=== PATIENT | female | born 1945 | race Caucasian/White ===

== ENCOUNTER 2016-04-08 06:07 | Inpatient (IN) | payer OTHER, MEDICARE ==
[~2016-04-08] VITALS: Ht 160 cm; Wt 87.5 kg
[~2016-04-08 06:07] MED LIST: ACTOS30 M1 PO; AMLODIPINE10 MG PO; ASPIRIN CHILDRE81 MG PO; ASPIRIN EC325 MG PO; ATENOLOL100 M1 PO; ATORVASTATIN CA10 M1 PO; Aspirin PO; CATAPRES0.1 M1 PO; COZAAR 100MG T100 MG PO; COZAAR 50MG TAB50 MG PO; CYCLOBENZAPRINE5 M2 PO; CYMBALTA 30 MG30 MG PO; FENOFIBRATE200 MG PO; HCTZ/LISINOPRIL1 TA1 PO; HYDRODIURIL 112.5 MG PO; IBUPROFEN400 M1 PO; KEFLEX250 M1 PO; LEVEMIR 10100 UNITS/ SC; LEVEMIR FL300 UNITS/ SC; LEVEMIR100 U/ML SC; LEVEMIR100 UNIT/1 SC; LISINOPRIL-HCT1 EACH PO; LISINOPRIL/HCTZ1 TAB PO; LOSARTAN POTAS100 M1 PO; LOSARTAN POTAS100 MG PO; MAG-OX 400400 MG PO; MAGNESIUM400 M1 PO; NOVOLOG 10300 UNITS/ SC; NOVOLOG100 U/ML SC; OXYCODONE5 MG PO; PEPCID 20MG TAB20 MG PO; PERCOCET 5-3251 EACH PO; PIOGLITAZONE15 MG PO; POTASSIUM CHLO20 ME2 PO; PRILOSEC 20MG C20 MG PO; PROAIR HFA8.5 GM INH; RANITIDINE150 MG PO; REGLAN10 MG PO; SENOKOT S 50 MG1 TAB PO; SUCRALFATE1 GM PO; SYNTHROID150 MCG PO; TRAMADOL HCL50 M1 PO; TRAMADOL50 MG PO; TYLENOL TAB 32325 MG PO; TYLENOL XSTR500 MG PO; ULTRACET 325 MG1 TAB PO; ULTRAM(MONOGRAP50 MG PO; VICODIN 5-3001 EACH PO; VICODIN 500 MG-1 TAB PO; XANAX2 MG PO; ZOFRAN 4 MG TABL4 MG PO; ZOFRAN 8MG8 MG PO; ZOFRAN ODT4 M1 PO; ZOFRAN ODT4 M1 SL; ZOFRAN ODT4 MG SL
--- NOTE | 2016-04-08 06:13 | NUR ---
TRIAGE: PATIENT CHATO FROM HOME REPORTING WAS TOLD BY VISITING NURSE (HAS VISITING NURSE D/T LOST BALANCE AND FELL 03/02/16 SINCE +BILAT KNEE PAIN) TO COME IN TO ER ON TUESDAY FOR GENERALIZED BODY ACHES. PATIENT REPORTS DID NOT WANT TO COME IN, WAITED IT OUT AND CAME IN THIS AM D/T "PAIN TOO MUCH." PER PT, "VISITING RN TOLD ME RETAINING FLUID, BUT DIDN'T TELL ME WHY." PER EMS, PATIENTS FAMILY REPORTED TO EMS ON SCENE, "SHE'S HAVING PAIN AGAIN, 4TH TIME THIS WEEK." PATIENT RELCTANT TO MOVE ON OWN, MOVES W/ MINIMAL DIFFICULTY BY SELF WITH ENCOURAGEMENT.
[2016-04-08] MEDS ORDERED: FUROSEMIDE20 M1 PO (06:15)
--- NOTE | 2016-04-08 06:19 | NUR ---
MD RUFFIN TO BEDSIDE FOR EVAL. PATIENT'S AT BEDSIDE W/ PATIENT PER PATIENT REQUEST.
--- NOTE | 2016-04-08 06:34 | ED GENERAL ADULT ---
History of Present Illness General Chief Complaint: General Adult Stated Complaint: CHATO GENEARLIZED BODY ACHES SINCE TUESDAY Source: patient, family, old records, EMS Exam Limitations: no limitations Vital Signs & Intake/Output Vital Signs & Intake/Output Vital Signs Date Time Temp Pulse Resp B/P Pulse O2 O2 Flow FiO2 Ox Delivery Rate 04/09 1151 Room Air 04/09 1138 Room Air 04/09 0924 150/74 04/09 0923 150/74 04/09 0830 92.4 80 100 Room Air 04/09 0654 92.5 50 20 150/74 97 Room Air 04/08 2245 97.9 60 20 170/76 99 Room Air 04/08 1740 97.7 68 20 150/72 99 Room Air 04/08 1531 76 18 185/76 98 Room Air ED Intake and Output 04/09 0000 04/08 1200 Intake Total 700 Output Total Balance 700 Intake, Oral 700 Patient 181 lb 181 lb Weight Allergies Coded Allergies: codeine (Severe, RASH, DIFFICULTY BREATHING 04/08/16) morphine (Severe, SHORTNESS OF BREATH 04/08/16) Triage Note: TRIAGE: PATIENT CHATO FROM HOME REPORTING WAS TOLD BY VISITING NURSE (HAS VISITING NURSE D/T LOST BALANCE AND FELL 03/02/16 SINCE +BILAT KNEE PAIN) TO COME IN TO ER ON TUESDAY FOR GENERALIZED BODY ACHES. PATIENT REPORTS DID NOT WANT TO COME IN, WAITED IT OUT AND CAME IN THIS AM D/T "PAIN TOO MUCH." PER PT, "VISITING RN TOLD ME RETAINING FLUID, BUT DIDN'T TELL ME WHY." PER EMS, PATIENTS FAMILY REPORTED TO EMS ON SCENE, "SHE'S HAVING PAIN AGAIN, 4TH TIME THIS WEEK." PATIENT RELCTANT TO MOVE ON OWN, MOVES W/ MINIMAL DIFFICULTY BY SELF WITH ENCOURAGEMENT. Triage Nurses Notes Reviewed? yes HPI: Patient brought in by ambulance for pain in both legs and her left hip. The pain is been there ever since she fell back in February. Patient states that shortly after falling she was prescribed Percocet which was helping the pain and then when the Percocet ran out she was prescribed tramadol which didn't help nearly as well and a chair at all ran out and since then she has not been taking anything. Patient has physical therapists in [facility] to go to her house. The visiting nurse told her yesterday that the pain was because she was swollen up with fluid everywhere. Her nurse called her primary care physician who told her to come to the office however the patient decided not to and then waited until this morning to call the ambulance to come in for evaluation. The pain is aching in nature and is constant. There is radiation to the rest of her body. There are no aggravating or mitigating factors. She rates the pain is 10 out of 10. There is no difficulty breathing or orthopnea. There is no chest pain or palpitations. There are no fevers or chills. (AUGUSTIN HERMAN,ADRIAN Johnson) Reconcile Medications Aspirin (Children's Aspirin) 81 MG TAB.CHEW 81 MG PO DAILY HEART TAKE 1 TAB PO DAILY Atenolol 100 MG TABLET 1 TAB PO 1300 HEART (Reported) Atorvastatin Calcium 10 MG TABLET 50 MG PO 1300 HEART HEALTH (Reported) Clonidine HCl (Catapres) 0.1 MG TABLET 1 TAB PO DAILY BP (Reported) FENOFIBRATE,MICRONIZED (Fenofibrate) 200 MG CAPSULE 1 CAP PO DAILY HLD ( Reported) Furosemide 20 MG TABLET 1 TAB PO DAILY edema (Reported) Insulin Detemir (Levemir) 100 UNIT/1 ML VIAL 40 UNITS SC BID DIABETES ( Reported) Levothyroxine Sodium (Synthroid) 150 MCG TABLET 1 TAB PO DAILY AC THYROID ( Reported) Lisinopril/Hydrochlorothiazide (Lisinopril-Hctz 20-12.5 MG Tab) 20 MG-12.5 MG TABLET 1 TAB PO DAILY HIGH BLOOD PRESSURE (Reported) Magnesium Oxide (Magnesium) 400 MG CAPSULE 20.5 MG PO DAILY VITAMIN SUPPORT ( Reported) Pioglitazone HCl (Actos) 30 MG TABLET 1 TAB PO DAILY DIABETES (Reported) (JOYCE HERMAN,DAVONTE Chand) Past History Travel History Traveled to [place] past 21 day No Medical History Any Pertinent Medical History? 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 No (AUGUSTIN HERMAN,ADRIAN Johnson) Review of Systems Review of Systems Constitutional: Reports: no symptoms. EENTM: Reports: no symptoms. Respiratory: Reports: no symptoms. Cardiovascular: Reports: no symptoms. GI: Reports: no symptoms. Genitourinary: Reports: no symptoms. Musculoskeletal: Reports: see HPI. Skin: Reports: no symptoms. Neurological/Psychological: Reports: no symptoms. Hematologic/Endocrine: Reports: no symptoms. Immunologic/Allergic: Reports: no symptoms. All Other Systems: Reviewed and Negative (AUGUSTIN HERMAN,ADRIAN Johnson) Physical Exam Physical Exam General Appearance: well developed/nourished, alert, awake, moderate distress Head: atraumatic, normal appearance Eyes: Bilateral: PERRL, EOMI. Ears, Nose, Throat: normal pharynx, normal ENT inspection, hearing grossly normal Neck: normal inspection, supple, full range of motion, no midline tenderness Respiratory: normal breath sounds, chest non-tender, no respiratory distress, lungs clear Cardiovascular: regular rate/rhythm, normal peripheral pulses Gastrointestinal: normal bowel sounds, soft, non-tender Back: normal inspection, normal range of motion Extremities: normal inspection, normal capillary refill, pedal edema (TRACE), PAIN TO ANY MOVEMENT Neurologic/Psych: no motor/sensory deficits, awake, alert, oriented x 3, normal mood/affect Skin: intact, normal color, warm/dry Comments: Patient has full range of motion and is able to ambulate at home however she says that it hurts immensely to any movement of her legs. Core Measures ACS in differential dx? No CVA/TIA Diagnosis: No Severe Sepsis Present: No Septic Shock Present: No (AUGUSTIN HERMAN,ADRIAN Johnson) Progress Differential Diagnoses I considered the following diagnoses in my evaluation of the patient: [Diastolic dysfunction, third spacing, muscle strain] Plan of Care: Orders Procedure Date/time Status Pain Treatment and Response 04/09 1015 Active THYROID STIMULATING HORMONE 04/09 0730 Complete TOTAL TRIODOTHYROXINE 04/09 0730 Complete THYROXINE 04/09 0730 Complete TOTAL IRON BINDING CAPACITY 04/09 0600 Complete PROTHROMBIN TIME 04/09 0600 Complete HEPATIC FUNCTION PANEL 04/09 0600 Complete FERRITIN 04/09 0600 Complete SERUM IRON 04/09 0600 Complete CBC WITHOUT DIFFERENTIAL 04/09 0600 Complete BASIC ELECTROLYTES PLUS BUN&CR 04/09 0600 Complete Therapeutic Activities 04/09 UNK Complete PT EVAL MOD COMPLEX 30 MIN 04/09 UNK Complete Neuromuscular Re-ed 04/09 UNK Complete Gait Training 04/09 UNK Complete Lab Add-on Test 04/09 UNK Active EKG 04/09 UNK Active ECHOCARDIOGRAM 04/09 UNK Active Consistent Carbohydrate 3 04/08 D Active Wound Care/Dressing 04/08 1958 Active Skin Integrity Protocol 04/08 1958 Active Skin/Pressure Ulcer Assess (Sk 04/08 1958 Active Code Status 04/08 1913 Active Vital Signs 04/08 1726 Active Teach/Educate 04/08 1726 Active Nutritional Intake, Monitor 04/08 1726 Active Isolation 04/08 1726 Active Intake & Output 04/08 1726 Active Patient Care Conference 04/08 1726 Active Activity/Ambulation 04/08 1726 Active Pathway - chart 04/08 1715 Active House Staff 04/08 1715 Active Misc Message 04/08 1529 Active ED Holding Orders 04/08 1529 Active Vital Signs 04/08 1529 Active Code Status 04/08 1529 Complete Patient Data 04/08 1458 Active Admit to inpatient 04/08 1455 Active VIT D 25 HYDROXY 04/08 0638 Complete VITAMIN B12 04/08 0638 Complete Intake & Output 04/08 0609 Active Lab Add-on Test 04/08 UNK Active Wound Care/Dressing 04/08 UNK Complete VTE Mechanical Prophylaxis 04/08 UNK Active FingerStick- Glucose 04/08 UNK Active PHYSICIAN CONSULT 04/08 UNK Active Current Medications Sig/Radha Start time Last Medication Dose Stop Time Status Admin Atorvastatin Calcium 50 MG 1300 04/09 1300 AC (Lipitor) Insulin Aspart 0 TIDAC 04/09 0800 AC (NovoLOG) Insulin Detemir 40 UNITS BID 04/08 2200 AC (Levemir) Senna/Docusate Sodium 2 TAB DAILY PRN 04/08 2100 CAN (Senokot S) Senna/Docusate Sodium 2 TAB DAILY PRN 04/08 1845 AC (Senokot S) Polyethylene Glycol 17 GM DAILY 04/08 1832 AC (Miralax) Oxycodone HCl 5 MG Q6P PRN 04/08 1715 AC (Roxicodone) Acetaminophen 650 MG Q6P PRN 04/08 1700 AC (Tylenol) Laboratory Tests 04/09/16 0730: Anion Gap 10, Estimated GFR 21 L, BUN/Creatinine Ratio 20.9, Iron 42, TIBC 193 L, Ferritin 266.0 H, Total Bilirubin 1.0, Direct Bilirubin 0.7 H, AST 76 H, ALT 54 H, Alkaline Phosphatase 148 H, Total Protein 5.8 L, Albumin 2.0 L, TSH 5.670 H, Thyroxine (T4) 9.1, Total T3 0.54 L, PT 14.6 H, INR 1.40 H, CBC w Diff NO MAN DIFF REQ, RBC 2.56 L, MCV 106.1 H, MCH 35.6 H, RDW 19.0 H, MPV 9.0, Gran % 79.0 H, Lymphocytes % 12.9 L, Monocytes % 6.4, Eosinophils % 1.2, Basophils % 0.5, Absolute Granulocytes 4.8, Absolute Lymphocytes 0.8 L, Absolute Monocytes 0.4, Absolute Eosinophils 0.1, Absolute Basophils 0, PUBS MCHC 33.5 Initial ED EKG: none Hand-Off Endorsed To: DAVONTE COOK MD Endorsed Time: 0700 Pending: labs (AUGUSTIN HERMAN,ADRIAN Johnson) Differential Diagnoses I considered the following diagnoses in my evaluation of the patient: Comments: 04/08/2016 10:08:00 AM patient signed out to me by Dr. Eubanks. I have updated the patient on her test results. She states that she is far too weak and having too much bilateral hip and leg pain for discharge. She states she cannot ambulate safely. (JOYCE HERMAN,DAVONTE Chand) Departure Departure Disposition: STILL A PATIENT Condition: Stable Clinical Impression Primary Impression: Leg pain, bilateral Referrals: ARLEEN HORN MD (PCP/Family) Departure Forms: Customer Survey General Discharge Information (AUGUSTIN HERMAN,ADRIAN Johnson) Admission Note Spoke With: ALIREZA MARK MD Documentation of Exam: Documentation of any treatments & extenuating circumstances including Concerns Regarding Discharge (functional status, medication knowledge or non-compliance, living conditions, etc.) that warrant an admission rather than observation: Patient is suffering from an inability to ambulate secondary to weakness and gait instability. In addition she is suffering and anemia and has chronic renal insufficiency. She can be safely discharged under the circumstances and would be at very high risk of falling with subsequent injury. I feel she is not a good candidate for outpatient management at this time. She should have physical therapy evaluation, monitoring of renal functions and hematocrit and hemoglobin levels. I feel she will require a multiple day hospitalization. (JOYCE HERMAN,DAVONTE Chand) Critical Care Note Critical Care Note Critical Care Time: non-applicable (AUGUSTIN HERMAN,ADRIAN Johnson)
[2016-04-08 06:46] LABS: ABSOLUTE BASOPHIL COUNT 0 /CUMM (0.0-0.2); ABSOLUTE EOSINOPHIL COUNT 0.1 /CUMM (0.0-0.7); ABSOLUTE GRANULOCYTE CT 3.9 /CUMM (1.4-6.5); ABSOLUTE LYMPH COUNT 0.8 /CUMM (1.2-3.4); ABSOLUTE MONOCYTE COUNT 0.4 /CUMM (0.10-0.60); BASOPHIL % 0.6 % (0.0-2.0); EOSINOPHIL % 1.8 % (0-5); GRANULOCYTE % 73.6 % (42.2-75.2); HEMATOCRIT 29.5 % (37-47); MEAN CORPUSCULAR HGB 34.7 PG (27.0-31.0); MEAN CORPUSCULAR VOLUME 105.2 FL (81.0-99.0); MEAN PLATELET VOLUME 8.2 FL (7.4-10.4); RBC DISTRIBUTION WIDTH 19.4 % (11.5-14.5); WHITE BLOOD CELL COUNT 5.3 /CUMM (4.8-10.8)
--- NOTE | 2016-04-08 06:53 | NUR ---
Pt medicated for pain with Percocet per eMAR.
[2016-04-08 07:11] LABS: PLATELET COUNT ND /CUMM (130-400)
--- NOTE | 2016-04-08 07:30 | NUR ---
ASSUMED CARE, PT AWAKE, C/O LEFT LOWER LEG PAIN, PERCOCET HELPFUL.
--- NOTE | 2016-04-08 08:07 | NUR ---
PT AWARE OF NEED FOR UA.
--- NOTE | 2016-04-08 08:52 | NUR ---
URINE SENT TO LAB BY THIS MST
--- NOTE | 2016-04-08 10:06 | NUR ---
DR. COOK IN TO RE-EVALUATE.
--- NOTE | 2016-04-08 10:23 | NUR ---
AWAITING CASE MANAGEMENT.
--- NOTE | 2016-04-08 10:37 | NUR ---
FOOD TRAY ORDERED.
--- NOTE | 2016-04-08 12:52 | NUR ---
PT TO COMMODE WITH ASSISTANCE. UNABLE TO AMBULATE ALONE, BUT CAN SIT TO EDGE OF BED
--- NOTE | 2016-04-08 14:46 | NUR ---
MEDICATED FOR PAIN.
--- NOTE | 2016-04-08 14:57 | NUR ---
ROXICODONE NOT GIVEN.
--- NOTE | 2016-04-08 15:20 | NUR ---
HOUSE STAFF HERE TO EVALUATE.
--- NOTE | 2016-04-08 15:46 | History & Physical ---
GIA HERMAN,[facility] 04/08/16 1545: General Information and HPI MD Statement: I have seen and personally examined MALIK LOVE and documented this H&P. The patient is a 70 year old F who presented with a patient stated chief complaint of bilateral lower ext pain and hip pain Source of Information: patient, old records Exam Limitations: no limitations History of Present Illness: This is a 70-year-old female with past medical history of hypothyroidism, hyperlipidemia, diabetes mellitus, hypertension for evaluation of pain in legs and her left hip. As per patient she has been having this pain in her hip area since last month, ever since she fell in shower last month, at that time she was seen in ER and was prescribed some pain meds and I was asked to follow-up with ortho as an outpatient, she did not. She was taking Percocet was helping her with pain, initially was controlling the pain but for the past couple of days the pain has progressively increased the point that the visiting nurse called her primary care physician and was asked to come to the clinic but instead secondary to the immense amount of pain to decide to come to the ER for further evaluation. She describes the pain as aching in nature in the left hip and both of her legs but more pronounced in the left side. She rates the pain 10 on 10 in intensity, aggravated with movement. Denies any nausea, vomiting, abdominal pain, any changes in the bowel movements, any urine symptoms, recent travels, dizziness, palpitation, chest pain, blackouts, syncope, headache. She had a colonoscopy done but is unsure what the results of the biopsy were, follows Dr. shaffer. Allergies/Medications Allergies: Coded Allergies: codeine (Severe, RASH, DIFFICULTY BREATHING 04/08/16) morphine (Severe, SHORTNESS OF BREATH 04/08/16) Home Med list Aspirin (Children's Aspirin) 81 MG TAB.CHEW 81 MG PO DAILY HEART TAKE 1 TAB PO DAILY Atenolol 100 MG TABLET 1 TAB PO 1300 HEART (Reported) Atorvastatin Calcium 10 MG TABLET 50 MG PO 1300 HEART HEALTH (Reported) Clonidine HCl (Catapres) 0.1 MG TABLET 1 TAB PO DAILY BP (Reported) FENOFIBRATE,MICRONIZED (Fenofibrate) 200 MG CAPSULE 1 CAP PO DAILY HLD ( Reported) Furosemide 20 MG TABLET 1 TAB PO DAILY edema (Reported) Insulin Detemir (Levemir) 100 UNIT/1 ML VIAL 40 UNITS SC BID DIABETES ( Reported) Levothyroxine Sodium (Synthroid) 150 MCG TABLET 1 TAB PO DAILY AC THYROID ( Reported) Lisinopril/Hydrochlorothiazide (Lisinopril-Hctz 20-12.5 MG Tab) 20 MG-12.5 MG TABLET 1 TAB PO DAILY HIGH BLOOD PRESSURE (Reported) Magnesium Oxide (Magnesium) 400 MG CAPSULE 20.5 MG PO DAILY VITAMIN SUPPORT ( Reported) Pioglitazone HCl (Actos) 30 MG TABLET 1 TAB PO DAILY DIABETES (Reported) Past History Travel History Traveled to [place] past 21 day No Medical History Neurological: NONE EENT: NONE Cardiovascular: hypertension, hyperlipidemia Respiratory: NONE Gastrointestinal: NONE Hepatic: NONE Renal: NONE Musculoskeletal: NONE Psychiatric: NONE Endocrine: diabetes, hypothyroidism Blood Disorders: NONE Cancer(s): NONE 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 Denies: chills, fever. Cardiovascular: Denies: chest pain, palpitations. Respiratory: Denies: cough, short of breath, sputum production. GI: Denies: abdominal pain, constipation, diarrhea, nausea, vomiting. Genitourinary: Denies: dysuria, frequency. Musculoskeletal: Reports: see HPI, joint pain. Exam & Diagnostic Data Last 24 Hrs of Vital Signs/I&O Vital Signs Date Time Temp Pulse Resp B/P Pulse O2 O2 Flow FiO2 Ox Delivery Rate 04/08 1740 97.7 68 20 150/72 99 Room Air 04/08 1531 76 18 185/76 98 Room Air 04/08 1238 97.8 61 18 162/94 97 04/08 1100 97.5 84 20 189/79 99 04/08 0754 98.1 60 20 156/70 100 Room Air 04/08 0616 Room Air 04/08 0616 98.4 88 19 179/77 94 Room Air Intake & Output 04/08 1600 04/08 0800 04/08 0000 Intake Total Output Total Balance Patient 82.1 kg Weight Physical Exam General Appearance Alert, Oriented X3, Cooperative Cardiovascular Regular Rate, Normal S1, Normal S2, No Murmurs Lungs Clear to Auscultation, Normal Air Movement Abdomen Normal Bowel Sounds, Soft, No Tenderness Extremities No Clubbing, No Cyanosis, No Edema Last 24 Hrs of Labs/Diego: Laboratory Tests 04/08/16 0849: Urinalysis LIGHT H, Urine Color [place], Urine Clarity HAZY H, Urine pH 6.0, Ur Specific [place] >= 1.030, Urine Protein >=300 H, Urine Ketones NEG, Urine Nitrite NEG, Urine Bilirubin NEG@ICTO, Urine Urobilinogen 1.0, Ur Leukocyte Esterase NEG, Ur Microscopic SEDIMENT EXAMINED, Urine RBC 3-5, Urine WBC 5-10 H , Ur Epithelial Cells MOD H, Hyaline Casts 5-10 H, Granular Casts 1-3 H, Urine Mucus RARE, Urine Hemoglobin SMALL H, Urine Glucose NEG 04/08/16 0638: Anion Gap 12, Estimated GFR 21 L, BUN/Creatinine Ratio 20.9, Glucose 107 H, Calcium 7.5 L, Total Bilirubin 1.0, AST 77 H, ALT 52, Alkaline Phosphatase 213 H, Wrs-P-Owteovsyzgz Pept 73981 H, Total Protein 6.3, Albumin 2.3 L, Globulin 4.0, Albumin/Globulin Ratio 0.6 L, 25-OH Vitamin D Total Pending, CBC w Diff NO MAN DIFF REQ, RBC 2.80 L, MCV 105.2 H, MCH 34.7 H, RDW 19.4 H, Plt Count ND, MPV 8.2, Gran % 73.6, Lymphocytes % 15.6 L, Monocytes % 8.4, Eosinophils % 1.8, Basophils % 0.6, Absolute Granulocytes 3.9, Absolute Lymphocytes 0.8 L, Absolute Monocytes 0.4, Absolute Eosinophils 0.1, Absolute Basophils 0, PUBS MCHC 33.0 Assessment/Plan Assessment: This is a 70-year-old female with past medical history of hypothyroidism, hyperlipidemia, diabetes mellitus, hypertension for evaluation of pain in legs and her left hip. Mildly displaced, comminuted fracture of the greater trochanter of the left femur seen Vitals upon presentation, temperature 98.4, pulse 88, respiratory rate 19, 179/ 77, satting in high 90s on room air. Labs, H&H 9.7 and 29.5, creatinine 2.3, BUN 48 We will admit the patient to general medicine floor and monitor for the following conditions; Left-sided hip pain/ status post fall/hip fracture: Pain control with Tylenol for mild, oxycodone for moderate and Percocet for severe pain. Consult on Ortho in morning Monitor labs, IV fluids. History of hypothyroidism: We'll continue home dose of Synthroid 0.15mg daily History of hyperlipidemia: We'll continue home dose of atorvastatin 50 mg daily History of diabetes mellitus: Fingerstick glucose sliding scale Diabetic diet History of hypertension: We'll continue home dose of lisinopril 20 mg daily DVT prophylaxis As Ranked By This Provider Problem List: 1. Fracture of greater trochanter of left femur 2. Leg pain, bilateral 3. Back pain Core Measures/Miscellaneous Acute Coronary Syndrome ACS Diagnosis: No Cerebrovascular Accident CVA/TIA Diagnosis: No Congestive Heart Failure CHF Diagnosis: No Venous Thromboembolism VTE Risk Factors: Acute medical illness, Age > 40 VTE Prophylaxis [facility]dered Inpt: [facility] d/t: No contraindications No VTE Pharm Prophylaxis d/t: No contraindications VTE Diagnosis: No VTE Type: NONE VTE Confirmed by (Test): NONE Severe Sepsis Severe Sepsis Present: No Septic Shock Septic Shock Present: No Miscellaneous Documentation Attending Case Discussed With: BOLA HERMAN,ROHINI Craft Primary Care Physician: ARLEEN HORN MD Patient sees these Specialists . Level of Patient Care: General Medicine JOSSELIN THACKER MD 04/08/161939: Resident Review Statement Resident Statement: examined this patient, discussed with process engineering intern, agreed with process engineering intern Other Findings: 70 year old female with PMH of DM type 2 now insulin dependant, HTN, HLD, CKD, Hypothyroidism, s/p Lt ankle reconstruction here for persistent and worsening pain in her hip and LE following a mechanical fall with trauma to her head on mar 02. She reports losing her balance and falling in the shower. She sustained an mild comminuted fracture of the left femur and was seen in the ER by the orthopedic surgeon who deemed she did not need intervention at the time and should follow as outpatient but she was unable to follow up with him. She denies any loss of consciousness, dizziness or diplopia, nausea, vomiting or injury to her head. She has fallen several times in the past month because of unsteady gait luis a on her left and uses a walker for ambulation. She also reports recent swelling of her bilateral lower limbs and more recently her Rt upper arm and a history of abdominal swelling for which she follows up with Dr. Aviles. Elevated Pro BNP, abnormal LFTs Assessment 1. Pain and difficulty ambulating 2/2 Mildly displaced, comminuted fracture of the greater trochanter of the left femur 2. Anasarca of unclear origin-r/o cardiac origin vs hepatic origin 3. Type 2 DM on insulin 4. Microcytic anemia Plan Admit to general med Pain management PT Chest x-ray-rule out pleural effusion, cardiomegaly Obtain an echocardiogram Ortho consult Check Vit D, B12 Repeat labs in a.m. including platelets, LFTs, INR Anemia workup Resume her home medications She will need placement in STR Subcutaneous heparin for DVT prophylaxis PLAZAKASSIE CAROCeleste 04/09/16 1650: Attending MD Review Statement Attending Statement Attending MD Statement: examined this patient, discuss w/resident/PA/RN FIELD CASE MANAGER, agreed w/resident/PA/RN FIELD CASE MANAGER, reviewed EMR data (avail), discussed with nursing, discussed with case mgmt Attending Assessment/Plan: Patient seen and examined in ER . Please see my separate attending note for more details
--- NOTE | 2016-04-08 16:05 | NUR ---
PT ADMITTED TO ROOM 229-1
--- NOTE | 2016-04-08 16:45 | NUR ---
REPORT TO FLOOR.
[2016-04-08] MEDS ORDERED: EPZICOM TABLET1 EACH PO (17:26)
[2016-04-08] MEDS ORDERED: LISINOPRIL-HCT1 EACH PO ×2 (17:26→17:27)
--- NOTE | 2016-04-08 17:27 | Admission Certification ---
Admission Certification Certification Statement - As attending physician, I certify that at the time of - admission, based on clinical presentation, severity of - symptoms, need for further diagnostic testing and - therapeutic interventions, and risk of adverse outcomes - without in-hospital treatment, in my clinical assessment, - this patient requires an acute hospital stay for a minimum - of two nights or longer. I have also considered psychsocial - factors such as support system, advanced age, financial - issues, cognitive issues, and failed out-patient treatments, - past re-admission history, safety of patient, and lack of - compliance as applicable. Specific rationale supporting this admission is: Fluid overload with ascites, will need workup. Trochanteric fracture, will need ortho eval.
--- NOTE | 2016-04-08 17:30 | PN- Att Addend ---
Attending Addendum Attending Brief Note 70-year-old female who was recently seen in the emergency room on March 02 with a fall and was found to have greater trochanteric fracture of the femur for which she was evaluated by orthopedics and was supposed to follow up with them as an outpatient. Patient was unable to follow-up with orthopedics as an outpatient and started having pitting edema of both lower extremity as well as right upper extremity which is new for her. Patient also has a history of ascites of unclear etiology. Fluid overload unclear etiology-would get the echocardiogram to find out her ejection fraction. Fluid overload could also be related to her liver disease. Greater trochanteric fracture. We will get orthopedics to reevaluate her given that she was unable to follow-up with them as an outpatient. Next Discussed with patient the care plan
[2016-04-08 17:40] VITALS: BP 150/72
--- NOTE | 2016-04-08 19:50 | NUR ---
PT ARRIVED TO FLOOR FROM ER A/ O X 3, ON RA VSS, STATING PAIN TO LEFT HIP AND BILATERAL LOWER EXT. NO IV PLACED. BLE DRESSINGS PT STATED THE [facility] DID THEM THE OTHER DAY, SMALL OPEN AREAS TO POSTERIOR LOWER EXTREMITIES. XEROFORM, TELFA AND KERLEX APPLIED. +2 PITTING EDEMA TO BLE. RAISED ON PILLOWS. REFUSING ALPS AT THIS TIME. ABD DISTENDED WHICH IS NEW PER PATIENT. +BS X 4, +FLATUS, LAST BM YESTERDAY PER PATIENT. ORIENTED TO ROOM AND USE OF CALL COOK. BED ALARM IN PLACE. PT STATES SHE FELL ABOUT A MONTH AGO "THEY TOLD ME MY HIP IS FRACTURED. NO OBVIOUS BRUISING TO HIP NOTED. HIP IS EXTERNALLY ROTATED.
[2016-04-08 22:45] VITALS: BP 170/76
--- NOTE | 2016-04-08 23:04 | RADIOLOGY REPORT ---
EXAMINATION: XR PORTABLE CHEST CLINICAL INFORMATION: Anasarca. COMPARISON: 10/12/2015 TECHNIQUE: Portable view of the chest was obtained. FINDINGS: Low lung volumes. Streaky retrocardiac opacity. No effusion or edema. No pneumothorax. The cardiomediastinal silhouette remains prominent, with a calcified aorta. IMPRESSION: Low lung volumes with streaky retrocardiac opacity which could represent atelectasis or pneumonia. Stable prominence of the cardiac silhouette.
[2016-04-09 06:54] VITALS: BP 150/74
[2016-04-09 08:37] LABS: ABSOLUTE BASOPHIL COUNT 0 /CUMM (0.0-0.2); ABSOLUTE EOSINOPHIL COUNT 0.1 /CUMM (0.0-0.7); ABSOLUTE MONOCYTE COUNT 0.4 /CUMM (0.10-0.60); HEMATOCRIT 27.1 % (37-47); RED BLOOD CELL CT 2.56 /CUMM (4.20-5.40)
[2016-04-09 08:46] LABS: ABSOLUTE GRANULOCYTE CT 4.8 /CUMM (1.4-6.5); ABSOLUTE LYMPH COUNT 0.8 /CUMM (1.2-3.4); BASOPHIL % 0.5 % (0.0-2.0); EOSINOPHIL % 1.2 % (0-5); MEAN CORPUSCULAR HGB 35.6 PG (27.0-31.0); MEAN CORPUSCULAR HGB CONC 33.5 G/DL (33.0-37.0); MEAN CORPUSCULAR VOLUME 106.1 FL (81.0-99.0); PT 14.6 SEC (9.4-12.5); WHITE BLOOD CELL COUNT 6.1 /CUMM (4.8-10.8)
--- NOTE | 2016-04-09 08:47 | PN- Housestaff ---
Subjective Follow-up For: Status post hip fracture Subjective: Patient seen and examined this morning. She was lying comfortably in bed in no acute distress, she was reported to be hypothermic overnight, other vitals within normal limits. Continues to have edema in her bilateral lower extremities. No other Review of Systems Constitutional: Denies: chills, fever. Cardiovascular: Denies: chest pain, palpitations. Respiratory: Denies: cough, short of breath. Gastrointestinal: Denies: abdominal pain, constipation, diarrhea, nausea, vomiting. Genitourinary: Denies: dysuria, frequency. Objective Last 24 Hrs of Vital Signs/I&O Vital Signs Date Time Temp Pulse Resp B/P Pulse O2 O2 Flow FiO2 Ox Delivery Rate 04/09 1444 97.5 53 20 132/80 97 Room Air 04/09 1151 Room Air 04/09 1138 Room Air 04/09 0924 150/74 04/09 0923 150/74 04/09 0830 92.4 80 100 Room Air 04/09 0654 92.5 50 20 150/74 97 Room Air 04/08 2245 97.9 60 20 170/76 99 Room Air 04/08 1740 97.7 68 20 150/72 99 Room Air Intake & Output 04/09 1600 04/09 0800 04/09 0000 Intake Total 480 50 700 Output Total 400 Balance 480 -350 700 Intake, IV 0 0 Intake, Oral 480 50 700 Number 0 Bowel Movements Output, Urine 400 Patient 81.647 kg 82.1 kg Weight Physical Exam General Appearance: Alert, Oriented X3, Cooperative, No Acute Distress Cardiovascular: Regular Rate, Normal S1, Normal S2, No Murmurs Lungs: Clear to Auscultation, Normal Air Movement Abdomen: Normal Bowel Sounds, Soft, No Tenderness Extremities: b/l lower ext edema pitting Current Medications: Current Medications Sig/Radha Start time Last Medication Dose Route Stop Time Status Admin Acetaminophen 650 MG Q6P PRN 04/08 1700 AC PO Aspirin 81 MG DAILY 04/09 1000 AC 04/09 PO 0923 Atenolol 100 MG DAILY 04/08 1720 AC 04/09 PO 0924 Atorvastatin Calcium 50 MG 1300 04/09 1300 AC 04/09 PO 1647 Clonidine 0.1 MG DAILY 04/08 1719 AC 04/09 PO 0923 Docusate Sodium 100 MG DAILY 04/08 2100 DC 04/08 PO 2110 Docusate Sodium 100 MG DAILY 04/08 1832 AC 04/08 PO 2104 Fenofibrate 145 MG DAILY 04/09 1000 AC 04/09 PO 0924 Furosemide 20 MG BID 04/08 2200 AC 04/09 PO 0923 Heparin Sodium 5,000 UNIT Q8 04/08 1702 AC 04/09 (Porcine) SC 1446 Hydrochlorothiazide 12.5 MG DAILY 04/08 1730 AC 04/09 PO 0925 Insulin Aspart 0 TIDAC 04/09 0800 AC SC Insulin Detemir 40 UNITS BID 04/08 2200 AC SC Insulin Detemir 8 UNITS ONCE ONE 04/08 211 DC 04/08 SC 04/08 Levothyroxine Sodium 0.175 MG DAILY AC 04/10 0700 AC PO Levothyroxine Sodium 0.15 MG DAILY AC 04/09 0700 DC 04/09 PO 0554 Lisinopril 20 MG DAILY 04/09 1000 AC 04/09 PO 0924 Oxycodone HCl 5 MG Q6P PRN 04/08 1715 AC PO Oxycodone/ 1 TAB Q6P PRN 04/08 1700 AC 04/09 Acetaminophen PO 1646 Patient Medication 1 ED .STK-MED ONE 04/09 1358 DC Teaching ED 04/09 1359 Polyethylene Glycol 17 GM DAILY 04/08 2100 DC PO Polyethylene Glycol 17 GM DAILY 04/08 1832 AC PO Senna/Docusate Sodium 2 TAB DAILY PRN 04/08 2100 CAN PO Senna/Docusate Sodium 2 TAB DAILY PRN 04/08 1845 AC PO Last 24 Hrs of Lab/Diego Results Last 24 Hrs of Labs/Mics: Laboratory Tests 04/09/16 0730: Anion Gap 10, Estimated GFR 21 L, BUN/Creatinine Ratio 20.9, Phosphorus Pending , Iron 42, TIBC 193 L, Ferritin 266.0 H, Total Bilirubin 1.0, Direct Bilirubin 0.7 H, AST 76 H, ALT 54 H, Alkaline Phosphatase 148 H, Total Protein 5.8 L, Albumin 2.0 L, TSH 5.670 H, Thyroxine (T4) 9.1, Total T3 0.54 L, PT 14.6 H, INR 1.40 H, CBC w Diff NO MAN DIFF REQ, RBC 2.56 L, MCV 106.1 H, MCH 35.6 H, RDW 19.0 H, MPV 9.0, Gran % 79.0 H, Lymphocytes % 12.9 L, Monocytes % 6.4, Eosinophils % 1.2, Basophils % 0.5, Absolute Granulocytes 4.8, Absolute Lymphocytes 0.8 L, Absolute Monocytes 0.4, Absolute Eosinophils 0.1, Absolute Basophils 0, PUBS MCHC 33.5 Assessment/Plan Assessment: This is a 70-year-old female with past medical history of hypothyroidism, hyperlipidemia, diabetes mellitus, hypertension for evaluation of pain in legs and her left hip. Mildly displaced, comminuted fracture of the greater trochanter of the left femur seen Vitals upon presentation, temperature 98.4, pulse 88, respiratory rate 19, 179/ 77, satting in high 90s on room air. Labs, H&H 9.7 and 29.5, creatinine 2.3, BUN 48 We will admit the patient to general medicine floor and monitor for the following conditions; Left-sided hip pain/ status post fall/hip fracture: Pain control with Tylenol for mild, oxycodone for moderate and Percocet for severe pain. Ortho consulted, please f/u recs Monitor labs, IV fluids. History of hypothyroidism: We'll will increase Synthroid 0.15mg daily>> 0.175mg daily as TSH 5.670 History of hyperlipidemia: We'll continue home dose of atorvastatin 50 mg daily History of diabetes mellitus: Fingerstick glucose sliding scale Diabetic diet History of hypertension: We'll continue home dose of lisinopril 20 mg daily DVT prophylaxis Problem List: 1. Fracture of greater trochanter of left femur 2. Chronic kidney disease 3. Leg pain, bilateral Pain Ratin Pain Location: b/l lower ext Pain Goal: Remain pain free Pain Plan: percocet roxicodone tylenol Tomorrow's Labs & Rationales: cbc for h&H monitoring
--- NOTE | 2016-04-09 09:27 | NUR ---
patient rectal temp 93.4, dr hernandez and team notified, patient placed back in bed and blankets applied, will recheck in approximately 30 minutes and report to md findings.
--- NOTE | 2016-04-09 10:58 | Cons- Cardiology ---
General Information and HPI Consulting Request Date of Consult: 04/09/16 Requested By: ROHINI PLAZA MD Reason for Consult: Fluid overload and generalized edema question cardiac etiology. Source of Information: patient, old records Exam Limitations: no limitations History of Present Illness: The patient is a 70-year-old female with multiple medical problems including CKD , known mild coronary artery disease, diabetes, hypertension. The patient presents with increasing edema and generalized body pain. On March 02 she fell in the shower and came to the emergency room where she was seen and documented to have a comminuted fracture of the left greater trochanter of the femur as well as ascites on x-ray. She was seen by orthopedics who recommended discharge and outpatient treatment, but apparently the patient never followed up. Since then she has been moderately disabled and has noted increasing swelling of her thighs and increasing abdominal size and peripheral edema. She does not have chest pain. She does have shortness of breath on exertion, which is chronic. She also has some known liver disease. In 2013 she had an abnormal stress test. At that time we sent her for cardiac cath which showed 20% proximal LAD and no stenoses in the other vessels and overall normal left ventricular function. She also had an echocardiogram at that time showing normal left ventricular systolic function. She had normal pulmonary artery pressure on the echocardiogram as well. Allergies/Medications Allergies: Coded Allergies: codeine (Severe, RASH, DIFFICULTY BREATHING 04/08/16) morphine (Severe, SHORTNESS OF BREATH 04/08/16) Home Med List: Aspirin (Children's Aspirin) 81 MG TAB.CHEW 81 MG PO DAILY HEART TAKE 1 TAB PO DAILY Atenolol 100 MG TABLET 1 TAB PO 1300 HEART (Reported) Atorvastatin Calcium 10 MG TABLET 50 MG PO 1300 HEART HEALTH (Reported) Clonidine HCl (Catapres) 0.1 MG TABLET 1 TAB PO DAILY BP (Reported) FENOFIBRATE,MICRONIZED (Fenofibrate) 200 MG CAPSULE 1 CAP PO DAILY HLD ( Reported) Furosemide 20 MG TABLET 1 TAB PO DAILY edema (Reported) Insulin Detemir (Levemir) 100 UNIT/1 ML VIAL 40 UNITS SC BID DIABETES ( Reported) Levothyroxine Sodium (Synthroid) 150 MCG TABLET 1 TAB PO DAILY AC THYROID ( Reported) Lisinopril/Hydrochlorothiazide (Lisinopril-Hctz 20-12.5 MG Tab) 20 MG-12.5 MG TABLET 1 TAB PO DAILY HIGH BLOOD PRESSURE (Reported) Magnesium Oxide (Magnesium) 400 MG CAPSULE 20.5 MG PO DAILY VITAMIN SUPPORT ( Reported) Pioglitazone HCl (Actos) 30 MG TABLET 1 TAB PO DAILY DIABETES (Reported) Current Medications: Current Medications Sig/Radha Start time Last Medication Dose Route Stop Time Status Admin Acetaminophen 650 MG Q6P PRN 04/08 1700 AC PO Aspirin 81 MG DAILY 04/09 1000 AC 04/09 PO 0923 Atenolol 100 MG DAILY 04/08 1720 AC 04/09 PO 0924 Atorvastatin Calcium 50 MG 1300 04/09 1300 AC PO Clonidine 0.1 MG DAILY 04/08 1719 AC 04/09 PO 0923 Docusate Sodium 100 MG DAILY 04/08 2100 DC 04/08 PO 2110 Docusate Sodium 100 MG DAILY 04/08 1832 AC 04/08 PO 2104 Fenofibrate 145 MG DAILY 04/09 1000 AC 04/09 PO 0924 Furosemide 20 MG BID 04/08 2200 AC 04/09 PO 0923 Heparin Sodium 5,000 UNIT Q8 04/08 1702 AC 04/09 (Porcine) SC 0554 Hydrochlorothiazide 12.5 MG DAILY 04/08 1730 AC 04/09 PO 0925 Insulin Aspart 0 TIDAC 04/09 0800 AC SC Insulin Detemir 40 UNITS BID 04/08 2200 AC SC Insulin Detemir 8 UNITS ONCE ONE 04/08 2115 DC 04/08 SC 04/08 211 2115 Levothyroxine Sodium 0.15 MG DAILY AC 04/09 0700 AC 04/09 PO 0554 Lisinopril 20 MG DAILY 04/09 1000 AC 04/09 PO 0924 Oxycodone HCl 5 MG Q6P PRN 04/08 1715 AC PO Oxycodone HCl 5 MG ONCE ONE 04/08 1330 DC 04/08 PO 04/08 1331 1445 Oxycodone/ 1 TAB Q6P PRN 04/08 1700 AC 04/09 Acetaminophen PO 0600 Oxycodone/ 1 TAB ONCE ONE 04/08 1500 DC 04/08 Acetaminophen PO 04/08 1501 1456 Oxycodone/ 0 .STK-MED ONE 04/08 1443 DC Acetaminophen PO Polyethylene Glycol 17 GM DAILY 04/08 2100 DC PO Polyethylene Glycol 17 GM DAILY 04/08 1832 AC PO Senna/Docusate Sodium 2 TAB DAILY PRN 04/08 2100 CAN PO Senna/Docusate Sodium 2 TAB DAILY PRN 04/08 1845 AC PO Review of Systems Review of Systems: She is complaining of generalized body pain. Past History Travel History Traveled to [place] past 21 day No Medical History Blood Transfusion Hx: No Neurological: NONE EENT: NONE Cardiovascular: hypertension, hyperlipidemia Respiratory: asthma Gastrointestinal: NONE Hepatic: NONE Renal: NONE Musculoskeletal: chronic back pain, falls, spinal stenosis Psychiatric: NONE Endocrine: diabetes, hypothyroidism Blood Disorders: NONE Cancer(s): NONE AN/SSN 2 4 OPERATOR/Reproductive: NONE Surgical History Surgical History: cholecystectomy, RIGHT SHOULDER ROTATOR LEFT ANKLE SURGERY C- SECTIONS Family History Relations & Conditions If Any: SISTER FH: Crohn's disease FH: diabetes mellitus BROTHER FH: Hodgkins disease FATHER FH: heart disease MOTHER FH: diabetes mellitus Relation not specified for: FH: lung cancer Psychosocial History Services at Home: None Smoking Status: Never Smoked ETOH Use: denies use Illicit Drug Use: denies illicit drug use Exam & Diagnostic Data Vital Signs and I&O Vital Signs Date Time Temp Pulse Resp B/P Pulse O2 O2 Flow FiO2 Ox Delivery Rate 04/09 0924 150/74 04/09 0923 150/74 04/09 0830 92.4 80 100 Room Air 04/09 0654 92.5 50 20 150/74 97 Room Air 04/08 2245 97.9 60 20 170/76 99 Room Air 04/08 1740 97.7 68 20 150/72 99 Room Air 04/08 1531 76 18 185/76 98 Room Air 04/08 1238 97.8 61 18 162/94 97 04/08 1100 97.5 84 20 189/79 99 Intake & Output 04/09 1600 04/09 0800 04/09 0000 04/08 1600 04/08 0800 04/08 0000 Intake Total 50 700 Output Total 400 Balance -350 700 Intake, IV 0 Intake, Oral 50 700 Number 0 Bowel Movements Output, Urine 400 Patient 181 lb 181 lb Weight Physical Exam: On exam she is an obese female in no acute distress. She is not on oxygen. She is not short of breath or complaining of chest pain. She is complaining of generalized weakness and lower extremity pain. HEENT exam is normal Chest is clear Heart reveals regular rhythm with no murmurs Extremities reveal 1-2+ edema of the lower extremities Labs/Diego Results: Laboratory Tests 04/09 04/08 0730 0849 Chemistry Sodium (137 - 145 mmol/L) 141 Potassium (3.5 - 5.1 mmol/L) 3.5 Chloride (98 - 107 mmol/L) 106 Carbon Dioxide (22 - 30 mmol/L) 25 Anion Gap (5 - 16) 10 BUN (7 - 17 mg/dL) 48 H Creatinine (0.5 - 1.0 mg/dL) 2.3 H Estimated GFR (>60 ml/min) 21 L BUN/Creatinine Ratio (7 - 25 %) 20.9 Iron (37 - 170 ug/dL) 42 TIBC (265 - 497 ug/dL) 193 L Ferritin (11.1 - 264 ng/mL) 266.0 H Total Bilirubin (0.2 - 1.3 mg/dL) 1.0 Direct Bilirubin (< 0.4 mg/dL) 0.7 H AST (14 - 36 U/L) 76 H ALT (9 - 52 U/L) 54 H Alkaline Phosphatase (<127 U/L) 148 H Total Protein (6.3 - 8.2 g/dL) 5.8 L Albumin (3.5 - 5.0 g/dL) 2.0 L TSH (0.270 - 4.200 uIU/mL) Pending Thyroxine (T4) (4.5 - 10.9 ug/dL) Pending Total T3 (0.97 - 1.69 ng/mL) Pending Coagulation PT (9.4 - 12.5 SEC) 14.6 H INR (0.90 - 1.19) 1.40 H Hematology CBC w Diff NO MAN DIFF REQ WBC (4.8 - 10.8 /CUMM) 6.1 RBC (4.20 - 5.40 /CUMM) 2.56 L Hgb (12.0 - 16.0 G/DL) 9.1 L Hct (37 - 47 %) 27.1 L MCV (81.0 - 99.0 FL) 106.1 H MCH (27.0 - 31.0 PG) 35.6 H RDW (11.5 - 14.5 %) 19.0 H Plt Count (/CUMM) MPV (7.4 - 10.4 FL) 9.0 Gran % (42.2 - 75.2 %) 79.0 H Lymphocytes % (20.5 - 51.1 %) 12.9 L Monocytes % (1.7 - 9.3 %) 6.4 Eosinophils % (0 - 5 %) 1.2 Basophils % (0.0 - 2.0 %) 0.5 Absolute Granulocytes (1.4 - 6.5 /CUMM) 4.8 Absolute Lymphocytes (1.2 - 3.4 /CUMM) 0.8 L Absolute Monocytes (0.10 - 0.60 /CUMM) 0.4 Absolute Eosinophils (0.0 - 0.7 /CUMM) 0.1 Absolute Basophils (0.0 - 0.2 /CUMM) 0 PUBS MCHC (33.0 - 37.0 G/DL) 33.5 Urines Urinalysis LIGHT H Urine Color (YEL,AMB,STR) [place] Urine Clarity (CLEAR) HAZY H Urine pH (5.0 - 8.0) 6.0 Ur Specific [place] (1.001 - 1.035) >= 1.030 Urine Protein (NEG,<30 MG/DL) >=300 H Urine Ketones (NEG) NEG Urine Nitrite (NEG) NEG Urine Bilirubin (NEG) NEG@ICTO Urine Urobilinogen (0.1 - 1.0 EU/dl) 1.0 Ur Leukocyte Esterase (NEG) NEG Ur Microscopic SEDIMENT EXAMINED Urine RBC (0 - 5 /HPF) 3-5 Urine WBC (0 - 2 /HPF) 5-10 H Ur Epithelial Cells (NONE,FEW) MOD H Hyaline Casts (0/LPF) 5-10 H Granular Casts (NONE /LPF) 1-3 H Urine Mucus (FEW,NONE) RARE Urine Hemoglobin (NEG) SMALL H Urine Glucose (N MG/DL) NEG 04/08 0638 Chemistry Sodium (137 - 145 mmol/L) 144 Potassium (3.5 - 5.1 mmol/L) 3.6 Chloride (98 - 107 mmol/L) 106 Carbon Dioxide (22 - 30 mmol/L) 25 Anion Gap (5 - 16) 12 BUN (7 - 17 mg/dL) 48 H Creatinine (0.5 - 1.0 mg/dL) 2.3 H Estimated GFR (>60 ml/min) 21 L BUN/Creatinine Ratio (7 - 25 %) 20.9 Glucose (65 - 99 mg/dL) 107 H Calcium (8.4 - 10.2 mg/dL) 7.5 L Total Bilirubin (0.2 - 1.3 mg/dL) 1.0 AST (14 - 36 U/L) 77 H ALT (9 - 52 U/L) 52 Alkaline Phosphatase (<127 U/L) 213 H Rdi-S-Sgponhrctyy Pept (<125 pg/mL) 20828 H Total Protein (6.3 - 8.2 g/dL) 6.3 Albumin (3.5 - 5.0 g/dL) 2.3 L Globulin (1.9 - 4.2 gm/dL) 4.0 Albumin/Globulin Ratio (1.1 - 2.2 %) 0.6 L Vitamin B12 (239 - 931 pg/mL) 925 25-OH Vitamin D Total (30 - 100 ng/ml) 8.4 L Hematology CBC w Diff NO MAN DIFF REQ WBC (4.8 - 10.8 /CUMM) 5.3 RBC (4.20 - 5.40 /CUMM) 2.80 L Hgb (12.0 - 16.0 G/DL) 9.7 L Hct (37 - 47 %) 29.5 L MCV (81.0 - 99.0 FL) 105.2 H MCH (27.0 - 31.0 PG) 34.7 H RDW (11.5 - 14.5 %) 19.4 H Plt Count (130 - 400 /CUMM) ND MPV (7.4 - 10.4 FL) 8.2 Gran % (42.2 - 75.2 %) 73.6 Lymphocytes % (20.5 - 51.1 %) 15.6 L Monocytes % (1.7 - 9.3 %) 8.4 Eosinophils % (0 - 5 %) 1.8 Basophils % (0.0 - 2.0 %) 0.6 Absolute Granulocytes (1.4 - 6.5 /CUMM) 3.9 Absolute Lymphocytes (1.2 - 3.4 /CUMM) 0.8 L Absolute Monocytes (0.10 - 0.60 /CUMM) 0.4 Absolute Eosinophils (0.0 - 0.7 /CUMM) 0.1 Absolute Basophils (0.0 - 0.2 /CUMM) 0 PUBS MCHC (33.0 - 37.0 G/DL) 33.0 Diagnostic Data EKG Results An EKG was not done on admission CXR Results PATIENT: MALIK LOVE PRESENT AGE: 70 PATIENT ACCOUNT NO: [id number] : 46 LOCATION: A ORDERING PHYSICIAN: JOSSELIN THACKER MD SERVICE DATE: 04/08/16 EXAM TYPE: RAD - XRY-PORTABLE CHEST XRAY EXAMINATION: XR PORTABLE CHEST CLINICAL INFORMATION: Anasarca. COMPARISON: 10/12/2015 TECHNIQUE: Portable view of the chest was obtained. FINDINGS: Low lung volumes. Streaky retrocardiac opacity. No effusion or edema. No pneumothorax. The cardiomediastinal silhouette remains prominent, with a calcified aorta. IMPRESSION: Low lung volumes with streaky retrocardiac opacity which could represent atelectasis or pneumonia. Stable prominence of the cardiac silhouette. DICTATED BY: SHERI LUNA MD DATE/TIME DICTATED:04/08/162299 MANAGER E LEARNING:LINDSEY DATE/TIME TRANSCRIBED:04/08/162299 CONFIDENTIAL, DO NOT COPY WITHOUT APPROPRIATE AUTHORIZATION. <Electronically signed in Other Vendor System> SIGNED BY: SHERI LUNA MD 04/08 Assessment/Plan Assessment/Plan This patient presents with generalized weakness and body pain. She has an untreated greater trochanter hip fracture which is causing some disability. She has generalized volume overload with probable ascites and peripheral edema. This may be on the basis of liver disease and kidney disease. I recommend continuing her on diuretics until her symptoms and her edema have improved. She may need some intravenous diuretics to accomplish this initially. I don't see any evidence for congestive heart failure at this time. She is pending an echocardiogram which I will review when it is done. I will also order an electrocardiogram which was not done on admission. Consult Acknowledgment - Thank you for your consult request.
--- NOTE | 2016-04-09 13:25 | NUR ---
WOUND CARE: REQUESTED BY NURSING TO EVALUATE PT FOR SKIN ALTERATIONS PRESENT ON ADMISSION TO [facility] - HX OBTAINED FROM PT - PT REPORTS HAVING HAD RECENT SWELLING TO BLE, AND ALSO REPORTS FALL AT HOME IN WHICH SHE SUSTAINED TRAUMATIC WOUNDS TO POSTERIOR ASPECT NEAR ACHILLIES - UPON ASSESSMENT, LEFT POSTERIOR LEG DISTAL NTOED WITH A PARTIAL THICKNESS WOUND 0.7 X 0.8 CM WITH DRY SCABBED SKIN TO PERIPHERY - CLEAN RED BASE WITHOUT EVIDENCE OF INFECTION - RIGHT POSTERIOR LEG (2) SUPERFICIAL OPEN AREAS 0.5 X 0.6 AND 1 X 0.8 CM CLEAN RED FILL WITHOUT EVIDENCE OF INFECTION- MINIMAL DRNG NOTED - NO EVIDENCE OF INFECTION - PT REPORTS SHE WEARS COMPRESSION STOCKINGS WHILE AT HOME - ANEDEMATOUS AT THIS TIME RECOMMENDATION: CLEANSE BLE WITH NS FB XEROFORM AND DPD DAILY - F/U AT [facility] PRN
[2016-04-09 14:44] VITALS: BP 132/80
--- NOTE | 2016-04-09 15:49 | NUR ---
PT RECTAL TEMP 97.5 AT 1130AM, WENT UP TO 97.5 AT 1530PM, AWARE
--- NOTE | 2016-04-09 17:03 | PN- Att Addend ---
Attending MD Review Statement Attending Statement Attending MD Statement: examined this patient, discuss w/resident/PA/COSMETICS SUPERVISOR, agreed w/resident/PA/COSMETICS SUPERVISOR, reviewed EMR data (avail), discussed w/nursing, discussed w/ case mgmt Attending Assessment/Plan: Patient seen and examined at bedside. Patient's TSH level was found to be low so we're increasing her levothyroxine to 175 mcg daily. Patient overnight started having hypothermia for which she was given warming blankets. We'll continue to monitor closely. Also her vitamin D level was low so she will be started on supplementation. Patient's also has hypocalcemia with calcium of 7.5 , we will check patient's phosphate level. Regarding her pitting edema in lower extremities as well as right upper extremity we're awaiting the echocardiogram results. Discussed with patient the care plan in detail.
--- NOTE | 2016-04-09 17:17 | Discharge Summary ---
Visit Information Visit Dates Admission Date: 04/08/16 Discharge Date: 04/17/16 Hospital Course Course Attending Physician: BOLA HERMAN,ROHINI Craft Primary Care Physician: ARLEEN HORN MD Consulting Request: 1 Consulting Specialty: Gastroenterology Consulting Physician: Dr POMPA Reason for Consult: ascites Consulting Request: 2 Consulting Specialty: Nephrology Consulting Physician: DR ROCHA Reason for Consult: elevated creatinine, leg swelling Hospital Course: 70 year old female with PMH of DM type 2 now insulin dependant, HTN, HLD, CKD, Hypothyroidism, s/p Lt ankle reconstruction came for persistent and worsening pain in her hip and LE following a mechanical fall with trauma to her head on mar 02. She reports losing her balance and falling in the shower. She sustained an mild comminuted fracture of the left femur and was seen in the ER by the orthopedic surgeon who deemed she did not need intervention at the time and should follow as outpatient but she was unable to follow up with him. She denies any loss of consciousness, dizziness or diplopia, nausea, vomiting or injury to her head. She has fallen several times in the past month because of unsteady gait luis a on her left and uses a walker for ambulation. She also reports recent swelling of her bilateral lower limbs and more recently her Rt upper arm and a history of abdominal swelling. Vitals upon presentation, temperature 98.4, pulse 88, respiratory rate 19, 179/ 77, satting in high 90s on room air. Labs, H&H 9.7 and 29.5, creatinine 2.3, BUN 48 She was admitted to general medicine floor and treated for these medical conditions: #Anasarca with ascites/underlying liver disease of unclear etiology (possibly BYERS)/pancreatic lesions we consulted GI and cardiology. Echocardiogram did not show any acute heart pathology. He put the patient on IV Lasix 40 mg twice a day and subsequently changed to by mouth medication, in addition to her Aldactone.She also has hypoalbuminemia-her albumin level is 2. MCV was 105. Likely secondary to liver disease. Patient claimed that she got pneumonia shot and flu shot last admission and she needs to have follow-up in an outpatient setting for hepatitis A and B vaccination. Patient also has history of pancreatic lesions which has been followed by GI. She is instructed to have abdominal ultrasound every 6 months for monitoring. IR was consulted for paracentesis. However patient's platelets were clumping insistently and laboratory was unable identified the amount of platelets for couple of days.HEM/ONC was consulted which recommended series of tests such as HIV,CMV,EBV,cassie,platelet aggregation function, complement, quantitative immunoglobulins,etc. patient should follow up in outpatient setting with hematology for further workup and doing these tests. #Chronic kidney disease/anasarca-She appears to have CKD since 2016 probabyly due to diabetic nephropathy but has never followed up with a tea plantation worker. PTH was high and vitamin D was low and she was put on high-dose vitamin D supplementation(weekly for 8 weeks). Nephrology was consulted and recommended getting a 24-hour urine urine protein and creatinine. Spot protein creatinine ratio was around 1.5 gr/day.for the leg swelling patient was initially put on IV Lasix and Aldactone and we switched her to oral Lasix in addition to Aldactone. Since there was problem about clumpin of platelets no abdominal paracentesis was done during the hospitalization. SPEP and UPEP are pending and should be followd up in outpatient setting. #Hypothermia-noted after admission. Labs showed a high TSH (likely due to poor control of her hypothyroidism) so her dose of levothyroixine was increased from 0.15 to 0.175 micrograms with resolution of the hypothermia. Please repeat thyroid function test in a few weeks after resolution of active illness and adjust dose as needed. #Splenic mass-CT chest showed a low-attenuation lesion on the superior aspect of the spleen measuring approximately 1.9 cm representing a new finding. Patient was refused MRI during the hospitalization. Patient needs an outpatient follow- up with her PCP and possibly heme/Onc as well. # Left-sided hip pain/ status post fall/hip fracture: Patient fell in the shower on 03/02/2016 and then to do emergency department at [facility]. There is Mildly displaced, comminuted fracture of the greater trochanter of the left femur.r. Last month she was seen by orthopedic surgery and discharged for further outpatient evaluation and management were recommended , but she never followed up in an outpatient setting. Patient was seen by orthopedic service in the hospital which recommended conservative management with pain control and physical therapy and outpatient follow-up. Patient will be discharged to a [facility] for further physical therapy. # diabetes mellitus: Since patient's sugars were relatively on the lower side, we discontinued Levemir and put the patient on low-dose sliding scale insulin. # Paresthesia in RLE We Started the patient on gabapentin 100mg BID, which was well tolerated by the patient. Complications: none Allergies: Coded Allergies: codeine (Severe, RASH, DIFFICULTY BREATHING 04/08/16) morphine (Severe, SHORTNESS OF BREATH 04/08/16) Significant Procedures: ECHO FINDINGS Exam Date: 04/11/2016 Left Ventricle Normal size left ventricle. No obvious regional wall motion abnormalities. Left ventricular wall thickness increased. Normal left ventricular ejection fraction estimated at 55-60%. Right Ventricle Right ventricle not well visualized, grossly normal. Right Atrium Normal right atrial size. Left Atrium Mild to moderate left atrial dilatation. Mitral Valve Mitral valve thickened. Moderate mitral annular calcification. Mild mitral regurgitation. Aortic Valve Trileaflet aortic valve. Diffuse thickening (sclerosis) of the aortic valve cusps without reduced excursion. No aortic stenosis. No aortic regurgitation. Tricuspid Valve Tricuspid valve not well visualized, grossly normal. Mild tricuspid regurgitation. Right ventricular systolic pressure estimated at 34 mmHg. Pulmonic Valve Structurally normal pulmonic valve. Trace to mild pulmonic regurgitation. Pericardium No pericardial effusion. Left pleural effusion. Great Vessels Proximal ascending aorta (tube) normal. CONCLUSIONS 1. This was a technically difficult examination. 2. Mild aortic sclerosis is present with no valvular stenosis or insufficiency. Minimal enlargement of the ascending aorta is present. 3. Mitral leaflet thickening is present with moderate anular calcification and mild mitral insufficiency with mild to moderate left atrial enlargement. 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 4. There is no significant pericardial fluid present. 5. A left pleural effusion is present. 6. An area of abnormal echodensity is noted posterior to the LV. If clinically indicated, a chest CT might be useful to rule out the possibility of a posterior mediastinal mass. 7. Mild tricuspid and pulmonic insufficiency are present with no evidence of pulmonary hypertension. 8. The left ventricular chamber size is normal with mild concentric hypertrophy and a normal ejection fraction with no resting wall motion abnormalities. Mild diastolic dysfunction is noted. Pertinent Lab Results: CT chest SERVICE DATE: 04/12/16- IMPRESSION: 1. No suspicious mass identified in the posterior mediastinum. 2. Nonspecific patchy groundglass attenuation right upper lobe may represent mild pneumonitis. 3. Nonspecific subpleural nodule right apex. 4. Left-sided effusion with adjacent bandlike atelectasis. 5. Moderate ascites. Anasarca. Nodular hepatic margin suspicious for underlying cirrhosis. Clinical and laboratory correlation recommended. 6. Low-attenuation lesion superior spleen measuring approximately 1.9 cm representing a new finding. Further assessment with contrast-enhanced CT or MRI recommended. 7. Nonobstructing calculi bilateral kidneys. Disposition Summary Disposition Principal Diagnosis: HIP pain and weakness Anasarca Additional Diagnosis: Diabetes History of cirrhosis History of CKD Discharge Disposition: SNF Discharge Instructions General Discharge Information Code Status: Do Not Resucitate/Intubat Patient's Diet: Diabetic Patient's Activity: As tolerated Follow-Up Instructions/Appts: Please follow up with your PCP within 1 week of discharge. Please discuss possible need for hepatitis A and B vaccinations. Please follow up with Dr. Cornelius for further management of your cirrhosis within 2 weeks. Please have an MRI (open) of your spleen to further characterize cyst and follow up with your PCP for results. Please follow up your credit risk manager within 2 weeks of discharge. Please follow up with Dr. Saucedo within 2 weeks of discharge for continued care. Please take all medications as directed. Please follow-up with Dr. AVINA in inventory analyst for further evaluation of your platelet functions. Medications at Discharge Discharge Medications: Stop taking the following medications: Levothyroxine Sodium (Synthroid) 150 MCG TABLET ORAL DAILY BEFORE BREAKFAST Pioglitazone HCl (Actos) 30 MG TABLET ORAL DAILY Insulin Detemir (Levemir) 100 UNIT/1 ML VIAL Inject into fatty tissue TWICE DAILY Furosemide (Furosemide) 20 MG TABLET ORAL DAILY Lisinopril/Hydrochlorothiazide (Lisinopril-Hctz 20-12.5 MG Tab) 20 MG-12.5 MG TABLET ORAL DAILY Continue taking these medications: Atenolol (Atenolol) 100 MG TABLET 1 Tablet ORAL 1300 Atorvastatin Calcium (Atorvastatin Calcium) 10 MG TABLET 50 Milligram ORAL 1300 Clonidine HCl (Catapres) 0.1 MG TABLET 1 Tablet ORAL DAILY FENOFIBRATE,MICRONIZED (Fenofibrate) 200 MG CAPSULE 1 Capsule ORAL DAILY Comments: Last Taken: 10/25/13 Time: 10 AM Aspirin (Children's Aspirin) 81 MG TAB.CHEW 81 Milligram ORAL DAILY Qty = 60 Instructions: TAKE 1 TAB PO DAILY Comments: Last Taken: 10/25/13 Time: 10 AM Magnesium Oxide (Magnesium) 400 MG CAPSULE 20.5 Milligram ORAL DAILY Start taking the following new medications: Lisinopril (Lisinopril) 20 MG TABLET 1 Tablet ORAL DAILY Qty = 30 No Refills Gabapentin (Gabapentin) 100 MG CAPSULE 1 Tablet ORAL TWICE DAILY Qty = 60 No Refills Levothyroxine Sodium (Synthroid) 175 MCG TABLET 1 Tablet ORAL DAILY BEFORE BREAKFAST Qty = 30 No Refills Ergocalciferol (Vitamin D2) (Vitamin D2) 50,000 UNIT CAPSULE 1 Capsule ORAL EVERY TUESDAY Qty = 30 No Refills Furosemide (Lasix) 80 MG TABLET 1 Tablet ORAL TWICE DAILY Qty = 60 No Refills Oxycodone HCl (Oxycodone HCl) 5 MG TABLET 1 Tablet ORAL EVERY SIX HOURS NEEDED as needed for PAIN SCALE 4-6 ( MODERATE) Qty = 10 No Refills Instructions: PLEASE HOLD FOR SEDATION/DROWSINESS OR DECREASED RESPIRATORY RATE. Spironolactone (Aldactone) 25 MG TABLET 50 Milligram ORAL DAILY Days = 28 No Refills Omeprazole (Omeprazole) 20 MG CAPSULE. 20 Milligram ORAL DAILY BEFORE BREAKFAST Days = 28 No Refills Copies To: JUSTINA HERMAN,ARLEEN; ALETHA HERMAN,RADHA Vargas; CHANELLE HERMAN,JAMAAL Carranza; PINKY HERMAN,Katherine HOLCOMB
[2016-04-09 23:05] VITALS: BP 124/50
[2016-04-10 06:48] VITALS: BP 120/60
[2016-04-10 08:18] LABS: ABSOLUTE BASOPHIL COUNT 0 /CUMM (0.0-0.2); ABSOLUTE EOSINOPHIL COUNT 0.1 /CUMM (0.0-0.7); ABSOLUTE GRANULOCYTE CT 5.3 /CUMM (1.4-6.5); ABSOLUTE MONOCYTE COUNT 0.4 /CUMM (0.10-0.60); BASOPHIL % 0.4 % (0.0-2.0); EOSINOPHIL % 1.3 % (0-5); GRANULOCYTE % 77.9 % (42.2-75.2); HEMATOCRIT 29.8 % (37-47); MEAN CORPUSCULAR HGB 35.6 PG (27.0-31.0); MEAN CORPUSCULAR HGB CONC 33.6 G/DL (33.0-37.0); MEAN PLATELET VOLUME 9.1 FL (7.4-10.4); RBC DISTRIBUTION WIDTH 19.5 % (11.5-14.5); RED BLOOD CELL CT 2.81 /CUMM (4.20-5.40)
--- NOTE | 2016-04-10 08:38 | PN- Housestaff ---
Subjective Follow-up For: Status post hip fracture Subjective: Patient seen and examined this morning. She was lying comfortably in bed in no acute distress. Patient feels that her swelling in the RUE and BLEs has gotten worse. She believes that this makes her pain worse. Patient requests that her I/ Os be measured strictly. No new complaints. Review of Systems Constitutional: Reports: see HPI, chills. Objective Last 24 Hrs of Vital Signs/I&O Vital Signs Date Time Temp Pulse Resp B/P Pulse O2 O2 Flow FiO2 Ox Delivery Rate 04/10 0648 98.1 59 19 120/60 97 Room Air 04/10 0000 97 Room Air 04/09 2305 97.8 62 20 124/50 97 Room Air 04/09 1444 97.5 53 20 132/80 97 Room Air 04/09 1151 Room Air 04/09 1138 Room Air 04/09 0924 150/74 04/09 0923 150/74 Intake & Output 04/10 1600 04/10 0800 04/10 0000 Intake Total 150 400 Output Total 350 Balance 150 50 Intake, Oral 150 400 Output, Urine 350 Physical Exam General Appearance: Alert, Oriented X3, Cooperative, No Acute Distress Other Physical Findings: Cardiovascular: Denies: chest pain, palpitations. Respiratory: Denies: cough, short of breath. Gastrointestinal: Denies: abdominal pain, constipation, diarrhea, nausea, vomiting. Genitourinary: Denies: dysuria, frequency. Current Medications: Current Medications Sig/Radha Start time Last Medication Dose Route Stop Time Status Admin Acetaminophen 650 MG Q6P PRN 04/08 1700 AC PO Aspirin 81 MG DAILY 04/09 1000 AC 04/09 PO 0923 Atenolol 100 MG DAILY 04/08 1720 AC 04/09 PO 0924 Atorvastatin Calcium 50 MG 1300 04/09 1300 AC 04/09 PO 1647 Cholecalciferol 400 IU DAILY 04/10 1000 AC PO Clonidine 0.1 MG DAILY 04/08 1719 AC 04/09 PO 0923 Docusate Sodium 100 MG DAILY 04/08 1832 AC 04/08 PO 2104 Fenofibrate 145 MG DAILY 04/09 1000 AC 04/09 PO 0924 Furosemide 20 MG BID 04/08 2200 AC 04/09 PO 2216 Heparin Sodium 5,000 UNIT Q8 04/08 1702 AC 04/10 (Porcine) SC 0610 Hydrochlorothiazide 12.5 MG DAILY 04/08 1730 AC 04/09 PO 0925 Insulin Aspart 0 TIDAC 04/09 0800 AC SC Insulin Detemir 40 UNITS BID 04/08 2200 AC SC Levothyroxine Sodium 0.175 MG DAILY AC 04/10 0700 AC 04/10 PO 0610 Levothyroxine Sodium 0.15 MG DAILY AC 04/09 0700 DC 04/09 PO 0554 Lisinopril 20 MG DAILY 04/09 1000 AC 04/09 PO 0924 Oxycodone HCl 5 MG Q6P PRN 04/08 1715 AC 04/10 PO 0004 Oxycodone/ 1 TAB Q6P PRN 04/08 1700 AC 04/09 Acetaminophen PO 2248 Patient Medication 1 ED .STK-MED ONE 04/09 1358 [place] Teaching ED 04/09 1359 Polyethylene Glycol 17 GM DAILY 04/08 1832 AC PO Senna/Docusate Sodium 2 TAB DAILY PRN 04/08 1845 AC PO Last 24 Hrs of Lab/Diego Results Last 24 Hrs of Labs/Mics: Laboratory Tests 04/10/16 0645: Anion Gap 13, Estimated GFR 21 L, BUN/Creatinine Ratio 22.6, CBC w Diff Pending , WBC Pending, RBC Pending, Hgb Pending, Hct Pending, MCV Pending, MCH Pending, RDW Pending, Plt Count Pending, MPV Pending, PUBS MCHC Pending Assessment/Plan Assessment: This is a 70-year-old female with past medical history of hypothyroidism, hyperlipidemia, diabetes mellitus, hypertension for evaluation of pain in legs and her left hip. Mildly displaced, comminuted fracture of the greater trochanter of the left femur seen Vitals upon presentation, temperature 98.4, pulse 88, respiratory rate 19, 179/ 77, satting in high 90s on room air. Labs, H&H 9.7 and 29.5, creatinine 2.3, BUN 48 # Left-sided hip pain/ status post fall/hip fracture: Pain control with Tylenol for mild, oxycodone for moderate and Percocet for severe pain. Ortho consulted, appreciate recs Monitor labs, IV fluids. # Anasarca * Change Lasix 20mg PO BID to 20mg IV BID * Start Aldactone 25mg BID starting tonight * Discontinue HCTZ * Follow echocardiogram History of hypothyroidism: Cont Synthroid 0.175mg daily History of hyperlipidemia: Cntinue home dose of atorvastatin 50 mg daily History of diabetes mellitus: Fingerstick glucose sliding scale Diabetic diet History of hypertension: Continue home dose of lisinopril 20 mg daily Follow above-mentioned plans for edema DVT prophylaxis Problem List: 1. Leg pain, bilateral 2. Fracture of greater trochanter of left femur Pain Ratin Pain Location: BLEs Pain Goal: Pain 4 or less Pain Plan: percocet roxicodone tylenol Tomorrow's Labs & Rationales: cbc for h&H monitoring
[2016-04-10 09:39] LABS: WHITE BLOOD CELL COUNT 6.8 /CUMM (4.8-10.8)
[2016-04-10 15:21] VITALS: BP 120/60
--- NOTE | 2016-04-10 15:37 | PN- Att Addend ---
Attending MD Review Statement Attending Statement Attending MD Statement: examined this patient, discuss w/resident/PA/ICE SCRAPER, agreed w/resident/PA/ICE SCRAPER, reviewed EMR data (avail), discussed w/nursing Attending Assessment/Plan: Patient seen and examined at bedside and agree with the resident's care plan. Discussed with patient the care plan. Anasarca with ascites. Patient has underlying liver disease and cirrhosis of unclear etiology which may be causing the anasarca. Switch her by mouth Lasix to IV Lasix 20 mg IV every 12 hours. Also added Aldactone 25 mg by mouth twice a day. We will increase the dose as tolerated. We will be cautious in increasing her dose as she has underlying CKD. Hypothermia has resolved. We'll continue to monitor her closely. Will also follow up on echocardiogram results. Unlikely that the anasarca is secondary to her heart failure.
[2016-04-10 22:32] VITALS: BP 120/60
[2016-04-11 00:53] VITALS: BP 128/50
--- NOTE | 2016-04-11 06:00 | PN- Housestaff ---
QUAN HERMAN,JEAAN 04/11/16 0600: Subjective Follow-up For: Status post hip fracture Subjective: Patient seen and examined this morning. Patient endorses pain with "pins and needle sensation" in the RLE overnight. It was persistent for a few hours, rated at 10 out of 10. This morning patient feels well with no other new complaints. She reports frequent urination in response to the increased diuretic regimen. She also had a BM yesterday. Review of Systems Constitutional: Reports: see HPI. Objective Last 24 Hrs of Vital Signs/I&O Vital Signs Date Time Temp Pulse Resp B/P Pulse O2 O2 Flow FiO2 Ox Delivery Rate 04/11 0641 97.8 62 20 136/52 97 Room Air 04/11 0053 128/50 04/10 2232 97.7 60 20 120/60 96 Room Air 04/10 1521 97.7 63 20 120/60 97 Intake & Output 04/11 1600 04/11 0800 04/11 0000 Intake Total 200 Output Total 300 Balance 200 -300 Intake, Oral 200 Number 2 Bowel Movements Output, Urine 300 Physical Exam General Appearance: Alert, Oriented X3, Cooperative, No Acute Distress Other Physical Findings: Cardiovascular: Denies: chest pain, palpitations. Respiratory: Denies: cough, short of breath. Gastrointestinal: Denies: abdominal pain, constipation, diarrhea, nausea, vomiting. Genitourinary: Denies: dysuria, frequency. Current Medications: Current Medications Sig/Radha Start time Last Medication Dose Route Stop Time Status Admin Acetaminophen 650 MG Q6P PRN 04/08 1700 AC PO Aspirin 81 MG DAILY 04/09 1000 AC 04/10 PO 0848 Atenolol 100 MG DAILY 04/08 1720 AC 04/10 PO 0849 Atorvastatin Calcium 50 MG 1700 04/10 1700 AC 04/10 PO 1558 Atorvastatin Calcium 50 MG 1300 04/09 1300 DC 04/09 PO 1647 Cholecalciferol 400 IU DAILY 04/10 1000 AC 04/10 PO 0848 Clonidine 0.1 MG DAILY 04/08 1719 AC 04/10 PO 0848 Docusate Sodium 100 MG DAILY 04/08 1832 AC 04/10 PO 0848 Fenofibrate 145 MG DAILY 04/09 1000 AC 04/10 PO 0849 Furosemide 20 MG 7:30 AM, & 4:30 PM 04/10 1630 AC 04/11 IV 0633 Furosemide 20 MG BID 04/08 2200 DC 04/10 PO 0849 Gabapentin 100 MG BID 04/11 1000 AC PO Heparin Sodium 5,000 UNIT Q8 04/08 1702 AC 04/11 (Porcine) SC 0633 Hydrochlorothiazide 12.5 MG DAILY 04/08 1730 DC 04/10 PO 0848 Insulin Aspart 0 TIDAC 04/09 0800 AC 04/10 SC 1800 Insulin Detemir 20 UNITS BID 04/10 2200 AC SC Insulin Detemir 40 UNITS BID 04/08 2200 DC SC Levothyroxine Sodium 0.175 MG DAILY AC 04/10 0700 AC 04/11 PO 0633 Lisinopril 20 MG DAILY 04/09 1000 AC 04/10 PO 0849 Nystatin 1 GWENDOLYN BID 04/10 1141 AC 04/10 TOP 2129 Oxycodone HCl 5 MG Q6P PRN 04/08 1715 AC 04/11 PO 0255 Oxycodone/ 1 TAB Q6P PRN 04/08 1700 AC 04/10 Acetaminophen PO 2135 Polyethylene Glycol 17 GM DAILY 04/08 1832 AC 04/10 PO 0848 Pregabalin 25 MG DAILY 04/11 1000 CAN PO Senna/Docusate Sodium 2 TAB DAILY PRN 04/08 1845 AC 04/10 PO 0848 Spironolactone 25 MG BID 04/10 1100 AC 04/10 PO 2127 Last 24 Hrs of Lab/Diego Results Last 24 Hrs of Labs/Mics: Laboratory Tests 04/11/16 0711: Anion Gap 14, Estimated GFR 21 L, BUN/Creatinine Ratio 23.9, CBC w Diff Pending , WBC Pending, RBC Pending, Hgb Pending, Hct Pending, MCV Pending, MCH Pending, RDW Pending, Plt Count Pending, MPV Pending, Gran % Pending, Lymphocytes % Pending, Monocytes % Pending, Eosinophils % Pending, Basophils % Pending, Absolute Granulocytes Pending, Absolute Lymphocytes Pending, Absolute Monocytes Pending, Absolute Eosinophils Pending, Absolute Basophils Pending, PUBS MCHC Pending Assessment/Plan Assessment: This is a 70-year-old female with past medical history of hypothyroidism, hyperlipidemia, diabetes mellitus, hypertension for evaluation of pain in legs and her left hip. Mildly displaced, comminuted fracture of the greater trochanter of the left femur seen Vitals upon presentation, temperature 98.4, pulse 88, respiratory rate 19, 179/ 77, satting in high 90s on room air. Labs, H&H 9.7 and 29.5, creatinine 2.3, BUN 48 # Left-sided hip pain/ status post fall/hip fracture: Pain control with Tylenol for mild, oxycodone for moderate and Percocet for severe pain. Ortho consulted, appreciate recs Monitor labs, IV fluids. # Anasarca * Cont Lasix 20mg IV BID * Cont Aldactone 25mg BID starting tonight (discontinued HCTZ on 04/10) * Follow echocardiogram #Uncontrolled diabetes mellitus: Patient's glucose has been as low as in 50s. Most likely due to excessive Levemir dose started on admission (patient was placed upon home dose of Levemir upon admission). * Discontinue Levemir for now - restart Levemir 10U BID if patient FSG > 200 * Cont Novolog SSI with accuchecks. * Diabetic diet # Paresthesia in RLE * Start gabapentin 100mg BID # History of hypothyroidism: Cont Synthroid 0.175mg daily # History of hyperlipidemia: Cntinue home dose of atorvastatin 50 mg daily # History of hypertension: Continue home dose of lisinopril 20 mg daily Follow above-mentioned plans for edema DVT prophylaxis Problem List: 1. Leg pain, bilateral 2. Fracture of greater trochanter of left femur 3. Back pain 4. Ascites 5. Chronic kidney disease 6. Pain management Pain Ratin Pain Location: BLEs Pain Goal: Remain pain free Pain Plan: Moderate pathway Tomorrow's Labs & Rationales: CBC to monitor for anemia and signs of infection BEP to monitor renal fx ROHINI PLAZA 04/16/16 1250: Attending MD Review Statement Attending Statement Attending MD Statement: examined this patient, discuss w/resident/PA/ELECTRICAL JOURNEYMAN, agreed w/resident/PA/ELECTRICAL JOURNEYMAN, reviewed EMR data (avail), discussed with nursing Attending Assessment/Plan: Anasarca with ascites. Patient has underlying liver disease of unclear etiology which may be causing the anasarca. Will get GI consult. We will DC her Lasix as per cardiology recommendation. Cont Aldactone 25 mg by mouth twice a day. Acute on chronic kidney injury-patient creatinine appears to be elevated from her baseline 2 years ago. Her creatinine in September 2015 was 2.3. Her BUN/ creatinine is elevated which likely is secondary to her diuretics. Hypoalbuminemia-her albumin level is 2. Likely secondary to liver disease. Will get GI consult for further recommendations. This may be contributing to her generalized anasarca. Hypothermia has resolved. We'll continue to monitor her closely. Will also follow up on echocardiogram results. Unlikely that the anasarca is secondary to her heart failure. Appreciated cardiology input. We'll follow up with the recommendations.
[2016-04-11 06:41] VITALS: BP 136/52
--- NOTE | 2016-04-11 07:02 | NUR ---
NURSING NOTE: PT NOTED BRIGHT RED BLOOD ON TOILET PAPER AFTER HAVING A BM. MD ALEJO KRUSE MADE AWARE. RN WILL MONITOR.
[2016-04-11 08:32] LABS: ABSOLUTE BASOPHIL COUNT 0 /CUMM (0.0-0.2); ABSOLUTE EOSINOPHIL COUNT 0.1 /CUMM (0.0-0.7); ABSOLUTE GRANULOCYTE CT 4.3 /CUMM (1.4-6.5); ABSOLUTE LYMPH COUNT 0.9 /CUMM (1.2-3.4); ABSOLUTE MONOCYTE COUNT 0.6 /CUMM (0.10-0.60); BASOPHIL % 0.6 % (0.0-2.0); GRANULOCYTE % 73.3 % (42.2-75.2); HEMATOCRIT 30.4 % (37-47); MEAN CORPUSCULAR HGB 35.5 PG (27.0-31.0); MEAN CORPUSCULAR HGB CONC 33.2 G/DL (33.0-37.0); MEAN CORPUSCULAR VOLUME 106.9 FL (81.0-99.0); RBC DISTRIBUTION WIDTH 19.5 % (11.5-14.5); RED BLOOD CELL CT 2.84 /CUMM (4.20-5.40)
[2016-04-11 10:07] LABS: WHITE BLOOD CELL COUNT 5.9 /CUMM (4.8-10.8)
--- NOTE | 2016-04-11 12:46 | PN- Cardiology ---
Subjective Subjective: Thinks her lower extremity edema has improved, but also thinks that her abdominal girth has increased. Denies any chest discomfort, palpitations, or changed her chronic dyspnea on exertion. Objective Vital Signs and I&Os Vital Signs Date Time Temp Pulse Resp B/P Pulse O2 O2 Flow FiO2 Ox Delivery Rate 04/11 1049 136/52 04/11 1049 136/52 04/11 0641 97.8 62 20 136/52 97 Room Air 04/11 0053 128/50 04/10 2232 97.7 60 20 120/60 96 Room Air 04/10 1521 97.7 63 20 120/60 97 Intake & Output 04/11 1600 04/11 0800 04/11 0000 04/10 1600 04/10 0800 04/10 0000 Intake Total 331 574 1756 150 400 Output Total 300 225 350 Balance 500 200 -300 855 150 50 Intake, IV 0 Intake, Oral 961 394 7078 150 400 Number 2 Bowel Movements Output, Urine 300 225 350 Physical Exam: Morbidly obese, elderly female in no acute distress. Vital signs: See above. Lungs: Decreased breath sounds bilaterally. Heart: S1, S2 (both distant). No murmur, gallop, or rub appreciated. Extremities: 1-2+ bilateral lower humphries edema. Assessment/Plan Assessment/Plan Mrs. Angulo is a 70-year-old female with a history of hypertension, diabetes mellitus, chronic kidney disease, and mild coronary artery disease who presented with increasing edema and generalized body pain. She fell in the shower on 03/02/2016 and came [facility] where a comminuted fracture of the left greater trochanter of the femur as well as ascites were documented. She was seen by orthopedic surgery and discharged for further outpatient evaluation and management were recommended, but she never followed up. She has been moderately disabled since that time with increasing swelling of her thighs and increasing abdominal girth. She has chronic dyspnea on exertion, but denies any chest discomfort. There is also a history of renal and hepatic disease. She underwent cardiac catheterization following an abnormal stress test in 2013 that revealed only some minor (20%) proximal LAD narrowing with no areas of stenosis in her other epicardial coronary arteries and normal left ventricular systolic function. Echocardiogram was also performed at that time she also showed preserved left ventricular function and no evidence of pulmonary hypertension. Generalized edema with echocardiogram pending, but with preserved left and right ventricular systolic function without evidence of pulmonary hypertension on her previous echocardiogram performed in 2013. A repeat echocardiogram needs to be performed. There is evidence of chronic kidney disease since October 2015 and proteinuria, as well as, abnormal liver function studies with documented low albumin and an inappropriate albumin/globulin ratio. Recommend holding off on further diuretic therapy, given her increasing BUN/ creatinine until there is input from nephrology did Also need GI input. Continue telemetry? Yes
--- NOTE | 2016-04-11 15:34 | RADIOLOGY REPORT ---
EXAMINATION: XR HIP, LEFT CLINICAL INFORMATION: Pain. COMPARISON: Pelvic radiography 03/02/2016. TECHNIQUE: Two views of the left hip. FINDINGS: There is an irregular mineralized fragment along the lateral aspect of the hip joint located approximately 2 cm lateral to the superior acetabulum. It is unclear whether this represents an avulsion fracture from the pelvis (i.e. AIIS or ASIS) or an avulsion fracture off of the greater trochanter. Alternatively, this could represent heterotopic ossification. The femoral head is well situated within the acetabula. Vascular calcification. Partially visualized abdominal sutures. IMPRESSION: Possible avulsion fracture, with irregular fracture fragment located lateral to the superior left hip joint. It is unclear whether this represents avulsion fracture from the greater trochanter or the pelvis; favor greater trochanter as there was trauma at this site on prior exam 03/02/2016. Alternatively, the mineralization may represent heterotopic ossification from prior left proximal femoral injury.
[2016-04-11 15:41] VITALS: BP 120/60
--- NOTE | 2016-04-11 17:03 | PN- Att Addend ---
Attending MD Review Statement Attending Statement Attending MD Statement: examined this patient, discuss w/resident/PA/POWER CLEANER OPERATOR, agreed w/resident/PA/POWER CLEANER OPERATOR, reviewed EMR data (avail), discussed w/nursing Attending Assessment/Plan: Patient seen and examined at bedside and agree with the resident's care plan. Discussed with patient the care plan. Anasarca with ascites. Patient has underlying liver disease of unclear etiology which may be causing the anasarca. Will get GI consult. We will DC her Lasix as per cardiology recommendation. Cont Aldactone 25 mg by mouth twice a day. Acute on chronic kidney injury-patient creatinine appears to be elevated from her baseline 2 years ago. Her creatinine in September 2015 was 2.3. Her BUN/ creatinine is elevated which likely is secondary to her diuretics. Hypoalbuminemia-her albumin level is 2. Likely secondary to liver disease. Will get GI consult for further recommendations. This may be contributing to her generalized anasarca. Hypothermia has resolved. We'll continue to monitor her closely. Will also follow up on echocardiogram results. Unlikely that the anasarca is secondary to her heart failure. Appreciated cardiology input. We'll follow up with the recommendations.
[2016-04-11 22:42] VITALS: BP 124/70
[2016-04-12 06:37] VITALS: BP 122/68
--- NOTE | 2016-04-12 07:38 | PN- Housestaff ---
Subjective Follow-up For: Status post hip fracture Subjective: Patient seen and examined this morning. Patient was lying in bed in acute distress, she still complains of pain in right ankle, otherwise vitals are stable no other complaints. She still has her generalized swelling in both open and O is reviewed with coming down. Review of Systems Constitutional: Denies: chills, fever. Cardiovascular: Denies: chest pain, palpitations. Respiratory: Denies: cough, sputum production. Gastrointestinal: Denies: abdominal pain, constipation, diarrhea, nausea, vomiting. Genitourinary: Denies: dysuria, frequency. Objective Last 24 Hrs of Vital Signs/I&O Vital Signs Date Time Temp Pulse Resp B/P Pulse O2 O2 Flow FiO2 Ox Delivery Rate 04/12 0637 97.8 56 20 122/68 97 Room Air 04/11 2242 98.1 64 20 124/70 96 Room Air 04/11 1541 98.1 61 20 120/60 98 04/11 1049 136/52 04/11 1049 136/52 Intake & Output 04/12 1600 04/12 0800 04/12 0000 Intake Total 100 100 Output Total 300 Balance 100 -200 Intake, Oral 100 100 Output, Urine 300 Physical Exam General Appearance: Alert, Oriented X3, Cooperative, No Acute Distress Cardiovascular: Regular Rate, Normal S1, Normal S2, No Murmurs Lungs: Clear to Auscultation, Normal Air Movement Extremities: edema in b/l LE 2+ Current Medications: Current Medications Sig/Radha Start time Last Medication Dose Route Stop Time Status Admin Acetaminophen 650 MG Q6P PRN 04/08 1700 AC PO Aspirin 81 MG DAILY 04/09 1000 AC 04/11 PO 1049 Atenolol 100 MG DAILY 04/08 1720 AC 04/11 PO 1049 Atorvastatin Calcium 50 MG 1700 04/10 1700 AC 04/11 PO 1623 Cholecalciferol 400 IU DAILY 04/10 1000 AC 04/11 PO 1049 Clonidine 0.1 MG DAILY 04/08 1719 AC 04/11 PO 1049 Docusate Sodium 100 MG DAILY 04/08 1832 AC 04/11 PO 1049 Fenofibrate 145 MG DAILY 04/09 1000 AC 04/11 PO 1049 Furosemide 20 MG 7:30 AM, & 4:30 PM 04/10 1630 DC 04/11 IV 0633 Gabapentin 100 MG BID 04/11 1000 AC 04/11 PO 2138 Heparin Sodium 5,000 UNIT Q8 04/08 1702 AC 04/12 (Porcine) SC 0645 Insulin Aspart 0 TIDAC 04/09 0800 AC 04/10 SC 1800 Insulin Detemir 10 UNITS BID 04/11 2200 AC 04/11 SC 2139 Insulin Detemir 20 UNITS BID 04/10 2200 DC SC Levothyroxine Sodium 0.175 MG DAILY AC 04/10 0700 AC 04/11 PO 0633 Lisinopril 20 MG DAILY 04/09 1000 AC 04/11 PO 1049 Nystatin 1 GWENDOLYN BID 04/10 1141 AC 04/11 TOP 2140 Oxycodone HCl 5 MG Q6P PRN 04/08 1715 AC 04/12 PO 0243 Oxycodone/ 1 TAB Q6P PRN 04/08 1700 AC 04/10 Acetaminophen PO 2135 Polyethylene Glycol 17 GM DAILY 04/08 1832 AC 04/11 PO 1049 Senna/Docusate Sodium 2 TAB DAILY PRN 04/08 1845 AC 04/11 PO 1048 Spironolactone 25 MG BID 04/10 1100 AC 04/11 PO 2138 Last 24 Hrs of Lab/Diego Results Last 24 Hrs of Labs/Mics: Laboratory Tests 04/12/16 0627: Anion Gap 7, Estimated GFR 22 L, BUN/Creatinine Ratio 26.4 H Assessment/Plan Assessment: This is a 70-year-old female with past medical history of hypothyroidism, hyperlipidemia, diabetes mellitus, hypertension for evaluation of pain in legs and her left hip. S/P Mildly displaced, comminuted fracture of the greater trochanter of the left femur. Vitals upon presentation, temperature 98.4, pulse 88, respiratory rate 19, 179/ 77, satting in high 90s on room air. Labs, H&H 9.7 and 29.5, creatinine 2.3, BUN 48 # Left-sided hip pain/ status post fall/hip fracture: Patient fell in the shower on 03/02/2016 and then to do emergency department at [facility]. There is post comminuted fracture of the left greater trochanter of the femur. Last month she was seen by orthopedic surgery and discharged for further outpatient evaluation and management were recommended, but she never followed up. She has been moderately disabled since that time with pain in her left hip,Ortho was reconsulted, have not heard back at. Currently managing pain with with Tylenol for mild, oxycodone for moderate and Percocet for severe pain. # Anasarca: Etiology unclear-Patient has been reporting of swelling of her thighs. She endorses chronic dyspnea on exertion she also has history of renal or hepatic disease. Over the past couple of days she developed generalized worsening edema , (echocardiogram showed ejection fraction of 55-60% no evidence of pulmonary hypertension), she was started initially on IV Lasix but due to her worsening kidney function it was discontinued on 04/10, and started on Aldactone 25mg BID, there is evidence of chronic kidney disease since October 2015 and proteinuria, abnormal liver function studies. Nephrology and gastroenterology has been consulted to find out the etiology of this generalized edema, will follow-up recommendations. #Uncontrolled diabetes mellitus: Patient's glucose has been as low as in 50s. Most likely due to excessive Levemir dose started on admission (patient was placed upon home dose of Levemir upon admission). * Discontinue Levemir for now - restart Levemir 10U BID if patient FSG > 200 * Cont Novolog SSI with accuchecks. * Diabetic diet # Paresthesia in RLE * Start gabapentin 100mg BID # History of hypothyroidism: Cont Synthroid 0.175mg daily # History of hyperlipidemia: Cntinue home dose of atorvastatin 50 mg daily # History of hypertension: Continue home dose of lisinopril 20 mg daily Follow above-mentioned plans for edema DVT prophylaxis Problem List: 1. Ascites 2. Fracture of greater trochanter of left femur Pain Ratin Pain Location: Right lower extremity/ankle Pain Goal: Remain pain free Pain Plan: Tylenol Percocet Oxycodone Neurontin Tomorrow's Labs & Rationales: BEP for lites monitoring
--- NOTE | 2016-04-12 11:33 | ECHOCARDIOGRAM REPORT ---
MALIK LOVE Age: 70 : 1945 Gender: F Exam Date: 04/11/2016 13:54 Exam Location: [address] [place] [address] A Ht (in): 63 Wt (lb): 181 BSA: 1.94 BP: 150 / 72 Ordering Physician: JOSSELIN THACKER MD Referring Physician: Kendall Galindo MD Chief, SoC Technologist: Kristy Evans [facility] Room Number: 229-01 Indications: HYPERTENSION Rhythm: Sinus Technical Quality: Fair, Technically difficult study FINDINGS Left Ventricle Normal size left ventricle. No obvious regional wall motion abnormalities. Left ventricular wall thickness increased. Normal left ventricular ejection fraction estimated at 55-60%. Right Ventricle Right ventricle not well visualized, grossly normal. Right Atrium Normal right atrial size. Left Atrium Mild to moderate left atrial dilatation. Mitral Valve Mitral valve thickened. Moderate mitral annular calcification. Mild mitral regurgitation. Aortic Valve Trileaflet aortic valve. Diffuse thickening (sclerosis) of the aortic valve cusps without reduced excursion. No aortic stenosis. No aortic regurgitation. Tricuspid Valve Tricuspid valve not well visualized, grossly normal. Mild tricuspid regurgitation. Right ventricular systolic pressure estimated at 34 mmHg. Pulmonic Valve Structurally normal pulmonic valve. Trace to mild pulmonic regurgitation. Pericardium No pericardial effusion. Left pleural effusion. Great Vessels Proximal ascending aorta (tube) normal. CONCLUSIONS 1. This was a technically difficult examination. 2. Mild aortic sclerosis is present with no valvular stenosis or insufficiency. Minimal enlargement of the ascending aorta is present. 3. Mitral leaflet thickening is present with moderate anular calcification and mild mitral insufficiency with mild to moderate left atrial enlargement. 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 4. There is no significant pericardial fluid present. 5. A left pleural effusion is present. 6. An area of abnormal echodensity is noted posterior to the LV. If clinically indicated, a chest CT might be useful to rule out the possibility of a posterior mediastinal mass. 7. Mild tricuspid and pulmonic insufficiency are present with no evidence of pulmonary hypertension. 8. The left ventricular chamber size is normal with mild concentric hypertrophy and a normal ejection fraction with no resting wall motion abnormalities. Mild diastolic dysfunction is noted. Brittney Hernandez M.D. (Electronically Signed) Final Date: 12 April 2016 11:32 MEASUREMENTS (Male / Female) Normal Values 2D ECHO LV Diastolic Diameter PLAX 3.1 cm 4.2 - 5.9 / 3.9 - 5.3 cm LV Systolic Diameter PLAX 2.0 cm 2.1 - 4.0 cm LV Fractional Shortening PLAX 35.5 % 25 - 46 % LV Ejection Fraction 2D Teich 66.4 % IVS Diastolic Thickness 1.2 cm LVPW Diastolic Thickness 1.2 cm LV Relative Wall Thickness 0.8 RV Internal Dim ED PLAX 2.5 cm 1.9 - 3.8 cm LVOT Diameter 2.1 cm Aortic Root Diameter 3.5 cm LA Systolic Diameter LX 4.1 cm 3.0 - 4.0 / 2.7 - 3.8 cm LA Volume 72.0 cm 18 - 58 / 22 - 52 cm Ascending Aorta Diameter 3.9 cm DOPPLER AV Peak Velocity 144.0 cm/s AV Peak Gradient 8.3 mmHg AV Mean Velocity 95.1 cm/s AV Mean Gradient 4.0 mmHg AV Velocity Time Integral 31.7 cm LVOT Peak Velocity 102.0 cm/s LVOT Peak Gradient 4.2 mmHg LVOT Mean Velocity 74.2 cm/s LVOT Mean Gradient 2.0 mmHg LVOT Velocity Time Integral 25.8 cm LVOT Stroke Volume 89.4 cm AV Area Cont Eq vti 2.8 cm AV Area Cont Eq pk 2.5 cm MV Peak Velocity 146.0 cm/s MV Peak Gradient 8.5 mmHg MV Mean Velocity 92.6 cm/s MV Mean Gradient 4.0 mmHg Mitral E Point Velocity 110.0 cm/s Mitral A Point Velocity 123.0 cm/s Mitral E to A Ratio 0.9 MV PHT Velocity 139.0 cm/s MV Deceleration [place] 375.0 cm/s MV Pressure Half Time 111.2 ms MV Area PHT 2.0 cm MV Deceleration Time 280.0 ms TR Peak Velocity 264.0 cm/s TR Peak Gradient 27.9 mmHg Right Atrial Pressure 5.0 mmHg Pulmonary Artery Systolic Pressu 32.9 mmHg Right Ventricular Systolic Press 32.9 mmHg PV Peak Velocity 121.0 cm/s PV Peak Gradient 5.9 mmHg PV Mean Velocity 73.6 cm/s PV Mean Gradient 2.0 mmHg PV Velocity Time Integral 25.6 cm LV E' Lateral Velocity 9.2 cm/s Mitral E to LV E' Lateral Ratio 12.0 LV E' Septal Velocity 4.2 cm/s Mitral E to LV E' Septal Ratio 26.2
--- NOTE | 2016-04-12 14:16 | Transfer of Care Summary ---
Hospital Course Course Hospital Course: This is a 70-year-old female with past medical history of hypothyroidism, hyperlipidemia, diabetes mellitus, hypertension for evaluation of pain in legs and her left hip. S/P Mildly displaced, comminuted fracture of the greater trochanter of the left femur. Vitals upon presentation, temperature 98.4, pulse 88, respiratory rate 19, 179/ 77, satting in high 90s on room air. Labs, H&H 9.7 and 29.5, creatinine 2.3, BUN 48 # Left-sided hip pain/ status post fall/hip fracture: Patient fell in the shower on 03/02/2016 and then to do emergency department at [facility]. There is post comminuted fracture of the left greater trochanter of the femur. Last month she was seen by orthopedic surgery and discharged for further outpatient evaluation and management were recommended, but she never followed up. She has been moderately disabled since that time with pain in her left hip,Ortho was reconsulted, have not heard back at. Currently managing pain with with Tylenol for mild, oxycodone for moderate and Percocet for severe pain. # Anasarca: Etiology unclear-Patient has been reporting of swelling of her thighs. She endorses chronic dyspnea on exertion she also has history of renal or hepatic disease. Over the past couple of days she developed generalized worsening edema , (echocardiogram showed ejection fraction of 55-60% no evidence of pulmonary hypertension), she was started initially on IV Lasix but due to her worsening kidney function it was discontinued on 04/10, and started on Aldactone 25mg BID, there is evidence of chronic kidney disease since October 2015 and proteinuria, abnormal liver function studies. Nephrology and gastroenterology has been consulted to find out the etiology of this generalized edema, will follow-up recommendations. #Uncontrolled diabetes mellitus: Patient's glucose has been as low as in 50s. Most likely due to excessive Levemir dose started on admission (patient was placed upon home dose of Levemir upon admission). * Discontinue Levemir for now - restart Levemir 10U BID if patient FSG > 200 * Cont Novolog SSI with accuchecks. * Diabetic diet # Paresthesia in RLE * Start gabapentin 100mg BID # History of hypothyroidism: Cont Synthroid 0.175mg daily # History of hyperlipidemia: Cntinue home dose of atorvastatin 50 mg daily # History of hypertension: Continue home dose of lisinopril 20 mg daily Follow above-mentioned plans for edema DVT prophylaxis Complications: none Assessment/Plan: Please follow-up nephrology and gastroenterology recommendations. Resume Levemir once fingerstick greater than 200
[2016-04-12 14:41] VITALS: BP 140/70
--- NOTE | 2016-04-12 15:04 | PN- Cardiology ---
Subjective Subjective: The patient reports that she is comfortable. No chest pain. Her lower extremity edema is improving. She notes occasional abdominal discomfort. No lightheadedness or dizziness. No diaphoresis. No palpitations. Objective Vital Signs and I&Os Vital Signs Date Time Temp Pulse Resp B/P Pulse O2 O2 Flow FiO2 Ox Delivery Rate 04/12 1441 98.2 80 20 140/70 98 04/12 0959 64 122/68 04/12 0957 64 122/68 04/12 0637 97.8 56 20 122/68 97 Room Air 04/11 2242 98.1 64 20 124/70 96 Room Air 04/11 1541 98.1 61 20 120/60 98 Intake & Output 04/12 1600 04/12 0800 04/12 0000 04/11 1600 04/11 0800 04/11 0000 Intake Total 604 297 2859 200 Output Total 601 300 300 300 Balance -601 100 -200 700 200 -300 Intake, Oral 083 916 4072 200 Number 2 Bowel Movements Output, Stool 1 Output, Urine 600 300 300 300 Physical Exam: Gen: NAD HEENT: normal Lungs: clear to auscultation, normal resp. effort Heart: RRR, S1, S2, no murmurs Abdomen: Soft, nontender, no masses Extremities: 1-2+ edema Neuro: Alert and oriented x 3, cranial nerves intact Current Medications: Current Medications Sig/Radha Start time Last Medication Dose Route Stop Time Status Admin Acetaminophen 650 MG Q6P PRN 04/08 1700 AC PO Aspirin 81 MG DAILY 04/09 1000 AC 04/12 PO 0959 Atenolol 100 MG DAILY 04/08 1720 AC 04/12 PO 0956 Atorvastatin Calcium 50 MG 1700 04/10 1700 AC 04/11 PO 1623 Cholecalciferol 400 IU DAILY 04/10 1000 AC 04/12 PO 0947 Clonidine 0.1 MG DAILY 04/08 1719 AC 04/12 PO 0959 Docusate Sodium 100 MG DAILY 04/08 1832 AC 04/12 PO 0959 Fenofibrate 145 MG DAILY 04/09 1000 AC 04/12 PO 0957 Gabapentin 100 MG BID 04/11 1000 AC 04/12 PO 0958 Heparin Sodium 5,000 UNIT Q8 04/08 1702 AC 04/12 (Porcine) SC 1443 Insulin Aspart 0 TIDAC 04/09 0800 AC 04/10 SC 1800 Insulin Detemir 10 UNITS BID 04/11 2200 04/11 SC 2139 Levothyroxine Sodium 0.175 MG DAILY AC 04/10 0700 AC 04/12 PO 0905 Lisinopril 20 MG DAILY 04/09 1000 AC 04/12 PO 0957 Nystatin 1 GWENDOLYN BID 04/10 1141 AC 04/12 TOP 1013 Oxycodone HCl 5 MG Q6P PRN 04/08 1715 AC 04/12 PO 1020 Oxycodone/ 1 TAB Q6P PRN 04/08 1700 AC 04/10 Acetaminophen PO 2135 Polyethylene Glycol 17 GM DAILY 04/08 1832 AC 04/12 PO 0959 Senna/Docusate Sodium 2 TAB DAILY PRN 04/08 1845 AC 04/12 PO 0958 Spironolactone 25 MG BID 04/10 1100 AC 04/12 PO 0959 Results Last 48 Hrs of Labs/Mics: Laboratory Tests 04/12/16 0627: Anion Gap 7, Estimated GFR 22 L, BUN/Creatinine Ratio 26.4 H, Total Bilirubin Pending, Direct Bilirubin Pending, AST Pending, ALT Pending, Alkaline Phosphatase Pending, Total Protein Pending, Albumin Pending 04/11/16 0711: Hemoglobin A1c Pending 04/11/16 0711: Anion Gap 14, Estimated GFR 21 L, BUN/Creatinine Ratio 23.9, CBC w Diff NO MAN DIFF REQ, RBC 2.84 L, MCV 106.9 H, MCH 35.5 H, RDW 19.5 H, MPV 9.0, Gran % 73.3, Lymphocytes % 14.6 L, Monocytes % 9.5 H, Eosinophils % 2.0, Basophils % 0.6, Absolute Granulocytes 4.3, Absolute Lymphocytes 0.9 L, Absolute Monocytes 0.6, Absolute Eosinophils 0.1, Absolute Basophils 0, PUBS MCHC 33.2 Recent Imaging Studies: Chest x-ray 04/08/16: Low lung volumes with streaky retrocardiac opacity which could represent atelectasis or pneumonia. Stable prominence of the cardiac silhouette. Echocardiogram 04/12/16: 1. This was a technically difficult examination. 2. Mild aortic sclerosis is present with no valvular stenosis or insufficiency. Minimal enlargement of the ascending aorta is present. 3. Mitral leaflet thickening is present with moderate anular calcification and mild mitral insufficiency with mild to moderate left atrial enlargement. 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 4. There is no significant pericardial fluid present. 5. A left pleural effusion is present. 6. An area of abnormal echodensity is noted posterior to the LV. If clinically indicated, a chest CT might be useful to rule out the possibility of a posterior mediastinal mass. 7. Mild tricuspid and pulmonic insufficiency are present with no evidence of pulmonary hypertension. 8. The left ventricular chamber size is normal with mild concentric hypertrophy and a normal ejection fraction with no resting wall motion abnormalities. Mild diastolic dysfunction is noted. Assessment/Plan Assessment/Plan Assessment: 1. Hypertension 2. Diabetes mellitus 3. Nonobstructive coronary artery disease 4. Generalized edema 5. Normal left ventricular systolic function with mild diastolic dysfunction 6. Possible posterior mediastinal mass seen on echocardiogram Plan: * Continue current cardiac medications * Recommend CT scan of the chest for evaluation of possible posterior mediastinal mass seen on echocardiogram Continue telemetry? No
--- NOTE | 2016-04-12 15:38 | PN- Att Addend ---
Attending MD Review Statement Attending Statement Attending MD Statement: examined this patient, discuss w/resident/PA/LAND APPRAISER, agreed w/resident/PA/LAND APPRAISER, reviewed EMR data (avail), discussed w/case mgmt Attending Assessment/Plan: Patient seen and examined at bedside and agree with the resident's care plan. Discussed with patient the care plan. Anasarca with ascites. Patient has underlying liver disease of unclear etiology which may be causing the anasarca. Will get GI consult. We will DC her Lasix as per cardiology recommendation. Cont Aldactone 25 mg by mouth twice a day. Acute on chronic kidney injury-patient creatinine appears to be elevated from her baseline 2 years ago. Her creatinine in September 2015 was 2.3. Her BUN/ creatinine is elevated which likely is secondary to her diuretics. Hypoalbuminemia-her albumin level is 2. Likely secondary to liver disease. Will get GI consult for further recommendations. This may be contributing to her generalized anasarca. Hypothermia has resolved. We'll continue to monitor her closely. Will also follow up on echocardiogram results. Unlikely that the anasarca is secondary to her heart failure. Appreciated cardiology input. Will get GI and Nephrology consult today to give input on liver disease and CKD. pt has not seen nephrology as an outpatient.
--- NOTE | 2016-04-12 15:43 | Cons- Nephrology ---
See Addendum General Information and HPI Consulting Request Date of Consult: 04/12/16 Requested By: BOLA HERMAN,ROHINI Craft Reason for Consult: proteinuric CKD Source of Information: patient, family, old records Exam Limitations: no limitations History of Present Illness: The patient is a 70-year-old woman with a past medical history most significant for proteinuric stage IV chronic kidney disease, insulin-dependent diabetes mellitus (~30 year history without known retinopathy - HgA1c in 12/2015 was 5.1% ?), HTN (~30 year history), hypothyroidism, CAD, HPL who initially presented for hip pain. The patient had a mechanical fall ~1 month ago for which she was evaluated in the ED. She was found to have a comminuted fracture of the L greater trochanter of the femur. She was supposed to follow-up as an outpatient , but did not. Since that time, she has been disabled. She reports to me that she has been becoming more swollen since that time - in her legs and stomach. She could not quantify exactly how much weight she has gained during this time. As a result of the swelling and pain, she presented again to [facility]. Since being admitted, she had been receiving 20mg PO lasix BID which was switched to 20mg IV lasix BID - she is now not receiving either. Echocardiogram with preserved ejection fraction and mild diastolic dysfunction but without significant valvular disease. It was thought that her low albumin and anasarca might be the result of liver disease. She had an abd U/S in 12/2015 which showed that the liver "demostrates a somewhat coarsened echotexture with a micronodular contour, suggesting underlying liver disease." Her INR is 1.40 and was 1.22 in Dec 2015. Her serum albumin has been low since 2013 (~2.7-3.4) but has been downtrending and is now 2.3 on presentation to this hospital. Regards to her kidney disease, she had a creatinine of 1.0 2013 without labs available to me until September 2015 when her creatinine was 2.3. She has been noted on urinalyses to have 3+ protein since 2013. She was on lisinopril at home. She has had a workup for her liver disease including an OSVALDO 1:40, Hep A/B/C NR. Her no other serologies available to me. Since that she had seen Rohit Saucedo MD in the past, however, I cannot find the notes. The patient currently appears comfortable laying flat. Allergies/Medications Allergies: Coded Allergies: codeine (Severe, RASH, DIFFICULTY BREATHING 04/08/16) morphine (Severe, SHORTNESS OF BREATH 04/08/16) Home Med List: Aspirin (Children's Aspirin) 81 MG TAB.CHEW 81 MG PO DAILY HEART TAKE 1 TAB PO DAILY Atenolol 100 MG TABLET 1 TAB PO 1300 HEART (Reported) Atorvastatin Calcium 10 MG TABLET 50 MG PO 1300 HEART HEALTH (Reported) Clonidine HCl (Catapres) 0.1 MG TABLET 1 TAB PO DAILY BP (Reported) FENOFIBRATE,MICRONIZED (Fenofibrate) 200 MG CAPSULE 1 CAP PO DAILY HLD ( Reported) Furosemide 20 MG TABLET 1 TAB PO DAILY edema (Reported) Insulin Detemir (Levemir) 100 UNIT/1 ML VIAL 40 UNITS SC BID DIABETES ( Reported) Levothyroxine Sodium (Synthroid) 150 MCG TABLET 1 TAB PO DAILY AC THYROID ( Reported) Lisinopril/Hydrochlorothiazide (Lisinopril-Hctz 20-12.5 MG Tab) 20 MG-12.5 MG TABLET 1 TAB PO DAILY HIGH BLOOD PRESSURE (Reported) Magnesium Oxide (Magnesium) 400 MG CAPSULE 20.5 MG PO DAILY VITAMIN SUPPORT ( Reported) Pioglitazone HCl (Actos) 30 MG TABLET 1 TAB PO DAILY DIABETES (Reported) Current Medications: Current Medications Sig/Radha Start time Last Medication Dose Route Stop Time Status Admin Acetaminophen 650 MG Q6P PRN 04/08 1700 AC PO Aspirin 81 MG DAILY 04/09 1000 AC 04/12 PO 0959 Atenolol 100 MG DAILY 04/08 1720 AC 04/12 PO 0956 Atorvastatin Calcium 50 MG 1700 04/10 1700 AC 04/11 PO 1623 Cholecalciferol 400 IU DAILY 04/10 1000 AC 04/12 PO 0947 Clonidine 0.1 MG DAILY 04/08 1719 AC 04/12 PO 0959 Docusate Sodium 100 MG DAILY 04/08 1832 AC 04/12 PO 0959 Fenofibrate 145 MG DAILY 04/09 1000 AC 04/12 PO 0957 Gabapentin 100 MG BID 04/11 1000 AC 04/12 PO 0958 Heparin Sodium 5,000 UNIT Q8 04/08 1702 AC 04/12 (Porcine) SC 1443 Insulin Aspart 0 TIDAC 04/09 0800 AC 04/10 SC 1800 Insulin Detemir 10 UNITS BID 04/11 2200 AC 04/11 SC 2139 Levothyroxine Sodium 0.175 MG DAILY AC 04/10 0700 AC 04/12 PO 0905 Lisinopril 20 MG DAILY 04/09 1000 AC 04/12 PO 0957 Nystatin 1 GWENDOLYN BID 04/10 1141 AC 04/12 TOP 1013 Oxycodone HCl 5 MG Q6P PRN 04/08 1715 AC 04/12 PO 1020 Oxycodone/ 1 TAB Q6P PRN 04/08 1700 AC 04/10 Acetaminophen PO 2135 Polyethylene Glycol 17 GM DAILY 04/08 1832 AC 04/12 PO 0959 Senna/Docusate Sodium 2 TAB DAILY PRN 04/08 1845 AC 04/12 PO 0958 Spironolactone 25 MG BID 04/10 1100 AC 04/12 PO 0959 Review of Systems Review of Systems: Complete 14 point ROS neg except as per HPI Past History Travel History Traveled to [place] past 21 day No Medical History Blood Transfusion Hx: No Neurological: NONE EENT: NONE Cardiovascular: hypertension, hyperlipidemia Respiratory: asthma Gastrointestinal: NONE Hepatic: NONE Renal: NONE Musculoskeletal: chronic back pain, falls, spinal stenosis Psychiatric: NONE Endocrine: diabetes, hypothyroidism Blood Disorders: NONE Cancer(s): NONE [employer] HAND/Reproductive: NONE Surgical History Surgical History: cholecystectomy, RIGHT SHOULDER ROTATOR LEFT ANKLE SURGERY C- SECTIONS Family History Relations & Conditions If Any: SISTER FH: Crohn's disease FH: diabetes mellitus BROTHER FH: Hodgkins disease FATHER FH: heart disease MOTHER FH: diabetes mellitus Relation not specified for: FH: lung cancer Psychosocial History Services at Home: None Smoking Status: Never Smoked ETOH Use: denies use Illicit Drug Use: denies illicit drug use Exam & Diagnostic Data Vital Signs and I&O Vital Signs Date Time Temp Pulse Resp B/P Pulse O2 O2 Flow FiO2 Ox Delivery Rate 04/12 1441 98.2 80 20 140/70 98 04/12 0959 64 122/68 04/12 0957 64 122/68 04/12 0637 97.8 56 20 122/68 97 Room Air 04/11 2242 98.1 64 20 124/70 96 Room Air 04/11 1541 98.1 61 20 120/60 98 Intake & Output 04/12 1600 04/12 0400 04/11 1600 04/11 0400 04/10 1600 04/10 0400 Intake Total 081 167 1099 1230 400 Output Total 601 300 300 300 225 350 Balance -501 -200 900 -300 1005 50 Intake, IV 0 Intake, Oral 927 325 9889 1230 400 Number 1 1 Bowel Movements Output, Stool 1 Output, Urine 600 300 300 300 225 350 Physical Exam: Gen - NAD, laying flat Head - NCAT Eyes - anicteric sclera Neck - supple CV - RRR Chest - clear Abd - +pitting edema Ext - 1-2+ edema Skin - no rash Neuro - AOX3 Results Pertinent Lab Results: Laboratory Tests 04/12 04/11 04/11 0627 0711 0711 Chemistry Sodium (137 - 145 mmol/L) 142 143 Potassium (3.5 - 5.1 mmol/L) 4.1 4.1 Chloride (98 - 107 mmol/L) 110 H 105 Carbon Dioxide (22 - 30 mmol/L) 25 24 Anion Gap (5 - 16) 7 14 BUN (7 - 17 mg/dL) 58 H 55 H Creatinine (0.5 - 1.0 mg/dL) 2.2 H 2.3 H Estimated GFR (>60 ml/min) 22 L 21 L BUN/Creatinine Ratio (7 - 25 %) 26.4 H 23.9 Hemoglobin A1c Pending Total Bilirubin (0.2 - 1.3 mg/dL) Pending Direct Bilirubin (< 0.4 mg/dL) Pending AST (14 - 36 U/L) Pending ALT (9 - 52 U/L) Pending Alkaline Phosphatase (<127 U/L) Pending Total Protein (6.3 - 8.2 g/dL) Pending Albumin (3.5 - 5.0 g/dL) Pending Hematology CBC w Diff NO MAN DIFF REQ WBC (4.8 - 10.8 /CUMM) 5.9 RBC (4.20 - 5.40 /CUMM) 2.84 L Hgb (12.0 - 16.0 G/DL) 10.1 L Hct (37 - 47 %) 30.4 L MCV (81.0 - 99.0 FL) 106.9 H MCH (27.0 - 31.0 PG) 35.5 H RDW (11.5 - 14.5 %) 19.5 H Plt Count (/CUMM) MPV (7.4 - 10.4 FL) 9.0 Gran % (42.2 - 75.2 %) 73.3 Lymphocytes % (20.5 - 51.1 %) 14.6 L Monocytes % (1.7 - 9.3 %) 9.5 H Eosinophils % (0 - 5 %) 2.0 Basophils % (0.0 - 2.0 %) 0.6 Absolute Granulocytes (1.4 - 6.5 /CUMM) 4.3 Absolute Lymphocytes (1.2 - 3.4 /CUMM) 0.9 L Absolute Monocytes (0.10 - 0.60 /CUMM) 0.6 Absolute Eosinophils (0.0 - 0.7 /CUMM) 0.1 Absolute Basophils (0.0 - 0.2 /CUMM) 0 PUBS MCHC (33.0 - 37.0 G/DL) 33.2 04/10 0645 Chemistry Sodium (137 - 145 mmol/L) 142 Potassium (3.5 - 5.1 mmol/L) 4.1 Chloride (98 - 107 mmol/L) 107 Carbon Dioxide (22 - 30 mmol/L) 22 Anion Gap (5 - 16) 13 BUN (7 - 17 mg/dL) 52 H Creatinine (0.5 - 1.0 mg/dL) 2.3 H Estimated GFR (>60 ml/min) 21 L BUN/Creatinine Ratio (7 - 25 %) 22.6 Hematology CBC w Diff NO MAN DIFF REQ WBC (4.8 - 10.8 /CUMM) 6.8 RBC (4.20 - 5.40 /CUMM) 2.81 L Hgb (12.0 - 16.0 G/DL) 10.0 L Hct (37 - 47 %) 29.8 L MCV (81.0 - 99.0 FL) 106.0 H MCH (27.0 - 31.0 PG) 35.6 H RDW (11.5 - 14.5 %) 19.5 H Plt Count (/CUMM) MPV (7.4 - 10.4 FL) 9.1 Gran % (42.2 - 75.2 %) 77.9 H Lymphocytes % (20.5 - 51.1 %) 14.5 L Monocytes % (1.7 - 9.3 %) 5.9 Eosinophils % (0 - 5 %) 1.3 Basophils % (0.0 - 2.0 %) 0.4 Absolute Granulocytes (1.4 - 6.5 /CUMM) 5.3 Absolute Lymphocytes (1.2 - 3.4 /CUMM) 1.0 L Absolute Monocytes (0.10 - 0.60 /CUMM) 0.4 Absolute Eosinophils (0.0 - 0.7 /CUMM) 0.1 Absolute Basophils (0.0 - 0.2 /CUMM) 0 PUBS MCHC (33.0 - 37.0 G/DL) 33.6 Imaging/Other Studies: TTE CONCLUSIONS 1. This was a technically difficult examination. 2. Mild aortic sclerosis is present with no valvular stenosis or insufficiency. Minimal enlargement of the ascending aorta is present. 3. Mitral leaflet thickening is present with moderate anular calcification and mild mitral insufficiency with mild to moderate left atrial enlargement. 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 4. There is no significant pericardial fluid present. 5. A left pleural effusion is present. 6. An area of abnormal echodensity is noted posterior to the LV. If clinically indicated, a chest CT might be useful to rule out the possibility of a posterior mediastinal mass. 7. Mild tricuspid and pulmonic insufficiency are present with no evidence of pulmonary hypertension. 8. The left ventricular chamber size is normal with mild concentric hypertrophy and a normal ejection fraction with no resting wall motion abnormalities. Mild diastolic dysfunction is noted. EXAM TYPE: US - US-COMPLETE ABDOMEN EXAMINATION: US ABDOMEN COMPLETE CLINICAL INFORMATION: Elevated LFTs and bloating. COMPARISON: X-ray of the abdomen dated 11/13/2015. CT of the abdomen and pelvis dated 10/12/2015. Ultrasound of the kidneys and bladder dated 10/06/2013. Ultrasound of the abdomen limited dated 09/15/2013. TECHNIQUE: Real-time imaging of the abdominal viscera. Examination limited secondary to overlying bowel gas. FINDINGS: PANCREAS: Visualized portions of the pancreas are normal in appearance. ABDOMINAL AORTA: Poorly visualized secondary to overlying bowel gas. INFERIOR VENA CAVA: Poorly visualized secondary to overlying bowel gas. LIVER: The liver demonstrates a somewhat coarsened echotexture with a micronodular contour. No focal hepatic lesions visualized. No intrahepatic biliary ductal dilatation. GALLBLADDER: Surgically absent. COMMON BILE DUCT: 1.5 cm in diameter. RIGHT KIDNEY: No hydronephrosis or focal parenchymal lesions. The kidney measures 12.8 cm in maximum dimension. 1.7 cm cyst in addition to an 8 mm nonobstructing calculus. No hydronephrosis. LEFT KIDNEY: No hydronephrosis or focal parenchymal lesions. The kidney measures 12.1 cm in maximum dimension. 7 mm nonobstructing calculus without hydronephrosis. SPLEEN: The spleen measures 13.0 cm in maximum dimension. Within the spleen is a 2.5 cm fairly ill-defined hypoechoic lesion, nonspecific. FREE FLUID: Mild to moderate ascites appreciated within all 4 abdominal quadrants. IMPRESSION: 1. Mild to moderate ascites. 2. The liver demonstrates a somewhat coarsened echotexture with a micronodular contour, suggesting underlying liver disease. Clinical correlation recommended. 3. Dilated common bile duct. This may be within normal limits for a patient of this age who is status post cholecystectomy. If clinically indicated, further evaluation with MRCP may be obtained. 4. Nonspecific 2.5 cm fairly ill-defined hypoechoic splenic lesion. As discussed previously, this can be further evaluated with abdominal MRI without and with IV contrast. 5. Bilateral nonobstructing renal calculi. No hydronephrosis. Assessment/Plan Assessment/Recommendations Assessment: CKD -the patient has proteinuric stage IV chronic kidney disease which is most likely secondary to long-standing diabetes (although last HgA1c was 5.1%). Her kidney function is stable since September. Proteinuria -patient has had 3+ protein on her urinalyses for at least the last few years. This should be quantified. Although her clinical presentation may be consistent with cirrhosis, it could also be consistent with nephrosis. Given her long-standing diabetes, only a limited workup would be recommended (SPEP, KLFLC). She is on RAAS inhibition (lisinopril + spironolactone) at home which is the mainstay of treatment. Anasarca -the patient reports putting on a significant amount of fluid over the last month. Especially given that her kidney function is stable, I do think that it's worth trying to diuresis her. If this is not possible with Lasix alone, the addition of albumin to mobilize her peripheral fluid may be needed. Vit D deficiency Recommendations: -Would restart IV lasix - can give 40mg IV BID (may need to give with 25% albumin if ineffective) -Would check spot urine protein, microalbumin, creatinine -Daily weight, accurate I's/O's -Would check SPEP and [place] Lambda Free Light Chains -Agree with GI Consult -Cont lisinopril at 20mg but nursing home goal will be to increase to 40mg -OK to cont spironolactone at current dose -If BP <120/80, would hold clonidine while attempting to diurese
--- NOTE | 2016-04-12 21:34 | CT SCAN REPORT ---
EXAMINATION: CT CHEST WITHOUT CONTRAST CLINICAL INFORMATION: Evaluation of the posterior mediastinal mass COMPARISON: CT chest dated 08/20/2013 TECHNIQUE: Multidetector volumetric CT imaging of the chest was done. Axial MIP volume rendering provided. Sagittal and coronal reformatted images were obtained. DLP: 561.01 mGy-cm. 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 LUNGS: Pleural thickening and subpleural linear density right apical region. This may represent a subpleural nodule measuring 0.5 cm (sagittal image 86). Patchy groundglass attenuation noted in the right upper lobe. Bandlike atelectatic changes noted in the lingula and right lower lobe. Thickening of the left major fissure. MEDIASTINUM: Atherosclerotic disease with intimal calcification of aorta and aortic branches. Mild aneurysmal dilatation of the ascending aorta noted again. No evidence of mediastinal lymphadenopathy. No suspicious mass noted in the posterior mediastinum . PLEURA: Small to moderate left-sided pleural effusion extending into the left interlobar fissure. AXILLA: Anasarca type changes noted in the chest wall, left greater than right. Absence of left breast.. UPPER ABDOMEN: Moderate ascites. Nodular hepatic margin suspicious for underlying cirrhosis. Subtle low-attenuation superior spleen measuring approximately 1.9 cm demonstrates Hounsfield units higher than seen with cyst. This represents a new finding (series 2 image 37). Surgical clips noted in the subhepatic region. Atherosclerotic disease of the aorta and aortic branches. Nonobstructing calculus mid left kidney incompletely included in the examination measuring approximately 5 mm. Punctate nonobstructing calculi upper pole right kidney. OSSEOUS STRUCTURES: Mild scoliosis and degenerative changes of the spine. IMPRESSION: 1. No suspicious mass identified in the posterior mediastinum. 2. Nonspecific patchy groundglass attenuation right upper lobe may represent mild pneumonitis. 3. Nonspecific subpleural nodule right apex. 4. Left-sided effusion with adjacent bandlike atelectasis. 5. Moderate ascites. Anasarca. Nodular hepatic margin suspicious for underlying cirrhosis. Clinical and laboratory correlation recommended. 6. Low-attenuation lesion superior spleen measuring approximately 1.9 cm representing a new finding. Further assessment with contrast-enhanced CT or MRI recommended. 7. Nonobstructing calculi bilateral kidneys.
[2016-04-12 22:30] VITALS: BP 158/64
--- NOTE | 2016-04-13 07:04 | PN- Housestaff ---
TIARA HINSON MD 04/13/16 0704: Subjective Follow-up For: Left hip pain s/p hip fracture on 03/02/16 Anasarca/generalized edema of unknown etiology Uncontrolled DM RLE paresthesias Splenic lesion Cirrhosis? Subjective: Patient seen and examined at bedside this AM. She was resting comfortably in bed without complaints. She denies fever, chills, chest pain shortness of breath but continues to endorse swelling of her abdomen with associated firmness. Review of Systems Constitutional: Denies: chills, diaphoresis, fever, malaise. EENTM: Denies: blurred vision. Cardiovascular: Reports: peripheral edema. Denies: chest pain, palpitations. Respiratory: Denies: cough, short of breath. Gastrointestinal: Reports: distention. Denies: abdominal pain, nausea, changes in stool, vomiting. Genitourinary: Denies: dysuria. Musculoskeletal: Denies: back pain. Skin: Denies: change in skin color, change in hair/nails, rash. Neurological/Psychological: Reports: numbness, paresthesia. Denies: confusion. Hematologic/Endocrine: Denies: bruising, bleeding. Immunologic/Allergic: Denies: splenectomy. Objective Last 24 Hrs of Vital Signs/I&O Vital Signs Date Time Temp Pulse Resp B/P Pulse O2 O2 Flow FiO2 Ox Delivery Rate 04/13 1438 98.0 61 20 140/72 99 04/13 1336 Room Air 04/13 0920 64 166/70 04/13 0920 166/70 04/13 0711 97.4 74 18 138/72 98 Room Air 04/12 2230 98.1 62 20 158/64 96 Room Air Intake & Output 04/13 1600 04/13 0800 04/13 0000 Intake Total 720 100 380 Output Total 300 250 Balance 420 -150 380 Intake, IV 20 Intake, Oral 720 100 360 Output, Urine 300 250 Patient 197 lb Weight Physical Exam General Appearance: Alert, Oriented X3, Cooperative, No Acute Distress Skin: No Significant Lesion HEENT: Atraumatic, Mucous Membr. moist/pink Neck: Supple Lymphatic: Cervical nl Cardiovascular: Normal S1, Normal S2 Lungs: Normal Air Movement Abdomen: Normal Bowel Sounds, Distended without tenderness to palpation. Neurological: Normal Speech, Normal Tone Extremities: Edema of bilateral lower extremities noted Vascular: Pulses Symmetrical Current Medications: Current Medications Sig/Radha Start time Last Medication Dose Route Stop Time Status Admin Acetaminophen 650 MG Q6P PRN 04/08 1700 AC PO Aspirin 81 MG DAILY 04/09 1000 AC 04/13 PO 0920 Atenolol 100 MG DAILY 04/08 1720 AC 04/13 PO 0919 Atorvastatin Calcium 50 MG 1700 04/10 1700 AC 04/13 PO 1805 Clonidine 0.1 MG DAILY 04/08 1719 AC 04/13 PO 0920 Docusate Sodium 100 MG DAILY 04/08 1832 AC 04/12 PO 0959 Ergocalciferol 50,000 IU QTUES 04/13 0700 AC 04/13 PO 0637 Fenofibrate 145 MG DAILY 04/09 1000 AC 04/13 PO 0919 Furosemide 40 MG BID 04/12 2200 AC 04/13 IV 0919 Gabapentin 100 MG BID 04/11 1000 AC 04/13 PO 0920 Heparin Sodium 5,000 UNIT Q8 04/08 1702 AC 04/13 (Porcine) SC 1425 Insulin Aspart 0 TIDAC 04/09 0800 AC 04/13 SC 1806 Insulin Detemir 10 UNITS BID 04/11 2200 AC 04/11 SC 2139 Levothyroxine Sodium 0.175 MG DAILY AC 04/10 0700 AC 04/13 PO 0636 Lisinopril 20 MG DAILY 04/09 1000 AC 04/13 PO 0920 Nystatin 1 GWENDOLYN BID 04/10 1141 AC 04/13 TOP 0920 Oxycodone HCl 5 MG Q6P PRN 04/08 1715 AC 04/13 PO 1426 Oxycodone/ 1 TAB Q6P PRN 04/08 1700 AC 04/10 Acetaminophen PO 2135 Polyethylene Glycol 17 GM DAILY 04/08 1832 AC 04/13 PO 0920 Senna/Docusate Sodium 2 TAB DAILY PRN 04/08 1845 AC 04/12 PO 0958 Spironolactone 25 MG BID 04/10 1100 AC 04/13 PO 0920 Last 24 Hrs of Lab/Diego Results Last 24 Hrs of Labs/Mics: Laboratory Tests 04/13/16 1150: Ur Random Creatinine 51.9, Ur Random Microalbumin 61.0 H, U Cystine/Creat Ratio 1175.33 04/13/16 1150: Ref Lab Test Result Pending, Ur Random Creatinine 52.3, Ur Random Sodium 100 H, Ur Random Potassium 19.6, Fraction Sodium Excret 04/13/16 0715: PT 13.5 H, INR 1.29 H Orders ECHO Findings: CONCLUSIONS 1. This was a technically difficult examination. 2. Mild aortic sclerosis is present with no valvular stenosis or insufficiency. Minimal enlargement of the ascending aorta is present. 3. Mitral leaflet thickening is present with moderate anular calcification and mild mitral insufficiency with mild to moderate left atrial enlargement. 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 4. There is no significant pericardial fluid present. 5. A left pleural effusion is present. 6. An area of abnormal echodensity is noted posterior to the LV. If clinically indicated, a chest CT might be useful to rule out the possibility of a posterior mediastinal mass. 7. Mild tricuspid and pulmonic insufficiency are present with no evidence of pulmonary hypertension. 8. The left ventricular chamber size is normal with mild concentric hypertrophy and a normal ejection fraction with no resting wall motion abnormalities. Mild diastolic dysfunction is noted. Radiology Findings: CXR: IMPRESSION: Low lung volumes with streaky retrocardiac opacity which could represent atelectasis or pneumonia. Stable prominence of the cardiac silhouette Miscellaneous Findings: Chest CT: IMPRESSION: 1. No suspicious mass identified in the posterior mediastinum. 2. Nonspecific patchy groundglass attenuation right upper lobe may represent mild pneumonitis. 3. Nonspecific subpleural nodule right apex. 4. Left-sided effusion with adjacent bandlike atelectasis. 5. Moderate ascites. Anasarca. Nodular hepatic margin suspicious for underlying cirrhosis. Clinical and laboratory correlation recommended. 6. Low-attenuation lesion superior spleen measuring approximately 1.9 cm representing a new finding. Further assessment with contrast-enhanced CT or MRI recommended. 7. Nonobstructing calculi bilateral kidneys. Hip XRay: IMPRESSION: Possible avulsion fracture, with irregular fracture fragment located lateral to the superior left hip joint. It is unclear whether this represents avulsion fracture from the greater trochanter or the pelvis; favor greater trochanter as there was trauma at this site on prior exam 03/02/2016. Alternatively, the mineralization may represent heterotopic ossification from prior left proximal femoral injury. Assessment/Plan Assessment: Ms. Angulo is a 70-year-old female with past medical history of hypothyroidism , hyperlipidemia, diabetes mellitus, hypertension and prior left hip fracture who presented for evaluation of pain in legs and her left hip. Patient is s/p mildly displaced, comminuted fracture of the greater trochanter of the left femur. In the ED: Vitals signs showed temperature 98.4, pulse 88, respiratory rate 19, 179/77, O2 saturation in the high 90s on room air. Labs showed H&H 9.7/29.5, creatinine 2.3, BUN 48. Patient was admitted to the general medicine floor and the following is the management: # Left-sided hip pain/ status post fall/hip fracture: * Patient fell in the shower on 03/02/2016 which resulted in a post comminuted fracture of the left greater trochanter of the femur. * Last month she was seen by orthopedic surgery and discharged for further outpatient evaluation and management were recommended, but she never followed up. * She has been moderately disabled since that time with pain in her left hip. * Ortho was reconsulted, have not heard back at present. * Currently managing pain with with tylenol for mild, oxycodone for moderate and Percocet for severe pain. # Anasarca: * Etiology remains unclear at present, likely secondary to nephropathy * GI, nephrology and cardiology have all been consulted, appreciate input, will continue to follow recs * Echocardiogram showed ejection fraction of 55-60% (no evidence of pulmonary hypertension) * She was started initially on IV Lasix but due to her worsening kidney function it was discontinued on 04/10. She was also started on Aldactone 25mg BID. * Lasix has since been restarted and we will continue patient on 40 mg IV lasix BID. Strict Is/Os and daily BMPs (monitor K). * Urine SPEP, kappa lambda free light chains ordered, f/u results * Spot urine protein to creatinine ratio ordered, f/u results * 2 g Na diet ordered * If renal function remains stable will discuss with nephrology discharge recommendations in terms of diuresis * Continue senna, miralax, colace #Splenic lesion * Prior CT showed 1.9 cm splenic lesion * Will obtain MRI abdomen tomorrow to better characterize lesion #Pancreatic lesion * Patient reports prior pancreatic lesion followed by Dr. Cornelius * Consult placed, follow up recs #Uncontrolled diabetes mellitus: * Patient's glucose has been as low as in the 50s. Most likely due to excessive Levemir dose started on admission (patient was placed upon home dose of Levemir upon admission). * Levemir 10U BID has been restarted * Cont Novolog SSI with accuchecks. * Diabetic diet # Paresthesia in RLE * Continue gabapentin 100mg BID # History of hypothyroidism: * Cont Synthroid 0.175mg daily # History of hyperlipidemia: * Continue home dose of atorvastatin 50 mg daily * Fenofibrate 145 mg PO daily # History of hypertension, normal LF systolic function with mild diastolic dysfunction: * Continue home dose of lisinopril 20 mg daily * Continue clonidine 0.1 mg PO daily * Atenolol 100 mg PO daily * ASA 81 mg PO daily DNR/DNI DVTP: Heparin SC Heart Healthy diet Mild-mod pain pathways Problem List: 1. Splenic lesion 2. Cirrhosis 3. Hypoalbuminemia 4. Anasarca 5. Fracture of greater trochanter of left femur 6. Chronic kidney disease Pain Ratin Pain Location: Left hip Pain Goal: Pain 4 or less Pain Plan: Mild-severe pain pathway Tomorrow's Labs & Rationales: BEP to monitor renal function and K SONIA HERMAN,[facility] 04/13/16 1626: Attending MD Review Statement Attending Statement Attending MD Statement: examined this patient, discuss w/resident/PA/AEROSOL LINE OPERATOR, agreed w/resident/PA/AEROSOL LINE OPERATOR, reviewed EMR data (avail), discussed with nursing, discussed with case mgmt, amended to note Attending Assessment/Plan: Patient seen and examined. Resting comfortably not in any acute distress. Denies nausea vomiting. Denies abdominal pain. She is afebrile and hemodynamically stable. 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 Nephrology follow- up appreciated. We'll continue diuresis. She is scheduled to undergo an MRI of the abdomen tomorrow for further evaluation of her splenic lesion. Patient reports history of a pancreatic lesion that is being followed by her sow farm manager Rigo Aviles MD. Official consult has been placed. If her renal function remained stable will follow-up with the nephrology service for discharge diuretic recommendations and further workup as recommended by the gastroenterology service.
[2016-04-13 07:11] VITALS: BP 138/72
[2016-04-13 08:16] LABS: PT 13.5 SEC (9.4-12.5)
--- NOTE | 2016-04-13 11:33 | PN- Nephrology ---
Assessment/Plan Assessment: 1. Intractable edema. It is suspected that with her long-standing diabetes, as well as her family history and abnormal renal function going back to 2010, that this is diabetic nephropathy contributing if not causing her volume overload. 2. Concerns for cirrhosis. Suspect BYERS. 3. Diabetes mellitus 4. Obesity-if diabetes was not the cause of her renal disease, then certainly focal and segmental glomerulosclerosis could be considered. 5. Hypertension 6. Hyperlipidemia Suggestion: 1. There has been difficulty in obtaining the 24-hour urine. For the time being, obtaining a spot urine protein to creatinine ratio and please note not microalbumin an estimate of her 24-hour urine could be obtained while attempts are made to collect a 24-hour urine. I do not favor placing a Escobedo catheter to do so. 2. Strict intakes and outputs 3. Her diet needs to be a 2 g sodium diet. 4. Please keep a close eye on a potassium given the fact that she has renal impairment and is on Spionolactone. Subjective Subjective: Patient is currently getting some ulcers on her lower extremities wrapped. She has a long history of diabetes. She had seen Rohit Saucedo MD in 2010. His concern was that with greater than 20 years of diabetes, she had diabetic nephropathy. I do not see that her urine was ever quantified either as an outpatient or an inpatient for total proteinuria. Objective Vital Signs and I&Os Vital Signs Date Time Temp Pulse Resp B/P Pulse O2 O2 Flow FiO2 Ox Delivery Rate 04/13 0920 64 166/70 04/13 0920 166/70 04/13 0711 97.4 74 18 138/72 98 Room Air 04/12 2230 98.1 62 20 158/64 96 Room Air 04/12 1441 98.2 80 20 140/70 98 Intake & Output 04/13 1600 04/13 0400 04/12 1600 04/12 0400 04/11 1600 04/11 0400 Intake Total 100 380 229 843 8463 Output Total 250 601 300 300 300 Balance -150 380 199 -200 900 -300 Intake, IV 20 Intake, Oral 100 360 324 [id number] [id number] Number 1 1 Bowel Movements Output, Stool 1 Output, Urine 250 600 300 300 300 Physical Exam General Appearance: well developed/nourished, no apparent distress, alert, awake , comfortable Ears, Nose, Throat: normal ENT inspection, hearing grossly normal Neck: normal inspection, supple, no JVD Respiratory: normal breath sounds, chest non-tender Cardiovascular: regular rate/rhythm, edema Abdomen: normal bowel sounds, soft, non-tender, no abdominal bruits Extremities: swelling, swelling on the torso and the sacrum Neurologic/Psychiatric: no motor/sensory deficits, awake, alert, oriented x 3, no gross neurologic deficits Skin: normal color Current Medications: Current Medications Sig/Radha Start time Last Medication Dose Route Stop Time Status Admin Acetaminophen 650 MG Q6P PRN 04/08 1700 AC PO Aspirin 81 MG DAILY 04/09 1000 AC 04/13 PO 0920 Atenolol 100 MG DAILY 04/08 1720 AC 04/13 PO 0919 Atorvastatin Calcium 50 MG 1700 04/10 1700 AC 04/12 PO 1908 Cholecalciferol 400 IU DAILY 04/10 1000 DC 04/12 PO 0947 Clonidine 0.1 MG DAILY 04/08 1719 AC 04/13 PO 0920 Docusate Sodium 100 MG DAILY 04/08 1832 AC 04/12 PO 0959 Ergocalciferol 50,000 IU QTUES 04/13 0700 AC 04/13 PO 0637 Fenofibrate 145 MG DAILY 04/09 1000 AC 04/13 PO 0919 Furosemide 40 MG BID 04/12 2200 AC 04/13 IV 0919 Gabapentin 100 MG BID 04/11 1000 AC 04/13 PO 0920 Heparin Sodium 5,000 UNIT Q8 04/08 1702 AC 04/13 (Porcine) SC 0559 Insulin Aspart 0 TIDAC 04/09 0800 AC 04/10 SC 1800 Insulin Detemir 10 UNITS BID 04/11 2200 AC 04/11 SC 2139 Levothyroxine Sodium 0.175 MG DAILY AC 04/10 0700 AC 04/13 PO 0636 Lisinopril 20 MG DAILY 04/09 1000 AC 04/13 PO 0920 Nystatin 1 GWENDOLYN BID 04/10 1141 AC 04/13 TOP 0920 Oxycodone HCl 5 MG Q6P PRN 04/08 1715 AC 04/13 PO 0341 Oxycodone/ 1 TAB Q6P PRN 04/08 1700 AC 04/10 Acetaminophen PO 2135 Polyethylene Glycol 17 GM DAILY 04/08 1832 AC 04/13 PO 0920 Senna/Docusate Sodium 2 TAB DAILY PRN 04/08 1845 AC 04/12 PO 0958 Spironolactone 25 MG BID 04/10 1100 AC 04/13 PO 0920 Results Pertinent Lab Results: Laboratory Tests 04/13 04/12 04/12 04/12 04/11 0715 1822 0627 0600 0711 Chemistry Sodium (137 - 145 mmol/L) 142 Potassium (3.5 - 5.1 mmol/L) 4.1 Chloride (98 - 107 mmol/L) 110 H Carbon Dioxide (22 - 30 mmol/L) 25 Anion Gap (5 - 16) 7 BUN (7 - 17 mg/dL) 58 H Creatinine (0.5 - 1.0 mg/dL) 2.2 H Estimated GFR (>60 ml/min) 22 L BUN/Creatinine Ratio (7 - 25 %) 26.4 H Hemoglobin A1c (<5.7) 4.6 Total Bilirubin (0.2 - 1.3 mg/dL) 0.6 Direct Bilirubin (< 0.4 mg/dL) 0.6 H AST (14 - 36 U/L) 88 H ALT (9 - 52 U/L) 54 H Alkaline Phosphatase (<127 U/L) 143 H Prot Electrophoresis Pending Total Protein (6.3 - 8.2 g/dL) 5.6 L Total Protein (PEP) Pending Albumin (3.5 - 5.0 g/dL) 1.9 L Albumin % (PEP) Pending [id number] Pending Bugqt-7-Vktfrsfue Pending Hmzh-6-Ckkosnqj Pending Dbct-9-Ioogialo Pending Gamma Globulins Pending Abnorm Protein Band 1 Pending Abnorm Protein Band 2 Pending Abnorm Protein Band 3 Pending Coagulation PT (9.4 - 12.5 SEC) 13.5 H INR (0.90 - 1.19) 1.29 H Miscellaneous Ref Lab Test Result Pending Urines Ur Random Creatinine Cancelled Ur Random Microalbumin Cancelled U Random Total Protein Cancelled U Cystine/Creat Ratio Cancelled 04/11 0711 Chemistry Sodium (137 - 145 mmol/L) 143 Potassium (3.5 - 5.1 mmol/L) 4.1 Chloride (98 - 107 mmol/L) 105 Carbon Dioxide (22 - 30 mmol/L) 24 Anion Gap (5 - 16) 14 BUN (7 - 17 mg/dL) 55 H Creatinine (0.5 - 1.0 mg/dL) 2.3 H Estimated GFR (>60 ml/min) 21 L BUN/Creatinine Ratio (7 - 25 %) 23.9 Hematology CBC w Diff NO MAN DIFF REQ WBC (4.8 - 10.8 /CUMM) 5.9 RBC (4.20 - 5.40 /CUMM) 2.84 L Hgb (12.0 - 16.0 G/DL) 10.1 L Hct (37 - 47 %) 30.4 L MCV (81.0 - 99.0 FL) 106.9 H MCH (27.0 - 31.0 PG) 35.5 H RDW (11.5 - 14.5 %) 19.5 H Plt Count (/CUMM) MPV (7.4 - 10.4 FL) 9.0 Gran % (42.2 - 75.2 %) 73.3 Lymphocytes % (20.5 - 51.1 %) 14.6 L Monocytes % (1.7 - 9.3 %) 9.5 H Eosinophils % (0 - 5 %) 2.0 Basophils % (0.0 - 2.0 %) 0.6 Absolute Granulocytes (1.4 - 6.5 /CUMM) 4.3 Absolute Lymphocytes (1.2 - 3.4 /CUMM) 0.9 L Absolute Monocytes (0.10 - 0.60 /CUMM) 0.6 Absolute Eosinophils (0.0 - 0.7 /CUMM) 0.1 Absolute Basophils (0.0 - 0.2 /CUMM) 0 PUBS MCHC (33.0 - 37.0 G/DL) 33.2
--- NOTE | 2016-04-13 14:17 | PN- Cardiology ---
Subjective Subjective: Feeling somewhat better. Shortness of breath is improving. Still with lower extremity edema. No chest pain. No lightheadedness or dizziness. No palpitations. Objective Vital Signs and I&Os Vital Signs Date Time Temp Pulse Resp B/P Pulse O2 O2 Flow FiO2 Ox Delivery Rate 04/13 1336 Room Air 04/13 0920 64 166/70 04/13 0920 166/70 04/13 0711 97.4 74 18 138/72 98 Room Air 04/12 2230 98.1 62 20 158/64 96 Room Air 04/12 1441 98.2 80 20 140/70 98 Intake & Output 04/13 1600 04/13 0800 04/13 0000 04/12 1600 04/12 0800 04/12 0000 Intake Total 100 380 700 100 100 Output Total 300 250 601 300 Balance -300 -150 380 99 100 -200 Intake, IV 20 Intake, Oral 100 360 700 100 100 Output, Stool 1 Output, Urine 300 250 600 300 Patient 197 lb Weight Physical Exam: Gen: NAD HEENT: normal Lungs: clear to auscultation, normal resp. effort Heart: RRR, S1, S2, no murmurs Abdomen: Soft, nontender, no masses Extremities: 1-2+ edema Neuro: Alert and oriented x 3, cranial nerves intact Current Medications: Current Medications Sig/Radha Start time Last Medication Dose Route Stop Time Status Admin Acetaminophen 650 MG Q6P PRN 04/08 1700 AC PO Aspirin 81 MG DAILY 04/09 1000 AC 04/13 PO 0920 Atenolol 100 MG DAILY 04/08 1720 AC 04/13 PO 0919 Atorvastatin Calcium 50 MG 1700 04/10 1700 AC 04/12 PO 1908 Cholecalciferol 400 IU DAILY 04/10 1000 DC 04/12 PO 0947 Clonidine 0.1 MG DAILY 04/08 1719 AC 04/13 PO 0920 Docusate Sodium 100 MG DAILY 04/08 1832 AC 04/12 PO 0959 Ergocalciferol 50,000 IU QTUES 04/13 0700 AC 04/13 PO 0637 Fenofibrate 145 MG DAILY 04/09 1000 AC 04/13 PO 0919 Furosemide 40 MG BID 04/12 2200 AC 04/13 IV 0919 Gabapentin 100 MG BID 04/11 1000 AC 04/13 PO 0920 Heparin Sodium 5,000 UNIT Q8 04/08 1702 AC 04/13 (Porcine) SC 0559 Insulin Aspart 0 TIDAC 04/09 0800 AC 04/10 SC 1800 Insulin Detemir 10 UNITS BID 04/11 2200 AC 04/11 SC 2139 Levothyroxine Sodium 0.175 MG DAILY AC 04/10 0700 AC 04/13 PO 0636 Lisinopril 20 MG DAILY 04/09 1000 AC 04/13 PO 0920 Nystatin 1 GWENDOLYN BID 04/10 1141 AC 04/13 TOP 0920 Oxycodone HCl 5 MG Q6P PRN 04/08 1715 AC 04/13 PO 0341 Oxycodone/ 1 TAB Q6P PRN 04/08 1700 AC 04/10 Acetaminophen PO 2135 Polyethylene Glycol 17 GM DAILY 04/08 1832 AC 04/13 PO 0920 Senna/Docusate Sodium 2 TAB DAILY PRN 04/08 1845 AC 04/12 PO 0958 Spironolactone 25 MG BID 04/10 1100 AC 04/13 PO 0920 Results Last 48 Hrs of Labs/Mics: Laboratory Tests 04/13/16 1150: Ref Lab Test Result Pending, Ur Random Creatinine 51.9, Ur Random Microalbumin Pending, U Cystine/Creat Ratio Pending 04/13/16 0715: PT 13.5 H, INR 1.29 H 04/12/16 1822: Ur Random Creatinine Cancelled, Ur Random Microalbumin Cancelled, U Random Total Protein Cancelled, U Cystine/Creat Ratio Cancelled 04/12/16 0627: Anion Gap 7, Estimated GFR 22 L, BUN/Creatinine Ratio 26.4 H, Total Bilirubin 0.6, Direct Bilirubin 0.6 H, AST 88 H, ALT 54 H, Alkaline Phosphatase 143 H, Total Protein 5.6 L, Albumin 1.9 L 04/12/16 0600: Prot Electrophoresis Pending, Total Protein (PEP) Pending, Albumin % (PEP) Pending, Huvte-1-Rjubnqbey Pending, Vidib-2-Itqrqiekt Pending, Jgcv-2-Kiojxwya Pending, Fmlw-0-Dhnpnyoq Pending, Gamma Globulins Pending, Abnorm Protein Band 1 Pending, Abnorm Protein Band 2 Pending, Abnorm Protein Band 3 Pending, Ref Lab Test Result Pending Recent Imaging Studies: CT chest: 1. No suspicious mass identified in the posterior mediastinum. 2. Nonspecific patchy groundglass attenuation right upper lobe may represent mild pneumonitis. 3. Nonspecific subpleural nodule right apex. 4. Left-sided effusion with adjacent bandlike atelectasis. 5. Moderate ascites. Anasarca. Nodular hepatic margin suspicious for underlying cirrhosis. Clinical and laboratory correlation recommended. 6. Low-attenuation lesion superior spleen measuring approximately 1.9 cm representing a new finding. Further assessment with contrast-enhanced CT or MRI recommended. 7. Nonobstructing calculi bilateral kidneys. Assessment/Plan Assessment/Plan Assessment: 1. Hypertension 2. Diabetes mellitus 3. Nonobstructive coronary artery disease 4. Generalized edema 5. Normal left ventricular systolic function with mild diastolic dysfunction 6. Possible posterior mediastinal mass seen on echocardiogram, not seen on CT scan, however 1.9 cm spleen lesion is seen on CT scan. Plan: * Continue Lasix 40 mg IV twice a day * Follow input and output. * Basic metabolic profile daily. * Continue other cardiac medications. * Workup for possible spleen mass as per medical team. Continue telemetry? Not applicable
[2016-04-13 14:38] VITALS: BP 140/72
[2016-04-13 21:57] VITALS: BP 124/74
[2016-04-14 06:30] VITALS: BP 138/80
--- NOTE | 2016-04-14 06:50 | PN- Housestaff ---
TIARA HINSON MD 04/14/16 0650: Subjective Follow-up For: Weakness S/P Hip Fracture Cirrhosis, Ascites Generalized edema 2/2 nephropathy Subjective: Patient seen and examined at bedside this AM. She reports she slept well throughout the night and offers no complaints. Patient is NOT amenable to having a splenic MRI due to the fact that she is claustrophobic. Review of Systems Constitutional: Denies: chills, fever. EENTM: Denies: blurred vision, nasal congestion. Cardiovascular: Reports: edema, peripheral edema. Denies: chest pain, palpitations. Respiratory: Denies: cough, short of breath. Gastrointestinal: Reports: distention. Denies: abdominal pain, vomiting. Genitourinary: Reports: frequency (From [employer]). Denies: dysuria. Musculoskeletal: Denies: back pain. Skin: Denies: change in skin color, change in hair/nails. Neurological/Psychological: Denies: confusion. Hematologic/Endocrine: Denies: bruising, bleeding. Objective Last 24 Hrs of Vital Signs/I&O Vital Signs Date Time Temp Pulse Resp B/P Pulse O2 O2 Flow FiO2 Ox Delivery Rate 04/14 1427 98.0 65 20 148/80 97 Room Air 04/14 1335 Room Air 04/14 1020 69 162/74 04/14 1019 69 162/74 04/14 0630 98.4 65 20 138/80 98 Room Air 04/13 2157 98.1 62 20 124/74 93 Room Air Intake & Output 04/14 1600 04/14 0800 04/14 0000 Intake Total 800 480 100 Output Total 400 850 650 Balance 400 -370 -550 Intake, Oral 800 480 100 Number 0 Bowel Movements Output, Urine 400 850 650 Patient 197 lb Weight Physical Exam General Appearance: Alert, Oriented X3, Cooperative, No Acute Distress Skin: No Significant Lesion HEENT: Atraumatic, Mucous Membr. moist/pink Neck: Supple, No thryomegaly Lymphatic: Cervical nl Cardiovascular: Regular Rate, Normal S1, Normal S2 Lungs: Normal Air Movement Abdomen: Firm to palpation, non-tender and no rebound or guarding. Neurological: Normal Speech, Normal Tone Extremities: Edema present to level of umbilicus from feet. Current Medications: Current Medications Sig/Radha Start time Last Medication Dose Route Stop Time Status Admin Acetaminophen 650 MG Q6P PRN 04/08 1700 AC PO Aspirin 81 MG DAILY 04/09 1000 AC 04/14 PO 1020 Atenolol 100 MG DAILY 04/08 1720 AC 04/14 PO 1019 Atorvastatin Calcium 50 MG 1700 04/10 1700 AC 04/14 PO 1613 Clonidine 0.1 MG DAILY 04/08 1719 AC 04/14 PO 1020 Docusate Sodium 100 MG DAILY 04/08 1832 AC 04/14 PO 1019 Ergocalciferol 50,000 IU QTUES 04/13 0700 AC 04/13 PO 0637 Fenofibrate 145 MG DAILY 04/09 1000 AC 04/14 PO 1019 Furosemide 40 MG BID 04/12 2200 AC 04/14 IV 1020 Gabapentin 100 MG BID 04/11 1000 AC 04/14 PO 1019 Heparin Sodium 5,000 UNIT Q8 04/08 1702 DC 04/14 (Porcine) SC 0600 Insulin Aspart 0 TIDAC 04/09 0800 AC 04/14 SC 1714 Insulin Detemir 10 UNITS BID 04/11 2200 AC 04/11 SC 2139 Levothyroxine Sodium 0.175 MG DAILY AC 04/10 0700 AC 04/14 PO 0559 Lisinopril 20 MG DAILY 04/09 1000 AC 04/14 PO 1019 Nystatin 1 GWENDOLYN BID 04/10 1141 DC 04/14 TOP 1020 Omeprazole 20 MG DAILY AC 04/14 0913 DC PO Oxycodone HCl 5 MG Q6P PRN 04/08 1715 AC 04/14 PO 1613 Oxycodone/ 1 TAB Q6P PRN 04/08 1700 DC 04/10 Acetaminophen PO 2135 Patient Medication 1 ED .STK-MED ONE 04/14 1416 NM Teaching ED 04/14 1417 Polyethylene Glycol 17 GM DAILY 04/08 1832 AC 04/14 PO 1020 Senna/Docusate Sodium 2 TAB DAILY PRN 04/08 1845 AC 04/12 PO 0958 Spironolactone 25 MG BID 04/10 1100 AC 04/14 PO 1020 Last 24 Hrs of Lab/Diego Results Last 24 Hrs of Labs/Mics: Laboratory Tests 04/14/16 1130: PT Cancelled, INR Cancelled, CBC w Diff NO MAN DIFF REQ, RBC 2.63 L, MCV 105.7 H, MCH 35.6 H, RDW 19.4 H, MPV 9.1, Gran % 80.8 H, Lymphocytes % 11.8 L, Monocytes % 6.0, Eosinophils % 0.8, Basophils % 0.6, Absolute Granulocytes 4.7, Absolute Lymphocytes 0.7 L, Absolute Monocytes 0.4, Absolute Eosinophils 0, Absolute Basophils 0, PUBS MCHC 33.7 04/14/16 1036: PTH Intact 144.8 H 04/14/16 0700: Anion Gap 7, Estimated GFR 25 L, BUN/Creatinine Ratio 30.5 H Assessment/Plan Assessment: Ms. Angulo is a 70-year-old female with past medical history of hypothyroidism , hyperlipidemia, diabetes mellitus, hypertension and prior left hip fracture who presented for evaluation of pain in legs and her left hip. Patient is s/p mildly displaced, comminuted fracture of the greater trochanter of the left femur. In the ED: Vitals signs showed temperature 98.4, pulse 88, respiratory rate 19, 179/77, O2 saturation in the high 90s on room air. Labs showed H&H 9.7/29.5, creatinine 2.3, BUN 48. Patient was admitted to the general medicine floor and the following is the management: # Left-sided hip pain/ status post fall/hip fracture: * Patient fell in the shower on 03/02/2016 which resulted in a post comminuted fracture of the left greater trochanter of the femur. * Last month she was seen by orthopedic surgery and discharged for further outpatient evaluation and management were recommended, but she never followed up. * She has been moderately disabled since that time with pain in her left hip. * Ortho was reconsulted, Dr. Anders will evaluate patient today, will f/u recommendations. * Currently managing pain with with tylenol for mild, roxicodone for severe pain. # Anasarca: * Etiology likely secondary to nephropathy * GI, nephrology and cardiology have all been consulted, appreciate input, will continue to follow recs * Echocardiogram showed ejection fraction of 55-60% (no evidence of pulmonary hypertension) * She was started initially on IV Lasix but due to her worsening kidney function it was discontinued on 04/10. She was also started on Aldactone 25mg BID. * Lasix has since been restarted and we will continue patient on 40 mg IV lasix BID. Strict Is/Os and daily BMPs (monitor K). 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 Cornelius for this issue * Will have patient follow up with Dr. Cornelius upon discharge #Splenic lesion * Prior CT showed 1.9 cm splenic lesion * Patient refuses MRI inpatient as she is claustrophobic, will referr her to an open MRI outpatient #Pancreatic lesion * Patient reports prior pancreatic lesion followed by Dr. Cornelius * Consult placed, follow up recs #Uncontrolled diabetes mellitus: * Patient's glucose has been as low as in the 50s. Most likely due to excessive Levemir dose started on admission (patient was placed upon home dose of Levemir upon admission). * Levemir 10U BID has been restarted * Cont Novolog SSI with accuchecks. * Diabetic diet # Paresthesia in RLE * Continue gabapentin 100mg BID # History of hypothyroidism: * Cont Synthroid 0.175mg daily # History of hyperlipidemia: * Continue home dose of atorvastatin 50 mg daily * Fenofibrate 145 mg PO daily # History of hypertension, normal LF systolic function with mild diastolic dysfunction: * Continue home dose of lisinopril 20 mg daily * Continue clonidine 0.1 mg PO daily * Atenolol 100 mg PO daily * ASA 81 mg PO daily DNR/DNI DVTP: Heparin SC Heart Healthy diet Mild-mod pain pathways Problem List: 1. Splenic lesion 2. Cirrhosis 3. Hypoalbuminemia 4. Anasarca 5. Fracture of greater trochanter of left femur 6. Ascites 7. Elevated liver function tests Pain Ratin Pain Location: n/a Pain Goal: Remain pain free Pain Plan: Roxicodone. Tomorrow's Labs & Rationales: CBC to monitor anemia/obtain platelet prior to paracentesis, BEP to monitor K and renal function. SONIA HERMAN,GUME 04/14/16 1246: Attending MD Review Statement Attending Statement Attending MD Statement: examined this patient, discuss w/resident/PA/FORM BLOCK MAKER, agreed w/resident/PA/FORM BLOCK MAKER, reviewed EMR data (avail), discussed with nursing, discussed with case mgmt, amended to note Attending Assessment/Plan: Patient seen and examined. Resting comfortably and not in acute distress. No issues overnight. She remains afebrile at hemodynamically stable. She denies nausea vomiting. She does complain of mild abdominal discomfort and increased tenseness of her abdomen. Denies diarrhea or constipation. On examination she has no jugular venous distention. Lungs are clear bilaterally. Abdomen is markedly distended touch, nontender with normal bowel sounds. She continues to have 1-2+ lateral pedal edema. Problems: 1. Left hip fracture. 2. Cirrhosis. 3. Chronic kidney disease stage IV 4. Anasarca and ascites secondary to cirrhosis and CKD. 5. Splenic lesion. Plan: -Please recall the orthopedic service to evaluate patient regarding long-term management of her hip fracture. Continue current pain management regimen with Roxicodone. Discontinue Percocet. -Patient has a long-standing history of cirrhosis. She follows up with Rigo Aviles MD. She has been worked up extensively in the past with negative viral hepatitis panel. She has no significant history of alcohol use. She is not on hepatotoxic medications. 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 She'll be following up with him for a liver biopsy as an outpatient. -Patient is refusing to do an MRI in the closed unit due to claustrophobia. She declines to do the test even after premedication. Case was discussed with Rigo Aviles MD. He is recommending outpatient endoscopic ultrasound for better evaluation. This was discussed with the patient. -Please follow-up with the lab regarding obtaining patient's urine random total protein level. -We'll perform therapeutic paracentesis today. Follow-up with the nephrology service outpatient diuretic dosing upon discharge. -The above diagnosis as well as intended treatment plans were discussed with the patient today. She did verbalize understanding. She would like to discuss further with her fine dining server Rigo Aviles MD regarding etiology of her cirrhosis.
--- NOTE | 2016-04-14 08:29 | Cons- Gastroenterology ---
General Information and HPI Consulting Request Date of Consult: 04/14/16 Requested By: GUME MCLEOD M.D Reason for Consult: Notified today to assess ascites & anasarca in a patient with probable progression of BYERS to cirrhosis & possible concomittant nephrotic syndrome ( please see extensive outpatient notes in [place]), HD #7. Source of Information: patient, old records Exam Limitations: fair historian History of Present Illness: Ms. Zuleika Angulo last presented to the office 12/26/2015, previously seen as an inpatient at [facility] in 09/2013, over 2 years ago. She is a fair historian. She has not been compliant with medical followup in [place], as she is in [place] for 10 months out of the year. She is followed by Dr. Anaya for primary care, Dr. Freddie Galindo for cardiology, and recently saw Dr. Saucedo for renal. *She was admitted to [facility] 04/08/2016, approximately 5 weeks after falling on her left hip, and was found to have a left hip fracture, awaiting orthopedics input. She was taking outpatient Percocet without relief, and found it difficult to ambulate. Additionally, she has progressive ascites and anasarca, and is being worked up for possible nephrotic syndrome. 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 The patient was remotely seen by myself in [facility] for nausea and vomiting 10/23. An inpatient GI consult was done by myself 09/16/2013, and the patient was then seen by Dr. Buck 10/22/2013 in coverage. The patient previously had positive troponin which normalized. 09/14/2013: CT scan of the abdomen and pelvis without contrast and 09/15/2013: RUQ sono as inpatient- without acute pathology. 09/16/2013: Echocardiogram- mild concentric LVH, normal LVEF > 65%, stage 1 diastolic dysfunction, mildly dilated left atrium, mild MR. 09/17/2013: Hep A Ab, Hep Bs Ag, Hep B core Ab, & Hep C Ab- all negative. 09/18/2013: Persantine thallium- reversible inferolateral wall hypoperfusion, consistent with ischemia, with LVEF 69%. 09/19/2013: Cardiac catheterization- mild medical disease, without stent or angioplasty. 10/23/2013: EGD by myself- gastroparesis with retained food cleared from the fundus and posterior wall of the stomach, patent pylorus without mechanical gastric outlet obstruction. A metal suture with a blue guidewire was seen loosely embedded in the wall of the lower gastric body. Scant hiatal hernia. Z-line at 38 cm. J-shaped stomach. Erosive esophagitis on biopsies. Mild gastritis, H. pylori negative. Random biopsies second and third portion of duodenum- normal villi. The patient previously tolerated a short course of Reglan, without any extrapyramidal side effects. She had not been on Reglan from [id number], but then tolerated Metozolv without any EPS side effects or Parkinson type symptoms. The patient states a baseline and only colonoscopy done in [place] in 2014 was "normal," but she is not sure who performed this, or exactly where it was performed. She is to see Dr. Freddie Galindo for cardiology followup 01/16/2016, having not seen him for a couple of years. She apparently only sees an fisher periodically in [place]. The patient was seen in the office 12/26/2015 for gastroparesis, early satiety, ascites, nausea, probable cirrhosis, macrocytic anemia, bloating, and an incidental tiny splenic lesion, *which cannot be adequate imaged because of the patient's renal failure, prohibiting contrast. She has had numerous trips to the [facility] for the above. She is on diuretic therapy with HCTZ, per PMD. 10/11: Chest x-ray per [facility]- minimal bibasilar atelectasis, otherwise negative. 10/12/2015: CT scan of the abdomen and pelvis without IV contrast per [facility]- mild bibasilar atelectasis, 1.7 cm hypodense splenic lesion, anasarca, small amount of ascites, small bilateral pleural effusions, consistent with probable fluid overload, normal adnexa. The liver did not necessarily look cirrhotic. There were no focal hepatic lesions within the limits of a non-IV contrast study. CCKY without dilated ducts. Diverticulosis coli. Appendectomy. Nonobstructing bilateral 3 mm renal stones. ASHD including coronary arteries. DJD. 11/13/2015: KUB per PMD- negative except postop change RUQ. 11/13/2015: PMD- WBC 5.8, H/H 9.1/27.7, elevated MCV 101.5, PLT 124K, sodium 144, potassium 3.9, chloride 111, HCO3 22, Ag 11, glucose 115, BUN/Cr 37/2.4, GFR 20, normal amylase/lipase, calcium 8.2, albumin 2.6, globulin 3.0, TBil 0.7, alk phos 87, AST 46, ALT 28. *The patient has not seen a customs officer in years. She has noted bloating and fleeting right epigastric pain, which is not necessarily related to eating. There was mild increased abdominal girth, along with early satiety ( gastroparesis). She is on baby aspirin once a day without any NSAIDs. She denies any hematemesis. There is mild nausea, without vomiting. She denies any reflux, odynophagia, dysphagia, melena, fevers, chills, night sweats, jaundice, confusion, pruritus, dark urine, or light stool. She claimed to have unintentionally lost 25 ponds over the past 4 months, prior to 12/26/2015, but is still obese- uncertain how much of this was related to diuretics. Her appetite is fairly good. Her bowel movements are normal, without any diarrhea, constipation, obstipation, tenesmus, or rectal bleeding. She was put on Zofran ODT by her PMD, which helped the nausea. *Family history is significant for 1 sister having had cholecystectomy, another sister with Crohn's disease. Otherwise, there is no family history of GI malignancy, additional GI disease, inherited liver disease, or inherited pancreatitis. Obviously there was concern that the patient has cirrhosis, manifested by thrombocytopenia and reversal of albumin:globulin ratio. There is no history of EtOH. If indeed, the patient does have cirrhosis, which would possibly account for the mild ascites and anasarca, certainly the patient has numerous risk factors for BYERS, namely obesity, hyperlipidemia, hypertension, diabetes, etc., that could have gone on to cirrhosis. *A repeat echocardiogram would be helpful to see if there is a cardiac component to this, & this was just done as an inpatient 04/11/2016, showing normal LVEF 60%, with echodensity posterior to the LV (*r/o posterior mediastinal mass). Her renal insufficiency is noted, and she will be seeing Dr. Saucedo for this. I doubt that the patient is nephrotic, but this should be excluded. The patient has known gastroparesis, verified by her last 10/23/2013: EGD findings, at which point, the stomach was partially filled with food, which was cleared. This was despite having a patent pylorus and the patient being NPO prior to the procedure. The early satiety and nausea most likely are from this. Previous gastric biopsies were H. pylori negative and small bowel biopsies were unremarkable. She did have erosive esophagitis at that time. There was a metal suture with a blue guidewire, loosely embedded in the wall of the lower gastric body, probably related to her remote pancreatic surgery at [facility], done for unknown reasons, possibly for resection of a pancreatic cyst, but this may be an incidental finding. The splenic lesion is noted, but unfortunately, her low GFR prohibits contrast studies. *The weight loss is of some concern. The patient tells me a recent abdominal ultrasound in [place], [place] ordered by her PMD at the end of 10/2015 did not show any tappable fluid. Clinically, I felt there was no need to obtain a gastric emptying study, as the patient has gastroparesis, verified by previous EGD. 01/02/2016: *Normal AFP 1.8, PT 12.7, INR 1.22, WBC 4.9, H/H9.2/27.9, MCV 100, PLT 155, glucose 127, BUN/Cr 30/2.3, GFR 21, Na 141, K 3.9, bicarbonate 21, AG 8 , albumin 2.3, globulin 3.2, TBil 0.6, alk phos 99, AST 43, ALT 34, normal lipase 121, normal Hgb A1c 5.1, normal TFTs with normal TSH 0.941, TChol 86, TG 215, HDL 17, LDL 26; Hep A Ab, Hep Bs Ag, Hep B core Ab, Hep Bs Ab, Hep C Ab- negative; Fe 51, TIBC 310, Fe sat 16.5%, ferritin 171, B12 415, folate 3.8, SPEP c/w acute phase rx/nl IPEP, AMA < 20, anti-LKM < 20, anti-smooth muscle Ab < 20, nl A1AT 182, IgA 472, *borderline DGP Ab IgA 21/IgG- neg, tTG Ab (both IgA/ IgG)- negative. 01/04/2016: *Stool antigen for H. pylori-negative. 01/07/2016: *Complete abd sono- mild to mod ascites. *Cirrhotic appearing liver, without focal hepatic lesion. Post CCKY. CBD 1.5 cm (postop), nl IHD. Spleen 13 cm with 2.5 cm nonspecific hypoechoic lesion. B/L nonobst renal stones without hydronephrosis. 01/07/2016: *Liver-Spleen scan- + colloid shift, c/w cirrhosis. *Pt has renal insuff, prohibiting IV contrast. 01/26/2016: *900 cc ascites removed via sono tap by IR- 97 RBC, 223 WBC (17 PMN- absolute #PMN 37.9), BF prot < 2.0, BF alb < 1.0, serum alb 2.3, elevated SAAG > 1.3- *No SBP. *high SAAG, low protein c/w portal HTN from liver etiology (? if progression of fatty liver to cirrhosis). *Ascitic fluid- Gram stain, C&S- negative. Ascitic cytology- atypical cells, favor reactive mesothelial cells. Background abundant mixed inflammation. No gross malignancy seen. 02/09/2016: EGD to D3 with bxs- 1. Random small bowel biopsy 4 of normal-appearing second and third portions of the duodenum, obtained in view of 01/02/2016: minimally elevated DGP IgA Ab- 21 (Specimen A- rule out malabsorption and/or celiac sprue). Ampulla not seen with direct-viewing scope. 2. Minimal antral erythema, biopsied: (Specimen B). 3. Mild portal gastropathy lesser curvature aspect of fundus, biopsied: ( Specimen C). 4. Slight thickened folds proximal gastric fundus, without definite gastric varices. 5. Scant hiatal hernia with Z line at 36 cm. No esophageal varices. 6. Random biopsies of distal esophagus: (Specimen D- 36 cm, Specimen E- 33 cm). 7. Tertiary contractions distal esophagus. 8. Metal suture loosely embedded in posterior aspect of lower body, without change from 10/23/2013 EGD (probably from remote resection of pancreatic cyst), although no blue guidewire seen at this point. 9. History of gastroparesis, without bezoar. Patent pylorus without GOO. ADDENDUM: 02/12/2016- A. 2ND AND 3RD PORTION OF DUODENUM, MULTIPLE RANDOM BXS (+/- DGP IgA- 21): DUODENAL MUCOSA WITHOUT SIGNIFICANT HISTOPATHOLOGIC CHANGES. B. MILD ANTRAL ERYTHEMA, BIOPSY: MILD CHRONIC ANTRAL GASTRITIS. NEGATIVE FOR ACUTE ACTIVITY AND INTESTINAL METAPLASIA. GIEMSA STAIN IS NEGATIVE FOR HELICOBACTER ORGANISMS. C. FUNDUS, ? PORTAL GASTROPATHY, BIOPSY: MILD CHRONIC FUNDIC GASTRITIS. NEGATIVE FOR ACUTE ACTIVITY AND INTESTINAL METAPLASIA. GIEMSA STAIN IS NEGATIVE FOR HELICOBACTER ORGANISMS. D. ESOPHAGUS AT 36 CM, RANDOM BIOPSY: BENIGN ESOPHAGEAL MUCOSA. NEGATIVE FOR SIGNIFICANT INCREASED NUMBER OF EOSINOPHILS. E. ESOPHAGUS AT 33 CM, RANDOM BIOPSY: BENIGN ESOPHAGEAL MUCOSA. NEGATIVE FOR SIGNIFICANT INCREASED NUMBER OF EOSINOPHILS. Dictated by: KIMBERLEE ROSALES MD Random bxs D2/D3- neg. Gastric bxs- mild CAG/CFG, hP-neg. Random esophageal bxs- neg. *I called the pt the p.m. of 02/12/2016 at [phone], and left her a message regarding the unremarkable bxs. *OTC Prilosec 20 mg each AM 1/2 hour before breakfast was rxd. Renal insufficiency prohibits MR with gadolinium. Baseline & only [place] colonoscopy in 2014 was reportedly normal (*patient is to send me a copy from her [place] fisher). *No need to switch Atenolol to a non-selective beta gadiel, as no varices seen on EGD. *Observe off Metozolv 5 mg TID (stopped due to headache, not due to EPS issues). *Await DIRECTOR OF STRATEGIC SOURCING, cardiology, and renal input & see urology regarding nonobstructed renal stones, as advised. *Follow-up noncontrast CT of spleen in 09/2016. *Follow-up GI visit within 2 months was advised, to reassess and set up immunizations, in view of cirrhosis. * Consideration for liver biopsy then. *Consideration for EUS regarding metal suture at posterior wall of gastric body & ? splenic lesion. 04/08/2016: XRY-PORTABLE CHEST XRAY- Low lung volumes with streaky retrocardiac opacity which could represent atelectasis or pneumonia. Stable prominence of the cardiac silhouette. 04/09/2016: EKG- SB @ 59, normal axis, PRWP, NSST diffusely. 04/11/2016: XRY-HIP 2-3 VIEWS, LEFT- Possible avulsion fracture, with irregular fracture fragment located lateral to the superior left hip joint. It is unclear whether this represents avulsion fracture from the greater trochanter or the pelvis; favor greater trochanter as there was trauma at this site on prior exam 03/02/2016. Alternatively, the mineralization may represent heterotopic ossification from prior left proximal femoral injury. 04/12/2016: CT CHEST WO IV CONTRAST- 1. No suspicious mass identified in the posterior mediastinum. 2. Nonspecific patchy groundglass attenuation right upper lobe may represent mild pneumonitis. 3. Nonspecific subpleural nodule right apex. 4. Left-sided effusion with adjacent bandlike atelectasis. 5. Moderate ascites. Anasarca. Nodular hepatic margin suspicious for underlying cirrhosis. Clinical and laboratory correlation recommended. 6. Low-attenuation lesion superior spleen measuring approximately 1.9 cm representing a new finding. Further assessment with contrast-enhanced CT or MRI recommended. 7. Nonobstructing calculi bilateral kidneys. Allergies/Medications Allergies: Coded Allergies: codeine (Severe, RASH, DIFFICULTY BREATHING 04/08/16) morphine (Severe, SHORTNESS OF BREATH 04/08/16) Home Med List: Aspirin (Children's Aspirin) 81 MG TAB.CHEW 81 MG PO DAILY HEART TAKE 1 TAB PO DAILY Atenolol 100 MG TABLET 1 TAB PO 1300 HEART (Reported) Atorvastatin Calcium 10 MG TABLET 50 MG PO 1300 HEART HEALTH (Reported) Clonidine HCl (Catapres) 0.1 MG TABLET 1 TAB PO DAILY BP (Reported) FENOFIBRATE,MICRONIZED (Fenofibrate) 200 MG CAPSULE 1 CAP PO DAILY HLD ( Reported) Furosemide 20 MG TABLET 1 TAB PO DAILY edema (Reported) Insulin Detemir (Levemir) 100 UNIT/1 ML VIAL 40 UNITS SC BID DIABETES ( Reported) Levothyroxine Sodium (Synthroid) 150 MCG TABLET 1 TAB PO DAILY AC THYROID ( Reported) Lisinopril/Hydrochlorothiazide (Lisinopril-Hctz 20-12.5 MG Tab) 20 MG-12.5 MG TABLET 1 TAB PO DAILY HIGH BLOOD PRESSURE (Reported) Magnesium Oxide (Magnesium) 400 MG CAPSULE 20.5 MG PO DAILY VITAMIN SUPPORT ( Reported) Pioglitazone HCl (Actos) 30 MG TABLET 1 TAB PO DAILY DIABETES (Reported) Current Medications: Current Medications Sig/Radha Start time Last Medication Dose Route Stop Time Status Admin Acetaminophen 650 MG Q6P PRN 04/08 1700 AC PO Aspirin 81 MG DAILY 04/09 1000 AC 04/14 PO 1020 Atenolol 100 MG DAILY 04/08 1720 AC 04/14 PO 1019 Atorvastatin Calcium 50 MG 1700 04/10 1700 AC 04/14 PO 1613 Clonidine 0.1 MG DAILY 04/08 1719 AC 04/14 PO 1020 Docusate Sodium 100 MG DAILY 04/08 1832 AC 04/14 PO 1019 Ergocalciferol 50,000 IU QTUES 04/13 0700 AC 04/13 PO 0637 Fenofibrate 145 MG DAILY 04/09 1000 AC 04/14 PO 1019 Furosemide 40 MG BID 04/12 2200 AC 04/14 IV 1020 Gabapentin 100 MG BID 04/11 1000 AC 04/14 PO 1019 Heparin Sodium 5,000 UNIT Q8 04/08 1702 DC 04/14 (Porcine) SC 0600 Insulin Aspart 0 TIDAC 04/09 0800 AC 04/14 SC 1714 Insulin Detemir 10 UNITS BID 04/11 2200 AC 04/11 SC 2139 Levothyroxine Sodium 0.175 MG DAILY AC 04/10 0700 AC 04/14 PO 0559 Lisinopril 20 MG DAILY 04/09 1000 AC 04/14 PO 1019 Nystatin 1 GWENDOLYN BID 04/10 1141 DC 04/14 TOP 1020 Omeprazole 20 MG DAILY AC 04/14 0913 DC PO Oxycodone HCl 5 MG Q6P PRN 04/08 1715 AC 04/14 PO 1613 Oxycodone/ 1 TAB Q6P PRN 04/08 1700 DC 04/10 Acetaminophen PO 2135 Patient Medication 1 ED .STK-MED ONE 04/14 1416 DC Teaching ED 04/14 1417 Polyethylene Glycol 17 GM DAILY 04/08 1832 AC 04/14 PO 1020 Senna/Docusate Sodium 2 TAB DAILY PRN 04/08 1845 AC 04/12 PO 0958 Spironolactone 25 MG BID 04/10 1100 AC 04/14 PO 1020 Past History Travel History Traveled to [place] past 21 day No Medical History Blood Transfusion Hx: No Neurological: 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), peripheral neuropathy EENT: NONE Cardiovascular: diastolic CHF, hypertension, hyperlipidemia, hx SVT Respiratory: asthma Gastrointestinal: hiatal hernia (mild) Hepatic: cirrhosis Renal: chronic kidney disease (r/o nephrotic) Musculoskeletal: chronic back pain, falls, fracture (L hip post fall), spinal stenosis Psychiatric: depression Endocrine: diabetes, hypothyroidism, obesity, vitamin D deficiency Blood Disorders: anemia (macrocytic w/o transfx), thrombocytopenia Cancer(s): NONE DIRECTOR OF STRATEGIC SOURCING/Reproductive: NONE Surgical History Surgical History: appendectomy, cholecystectomy (open 1978), (x 2), RIGHT SHOULDER ROTATOR LEFT ANKLE SURGERY C-SECTIONS, resection of pancreatic cyst at [facility] Family History Relations & Conditions If Any: SISTER FH: Crohn's disease FH: diabetes mellitus BROTHER FH: Hodgkins disease FATHER FH: heart disease MOTHER FH: diabetes mellitus Relation not specified for: FH: lung cancer Psychosocial History Where Do You Live? Home Who Do You Live With? spouse Services at Home: None Primary Language: Ghanaian Smoking Status: Never Smoked ETOH Use: denies use Illicit Drug Use: denies illicit drug use Living Will? no Power of Cloth Bleaching Range Back Tender/HCP? no Other Social History: . Lives with . No cigarettes, EtOH or drugs. 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 Lives in [place] for 10 months out of the year. Difficult to ambulate since falling on her left hip 03/02/2016, sclerae found to have fracture. 1 son & 1 dtr- [employer] (dtr with DM) Functional Ability ADLs Independent: dressing, eating. Needs Assist: toileting, bathing (post L hip fx) . Ambulation: non-ambulatory (post L hip fx) IADLs Independent: finances, food prep, telephone, medication admin. Needs Assist: shopping (post L hip fx), housework, transportation. Employment History Employment: Retired Profession/Employer: [employer] ECHO Results (as available) Date of last Echo 04/11/16 EF% 60 Review of Systems Review of Systems: Full 14 point review of systems otherwise noncontributory, and as above. Review of Systems Constitutional: Reports: weakness. Denies: chills, diaphoresis, fever, malaise, unexplained weight loss. EENTM: Denies: blurred vision, double vision, visual changes, eye pain, eye drainage, eye tearing, icterus, ear discharge, ear pain, ear redness, hearing changes, nasal congestion, epistaxis, nasal pain, throat pain, throat swelling, mouth pain, tooth pain. Cardiovascular: Reports: edema, peripheral edema. Denies: chest pain, orthopena, palpitations, syncope. Respiratory: Reports: short of breath (PITTS). Denies: cough, hemoptysis, orthopnea, sputum production, stridor, wheezing. GI: Reports: bloating, distention. Denies: no symptoms (early satiety/gastroparesis ), abdominal pain, constipation, diarrhea, bowel incontinence, melena, nausea, bloody stool, changes in stool, vomiting, steatorrhea. Genitourinary: Denies: discharge, dysuria, frequency, hematuria, hesitation, nocturia, pain, urgency. Musculoskeletal: Reports: back pain (spinal stenosis), joint pain (DJD). Denies: gout, joint swelling, muscle pain, muscle stiffness, neck pain. Skin: Denies: cysts, change in skin color, change in hair/nails, dryness, erythema, jaundice, lesions, lymphangitis, lumps, moles, rash. Neurological/Psychological: Reports: depressed, emotional problems, paresthesia (? neuropathy), weakness. Denies: anxiety, ataxia, cognitive dysfunction, confusion, dementia, headache, numbness, pre-existing deficit, petit mal seizures, tingling, tremors, tonic- clonic seizures, unable to move lower ext, unable to move upper ext. Hematologic/Endocrine: Denies: bruising, bleeding, polyuria, polydipsia. Immunologic/Allergic: Denies: splenectomy, HIV/AIDS, lymphadenopathy. All Other Systems: Reviewed and Negative Exam & Diagnostic Data Vital Signs and I&O Vital Signs Date Time Temp Pulse Resp B/P Pulse O2 O2 Flow FiO2 Ox Delivery Rate 04/14 1427 98.0 65 20 148/80 97 Room Air 04/14 1335 Room Air 04/14 1020 69 162/74 04/14 1019 69 162/74 04/14 0630 98.4 65 20 138/80 98 Room Air 04/13 2157 98.1 62 20 124/74 93 Room Air Intake & Output 04/14 1600 04/14 0400 04/13 1600 04/13 0400 04/12 1600 04/12 0400 Intake Total 1280 100 820 380 800 100 Output Total 1250 450 750 601 300 Balance 30 -350 70 380 199 -200 Intake, IV 20 Intake, Oral 1280 100 820 360 800 100 Number 0 Bowel Movements Output, Stool 1 Output, Urine 1250 450 750 600 300 Patient 197 lb 197 lb Weight Physical Exam: Morbidly obese female, in no apparent distress. Sclera anicteric. Conjunctiva pink. Oropharynx clear. No oral thrush. No aphthous ulcers. There is no adenopathy, thyromegaly, or JVD. Questionable mild HJR. No peripheral stigmata of inflammatory bowel disease or chronic liver disease on exam. No spiders on the anterior chest wall. Breast & pelvic exams: API. No CVA tenderness. Lungs : clear to A&P, slight decreased breath sounds at the bases B/L. No wheezing, rales, or rhonchi. Heart exam: regular rate rhythm, S1 and S2, with scant murmur. Abdominal exam: normal bowel sounds, soft doughy abdominal wall with anasarca/pannus, nontender without guarding or rebound. No definite mass or organomegaly, within the limits of the body habitus. No definite palpable spleen tip. Positive fluid shift. No pulsatile mass. Digital rectal exam: deferred at present, API (O.B-negative in ER in 10/2015). Extremities: without cyanosis or clubbing. Mild peripheral edema LE B/L. No palpable cords. No palmar erythema. No Dupuytren's contractures. Deformed left ankle post fracture, uncertain if Charcot's joint. Distal pulses 1+ bilaterally. DTRs 1+ bilaterally. Alert and oriented x 3. No tremor. No asterixis. No cogwheeling or extrapyramidal signs (off Reglan). A detailed exam for peripheral neuropathy was deferred. Motor 5/5 except 4/5 LLE. Decrease range of motion LLE, but I defer to their exam of the left hip to orthopedics. Results Pertinent Lab Results: Laboratory Tests 04/14 04/14 04/14 1130 1036 0700 Chemistry Sodium (137 - 145 mmol/L) 142 Potassium (3.5 - 5.1 mmol/L) 4.5 Chloride (98 - 107 mmol/L) 108 H Carbon Dioxide (22 - 30 mmol/L) 27 Anion Gap (5 - 16) 7 BUN (7 - 17 mg/dL) 61 H Creatinine (0.5 - 1.0 mg/dL) 2.0 H Estimated GFR (>60 ml/min) 25 L BUN/Creatinine Ratio (7 - 25 %) 30.5 H PTH Intact (13.8 - 85 pg/ml) 144.8 H Coagulation PT Cancelled INR Cancelled Hematology CBC w Diff NO MAN DIFF REQ WBC (4.8 - 10.8 /CUMM) 5.8 RBC (4.20 - 5.40 /CUMM) 2.63 L Hgb (12.0 - 16.0 G/DL) 9.4 L Hct (37 - 47 %) 27.8 L MCV (81.0 - 99.0 FL) 105.7 H MCH (27.0 - 31.0 PG) 35.6 H RDW (11.5 - 14.5 %) 19.4 H Plt Count (130 - 400 /CUMM) MPV (7.4 - 10.4 FL) 9.1 Gran % (42.2 - 75.2 %) 80.8 H Lymphocytes % (20.5 - 51.1 %) 11.8 L Monocytes % (1.7 - 9.3 %) 6.0 Eosinophils % (0 - 5 %) 0.8 Basophils % (0.0 - 2.0 %) 0.6 Absolute Granulocytes (1.4 - 6.5 /CUMM) 4.7 Absolute Lymphocytes (1.2 - 3.4 /CUMM) 0.7 L Absolute Monocytes (0.10 - 0.60 /CUMM) 0.4 Absolute Eosinophils (0.0 - 0.7 /CUMM) 0 Absolute Basophils (0.0 - 0.2 /CUMM) 0 PUBS MCHC (33.0 - 37.0 G/DL) 33.7 04/13 04/13 04/13 04/12 04/12 1150 1150 0715 1822 0691 Chemistry Sodium (137 - 145 mmol/L) 142 Potassium (3.5 - 5.1 mmol/L) 4.1 Chloride (98 - 107 mmol/L) 110 H Carbon Dioxide (22 - 30 mmol/L) 25 Anion Gap (5 - 16) 7 BUN (7 - 17 mg/dL) 58 H Creatinine (0.5 - 1.0 mg/dL) 2.2 H Estimated GFR (>60 ml/min) 22 L BUN/Creatinine Ratio (7 - 25 %) 26.4 H Total Bilirubin (0.2 - 1.3 mg/dL) 0.6 Direct Bilirubin (< 0.4 mg/dL) 0.6 H AST (14 - 36 U/L) 88 H ALT (9 - 52 U/L) 54 H Alkaline Phosphatase (<127 U/L) 143 H Total Protein (6.3 - 8.2 g/dL) 5.6 L Albumin (3.5 - 5.0 g/dL) 1.9 L Coagulation PT (9.4 - 12.5 SEC) 13.5 H INR (0.90 - 1.19) 1.29 H Miscellaneous Ref Lab Test Result (()) REPORT Urines Ur Random Creatinine (mg/dL) 51.9 52.3 Cancelled Ur Random Microalbumin (<1.7 mg/dl) 61.0 H Cancelled U Random Total Protein Cancelled Ur Random Sodium (30 - 90 mmol/L) 100 H Ur Random Potassium (mmol/L) 19.6 Fraction Sodium Excret (<1% %) U Cystine/Creat Ratio (mcg/mg) 1175.33 Cancelled 04/12 0600 Chemistry Prot Electrophoresis Pending Total Protein (PEP) Pending Albumin % (PEP) Pending Lwopy-6-Kpshqmyhl Pending Lvcku-0-Gaxxmdirh Pending Onhu-5-Hadawguy Pending Zgvq-7-Emarbmmt Pending Gamma Globulins Pending Abnorm Protein Band 1 Pending Abnorm Protein Band 2 Pending Abnorm Protein Band 3 Pending Miscellaneous Ref Lab Test Result Pending Imaging/Other Studies: 04/08/2016: XRY-PORTABLE CHEST XRAY- Low lung volumes with streaky retrocardiac opacity which could represent atelectasis or pneumonia. Stable prominence of the cardiac silhouette. 04/09/2016: EKG- SB @ 59, normal axis, PRWP, NSST diffusely. 04/11/2016: XRY-HIP 2-3 VIEWS, LEFT- Possible avulsion fracture, with irregular fracture fragment located lateral to the superior left hip joint. It is unclear whether this represents avulsion fracture from the greater trochanter or the pelvis; favor greater trochanter as there was trauma at this site on prior exam 03/02/2016. Alternatively, the mineralization may represent heterotopic ossification from prior left proximal femoral injury. 04/12/2016: CT CHEST WO IV CONTRAST- 1. No suspicious mass identified in the posterior mediastinum. 2. Nonspecific patchy groundglass attenuation right upper lobe may represent mild pneumonitis. 3. Nonspecific subpleural nodule right apex. 4. Left-sided effusion with adjacent bandlike atelectasis. 5. Moderate ascites. Anasarca. Nodular hepatic margin suspicious for underlying cirrhosis. Clinical and laboratory correlation recommended. 6. Low-attenuation lesion superior spleen measuring approximately 1.9 cm representing a new finding. Further assessment with contrast-enhanced CT or MRI recommended. 7. Nonobstructing calculi bilateral kidneys. Assessment/Plan Assessment/Recommendations: Ms. Zuleika Angulo last presented to the office 12/26/2015, previously seen as an inpatient at [facility] in 09/2013, over 2 years ago. She is a fair historian. She has not been compliant with medical followup in [place], as she is in [place] for 10 months out of the year. She is followed by Dr. Anaya for primary care, Dr. Freddie Galindo for cardiology, and recently saw Dr. Saucedo for renal. *She was admitted to [facility] 04/08/2016, approximately 5 weeks after falling on her left hip, and was found to have a left hip fracture, awaiting orthopedics input. She was taking outpatient Percocet without relief, and found it difficult to ambulate. Additionally, she has progressive ascites and anasarca, and is being worked up for possible nephrotic syndrome. 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 The patient was remotely seen by myself in [facility] for nausea and vomiting 10/23. An inpatient GI consult was done by myself 09/16/2013, and the patient was then seen [place]. [place]2013 [place] [facility] [place] patient previously had positive troponin which normalized. 09/14/2013: CT scan of the abdomen and pelvis without contrast and 09/15/2013: RUQ sono as inpatient- without acute pathology. 09/16/2013: Echocardiogram- mild concentric LVH, normal LVEF > 65%, stage 1 diastolic dysfunction, mildly dilated left atrium, mild MR. 09/17/2013: Hep A Ab, Hep Bs Ag, Hep B core Ab, & Hep C Ab- all negative. 09/18/2013: Persantine thallium- reversible inferolateral wall hypoperfusion, consistent with ischemia, with LVEF 69%. 09/19/2013: Cardiac catheterization- mild medical disease, without stent or angioplasty. 10/23/2013: EGD by myself- gastroparesis with retained food cleared from the fundus and posterior wall of the stomach, patent pylorus without mechanical gastric outlet obstruction. A metal suture with a blue guidewire was seen loosely embedded in the wall of the lower gastric body. Scant hiatal hernia. Z-line at 38 cm. J-shaped stomach. Erosive esophagitis on biopsies. Mild gastritis, H. pylori negative. Random biopsies second and third portion of duodenum- normal villi. The patient previously tolerated a short course of Reglan, without any extrapyramidal side effects. She had not been on Reglan from [id number], but then tolerated Metozolv without any EPS side effects or Parkinson type symptoms. The patient states a baseline and only colonoscopy done in [place] in 2014 was "normal," but she is not sure who performed this, or exactly where it was performed. She is to see Dr. Freddie Galindo for cardiology followup 01/16/2016, having not seen him for a couple of years. She apparently only sees an fisher periodically in [place]. The patient was seen in the office 12/26/2015 for gastroparesis, early satiety, ascites, nausea, probable cirrhosis, macrocytic anemia, bloating, and an incidental tiny splenic lesion, *which cannot be adequate imaged because of the patient's renal failure, prohibiting contrast. She has had numerous trips to the [facility] for the above. She is on diuretic therapy with HCTZ, per PMD. 10/11: Chest x-ray per [facility]- minimal bibasilar atelectasis, otherwise negative. 10/12/2015: CT scan of the abdomen and pelvis without IV contrast per [facility]- mild bibasilar atelectasis, 1.7 cm hypodense splenic lesion, anasarca, small amount of ascites, small bilateral pleural effusions, consistent with probable fluid overload, normal adnexa. The liver did not necessarily look cirrhotic. There were no focal hepatic lesions within the limits of a non-IV contrast study. CCKY without dilated ducts. Diverticulosis coli. Appendectomy. Nonobstructing bilateral 3 mm renal stones. ASHD including coronary arteries. DJD. 11/13/2015: KUB per PMD- negative except postop change RUQ. 11/13/2015: PMD- WBC 5.8, H/H 9.1/27.7, elevated MCV 101.5, PLT 124K, sodium 144, potassium 3.9, chloride 111, HCO3 22, Ag 11, glucose 115, BUN/Cr 37/2.4, GFR 20, normal amylase/lipase, calcium 8.2, albumin 2.6, globulin 3.0, TBil 0.7, alk phos 87, AST 46, ALT 28. *The patient has not seen a customs officer in years. She has noted bloating and fleeting right epigastric pain, which is not necessarily related to eating. There was mild increased abdominal girth, along with early satiety ( gastroparesis). She is on baby aspirin once a day without any NSAIDs. She denies any hematemesis. There is mild nausea, without vomiting. She denies any reflux, odynophagia, dysphagia, melena, fevers, chills, night sweats, jaundice, confusion, pruritus, dark urine, or light stool. She claimed to have unintentionally lost 25 ponds over the past 4 months, prior to 12/26/2015, but is still obese- uncertain how much of this was related to diuretics. Her appetite is fairly good. Her bowel movements are normal, without any diarrhea, constipation, obstipation, tenesmus, or rectal bleeding. She was put on Zofran ODT by her PMD, which helped the nausea. *Family history is significant for 1 sister having had cholecystectomy, another sister with Crohn's disease. Otherwise, there is no family history of GI malignancy, additional GI disease, inherited liver disease, or inherited pancreatitis. Obviously there was concern that the patient has cirrhosis, manifested by thrombocytopenia and reversal of albumin:globulin ratio. There is no history of EtOH. If indeed, the patient does have cirrhosis, which would possibly account for the mild ascites and anasarca, certainly the patient has numerous risk factors for BYERS, namely obesity, hyperlipidemia, hypertension, diabetes, etc., that could have gone on to cirrhosis. *A repeat echocardiogram would be helpful to see if there is a cardiac component to this, & this was just done as an inpatient 04/11/2016, showing normal LVEF 60%, with echodensity posterior to the LV (*r/o posterior mediastinal mass). Her renal insufficiency is noted, and she will be seeing Dr. Saucedo for this. I doubt that the patient is nephrotic, but this should be excluded. The patient has known gastroparesis, verified by her last 10/23/2013: EGD findings, at which point, the stomach was partially filled with food, which was cleared. This was despite having a patent pylorus and the patient being NPO prior to the procedure. The early satiety and nausea most likely are from this. Previous gastric biopsies were H. pylori negative and small bowel biopsies were unremarkable. She did have erosive esophagitis at that time. There was a metal suture with a blue guidewire, loosely embedded in the wall of the lower gastric body, probably related to her remote pancreatic surgery at [facility], done for unknown reasons, possibly for resection of a pancreatic cyst, but this may be an incidental finding. The splenic lesion is noted, but unfortunately, her low GFR prohibits contrast studies. *The weight loss is of some concern. The patient tells me a recent abdominal ultrasound in [place], [place] ordered by her PMD at the end of 10/2015 did not show any tappable fluid. Clinically, I felt there was no need to obtain a gastric emptying study, as the patient has gastroparesis, verified by previous EGD. 01/02/2016: *Normal AFP 1.8, PT 12.7, INR 1.22, WBC 4.9, H/H9.2/27.9, MCV 100, PLT 155, glucose 127, BUN/Cr 30/2.3, GFR 21, Na 141, K 3.9, bicarbonate 21, AG 8 , albumin 2.3, globulin 3.2, TBil 0.6, alk phos 99, AST 43, ALT 34, normal lipase 121, normal Hgb A1c 5.1, normal TFTs with normal TSH 0.941, TChol 86, TG 215, HDL 17, LDL 26; Hep A Ab, Hep Bs Ag, Hep B core Ab, Hep Bs Ab, Hep C Ab- negative; Fe 51, TIBC 310, Fe sat 16.5%, ferritin 171, B12 415, folate 3.8, SPEP c/w acute phase rx/nl IPEP, AMA < 20, anti-LKM < 20, anti-smooth muscle Ab < 20, nl A1AT 182, IgA 472, *borderline DGP Ab IgA 21/IgG- neg, tTG Ab (both IgA/ IgG)- negative. 01/04/2016: *Stool antigen for H. pylori-negative. 01/07/2016: *Complete abd sono- mild to mod ascites. *Cirrhotic appearing liver, without focal hepatic lesion. Post CCKY. CBD 1.5 cm (postop), nl IHD. Spleen 13 cm with 2.5 cm nonspecific hypoechoic lesion. B/L nonobst renal stones without hydronephrosis. 01/07/2016: *Liver-Spleen scan- + colloid shift, c/w cirrhosis. *Pt has renal insuff, prohibiting IV contrast. 01/26/2016: *900 cc ascites removed via sono tap by IR- 97 RBC, 223 WBC (17 PMN- absolute #PMN 37.9), BF prot < 2.0, BF alb < 1.0, serum alb 2.3, elevated SAAG > 1.3- *No SBP. *high SAAG, low protein c/w portal HTN from liver etiology (? if progression of fatty liver to cirrhosis). *Ascitic fluid- Gram stain, C&S- negative. Ascitic cytology- atypical cells, favor reactive mesothelial cells. Background abundant mixed inflammation. No gross malignancy seen. 02/09/2016: EGD to D3 with bxs- 1. Random small bowel biopsy 4 of normal-appearing second and third portions of the duodenum, obtained in view of 01/02/2016: minimally elevated DGP IgA Ab- 21 (Specimen A- rule out malabsorption and/or celiac sprue). Ampulla not seen with direct-viewing scope. 2. Minimal antral erythema, biopsied: (Specimen B). 3. Mild portal gastropathy lesser curvature aspect of fundus, biopsied: ( Specimen C). 4. Slight thickened folds proximal gastric fundus, without definite gastric varices. 5. Scant hiatal hernia with Z line at 36 cm. No esophageal varices. 6. Random biopsies of distal esophagus: (Specimen D- 36 cm, Specimen E- 33 cm). 7. Tertiary contractions distal esophagus. 8. Metal suture loosely embedded in posterior aspect of lower body, without change from 10/23/2013 EGD (probably from remote resection of pancreatic cyst), although no blue guidewire seen at this point. 9. History of gastroparesis, without bezoar. Patent pylorus without GOO. ADDENDUM: 02/12/2016- A. 2ND AND 3RD PORTION OF DUODENUM, MULTIPLE RANDOM BXS (+/- DGP IgA- 21): DUODENAL MUCOSA WITHOUT SIGNIFICANT HISTOPATHOLOGIC CHANGES. B. MILD ANTRAL ERYTHEMA, BIOPSY: MILD CHRONIC ANTRAL GASTRITIS. NEGATIVE FOR ACUTE ACTIVITY AND INTESTINAL METAPLASIA. GIEMSA STAIN IS NEGATIVE FOR HELICOBACTER ORGANISMS. C. FUNDUS, ? PORTAL GASTROPATHY, BIOPSY: MILD CHRONIC FUNDIC GASTRITIS. NEGATIVE FOR ACUTE ACTIVITY AND INTESTINAL METAPLASIA. GIEMSA STAIN IS NEGATIVE FOR HELICOBACTER ORGANISMS. D. ESOPHAGUS AT 36 CM, RANDOM BIOPSY: BENIGN ESOPHAGEAL MUCOSA. NEGATIVE FOR SIGNIFICANT INCREASED NUMBER OF EOSINOPHILS. E. ESOPHAGUS AT 33 CM, RANDOM BIOPSY: BENIGN ESOPHAGEAL MUCOSA. NEGATIVE FOR SIGNIFICANT INCREASED NUMBER OF EOSINOPHILS. Dictated by: KIMBERLEE ROSALES MD Random bxs D2/D3- neg. Gastric bxs- mild CAG/CFG, hP-neg. Random esophageal bxs- neg. *I called the pt the p.m. of 02/12/2016 at [phone], and left her a message regarding the unremarkable bxs. *OTC Prilosec 20 mg each AM 1/2 hour before breakfast was rxd. Renal insufficiency prohibits MR with gadolinium. Baseline & only [place] colonoscopy in 2014 was reportedly normal (*patient is to send me a copy from her [place] fisher). *No need to switch Atenolol to a non-selective beta gadiel, as no varices seen on EGD. *Observe off Metozolv 5 mg TID (stopped due to headache, not due to EPS issues). *Await DIRECTOR OF STRATEGIC SOURCING, cardiology, and renal input & see urology regarding nonobstructed renal stones, as advised. *Follow-up noncontrast CT of spleen in 09/2016. *Follow-up GI visit within 2 months was advised, to reassess and set up immunizations, in view of cirrhosis. * Consideration for liver biopsy then. *Consideration for EUS regarding metal suture at posterior wall of gastric body & ? splenic lesion. 04/08/2016: XRY-PORTABLE CHEST XRAY- Low lung volumes with streaky retrocardiac opacity which could represent atelectasis or pneumonia. Stable prominence of the cardiac silhouette. 04/09/2016: EKG- SB @ 59, normal axis, PRWP, NSST diffusely. 04/11/2016: XRY-HIP 2-3 VIEWS, LEFT- Possible avulsion fracture, with irregular fracture fragment located lateral to the superior left hip joint. It is unclear whether this represents avulsion fracture from the greater trochanter or the pelvis; favor greater trochanter as there was trauma at this site on prior exam 03/02/2016. Alternatively, the mineralization may represent heterotopic ossification from prior left proximal femoral injury. 04/12/2016: CT CHEST WO IV CONTRAST- 1. No suspicious mass identified in the posterior mediastinum. 2. Nonspecific patchy groundglass attenuation right upper lobe may represent mild pneumonitis. 3. Nonspecific subpleural nodule right apex. 4. Left-sided effusion with adjacent bandlike atelectasis. 5. Moderate ascites. Anasarca. Nodular hepatic margin suspicious for underlying cirrhosis. Clinical and laboratory correlation recommended. 6. Low-attenuation lesion superior spleen measuring approximately 1.9 cm representing a new finding. Further assessment with contrast-enhanced CT or MRI recommended. 7. Nonobstructing calculi bilateral kidneys. The patient is cirrhotic, manifested by ascites, reversal of albumin:globulin ratio, thrombocytopenia, and high SAAG, low protein ascites on previous abdominal taps, at which point, cell count was negative for SBP and ascitic cytology negative. Most likely, this is from progression of fatty liver to BYERS to cirrhosis, as the patient has numerous risk factors for this, including morbid obesity, diabetes, HTN, HLD, etc. There may be another component to her anasarca, as the patient may be nephrotic, spilling large amounts of protein in her urine (awaiting 24-hour urine collection). Most recent calculated MELD score 04/12/2016: [place] 15/[facility] 17. Extensive serologies have been negative. The patient has never had a liver biopsy. 02/09/2016: EGD- without varices, possible mild proximal portal gastropathy (no need for prophylactic non- selective beta blockers). The nonspecific splenic lesion is noted, however cannot do MRI with gadolinium or CT with IV contrast, based on low GFR. CT of chest did not show any posterior mediastinal mass. Regarding ascites, recent : echocardiogram showed normal LVEF. The patient's high urinary sodium goes against HRS. SUGGEST: Continue Lasix 40 mg BID as per renal & Aldactone (can switch Aldactone dosing from 25 mg BID to 50 mg daily, as it has a long half life). 2 g Na+ diabetic heart healthy diet. *Advise periodic large volume abdominal taps for symptomatic relief, to be given with SPA (advise 25g SPA/3L removed)- can recheck cell count with abdominal tap, but no need for additional studies, based on previous workup. Await 24-hour urine protein collection as per renal. need copy of 2014 colonoscopy, per patient. If needed for gastroparesis, consider resuming Metozolv 5 mg TID 1/2 hour a.c., as the patient had no extrapyramidal side effects, although she may have had a headache from this. Empiric PPI. * Consider outpatient liver biopsy, although I am not certain if this will change management analyst. Will defer to renal regarding possible kidney biopsy, if the patient is nephrotic. *Consider outpatient EUS to better assess splenic lesion- the alternative would be serial noncontrast CT scans. Advise DIRECTOR OF STRATEGIC SOURCING exam, but doubt ascites is due to this, based on previous laboratory analysis. Nonspecific CBD dilatation is post-CCKY in nature- " consider open MRCP, but probably low yield (the patient is claustrophobic). Advise semielective vaccination against both Hepatitis A and B, annual flu shot, and Pneumovax if applicable. Advise checking AFP & RUQ sono Q6 months for hepatoma surveillance. Avoid hepatotoxins. Avoid NSAIDs. Keep Tylenol use to< 2g daily. Await orthopedics input regarding left hip fracture. If surgery is contemplated, advise giving colloid in the intraoperative period to help minimize fluid shifts and watch for sepsis and coagulation issues. The case was previously discussed with Dr. Mcleod earlier on 04/14/2016. Further inpatient GI follow-up as needed. Please call. Problem List: 1. Cirrhosis 2. Anasarca 3. Ascites 4. Gastroparesis 5. Splenic lesion 6. CRI (chronic renal insufficiency) 7. Hip fracture, left Copies To: GUME MCLEOD M.D; BOLA HERMAN,ROHINI Craft; JUSTINA HERMAN,ARLEEN; JOSEFINA HERMAN,JAHAIRA Mehta ; CHANELLE HERMAN,JAMAAL BKoko; PINKY HERMAN,Katherine HOLCOMB; SOTERO HERMAN,RENETTA Fisher. Consult Acknowledgment - Thank you for your consult request.
--- NOTE | 2016-04-14 11:13 | PN- Nephrology ---
Assessment/Plan Assessment: 1. Intractable edema. It is suspected that with her long-standing diabetes, as well as her family history and abnormal renal function going back to 2010, that this is diabetic nephropathy contributing if not causing her volume overload. Unfortunately the proper urine random study was not sent. It would be helpful to obtain a random protein to creatinine ratio not a microalbumin 2. Concerns for cirrhosis. Suspect BYERS. 3. Diabetes mellitus 4. Obesity-if diabetes was not the cause of her renal disease, then certainly focal and segmental glomerulosclerosis could be considered. 5. Hypertension 6. Hyperlipidemia Suggestion: 1. Await proper urine studies. 24-hour urine is some progress. 2. Strict intakes and outputs 3. Her diet needs to be a 2 g sodium diet. 4. Please keep a close eye on a potassium given the fact that she has renal impairment and is on Spionolactone. 5. Suspect that she'll need 40-80 mg of furosemide twice a day. Subjective Subjective: Patient feels fairly well today. Objective Vital Signs and I&Os Vital Signs Date Time Temp Pulse Resp B/P Pulse O2 O2 Flow FiO2 Ox Delivery Rate 04/14 1020 69 162/74 04/14 1019 69 162/74 04/14 0630 98.4 65 20 138/80 98 Room Air 04/13 2157 98.1 62 20 124/74 93 Room Air 04/13 1438 98.0 61 20 140/72 99 04/13 1336 Room Air Intake & Output 04/14 1600 04/14 0400 04/13 1600 04/13 0400 04/12 1600 04/12 0400 Intake Total 480 100 820 380 800 100 Output Total 850 450 750 601 300 Balance -370 -350 70 380 199 -200 Intake, IV 20 Intake, Oral 480 100 820 360 800 100 Number 0 Bowel Movements Output, Stool 1 Output, Urine 850 450 750 600 300 Patient 197 lb 197 lb Weight Physical Exam: General Appearance: well developed/nourished, no apparent distress, alert, awake , comfortable Ears, Nose, Throat: normal ENT inspection, hearing grossly normal Neck: normal inspection, supple, no JVD Respiratory: normal breath sounds, chest non-tender Cardiovascular: regular rate/rhythm, edema Abdomen: normal bowel sounds, soft, non-tender, no abdominal bruits Extremities: swelling, swelling on the torso and the sacrum Neurologic/Psychiatric: no motor/sensory deficits, awake, alert, oriented x 3, no gross neurologic deficits Skin: normal color Current Medications: Current Medications Sig/Ardha Start time Last Medication Dose Route Stop Time Status Admin Acetaminophen 650 MG Q6P PRN 04/08 1700 AC PO Aspirin 81 MG DAILY 04/09 1000 AC 04/14 PO 1020 Atenolol 100 MG DAILY 04/08 1720 AC 04/14 PO 1019 Atorvastatin Calcium 50 MG 1700 04/10 1700 AC 04/13 PO 1805 Clonidine 0.1 MG DAILY 04/08 1719 AC 04/14 PO 1020 Docusate Sodium 100 MG DAILY 04/08 1832 AC 04/14 PO 1019 Ergocalciferol 50,000 IU QTUES 04/13 0700 AC 04/13 PO 0637 Fenofibrate 145 MG DAILY 04/09 1000 AC 04/14 PO 1019 Furosemide 40 MG BID 04/12 2200 AC 04/14 IV 1020 Gabapentin 100 MG BID 04/11 1000 AC 04/14 PO 1019 Heparin Sodium 5,000 UNIT Q8 04/08 1702 AC 04/14 (Porcine) SC 0600 Insulin Aspart 0 TIDAC 04/09 0800 AC 04/13 SC 1806 Insulin Detemir 10 UNITS BID 04/11 2200 AC 04/11 SC 2139 Levothyroxine Sodium 0.175 MG DAILY AC 04/10 0700 AC 04/14 PO 0559 Lisinopril 20 MG DAILY 04/09 1000 AC 04/14 PO 1019 Nystatin 1 GWENDOLYN BID 04/10 1141 AC 04/14 TOP 1020 Omeprazole 20 MG DAILY AC 04/14 0913 DC PO Oxycodone HCl 5 MG Q6P PRN 04/08 1715 AC 04/14 PO 0423 Oxycodone/ 1 TAB Q6P PRN 04/08 1700 AC 04/10 Acetaminophen PO 2135 Polyethylene Glycol 17 GM DAILY 04/08 1832 AC 04/14 PO 1020 Senna/Docusate Sodium 2 TAB DAILY PRN 04/08 1845 AC 04/12 PO 0958 Spironolactone 25 MG BID 04/10 1100 AC 04/14 PO 1020 Results Pertinent Lab Results: Laboratory Tests 04/14 04/14 04/13 04/13 04/13 1130 0700 1150 1150 0715 Chemistry Sodium (137 - 145 mmol/L) 142 Potassium (3.5 - 5.1 mmol/L) 4.5 Chloride (98 - 107 mmol/L) 108 H Carbon Dioxide (22 - 30 mmol/L) 27 Anion Gap (5 - 16) 7 BUN (7 - 17 mg/dL) 61 H Creatinine (0.5 - 1.0 mg/dL) 2.0 H Estimated GFR (>60 ml/min) 25 L BUN/Creatinine Ratio (7 - 25 %) 30.5 H Coagulation PT (9.4 - 12.5 SEC) Cancelled 13.5 H INR (0.90 - 1.19) Cancelled 1.29 H Hematology CBC w Diff Pending WBC Pending RBC Pending Hgb Pending Hct Pending MCV Pending MCH Pending RDW Pending Plt Count Pending MPV Pending PUBS MCHC Pending Miscellaneous Ref Lab Test Result (()) REPORT Urines Ur Random Creatinine (mg/dL) 51.9 52.3 Ur Random Microalbumin (<1.7 mg/dl) 61.0 H Ur Random Sodium (30 - 90 mmol/L) 100 H Ur Random Potassium (mmol/L) 19.6 Fraction Sodium Excret (<1% %) U Cystine/Creat Ratio (mcg/mg) 1175.33 04/12 04/12 04/12 1822 0627 0600 Chemistry Sodium (137 - 145 mmol/L) 142 Potassium (3.5 - 5.1 mmol/L) 4.1 Chloride (98 - 107 mmol/L) 110 H Carbon Dioxide (22 - 30 mmol/L) 25 Anion Gap (5 - 16) 7 BUN (7 - 17 mg/dL) 58 H Creatinine (0.5 - 1.0 mg/dL) 2.2 H Estimated GFR (>60 ml/min) 22 L BUN/Creatinine Ratio (7 - 25 %) 26.4 H Total Bilirubin (0.2 - 1.3 mg/dL) 0.6 Direct Bilirubin (< 0.4 mg/dL) 0.6 H AST (14 - 36 U/L) 88 H ALT (9 - 52 U/L) 54 H Alkaline Phosphatase (<127 U/L) 143 H Prot Electrophoresis Pending Total Protein (6.3 - 8.2 g/dL) 5.6 L Total Protein (PEP) Pending Albumin (3.5 - 5.0 g/dL) 1.9 L Albumin % (PEP) Pending [id number] Pending [id number] Pending [id number] Pending [id number] Pending Gamma Globulins Pending Abnorm Protein Band 1 Pending Abnorm Protein Band 2 Pending Abnorm Protein Band 3 Pending Miscellaneous Ref Lab Test Result Pending Urines Ur Random Creatinine Cancelled Ur Random Microalbumin Cancelled U Random Total Protein Cancelled U Cystine/Creat Ratio Cancelled
[2016-04-14 12:11] LABS: ABSOLUTE BASOPHIL COUNT 0 /CUMM (0.0-0.2); ABSOLUTE EOSINOPHIL COUNT 0 /CUMM (0.0-0.7); ABSOLUTE GRANULOCYTE CT 4.7 /CUMM (1.4-6.5); ABSOLUTE LYMPH COUNT 0.7 /CUMM (1.2-3.4); ABSOLUTE MONOCYTE COUNT 0.4 /CUMM (0.10-0.60); BASOPHIL % 0.6 % (0.0-2.0); EOSINOPHIL % 0.8 % (0-5); GRANULOCYTE % 80.8 % (42.2-75.2); HEMATOCRIT 27.8 % (37-47); MEAN CORPUSCULAR HGB 35.6 PG (27.0-31.0); MEAN CORPUSCULAR HGB CONC 33.7 G/DL (33.0-37.0); MEAN CORPUSCULAR VOLUME 105.7 FL (81.0-99.0); MEAN PLATELET VOLUME 9.1 FL (7.4-10.4); RBC DISTRIBUTION WIDTH 19.4 % (11.5-14.5); RED BLOOD CELL CT 2.63 /CUMM (4.20-5.40); WHITE BLOOD CELL COUNT 5.8 /CUMM (4.8-10.8)
--- NOTE | 2016-04-14 14:05 | PN- Cardiology ---
Subjective Subjective: Seems to be doing about the same. No obvious new CV issues. I/O not significantly negative. Objective Vital Signs and I&Os Vital Signs Date Time Temp Pulse Resp B/P Pulse O2 O2 Flow FiO2 Ox Delivery Rate 04/14 1335 Room Air 04/14 1020 69 162/74 04/14 1019 69 162/74 04/14 0630 98.4 65 20 138/80 98 Room Air 04/13 2157 98.1 62 20 124/74 93 Room Air 04/13 1438 98.0 61 20 140/72 99 Intake & Output 04/14 1600 04/14 0800 04/14 0000 04/13 1600 04/13 0800 04/13 0000 Intake Total 480 100 720 100 380 Output Total 850 450 500 250 Balance -370 -350 220 -150 380 Intake, IV 20 Intake, Oral 480 100 720 100 360 Number 0 Bowel Movements Output, Urine 850 450 500 250 Patient 197 lb 197 lb Weight Physical Exam: General Appearance: Alert, Oriented X3, Cooperative, No Acute Distress Skin: Normal HEENT: Atraumatic, Mucous Membr. moist/pink Neck: Supple, No thryomegaly, JVP normal, carotid normal bilaterally Lymphatic: Cervical nl Cardiovascular: Regular Rate, Normal S1, Normal S2, no murmur Lungs: Normal Air Movement Abdomen: Firm to palpation, non-tender and no rebound or guarding. Neurological: Normal Extremities: 1-2+ edema Current Medications: Current Medications Sig/Radha Start time Last Medication Dose Route Stop Time Status Admin Acetaminophen 650 MG Q6P PRN 04/08 1700 AC PO Aspirin 81 MG DAILY 04/09 1000 AC 04/14 PO 1020 Atenolol 100 MG DAILY 04/08 1720 AC 04/14 PO 1019 Atorvastatin Calcium 50 MG 1700 04/10 1700 AC 04/13 PO 1805 Clonidine 0.1 MG DAILY 04/08 1719 AC 04/14 PO 1020 Docusate Sodium 100 MG DAILY 04/08 1832 AC 04/14 PO 1019 Ergocalciferol 50,000 IU QTUES 04/13 0700 AC 04/13 PO 0637 Fenofibrate 145 MG DAILY 04/09 1000 AC 04/14 PO 1019 Furosemide 40 MG BID 04/12 2200 AC 04/14 IV 1020 Gabapentin 100 MG BID 04/11 1000 AC 04/14 PO 1019 Heparin Sodium 5,000 UNIT Q8 04/08 1702 DC 04/14 (Porcine) SC 0600 Insulin Aspart 0 TIDAC 04/09 0800 AC 04/13 SC 1806 Insulin Detemir 10 UNITS BID 04/11 2200 AC 04/11 SC 2139 Levothyroxine Sodium 0.175 MG DAILY AC 04/10 0700 AC 04/14 PO 0559 Lisinopril 20 MG DAILY 04/09 1000 AC 04/14 PO 1019 Nystatin 1 GWENDOLYN BID 04/10 1141 DC 04/14 TOP 1020 Omeprazole 20 MG DAILY AC 04/14 0913 DC PO Oxycodone HCl 5 MG Q6P PRN 04/08 1715 AC 04/14 PO 0423 Oxycodone/ 1 TAB Q6P PRN 04/08 1700 AC 04/10 Acetaminophen PO 2135 Polyethylene Glycol 17 GM DAILY 04/08 1832 AC 04/14 PO 1020 Senna/Docusate Sodium 2 TAB DAILY PRN 04/08 1845 AC 04/12 PO 0958 Spironolactone 25 MG BID 04/10 1100 AC 04/14 PO 1020 Results Last 48 Hrs of Labs/Mics: Laboratory Tests 04/14/16 1130: PT Cancelled, INR Cancelled, CBC w Diff NO MAN DIFF REQ, RBC 2.63 L, MCV 105.7 H, MCH 35.6 H, RDW 19.4 H, MPV 9.1, Gran % 80.8 H, Lymphocytes % 11.8 L, Monocytes % 6.0, Eosinophils % 0.8, Basophils % 0.6, Absolute Granulocytes 4.7, Absolute Lymphocytes 0.7 L, Absolute Monocytes 0.4, Absolute Eosinophils 0, Absolute Basophils 0, PUBS MCHC 33.7 04/14/16 1036: PTH Intact Pending 04/14/16 0700: Anion Gap 7, Estimated GFR 25 L, BUN/Creatinine Ratio 30.5 H 04/13/16 1150: Ur Random Creatinine 51.9, Ur Random Microalbumin 61.0 H, U Cystine/Creat Ratio 1175.33 04/13/16 1150: Ref Lab Test Result REPORT, Ur Random Creatinine 52.3, Ur Random Sodium 100 H, Ur Random Potassium 19.6, Fraction Sodium Excret 04/13/16 0715: PT 13.5 H, INR 1.29 H 04/12/16 1822: Ur Random Creatinine Cancelled, Ur Random Microalbumin Cancelled, U Random Total Protein Cancelled, U Cystine/Creat Ratio Cancelled Assessment/Plan Assessment/Plan Assessment: 1. Hypertension 2. Diabetes mellitus 3. Nonobstructive coronary artery disease 4. Generalized edema 5. Normal left ventricular systolic function with mild diastolic dysfunction 6. Possible posterior mediastinal mass seen on echocardiogram, not seen on CT scan 7. Splenic lesion noted on CT Recommendations: - COntinue current regimen - COntinue diuresis - COntinue to monitor daily I/Os and weight. - FOllowup labs in am - The patient has apparently declined further evaluation of splenic lesion with MRI. - Consider increasing lasix to 60 BID if no significant diuresis or weight loss over the next 24 hours Continue telemetry? Yes
[2016-04-14 14:27] VITALS: BP 148/80
--- NOTE | 2016-04-14 17:36 | Patient Discharge Instructions ---
See Addendum Discharge Instructions General Discharge Information You were seen/treated for: Hip pain Generalized edema Special Instructions: Please follow up with your PCP within 1 week of discharge. Please follow up with Dr. Cornelius for further management of your cirrhosis within 2 weeks. 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 Please follow up with Dr. Saucedo within 2 weeks of discharge for continued care. Please take all medications as directed. Diet Recommended Diet: Diabetic Activity Activity Self Limited: Yes Acute Coronary Syndrome Inclusion Criteria At DC or during hospital stay patient has or had the following: ACS DIAGNOSIS No Discharge Core Measures Meds if any: Prescribed or Continued at Discharge Meds if any: NOT Prescribed or Continued at Discharge Congestive Heart Failure Inclusion Criteria At DC or during hospital stay patient has or had the following: CHF DIAGNOSIS No Discharge Core Measures Meds if any: Prescribed or Continued at Discharge Meds if any: NOT Prescribed or Continued at Discharge Cerebrovascular accident Inclusion Criteria At DC or during hospital stay patient has or had the following: CVA/TIA Diagnosis No Discharge Core Measures Meds if any: Prescribed or Continued at Discharge Meds if any: NOT Prescribed or Continued at Discharge Venous thromboembolism Inclusion Criteria VTE Diagnosis No VTE Type NONE VTE Confirmed by (Test) NONE Discharge Core Measures - Per Current guidelines, there needs to be overlap - treatment for the first 5 days of Warfarin therapy. - If discharged on Warfarin prior to 5 days of - overlap therapy, the patient will need to be - assessed for post discharge needs including - *Post discharge parental anticoagulation - *Warfarin and/or parental anticoagulation education - *Follow up date to check INR post discharge At least 5 days overlap therapy as Inpatient No Meds if any: Prescribed or Continued at Discharge Note: Overlap Therapy is Warfarin and Anticoagulant Meds if any: NOT Prescribed or Continued at Discharge
[2016-04-14 22:26] VITALS: BP 140/60
[2016-04-15 06:41] VITALS: BP 160/66
--- NOTE | 2016-04-15 06:42 | PN- Housestaff ---
TIARA HINSON MD 04/15/16 0641: Subjective Follow-up For: Weakness S/P Hip Fracture Cirrhosis, Ascites Generalized edema 2/2 nephropathy Subjective: Patient seen and examined at bedside this AM. She reports she feels well though her abdomen does not feel less firm and is still retaining fluid. She denies fever, chills, chest pain. Review of Systems Constitutional: Denies: chills, diaphoresis, fever, malaise. EENTM: Denies: blurred vision, hearing changes, nasal congestion. Cardiovascular: Reports: edema, peripheral edema. Denies: chest pain. Respiratory: Denies: cough, hemoptysis. Gastrointestinal: Reports: bloating, distention. Denies: nausea, vomiting. Genitourinary: Denies: dysuria. Skin: Denies: change in skin color, change in hair/nails. Neurological/Psychological: Denies: confusion, headache, numbness. Hematologic/Endocrine: Denies: bruising, bleeding. Immunologic/Allergic: Denies: splenectomy. Objective Last 24 Hrs of Vital Signs/I&O Vital Signs Date Time Temp Pulse Resp B/P Pulse O2 O2 Flow FiO2 Ox Delivery Rate 04/15 1423 97.5 68 20 100/70 96 Room Air 04/15 1108 160/66 04/15 0641 98.0 60 20 160/66 95 Room Air 04/14 2226 98.2 60 20 140/60 98 Room Air Intake & Output 04/15 1600 04/15 0800 04/15 0000 Intake Total 200 600 Output Total 200 300 Balance 200 -200 300 Intake, Oral 200 600 Number 1 Bowel Movements Output, Urine 200 300 Patient 178 lb Weight Physical Exam General Appearance: Alert, Oriented X3, Cooperative, No Acute Distress Skin: No Significant Lesion HEENT: Atraumatic, Mucous Membr. moist/pink Neck: Supple, No JVD Lymphatic: Cervical nl Cardiovascular: Normal S1, Normal S2 Lungs: Normal Air Movement Abdomen: Mildly distended and firm to palpation. No pain x 4 quadrants, no rebound or guarding. Neurological: Normal Speech, Normal Tone Extremities: Pitting edema remains present on examination up to thighs. Vascular: Pulses Symmetrical Current Medications: Current Medications Sig/Radha Start time Last Medication Dose Route Stop Time Status Admin Acetaminophen 650 MG Q6P PRN 04/08 1700 DC PO Aspirin 81 MG DAILY 04/09 1000 AC 04/15 PO 1109 Atenolol 100 MG DAILY 04/08 1720 AC 04/15 PO 1108 Atorvastatin Calcium 50 MG 1700 04/10 1700 AC 04/14 PO 1613 Cholecalciferol 2,000 IU DAILY 04/15 1345 CAN PO Clonidine 0.1 MG DAILY 04/08 1719 AC 04/15 PO 1108 Docusate Sodium 100 MG DAILY 04/08 1832 AC 04/15 PO 1108 Ergocalciferol 50,000 IU QTUES 04/13 0700 AC 04/13 PO 0637 Fenofibrate 145 MG DAILY 04/09 1000 AC 04/15 PO 1108 Furosemide 80 MG BID 04/15 1015 AC 04/15 PO 1118 Furosemide 40 MG BID 04/12 2200 DC 04/14 IV 2154 Gabapentin 100 MG BID 04/11 1000 AC 04/15 PO 1110 Insulin Aspart 0 TIDAC 04/15 1200 CAN SC Insulin Aspart 0 TIDAC 04/15 1200 AC SC Insulin Aspart 0 TIDAC 04/09 0800 DC 04/14 SC 1714 Insulin Detemir 10 UNITS BID 04/11 2200 DC 04/11 SC 2139 Insulin Human Regular 0 Q6 04/15 0045 DC SC Levothyroxine Sodium 0.175 MG DAILY AC 04/10 0700 AC 04/15 PO 0622 Lisinopril 20 MG DAILY 04/09 1000 AC 04/15 PO 1108 Metolazone 2.5 MG DAILY 04/15 1625 AC PO Omeprazole 20 MG DAILY AC 04/15 0700 AC 04/15 PO 0622 Oxycodone HCl 5 MG Q6P PRN 04/08 1715 AC 04/15 PO 1109 Patient Medication 1 ED .STK-MED ONE 04/15 1358 DC Teaching ED 04/15 1359 Polyethylene Glycol 17 GM DAILY 04/08 1832 AC 04/15 PO 1108 Senna/Docusate Sodium 2 TAB DAILY PRN 04/08 1845 AC 04/12 PO 0958 Spironolactone 50 MG DAILY 04/15 1000 AC 04/15 PO 1109 Spironolactone 25 MG BID 04/10 1100 DC 04/14 PO 04/14 2200 2154 Last 24 Hrs of Lab/Diego Results Last 24 Hrs of Labs/Mics: Laboratory Tests 04/15/16 0710: Anion Gap 7, Estimated GFR 25 L, BUN/Creatinine Ratio 30.0 H, Lactate Dehydrogenase 949 H, CBC w Diff NO MAN DIFF REQ, RBC 2.55 L, MCV 106.6 H, MCH 35.6 H, RDW 19.3 H, MPV 9.5, Gran % 69.6, Lymphocytes % 19.0 L, Monocytes % 9.0, Eosinophils % 1.6, Basophils % 0.8, Absolute Granulocytes 3.2, Absolute Lymphocytes 0.9 L, Absolute Monocytes 0.4, Absolute Eosinophils 0.1, Absolute Basophils 0, PUBS MCHC 33.4, Retic Count 1.56 Orders Radiology Findings: EXAMINATION: CT CHEST WITHOUT CONTRAST CLINICAL INFORMATION: Evaluation of the posterior mediastinal mass COMPARISON: CT chest dated 08/20/2013 TECHNIQUE: Multidetector volumetric CT imaging of the chest was done. Axial MIP volume rendering provided. Sagittal and coronal reformatted images were obtained. DLP: 561.01 mGy-cm. FINDINGS: VERIFICATION ENGINEER: Low lung volumes with elevation of the right hemidiaphragm. LUNGS: Pleural thickening and subpleural linear density right apical region. This may represent a subpleural nodule measuring 0.5 cm (sagittal image 86). Patchy groundglass attenuation noted in the right upper lobe. Bandlike atelectatic changes noted in the lingula and right lower lobe. Thickening of the left major fissure. MEDIASTINUM: Atherosclerotic disease with intimal calcification of aorta and aortic branches. Mild aneurysmal dilatation of the ascending aorta noted again. No evidence of mediastinal lymphadenopathy. No suspicious mass noted in the posterior mediastinum . PLEURA: Small to moderate left-sided pleural effusion extending into the left interlobar fissure. AXILLA: Anasarca type changes noted in the chest wall, left greater than right. Absence of left breast.. UPPER ABDOMEN: Moderate ascites. Nodular hepatic margin suspicious for underlying cirrhosis. Subtle low-attenuation superior spleen measuring approximately 1.9 cm demonstrates Hounsfield units higher than seen with cyst. This represents a new finding (series 2 image 37). Surgical clips noted in the subhepatic region. Atherosclerotic disease of the aorta and aortic branches. Nonobstructing calculus mid left kidney incompletely included in the examination measuring approximately 5 mm. Punctate nonobstructing calculi upper pole right kidney. OSSEOUS STRUCTURES: Mild scoliosis and degenerative changes of the spine. IMPRESSION: 1. No suspicious mass identified in the posterior mediastinum. 2. Nonspecific patchy groundglass attenuation right upper lobe may represent mild pneumonitis. 3. Nonspecific subpleural nodule right apex. 4. Left-sided effusion with adjacent bandlike atelectasis. 5. Moderate ascites. Anasarca. Nodular hepatic margin suspicious for underlying cirrhosis. Clinical and laboratory correlation recommended. 6. Low-attenuation lesion superior spleen measuring approximately 1.9 cm representing a new finding. Further assessment with contrast-enhanced CT or MRI recommended. 7. Nonobstructing calculi bilateral kidneys. Assessment/Plan Assessment: Ms. Angulo is a 70-year-old female with past medical history of hypothyroidism , hyperlipidemia, diabetes mellitus, hypertension and prior left hip fracture who presented for evaluation of pain in legs and her left hip. Patient is s/p mildly displaced, comminuted fracture of the greater trochanter of the left femur. In the ED: Vitals signs showed temperature 98.4, pulse 88, respiratory rate 19, 179/77, O2 saturation in the high 90s on room air. Labs showed H&H 9.7/29.5, creatinine 2.3, BUN 48. Patient was admitted to the general medicine floor and the following is the management: # Left-sided hip pain/ status post fall/hip fracture: * Patient fell in the shower on 03/02/2016 which resulted in a post comminuted fracture of the left greater trochanter of the femur. * Last month she was seen by orthopedic surgery and discharged for further outpatient evaluation and management were recommended, but she never followed up. * She has been moderately disabled since that time with pain in her left hip. * Ortho was reconsulted, Dr. Anders will evaluate patient today, will f/u recommendations. * Currently managing pain with with tylenol for mild, roxicodone for severe pain. # Anasarca: * Etiology likely secondary to nephropathy * GI, nephrology and cardiology have all been consulted, appreciate input, will continue to follow recs * Echocardiogram showed ejection fraction of 55-60% (no evidence of pulmonary hypertension) * She was started initially on IV Lasix but due to her worsening kidney function it was discontinued on 04/10. * Continue aldactone 50 mg daily * Lasix switched to 80 mg PO BID. Strict Is/Os and daily BMPs (monitor K). * Urine SPEP, kappa lambda free light chains ordered, f/u results * Random urine protein HIGH to 109, protein/cre ration HIGH to 1580 * 2 g Na diet ordered * Continue senna, miralax, colace * Will consult IR after appropriately gathering platelet count; plt have been clumping, attempting to gather clump-free plt with green top or heparinized tubes #Cirrhosis * Likely secondary to BYERS * Patient had prior workup with Dr. Cornelius for this issue * Will have patient follow up with Dr. Cornelius upon discharge * Patient denies Hep A or B vaccinations, will have patient follow up with PCP in regards to this (patient has had pneumovax and flu vaccination this past fall as per her) #Splenic lesion * Prior CT showed 1.9 cm splenic lesion * Patient refuses MRI inpatient as she is claustrophobic, will referr her to an open MRI outpatient #Pancreatic lesion * Patient reports prior pancreatic lesion followed by Dr. Cornelius * Consult placed, follow up recs #Uncontrolled diabetes mellitus: * Patient's glucose has been as low as in the 50s. Most likely due to excessive Levemir dose started on admission. * Cont Novolog SSI with accuchecks. * Novolog continued but levemirhas been discontinued as patient has had controlled FSG readings consistently * Diabetic diet # Paresthesia in RLE * Continue gabapentin 100mg BID # History of hypothyroidism: * Cont Synthroid 0.175mg daily # History of hyperlipidemia: * Continue home dose of atorvastatin 50 mg daily * Fenofibrate 145 mg PO daily # History of hypertension, normal LF systolic function with mild diastolic dysfunction: * Continue home dose of lisinopril 20 mg daily * Continue clonidine 0.1 mg PO daily * Atenolol 100 mg PO daily * ASA 81 mg PO daily DNR/DNI DVTP: Heparin SC Heart Healthy diet Mild-mod pain pathways Problem List: 1. Anasarca 2. Hypoalbuminemia 3. Cirrhosis 4. Splenic lesion 5. Gastroparesis 6. Hip fracture, left Pain Ratin Pain Location: Hip at site of fracture. Pain Goal: Pain 4 or less Pain Plan: Roxicodone for moderate pain, oxycodone for severe pain. Tomorrow's Labs & Rationales: CBC (thrombocytopenia), BEP (monitor electrolytes in setting of agressive diuresis). SONIA HERMAN,GUME 04/15/16 1449: Attending MD Review Statement Attending Statement Attending MD Statement: examined this patient, discuss w/resident/PA/MANUFACTURING PLANT CONTROLLER, agreed w/resident/PA/MANUFACTURING PLANT CONTROLLER, reviewed EMR data (avail), discussed with nursing, discussed with case mgmt, amended to note Attending Assessment/Plan: Patient seen and examined. Resting comfortably and not in acute distress. Denies shortness of breath. Denies chest pain. Still complains of abdominal discomfort. On examination abdomen is nontender. Bowel sounds are normal. She continues to have bowel movements The accuracy of her urine output is currently not certain. Also her weight has been fluctuating remarkably per nursing documentation. Patient was scheduled to undergo therapeutic paracenteses however IR is recommending that platelet counts should be Greater than 50,000. Platelet transfusion was ordered however the laboratory department is concern about her excessive platelet clumping. Problems: 1. Left hip fracture 2. Cirrhosis 3. Chronic kidney disease stage IV 4. Anasarca with ascites secondary to cirrhosis and 60 daily. 5. Splenic lesion 6. Thrombocytopenia with platelet clumping Plan: -Awaiting follow-up from the orthopedic service regarding her hip fracture. Patient reports that pain is controlled on her current regimen and she is able to ambulate. -Gastroenterology follow-up appreciated. She will require periodic paracenteses. Due to abdominal discomfort we are attempting to obtain parasymphysis prior to discharge. -She has been transitioned today to oral Lasix at a dose of 80 mg twice daily. We also continuing Aldactone therapy. The nephrology service is currently contemplating addition of metolazone to her regimen. Will follow-up. -Patient will follow-up with the GI service as an outpatient for endoscopic ultrasound for further evaluation of the splenic lesion. -Hematology consultation has been placed for further evaluation of her platelet clumping and to determine if it is safe to give the patient platelet transfusion in order to allow for her procedure. -If patient is able to maintain a negative fluid balance on oral diuretics therapy and therapeutic paracentesis can be done, will begin discharge planning.
[2016-04-15 08:59] LABS: ABSOLUTE BASOPHIL COUNT 0 /CUMM (0.0-0.2); ABSOLUTE EOSINOPHIL COUNT 0.1 /CUMM (0.0-0.7); ABSOLUTE GRANULOCYTE CT 3.2 /CUMM (1.4-6.5); ABSOLUTE LYMPH COUNT 0.9 /CUMM (1.2-3.4); ABSOLUTE MONOCYTE COUNT 0.4 /CUMM (0.10-0.60); BASOPHIL % 0.8 % (0.0-2.0); EOSINOPHIL % 1.6 % (0-5); GRANULOCYTE % 69.6 % (42.2-75.2); HEMATOCRIT 27.2 % (37-47); MEAN CORPUSCULAR HGB 35.6 PG (27.0-31.0); MEAN CORPUSCULAR HGB CONC 33.4 G/DL (33.0-37.0); MEAN CORPUSCULAR VOLUME 106.6 FL (81.0-99.0); MEAN PLATELET VOLUME 9.5 FL (7.4-10.4); RBC DISTRIBUTION WIDTH 19.3 % (11.5-14.5); RED BLOOD CELL CT 2.55 /CUMM (4.20-5.40); WHITE BLOOD CELL COUNT 4.7 /CUMM (4.8-10.8)
--- NOTE | 2016-04-15 11:52 | PN- Cardiology ---
Subjective Subjective: Chest pain. No palpitations. No diaphoresis. No lightheadedness or dizziness. No syncope. Her Lasix dose was increased to 80 mg oral twice a day because of insufficient diuresis. Objective Vital Signs and I&Os Vital Signs Date Time Temp Pulse Resp B/P Pulse O2 O2 Flow FiO2 Ox Delivery Rate 04/15 1108 160/66 04/15 0641 98.0 60 20 160/66 95 Room Air 04/14 2226 98.2 60 20 140/60 98 Room Air 04/14 1427 98.0 65 20 148/80 97 Room Air 04/14 1335 Room Air Intake & Output 04/15 1600 04/15 0800 04/15 0000 04/14 1600 04/14 0800 04/14 0000 Intake Total 600 800 480 100 Output Total 200 300 400 850 650 Balance -200 300 400 -370 -550 Intake, Oral 600 800 480 100 Number 1 0 Bowel Movements Output, Urine 200 300 400 850 650 Patient 178 lb 197 lb Weight Physical Exam: Gen: NAD HEENT: normal Lungs: clear to auscultation, normal resp. effort Heart: RRR, S1, S2, no murmurs Abdomen: Soft, nontender, no masses Extremities: 1-2+ edema Neuro: Alert and oriented x 3, cranial nerves intact Current Medications: Current Medications Sig/Radha Start time Last Medication Dose Route Stop Time Status Admin Acetaminophen 650 MG Q6P PRN 04/08 1700 DC PO Aspirin 81 MG DAILY 04/09 1000 AC 04/15 PO 1109 Atenolol 100 MG DAILY 04/08 1720 AC 04/15 PO 1108 Atorvastatin Calcium 50 MG 1700 04/10 1700 AC 04/14 PO 1613 Clonidine 0.1 MG DAILY 04/08 1719 AC 04/15 PO 1108 Docusate Sodium 100 MG DAILY 04/08 1832 AC 04/15 PO 1108 Ergocalciferol 50,000 IU QTUES 04/13 0700 AC 04/13 PO 0637 Fenofibrate 145 MG DAILY 04/09 1000 AC 04/15 PO 1108 Furosemide 80 MG BID 04/15 1015 AC 04/15 PO 1118 Furosemide 40 MG BID 04/12 2200 DC 04/14 IV 2154 Gabapentin 100 MG BID 04/11 1000 AC 04/15 PO 1110 Heparin Sodium 5,000 UNIT Q8 04/08 1702 DC 04/14 (Porcine) SC 0600 Insulin Aspart 0 TIDAC 04/15 1200 CAN SC Insulin Aspart 0 TIDAC 04/15 1200 AC SC Insulin Aspart 0 TIDAC 04/09 0800 DC 04/14 SC 1714 Insulin Detemir 10 UNITS BID 04/11 2200 DC 04/11 SC 2139 Insulin Human Regular 0 Q6 04/15 0045 DC SC Levothyroxine Sodium 0.175 MG DAILY AC 04/10 0700 AC 04/15 PO 0622 Lisinopril 20 MG DAILY 04/09 1000 AC 04/15 PO 1108 Omeprazole 20 MG DAILY AC 04/15 0700 AC 04/15 PO 0622 Oxycodone HCl 5 MG Q6P PRN 04/08 1715 AC 04/15 PO 1109 Oxycodone/ 1 TAB Q6P PRN 04/08 1700 DC 04/10 Acetaminophen PO 2135 Patient Medication 1 ED .STK-MED ONE 04/14 1416 ME Teaching ED 04/14 1417 Polyethylene Glycol 17 GM DAILY 04/08 1832 04/15 PO 1108 Senna/Docusate Sodium 2 TAB DAILY PRN 04/08 1845 AC 04/12 PO 0958 Spironolactone 50 MG DAILY 04/15 1000 AC 04/15 PO 1109 Spironolactone 25 MG BID 04/10 1100 DC 04/14 PO 04/14 2200 2154 Results Last 48 Hrs of Labs/Mics: Laboratory Tests 04/15/16 0710: Anion Gap 7, Estimated GFR 25 L, BUN/Creatinine Ratio 30.0 H, CBC w Diff NO MAN DIFF REQ, RBC 2.55 L, MCV 106.6 H, MCH 35.6 H, RDW 19.3 H, MPV 9.5, Gran % 69.6, Lymphocytes % 19.0 L, Monocytes % 9.0, Eosinophils % 1.6, Basophils % 0.8, Absolute Granulocytes 3.2, Absolute Lymphocytes 0.9 L, Absolute Monocytes 0.4, Absolute Eosinophils 0.1, Absolute Basophils 0, PUBS MCHC 33.4 04/14/16 1130: PT Cancelled, INR Cancelled, CBC w Diff NO MAN DIFF REQ, RBC 2.63 L, MCV 105.7 H, MCH 35.6 H, RDW 19.4 H, MPV 9.1, Gran % 80.8 H, Lymphocytes % 11.8 L, Monocytes % 6.0, Eosinophils % 0.8, Basophils % 0.6, Absolute Granulocytes 4.7, Absolute Lymphocytes 0.7 L, Absolute Monocytes 0.4, Absolute Eosinophils 0, Absolute Basophils 0, PUBS MCHC 33.7 04/14/16 1036: PTH Intact 144.8 H 04/14/16 0700: Anion Gap 7, Estimated GFR 25 L, BUN/Creatinine Ratio 30.5 H 04/13/16 1150: Ur Random Creatinine 51.9, Ur Random Microalbumin 61.0 H, U Cystine/Creat Ratio 1175.33 04/13/16 1150: Ref Lab Test Result REPORT, Ur Random Creatinine 52.3, Ur Random Sodium 100 H, Ur Random Potassium 19.6, Fraction Sodium Excret Recent Imaging Studies: 1 Assessment/Plan Assessment/Plan Assessment: 1. Hypertension 2. Diabetes mellitus 3. Nonobstructive coronary artery disease 4. Generalized edema 5. Normal left ventricular systolic function with mild diastolic dysfunction 6. 1.9 cm spleen lesion, for which the patient has deferred MRI for now Plan: * Continue Lasix 80 mg PO daily * Follow input and output. * Basic metabolic profile daily. * Continue other cardiac medications. Continue telemetry? Not applicable
--- NOTE | 2016-04-15 12:15 | PN- Nephrology ---
Assessment/Plan Assessment: 1. Intractable edema. Currently she has been transitioned to twice a day by mouth furosemide. It may be that metolazone may need be added at a dose of 2.5 mg before the first twice a day dose of furosemide. 2. Concerns for cirrhosis. Suspect BYERS. Had been addressed earlier with regards to use of gadolinium in this patient. Generally, gadolinium would be contraindicated for anyone with EGFR less than 20. The concern here is for the development of nephrogenic systemic fibrosis. People with liver disease as well as those who are on dialysis are at increased risk for developing this with gadolinium exposure. Keep in mind, the initial descriptions of this entity involved people using twice the recommended dose for a magnetic resonance imaging angiogram. Recent estimates were that it affects roughly 4% of the population. In this patient's case it becomes quite problematic. By the EGFR she is a late stage IV chronic kidney disease person. Her body habitus and perhaps her age may make the MDRD equation of EGFR not applicable. Given that I 'm not certain that an MRI with gadolinium would be advisable in this case. If the EGFR is to be believed, she is at the borderline with regards to risk. The other caveat with regards to renal function is the fact that the creatinine may underestimate the true renal function in a person with liver disease. 3. Diabetes mellitus 4. Obesity-if diabetes was not the cause of her renal disease, then certainly focal and segmental glomerulosclerosis could be considered. 5. Hypertension 6. Hyperlipidemia Suggestion: 1. Await urine studies. 24-hour urine is in progress. 2. Strict intakes and outputs 3. Her diet needs to be a 2 g sodium diet. 4. Please keep a close eye on a potassium given the fact that she has renal impairment and is on Spionolactone. 5. Suspect that she may also benefit from metolazone 2.5 mg daily at least for three days. Subjective Subjective: Patient seems to be in good spirits. Still feels bloated. Her weights do not seem to reflect anything that one would expect in reality. Objective Vital Signs and I&Os Vital Signs Date Time Temp Pulse Resp B/P Pulse O2 O2 Flow FiO2 Ox Delivery Rate 04/15 1108 160/66 04/15 0641 98.0 60 20 160/66 95 Room Air 04/14 2226 98.2 60 20 140/60 98 Room Air 01/18 1427 98.0 65 20 148/80 97 Room Air 04/14 1335 Room Air Intake & Output 04/15 1600 04/15 0400 04/14 1600 04/14 0400 04/13 1600 04/13 0400 Intake Total 600 1280 100 820 380 Output Total 776 261 8605 450 750 Balance -200 300 30 -350 70 380 Intake, IV 20 Intake, Oral 600 1280 100 820 360 Number 1 0 Bowel Movements Output, Urine 727 387 4220 450 750 Patient 178 lb 197 lb 197 lb Weight Physical Exam: General Appearance: well developed/nourished, no apparent distress, alert, awake , comfortable Ears, Nose, Throat: normal ENT inspection, hearing grossly normal Neck: normal inspection, supple, no JVD Respiratory: normal breath sounds, chest non-tender Cardiovascular: regular rate/rhythm, edema Abdomen: normal bowel sounds, soft, non-tender, no abdominal bruits Extremities: swelling, swelling on the torso and the sacrum Neurologic/Psychiatric: no motor/sensory deficits, awake, alert, oriented x 3, no gross neurologic deficits Skin: normal color Current Medications: Current Medications Sig/Radha Start time Last Medication Dose Route Stop Time Status Admin Acetaminophen 650 MG Q6P PRN 04/08 1700 DC PO Aspirin 81 MG DAILY 04/09 1000 AC 04/15 PO 1109 Atenolol 100 MG DAILY 04/08 1720 AC 04/15 PO 1108 Atorvastatin Calcium 50 MG 1700 04/10 1700 AC 04/14 PO 1613 Clonidine 0.1 MG DAILY 04/08 1719 AC 04/15 PO 1108 Docusate Sodium 100 MG DAILY 04/08 1832 AC 04/15 PO 1108 Ergocalciferol 50,000 IU QTUES 04/13 0700 AC 04/13 PO 0637 Fenofibrate 145 MG DAILY 04/09 1000 AC 04/15 PO 1108 Furosemide 80 MG BID 04/15 1015 AC 04/15 PO 1118 Furosemide 40 MG BID 04/12 2200 DC 04/14 IV 2154 Gabapentin 100 MG BID 04/11 1000 AC 04/15 PO 1110 Heparin Sodium 5,000 UNIT Q8 04/08 1702 DC 04/14 (Porcine) SC 0600 Insulin Aspart 0 TIDAC 04/15 1200 CAN SC Insulin Aspart 0 TIDAC 04/15 1200 AC SC Insulin Aspart 0 TIDAC 04/09 0800 DC 04/14 SC 1714 Insulin Detemir 10 UNITS BID 04/11 2200 DC 04/11 SC 2139 Insulin Human Regular 0 Q6 04/15 0045 DC WI Levothyroxine Sodium 0.175 MG DAILY AC 04/10 0700 AC 04/15 PO 0622 Lisinopril 20 MG DAILY 04/09 1000 AC 04/15 PO 1108 Omeprazole 20 MG DAILY AC 04/15 0700 AC 04/15 PO 0622 Oxycodone HCl 5 MG Q6P PRN 04/08 1715 AC 04/15 PO 1109 Oxycodone/ 1 TAB Q6P PRN 04/08 1700 DC 04/10 Acetaminophen PO 2135 Patient Medication 1 ED .STK-MED ONE 04/14 1416 ID Teaching ED 04/14 1417 Polyethylene Glycol 17 GM DAILY 04/08 1832 04/15 PO 1108 Senna/Docusate Sodium 2 TAB DAILY PRN 04/08 1845 AC 04/12 PO 0958 Spironolactone 50 MG DAILY 04/15 1000 AC 04/15 PO 1109 Spironolactone 25 MG BID 04/10 1100 DC 04/14 PO 04/14 2200 2154 Results Pertinent Lab Results: Laboratory Tests 04/15 04/14 0710 1130 Chemistry Sodium (137 - 145 mmol/L) 142 Potassium (3.5 - 5.1 mmol/L) 4.4 Chloride (98 - 107 mmol/L) 108 H Carbon Dioxide (22 - 30 mmol/L) 27 Anion Gap (5 - 16) 7 BUN (7 - 17 mg/dL) 60 H Creatinine (0.5 - 1.0 mg/dL) 2.0 H Estimated GFR (>60 ml/min) 25 L BUN/Creatinine Ratio (7 - 25 %) 30.0 H Coagulation PT Cancelled INR Cancelled Hematology CBC w Diff NO MAN DIFF REQ NO MAN DIFF REQ WBC (4.8 - 10.8 /CUMM) 4.7 L 5.8 RBC (4.20 - 5.40 /CUMM) 2.55 L 2.63 L Hgb (12.0 - 16.0 G/DL) 9.1 L 9.4 L Hct (37 - 47 %) 27.2 L 27.8 L MCV (81.0 - 99.0 FL) 106.6 H 105.7 H MCH (27.0 - 31.0 PG) 35.6 H 35.6 H RDW (11.5 - 14.5 %) 19.3 H 19.4 H Plt Count (/CUMM) MPV (7.4 - 10.4 FL) 9.5 9.1 Gran % (42.2 - 75.2 %) 69.6 80.8 H Lymphocytes % (20.5 - 51.1 %) 19.0 L 11.8 L Monocytes % (1.7 - 9.3 %) 9.0 6.0 Eosinophils % (0 - 5 %) 1.6 0.8 Basophils % (0.0 - 2.0 %) 0.8 0.6 Absolute Granulocytes (1.4 - 6.5 /CUMM) 3.2 4.7 Absolute Lymphocytes (1.2 - 3.4 /CUMM) 0.9 L 0.7 L Absolute Monocytes (0.10 - 0.60 /CUMM) 0.4 0.4 Absolute Eosinophils (0.0 - 0.7 /CUMM) 0.1 0 Absolute Basophils (0.0 - 0.2 /CUMM) 0 0 PUBS MCHC (33.0 - 37.0 G/DL) 33.4 33.7 04/14 04/14 04/13 04/13 04/13 1036 0700 1150 1150 0715 Chemistry Sodium (137 - 145 mmol/L) 142 Potassium (3.5 - 5.1 mmol/L) 4.5 Chloride (98 - 107 mmol/L) 108 H Carbon Dioxide (22 - 30 mmol/L) 27 Anion Gap (5 - 16) 7 BUN (7 - 17 mg/dL) 61 H Creatinine (0.5 - 1.0 mg/dL) 2.0 H Estimated GFR (>60 ml/min) 25 L BUN/Creatinine Ratio (7 - 25 %) 30.5 H PTH Intact (13.8 - 85 pg/ml) 144.8 H Coagulation PT (9.4 - 12.5 SEC) 13.5 H INR (0.90 - 1.19) 1.29 H Miscellaneous Ref Lab Test Result (()) REPORT Urines Ur Random Creatinine (mg/dL) 51.9 52.3 Ur Random Microalbumin (<1.7 mg/dl) 61.0 H Ur Random Sodium (30 - 90 mmol/L) 100 H Ur Random Potassium (mmol/L) 19.6 Fraction Sodium Excret (<1% %) U Cystine/Creat Ratio (mcg/mg) 1175.33 04/12 1822 Urines Ur Random Creatinine Cancelled Ur Random Microalbumin Cancelled U Random Total Protein Cancelled U Cystine/Creat Ratio Cancelled
[2016-04-15] MEDS ORDERED: ALDACTONE25 MG PO (13:40)
[2016-04-15] MEDS ORDERED: OMEPRAZOLE20 M2 PO (13:40)
[2016-04-15 14:23] VITALS: BP 100/70
[2016-04-15] MEDS ORDERED: LASIX80 M1 PO (16:46)
--- NOTE | 2016-04-15 17:09 | PN- Orthopedic ---
Surgical Brief Attending Note Brief Attending Note: HISTORY: The patient is a 70-year-old female who sustained a trip and fall on ultimately found to have sustained a mildly displaced avulsion fracture of the greater trochanter of the left hip. This was found on CAT scan of the hip at that time as x-rays of the hip and pelvis did not show an obvious fracture about the left hip. I myself personally saw the patient in the emergency room on 03/02/2016 for evaluation of this fracture. Pain at that time was mild to moderate at most. Clinical examination of her left hip at that time was relatively benign. Recommendations were made for conservative nonoperative management with analgesic medication and early mobilization out of bed using a walker for assistance with ambulation. Recommendations at that time were also made for the patient to increase weightbearing as tolerated on the left lower extremity. The patient was advised to be seen for orthopedic follow-up on an outpatient basis for ongoing monitoring of her left hip greater trochanteric avulsion fracture. The patient did not come back to the office for follow-up and upon questioning the patient today indicates that the hip was gradually improving and her hip pain was minimal so she did not really feel that she needed to be seen for orthopedic follow-up. The patient was subsequently admitted to the hospital for a variety of reasons. Some of her symptoms did include some lingering left hip girdle pain. X-rays of the hip now did show the avulsion fracture of the greater trochanter much more clearly. This appeared to be age indeterminate. Orthopedic reconsultation was called. The patient indicates to me today that her left hip girdle symptoms are quite minimal. She has at most only mild pain in the left hip if she "moves wrong" and occasionally with walking. She has been ambulating over the past roughly 6 weeks variably with use of a cane versus a walker versus no support other than furniture. She has not required pain medication and anti- inflammatory medication for her lingering left hip symptoms. Her hip symptoms are localized to the superolateral aspect of the hip without pain radiation. No complaints of numbness or tingling in the extremity. The patient does believe her symptoms in the left hip girdle to be gradually improving over time. EXAMINATION: The patient is a pleasant, cooperative, well-nourished and well-developed, significantly overweight but certainly overall reasonably healthy-appearing white female looking roughly her reported age in no apparent distress. She is awake, alert, and oriented x 3. Speech is normal. Affect is appropriate. The patient is not mobilized out of the bed today for examination. Gait is therefore not tested. Visual inspection of the left lower extremity shows 2+ pitting edema (noted bilaterally in fact). No residual ecchymosis. No erythema. No muscle atrophy. No deformity. The skin is grossly intact and in good condition. Minimal if any tenderness to palpation over the lateral hip near the greater trochanteric avulsion fracture site. Left hip motion is quite good. No pain felt with passive log rolling of the hip in extension. No real pain felt with passive hip abduction and adduction and extension. The patient can actively fully flex the hip without pain as well. No crepitus felt with hip motion. Motor and sensory function to the left lower extremity grossly intact. DP and PT pulses 1+. Capillary refill is brisk. IMAGING: Review of the patient's most recent left hip x-rays once again shows an avulsion fracture of the greater trochanter. The fracture is more prominent now than it had been previously as it is seen on plain x-rays as opposed to only on CAT scan. There does appear to be some proximal displacement that has increased since her initial CAT scan of the hip. About the fracture fragment is some callus formation noted about the avulsion fracture fragment suggestive for an attempt at healing. The hip joint itself does show mild degenerative changes. No other gross bone destructive or bone productive processes identified. The bone quality is somewhat osteopenic. The soft tissues are grossly unremarkable. IMPRESSION: Clinically improving overall stable left hip greater trochanter fracture now roughly 6 weeks status post injury. Mild pain only minimally interfering with the patient's ability to ambulate. PLAN: Once again I do recommend conservative nonoperative management. The patient may be mobilized out of bed from an orthopedic point of view as tolerated. Once on her feet she can weight-bear as tolerated on the left lower extremity. I would suggest that physical therapy work with the patient on use of a walker for gait training. The patient should need only light oral analgesic pain medication with respect to her left hip symptoms. The patient can certainly follow-up on an outpatient basis with my office though I did indicate to the patient that if her symptoms do continue to improve gradually over time and are not particularly bothering her very much that she really does not need to follow up at all. She should certainly contact the office for any concerns or questions.
[2016-04-15 22:14] VITALS: BP 140/70
[2016-04-16 06:30] VITALS: BP 134/70
--- NOTE | 2016-04-16 06:57 | PN- Housestaff ---
See Addendum Subjective Follow-up For: Weakness S/P Hip Fracture Cirrhosis, Ascites Generalized edema 2/2 nephropathy Subjective: Patient seen and examined at bedside this AM. She reports her MICAH stockings are loose and is amenable to trying thigh high stockings. She admits to continued swelling though her abdomen, particularly on the right, is a little less tense. Review of Systems Constitutional: Denies: chills, fever. EENTM: Denies: blurred vision, hearing changes, nasal congestion. Cardiovascular: Reports: edema, peripheral edema. Denies: chest pain, palpitations. Respiratory: Denies: cough, short of breath. Gastrointestinal: Reports: bloating, distention, nausea. Denies: vomiting. Genitourinary: Denies: dysuria. Musculoskeletal: Reports: joint pain. Skin: Denies: change in skin color, change in hair/nails. Neurological/Psychological: Denies: confusion. Hematologic/Endocrine: Denies: polyuria, polydipsia. Immunologic/Allergic: Denies: splenectomy. Objective Last 24 Hrs of Vital Signs/I&O Vital Signs Date Time Temp Pulse Resp B/P Pulse O2 O2 Flow FiO2 Ox Delivery Rate 04/16 1340 97.4 65 20 130/60 99 Room Air 04/16 1001 136/76 04/16 1001 136/76 04/16 0630 98.4 69 20 134/70 94 Room Air 04/15 2214 97.8 65 20 140/70 95 Room Air Intake & Output 04/16 1600 04/16 0800 04/16 0000 Intake Total 100 100 Output Total 200 650 Balance -200 -550 100 Intake, Oral 100 100 Number 1 0 Bowel Movements Output, Urine 200 650 Patient 196 lb 194 lb Weight Physical Exam General Appearance: Alert, Oriented X3, Cooperative, No Acute Distress Skin: No Significant Lesion HEENT: Atraumatic, Mucous Membr. moist/pink Neck: Supple Lymphatic: Cervical nl Cardiovascular: Normal S1, Normal S2 Lungs: Normal Air Movement Abdomen: Normal Bowel Sounds, Abdomen mildly tense to palpation, non tender, thickened abdominal skin. Neurological: Normal Speech Extremities: No Clubbing, No Cyanosis, Continued pitting edema up to abdomen, though mild improvement noted. Current Medications: Current Medications Sig/Radha Start time Last Medication Dose Route Stop Time Status Admin Aspirin 81 MG DAILY 04/09 1000 AC 04/16 PO 1001 Atenolol 100 MG DAILY 04/08 1720 AC 04/16 PO 0959 Atorvastatin Calcium 50 MG 1700 04/10 1700 AC 04/15 PO 1742 Clonidine 0.1 MG DAILY 04/08 1719 AC 04/16 PO 1001 Docusate Sodium 100 MG DAILY 04/08 1832 AC 04/16 PO 1001 Ergocalciferol 50,000 IU QTUES 04/13 0700 AC 04/13 PO 0637 Fenofibrate 145 MG DAILY 04/09 1000 AC 04/16 PO 0959 Furosemide 80 MG BID 04/15 1015 AC 04/16 PO 1000 Gabapentin 100 MG BID 04/11 1000 AC 04/16 PO 0959 Insulin Aspart 0 TIDAC 04/15 1200 AC 04/16 SC 1219 Levothyroxine Sodium 0.175 MG DAILY AC 04/10 0700 AC 04/16 PO 0652 Lisinopril 20 MG DAILY 04/09 1000 AC 04/16 PO 1001 Metolazone 2.5 MG DAILY 04/15 1625 AC 04/16 PO 1001 Omeprazole 20 MG DAILY AC 04/15 0700 AC 04/16 PO 0653 Ondansetron HCl 4 MG ONCE ONE 04/16 1245 DC 04/16 IV 04/16 1246 1247 Oxycodone HCl 5 MG Q6P PRN 04/08 1715 AC 04/16 PO 1219 Patient Medication 1 ED .STK-MED ONE 04/16 1305 DC Teaching ED 04/16 1306 Polyethylene Glycol 17 GM DAILY 04/08 1832 AC 04/16 PO 0958 Senna/Docusate Sodium 2 TAB DAILY PRN 04/08 1845 AC 04/12 PO 0958 Spironolactone 50 MG DAILY 04/15 1000 AC 04/16 PO 1001 Last 24 Hrs of Lab/Diego Results Last 24 Hrs of Labs/Mics: Laboratory Tests 04/16/16 1055: Anion Gap 8, Estimated GFR 23 L, BUN/Creatinine Ratio 28.1 H, Magnesium 1.1 L , Total Bilirubin 1.0, Direct Bilirubin 0.7 H, AST 99 H, ALT 67 H, Alkaline Phosphatase 152 H, Total Protein 6.7, Albumin 2.5 L, Folate Pending, CBC w Diff NO MAN DIFF REQ, RBC 2.79 L, MCV 106.0 H, MCH 35.5 H, RDW 18.9 H, MPV 8.8, Gran % 78.4 H, Lymphocytes % 13.4 L, Monocytes % 6.0, Eosinophils % 1.7, Basophils % 0.5, Absolute Granulocytes 3.1, Absolute Lymphocytes 0.5 L, Absolute Monocytes 0.2, Absolute Eosinophils 0.1, Absolute Basophils 0, PUBS MCHC 33.5, IgA Pending, IgM Pending, IgE Pending, Serum IgG Pending, HIV 1&2 Ab Western Blot NONREACTIVE Orders ECHO Findings: CONCLUSIONS 1. This was a technically difficult examination. 2. Mild aortic sclerosis is present with no valvular stenosis or insufficiency. Minimal enlargement of the ascending aorta is present. 3. Mitral leaflet thickening is present with moderate anular calcification and mild mitral insufficiency with mild to moderate left atrial enlargement. 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 4. There is no significant pericardial fluid present. 5. A left pleural effusion is present. 6. An area of abnormal echodensity is noted posterior to the LV. If clinically indicated, a chest CT might be useful to rule out the possibility of a posterior mediastinal mass. 7. Mild tricuspid and pulmonic insufficiency are present with no evidence of pulmonary hypertension. 8. The left ventricular chamber size is normal with mild concentric hypertrophy and a normal ejection fraction with no resting wall motion abnormalities. Mild diastolic dysfunction is noted. Radiology Findings: IMPRESSION: 1. No suspicious mass identified in the posterior mediastinum. 2. Nonspecific patchy groundglass attenuation right upper lobe may represent mild pneumonitis. 3. Nonspecific subpleural nodule right apex. 4. Left-sided effusion with adjacent bandlike atelectasis. 5. Moderate ascites. Anasarca. Nodular hepatic margin suspicious for underlying cirrhosis. Clinical and laboratory correlation recommended. 6. Low-attenuation lesion superior spleen measuring approximately 1.9 cm representing a new finding. Further assessment with contrast-enhanced CT or MRI recommended. 7. Nonobstructing calculi bilateral kidneys. Hip Xray: IMPRESSION: Possible avulsion fracture, with irregular fracture fragment located lateral to the superior left hip joint. It is unclear whether this represents avulsion fracture from the greater trochanter or the pelvis; favor greater trochanter as there was trauma at this site on prior exam 03/02/2016. Alternatively, the mineralization may represent heterotopic ossification from prior left proximal femoral injury. Assessment/Plan Assessment: Ms. Angulo is a 70-year-old female with past medical history of hypothyroidism , hyperlipidemia, diabetes mellitus, hypertension and prior left hip fracture who presented for evaluation of pain in legs and her left hip. Patient is s/p mildly displaced, comminuted fracture of the greater trochanter of the left femur. In the ED: Vitals signs showed temperature 98.4, pulse 88, respiratory rate 19, 179/77, O2 saturation in the high 90s on room air. Labs showed H&H 9.7/29.5, creatinine 2.3, BUN 48. Patient was admitted to the general medicine floor and the following is the management: 1. Left-sided hip pain/ status post fall/hip fracture: * Patient fell in the shower on 03/02/2016 which resulted in a post comminuted fracture of the left greater trochanter of the femur. * Last month she was seen by orthopedic surgery and discharged for further outpatient evaluation and management were recommended, but she never followed up. * She has been moderately disabled since that time with pain in her left hip. * Ortho was reconsulted, Dr. Anders suggested weight bearing as tolerated, close physical therapy management with walker for gait field sales trainer and follow up with him as needed on an outpatient basis * Currently managing pain with roxicodone for moderate pain. 2. Anasarca: * Etiology likely secondary to nephropathy; GI, nephrology and cardiology have all been consulted, appreciate input, will continue to follow recs * Echo showed ejection fraction of 55-60% (no evidence of pulm hypertension) * Continue aldactone 50 mg daily. Lasix to continue at 80 mg PO BID and this will be her discharge dose. Strict Is/Os and daily BMPs (monitor K). * Urine SPEP, kappa lambda free light chains ordered, f/u results * Random urine protein HIGH to 109, protein/cre ration HIGH to 1580 * 2 g Na diet to continue * Continue senna, miralax, colace * Due to inability to obtain platelet count, will have to defer paracentesis to a later date until underlying disorder found 3. Cirrhosis * Likely 2/2 to BYERS, patient had prior workup with Dr. Cornelius for this issue * Patient will follow up with Dr. Cornelius upon discharge * Patient denies having recent Hep A or B vaccinations, will have patient follow up with PCP in regards to this (patient has had pneumovax and flu vaccination this past fall as per her) 4. Splenic/Pancreatic lesions * Prior CT showed 1.9 cm splenic lesion * Patient refuses MRI inpatient as she is claustrophobic, will referr her to an open MRI outpatient * Patient reports prior pancreatic lesion followed by Dr. Cornelius, she will continue to follow with him outpatient 5. Diabetes mellitus: * We have discontinued anti-diabetic regimen as FSGs have been adequate and well controlled. * Diabetic diet 6. Paresthesia in RLE * Continue gabapentin 100mg BID 7. History of hypothyroidism: * Continue Synthroid 0.175mg daily 8. History of hyperlipidemia: * Continue home dose of atorvastatin 50 mg daily * Fenofibrate 145 mg PO daily 9. History of hypertension, normal LF systolic function with mild diastolic dysfunction: * Continue home dose of lisinopril 20 mg daily * Continue clonidine 0.1 mg PO daily * Atenolol 100 mg PO daily * ASA 81 mg PO daily 10. Platelet clumping * Hematology consult placed and appreciated, will follow recommendations * Likely secondary to nephropathy, however further workup is being pursued * SPEP and immunoglobulin levels pending, will discuss with business english instructor if further tests can be done outpatient as workup is extensive DNR/DNI DVTP: Heparin SC Heart Healthy diet Mild-mod pain pathways Problem List: 1. Cirrhosis 2. Splenic lesion 3. Anasarca 4. Gastroparesis 5. Platelet disorder 6. Hip fracture, left 7. Hypoalbuminemia 8. Fracture of greater trochanter of left femur 9. Chronic kidney disease 10. Ascites Pain Ratin Pain Location: Hip s/p fracture Pain Goal: Pain 4 or less Pain Plan: Roxicodone for moderate pain Tomorrow's Labs & Rationales: CBC (attempt to obtain platelet count), BEP (monitor renal function in setting of aggressive diuresis) Consulting Request: Consulting Specialty: Nephrology Consulting Physician: DR ROCHA Reason for Consult: elevated creatinine, leg swelling
[2016-04-16 11:14] LABS: ABSOLUTE BASOPHIL COUNT 0 /CUMM (0.0-0.2); ABSOLUTE EOSINOPHIL COUNT 0.1 /CUMM (0.0-0.7); ABSOLUTE GRANULOCYTE CT 3.1 /CUMM (1.4-6.5); ABSOLUTE LYMPH COUNT 0.5 /CUMM (1.2-3.4); ABSOLUTE MONOCYTE COUNT 0.2 /CUMM (0.10-0.60); BASOPHIL % 0.5 % (0.0-2.0); EOSINOPHIL % 1.7 % (0-5); GRANULOCYTE % 78.4 % (42.2-75.2); HEMATOCRIT 29.5 % (37-47); MEAN CORPUSCULAR HGB 35.5 PG (27.0-31.0); MEAN CORPUSCULAR HGB CONC 33.5 G/DL (33.0-37.0); MEAN PLATELET VOLUME 8.8 FL (7.4-10.4); RBC DISTRIBUTION WIDTH 18.9 % (11.5-14.5); RED BLOOD CELL CT 2.79 /CUMM (4.20-5.40)
--- NOTE | 2016-04-16 11:38 | Cons- Hematology ---
General Information and HPI Consulting Request Date of Consult: 04/16/16 Requested By: GUME SCOTT M.D Reason for Consult: Platelet clumping Source of Information: patient, old records Exam Limitations: no limitations History of Present Illness: Ms. Angulo is a 70-year-old female with history of CKD, DM, CAD, HTN, hypothyroidism, and BYERS who presents to the hospital with increasing edema. She felt 1 month ago and had a fracture of the left greater trochanter of the femur. No surgical intervention was done at that time. She was to follow up as an outpatient. She was not able to ambulate much at him and swelling has worsened and is now up to her abdomen. She presented to the hospital because of this edema. Since admission, she has been receiving furosemide. Echocardiogram demonstrated normal EF with mild diastolic dysfunction. Her creatinine has been stable around 2.0. Blood work have demonstrated stable macrocytic anemia. Platelet count was not able to be done because of clumping. She has been having a hard time having blood drawn. She has a decrease in her WBC also. She still has a lot of edema. Allergies/Medications Allergies: Coded Allergies: codeine (Severe, RASH, DIFFICULTY BREATHING 04/08/16) morphine (Severe, SHORTNESS OF BREATH 04/08/16) Home Med List: Aspirin (Children's Aspirin) 81 MG TAB.CHEW 81 MG PO DAILY HEART TAKE 1 TAB PO DAILY Atenolol 100 MG TABLET 1 TAB PO 1300 HEART (Reported) Atorvastatin Calcium 10 MG TABLET 50 MG PO 1300 HEART HEALTH (Reported) Clonidine HCl (Catapres) 0.1 MG TABLET 1 TAB PO DAILY BP (Reported) FENOFIBRATE,MICRONIZED (Fenofibrate) 200 MG CAPSULE 1 CAP PO DAILY HLD ( Reported) Furosemide 20 MG TABLET 1 TAB PO DAILY edema (Reported) Insulin Detemir (Levemir) 100 UNIT/1 ML VIAL 40 UNITS SC BID DIABETES ( Reported) Levothyroxine Sodium (Synthroid) 150 MCG TABLET 1 TAB PO DAILY AC THYROID ( Reported) Lisinopril/Hydrochlorothiazide (Lisinopril-Hctz 20-12.5 MG Tab) 20 MG-12.5 MG TABLET 1 TAB PO DAILY HIGH BLOOD PRESSURE (Reported) Magnesium Oxide (Magnesium) 400 MG CAPSULE 20.5 MG PO DAILY VITAMIN SUPPORT ( Reported) Omeprazole 20 MG CAPSULE.DR 20 MG PO DAILY AC stomach Pioglitazone HCl (Actos) 30 MG TABLET 1 TAB PO DAILY DIABETES (Reported) Spironolactone (Aldactone) 25 MG TABLET 50 MG PO DAILY water pill Current Medications: Current Medications Sig/Radha Start time Last Medication Dose Route Stop Time Status Admin Aspirin 81 MG DAILY 04/09 1000 AC 04/16 PO 1001 Atenolol 100 MG DAILY 04/08 1720 AC 04/16 PO 0959 Atorvastatin Calcium 50 MG 1700 04/10 1700 AC 04/15 PO 1742 Cholecalciferol 2,000 IU DAILY 04/15 1345 CAN PO Clonidine 0.1 MG DAILY 04/08 1719 AC 04/16 PO 1001 Docusate Sodium 100 MG DAILY 04/08 1832 AC 04/16 PO 1001 Ergocalciferol 50,000 IU QTUES 04/13 0700 AC 04/13 PO 0637 Fenofibrate 145 MG DAILY 04/09 1000 AC 04/16 PO 0959 Furosemide 80 MG BID 04/15 1015 AC 04/16 PO 1000 Gabapentin 100 MG BID 04/11 1000 AC 04/16 PO 0959 Insulin Aspart 0 TIDAC 04/15 1200 AC 04/16 SC 0816 Levothyroxine Sodium 0.175 MG DAILY AC 04/10 0700 AC 04/16 PO 0652 Lisinopril 20 MG DAILY 04/09 1000 AC 04/16 PO 1001 Metolazone 2.5 MG DAILY 04/15 1625 AC 04/16 PO 1001 Omeprazole 20 MG DAILY AC 04/15 0700 AC 04/16 PO 0653 Oxycodone HCl 5 MG Q6P PRN 04/08 1715 AC 04/16 PO 0250 Patient Medication 1 ED .STK-MED ONE 04/15 1358 PR Teaching ED 04/15 1359 Polyethylene Glycol 17 GM DAILY 04/08 1832 AC 04/16 PO 0958 Senna/Docusate Sodium 2 TAB DAILY PRN 04/08 1845 AC 04/12 PO 0958 Spironolactone 50 MG DAILY 04/15 1000 AC 04/16 PO 1001 Review of Systems Review of Systems Constitutional: Denies: chills, fever. Cardiovascular: Denies: chest pain. Genitourinary: Denies: dysuria. Musculoskeletal: Reports: see HPI. Skin: Reports: see HPI (thickening of the skin). Neurological/Psychological: Denies: confusion. Immunologic/Allergic: Denies: lymphadenopathy. 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), peripheral neuropathy EENT: NONE Cardiovascular: diastolic CHF, hypertension, hyperlipidemia, hx SVT Respiratory: asthma Gastrointestinal: hiatal hernia (mild) Hepatic: cirrhosis Renal: chronic kidney disease (r/o nephrotic) Musculoskeletal: chronic back pain, falls, fracture (L hip post fall), spinal stenosis Psychiatric: depression Endocrine: diabetes, hypothyroidism, obesity, vitamin D deficiency Blood Disorders: anemia (macrocytic w/o transfx), thrombocytopenia Cancer(s): NONE 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 Home Who Do You Live With? spouse Services at Home: None Primary Language: Qatari Smoking Status: Never Smoked ETOH Use: denies use Illicit Drug Use: denies illicit drug use Living Will? no Power of Auto Inspector/HCP? no Other Social History: . Lives with . No cigarettes, EtOH or drugs. 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 Lives in [place] for 10 months out of the year. Difficult to ambulate since falling on her left hip 03/02/2016, sclerae found to have fracture. 1 son & 1 dtr- [facility] (dtr with DM) Functional Ability ADLs Independent: dressing, eating. Needs Assist: toileting, bathing (post L hip fx) . Ambulation: non-ambulatory (post L hip fx) IADLs Independent: finances, food prep, telephone, medication admin. Needs Assist: shopping (post L hip fx), housework, transportation. Employment History Employment: Retired Profession/Employer: [employer] ECHO Results (as available) Date of last Echo 04/11/16 EF% 60 Exam & Diagnostic Data Vital Signs and I&O Vital Signs Date Time Temp Pulse Resp B/P Pulse O2 O2 Flow FiO2 Ox Delivery Rate 04/16 1001 136/76 04/16 1001 136/76 04/16 0630 98.4 69 20 134/70 94 Room Air 04/15 2214 97.8 65 20 140/70 95 Room Air 04/15 1423 97.5 68 20 100/70 96 Room Air Intake & Output 04/16 1600 04/16 0800 04/16 0000 Intake Total 100 100 Output Total 650 Balance -550 100 Intake, Oral 100 100 Number 0 Bowel Movements Output, Urine 650 Patient 88.904 kg 88.139 kg Weight Physical Exam General Appearance: alert, awake, comfortable Head: atraumatic Ears, Nose, Throat: normal pharynx Neck: normal inspection, supple Respiratory: normal breath sounds, chest non-tender, no respiratory distress Cardiovascular: regular rate/rhythm Gastrointestinal: normal bowel sounds, thicken abdominal skin (peau d'orange appear) Extremities: bilateral 3+ pitting edema Neurologic/Psych: awake, alert, oriented x 3 Lymphatic: no anterior cervical shira Last 48 Hours of Lab Results: Laboratory Tests 04/16 04/15 1055 0710 Chemistry Sodium (137 - 145 mmol/L) 142 142 Potassium (3.5 - 5.1 mmol/L) 4.3 4.4 Chloride (98 - 107 mmol/L) 106 108 H Carbon Dioxide (22 - 30 mmol/L) 28 27 Anion Gap (5 - 16) 8 7 BUN (7 - 17 mg/dL) 59 H 60 H Creatinine (0.5 - 1.0 mg/dL) 2.1 H 2.0 H Estimated GFR (>60 ml/min) 23 L 25 L BUN/Creatinine Ratio (7 - 25 %) 28.1 H 30.0 H Magnesium (1.6 - 2.3 mg/dL) 1.1 L Total Bilirubin (0.2 - 1.3 mg/dL) 1.0 Direct Bilirubin (< 0.4 mg/dL) 0.7 H AST (14 - 36 U/L) 99 H ALT (9 - 52 U/L) 67 H Alkaline Phosphatase (<127 U/L) 152 H Lactate Dehydrogenase (313 - 618 U/L) 949 H Total Protein (6.3 - 8.2 g/dL) 6.7 Albumin (3.5 - 5.0 g/dL) 2.5 L Hematology CBC w Diff NO MAN DIFF REQ NO MAN DIFF REQ WBC (4.8 - 10.8 /CUMM) 4.0 L 4.7 L RBC (4.20 - 5.40 /CUMM) 2.79 L 2.55 L Hgb (12.0 - 16.0 G/DL) 9.9 L 9.1 L Hct (37 - 47 %) 29.5 L 27.2 L MCV (81.0 - 99.0 FL) 106.0 H 106.6 H MCH (27.0 - 31.0 PG) 35.5 H 35.6 H RDW (11.5 - 14.5 %) 18.9 H 19.3 H Plt Count (/CUMM) MPV (7.4 - 10.4 FL) 8.8 9.5 Gran % (42.2 - 75.2 %) 78.4 H 69.6 Lymphocytes % (20.5 - 51.1 %) 13.4 L 19.0 L Monocytes % (1.7 - 9.3 %) 6.0 9.0 Eosinophils % (0 - 5 %) 1.7 1.6 Basophils % (0.0 - 2.0 %) 0.5 0.8 Absolute Granulocytes (1.4 - 6.5 /CUMM) 3.1 3.2 Absolute Lymphocytes (1.2 - 3.4 /CUMM) 0.5 L 0.9 L Absolute Monocytes (0.10 - 0.60 /CUMM) 0.2 0.4 Absolute Eosinophils (0.0 - 0.7 /CUMM) 0.1 0.1 Absolute Basophils (0.0 - 0.2 /CUMM) 0 0 PUBS MCHC (33.0 - 37.0 G/DL) 33.5 33.4 Retic Count (0.5 - 2.0 %) 1.56 Immunology IgA Pending IgM Pending IgE Pending Other Body Source Serum IgG Pending Serology HIV 1&2 Ab Western Blot (NONREACTIVE) Pending Imaging/Other Studies: CT Chest 04/12/2016: 1. No suspicious mass identified in the posterior mediastinum. 2. Nonspecific patchy groundglass attenuation right upper lobe may represent mild pneumonitis. 3. Nonspecific subpleural nodule right apex. 4. Left-sided effusion with adjacent bandlike atelectasis. 5. Moderate ascites. Anasarca. Nodular hepatic margin suspicious for underlying cirrhosis. Clinical and laboratory correlation recommended. 6. Low-attenuation lesion superior spleen measuring approximately 1.9 cm representing a new finding. Further assessment with contrast-enhanced CT or MRI recommended. 7. Nonobstructing calculi bilateral kidneys. Echocardiogram 04/11/2016: 1. This was a technically difficult examination. 2. Mild aortic sclerosis is present with no valvular stenosis or insufficiency. Minimal enlargement of the ascending aorta is present. 3. Mitral leaflet thickening is present with moderate anular calcification and mild mitral insufficiency with mild to moderate left atrial enlargement. 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 4. There is no significant pericardial fluid present. 5. A left pleural effusion is present. 6. An area of abnormal echodensity is noted posterior to the LV. If clinically indicated, a chest CT might be useful to rule out the possibility of a posterior mediastinal mass. 7. Mild tricuspid and pulmonic insufficiency are present with no evidence of pulmonary hypertension. 8. The left ventricular chamber size is normal with mild concentric hypertrophy and a normal ejection fraction with no resting wall motion abnormalities. Mild diastolic dysfunction is noted. Assessment/Plan Assessment: Ms. 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 Her blood work has been noted to have platelet clumping. This has been repeated with EDTA and citrate tubes without difference. Her WBC has decreased. Hemoglobin is stable. Smear was reviewed and noted significant platelet clumping. There are no platelet satellites. Platelet counts seem higher than 50,000 with the clumping. No obvious evidence of MDS. WBC morphology is normal appearing. Some common etiologies for clumping include auto-antibodies, autoimmune, viral infection ( HIV, Hepatitis, Weakley, CMV), cold agglutin, traumatic blood draw, vW disease, or nephrotic disease. Option would be to check for underlying paraprotein disease including SPEP and immunoglobulin. Platelet aggregation studies can also be done. Viral infection should be evaluated, HIV and IM. Moriah can be checked. Complement level can also be checked. Blood can be drawn in citrate tube and vortex briefly. Her higher MCV may be related to large platelet clumps causing false reading. She does have some elevated MCV previously. B12 was normal. Folate was previously normal but should be rechecked. Recommendations: 1. Check SPEP 2. Check Immunoglobulin levels: IgA, IgM, IgG 3. Check Moriah 4. Check platelet aggregation studies 5. Check complement level 6. Ensure no trauma blood draw if possible 7. Check HIV, EBV, CMV 8. Draw blood in citrate tube and consider vortexing it prior to evaluating it 9. Check folate level Problem List: 1. Anasarca 2. Cirrhosis 3. Leg pain, bilateral 4. Chronic kidney disease 5. Platelet disorder Other Findings/Comments: Please call [phone] with any questions or concerns. Consult Acknowledgment - Thank you for your consult request.
[2016-04-16 13:40] VITALS: BP 130/60
--- NOTE | 2016-04-16 14:25 | PN- Nephrology ---
Assessment/Plan Assessment: 1. Intractable edema. Still awaiting the urine studies to see what contribution her renal disease may have to her intractable edema. 2. Concerns for cirrhosis. Suspect BYERS. 3. Diabetes mellitus 4. Obesity-if diabetes was not the cause of her renal disease, then certainly focal and segmental glomerulosclerosis could be considered. 5. Hypertension 6. Hyperlipidemia 7. Chronic kidney disease. Suspect diabetic nephropathy. Her renal function remains stable Suggestion: 1. Await urine studies. 24-hour urine is in progress. 2. Strict intakes and outputs 3. Her diet needs to be a 2 g sodium diet. 4. Please keep a close eye on a potassium given the fact that she has renal impairment and is on Spionolactone. Subjective Subjective: Patient looks well. She says she feels tired. Otherwise no shortness of breath or other complaints. Objective Vital Signs and I&Os Vital Signs Date Time Temp Pulse Resp B/P Pulse O2 O2 Flow FiO2 Ox Delivery Rate 04/16 1340 97.4 65 20 130/60 99 Room Air 04/16 1001 136/76 04/16 1001 136/76 04/16 0630 98.4 69 20 134/70 94 Room Air 04/15 2214 97.8 65 20 140/70 95 Room Air Intake & Output 04/16 1600 04/16 0400 04/15 1600 04/15 0400 04/14 1600 04/14 0400 Intake Total 100 100 462 071 4694 100 Output Total 850 555 385 9512 650 Balance -750 100 0 300 30 -550 Intake, Oral 100 100 634 674 1824 100 Number 1 1 0 Bowel Movements Output, Urine 850 051 331 3069 650 Patient 196 lb 178 lb 197 lb Weight Physical Exam: General Appearance: well developed/nourished, no apparent distress, alert, awake , comfortable Ears, Nose, Throat: normal ENT inspection, hearing grossly normal Neck: normal inspection, supple, no JVD Respiratory: normal breath sounds, chest non-tender Cardiovascular: regular rate/rhythm, edema Abdomen: normal bowel sounds, soft, non-tender, no abdominal bruits Extremities: swelling, swelling on the torso and the sacrum Neurologic/Psychiatric: no motor/sensory deficits, awake, alert, oriented x 3, no gross neurologic deficits Skin: normal color Current Medications: Current Medications Sig/Radha Start time Last Medication Dose Route Stop Time Status Admin Aspirin 81 MG DAILY 04/09 1000 AC 04/16 PO 1001 Atenolol 100 MG DAILY 04/08 1720 AC 04/16 PO 0959 Atorvastatin Calcium 50 MG 1700 04/10 1700 AC 04/15 PO 1742 Clonidine 0.1 MG DAILY 04/08 1719 AC 04/16 PO 1001 Docusate Sodium 100 MG DAILY 04/08 1832 AC 04/16 PO 1001 Ergocalciferol 50,000 IU QTUES 04/13 0700 AC 04/13 PO 0637 Fenofibrate 145 MG DAILY 04/09 1000 AC 04/16 PO 0959 Furosemide 80 MG BID 04/15 1015 AC 04/16 PO 1000 Gabapentin 100 MG BID 04/11 1000 AC 04/16 PO 0959 Insulin Aspart 0 TIDAC 04/15 1200 AC 04/16 SC 1219 Levothyroxine Sodium 0.175 MG DAILY AC 04/10 0700 AC 04/16 PO 0652 Lisinopril 20 MG DAILY 04/09 1000 AC 04/16 PO 1001 Metolazone 2.5 MG DAILY 04/15 1625 AC 04/16 PO 1001 Omeprazole 20 MG DAILY AC 04/15 0700 AC 04/16 PO 0653 Ondansetron HCl 4 MG ONCE ONE 04/16 1245 DC 04/16 IV 04/16 1246 1247 Oxycodone HCl 5 MG Q6P PRN 04/08 1715 AC 04/16 PO 1219 Patient Medication 1 ED .STK-MED ONE 04/16 1305 DC Teaching ED 04/16 1306 Polyethylene Glycol 17 GM DAILY 04/08 1832 AC 04/16 PO 0958 Senna/Docusate Sodium 2 TAB DAILY PRN 04/08 1845 AC 04/12 PO 0958 Spironolactone 50 MG DAILY 04/15 1000 AC 04/16 PO 1001 Results Pertinent Lab Results: Laboratory Tests 04/16 04/15 1055 0710 Chemistry Sodium (137 - 145 mmol/L) 142 142 Potassium (3.5 - 5.1 mmol/L) 4.3 4.4 Chloride (98 - 107 mmol/L) 106 108 H Carbon Dioxide (22 - 30 mmol/L) 28 27 Anion Gap (5 - 16) 8 7 BUN (7 - 17 mg/dL) 59 H 60 H Creatinine (0.5 - 1.0 mg/dL) 2.1 H 2.0 H Estimated GFR (>60 ml/min) 23 L 25 L BUN/Creatinine Ratio (7 - 25 %) 28.1 H 30.0 H Magnesium (1.6 - 2.3 mg/dL) 1.1 L Total Bilirubin (0.2 - 1.3 mg/dL) 1.0 Direct Bilirubin (< 0.4 mg/dL) 0.7 H AST (14 - 36 U/L) 99 H ALT (9 - 52 U/L) 67 H Alkaline Phosphatase (<127 U/L) 152 H Lactate Dehydrogenase (313 - 618 U/L) 949 H Total Protein (6.3 - 8.2 g/dL) 6.7 Albumin (3.5 - 5.0 g/dL) 2.5 L Hematology CBC w Diff NO MAN DIFF REQ NO MAN DIFF REQ WBC (4.8 - 10.8 /CUMM) 4.0 L 4.7 L RBC (4.20 - 5.40 /CUMM) 2.79 L 2.55 L Hgb (12.0 - 16.0 G/DL) 9.9 L 9.1 L Hct (37 - 47 %) 29.5 L 27.2 L MCV (81.0 - 99.0 FL) 106.0 H 106.6 H MCH (27.0 - 31.0 PG) 35.5 H 35.6 H RDW (11.5 - 14.5 %) 18.9 H 19.3 H Plt Count (/CUMM) MPV (7.4 - 10.4 FL) 8.8 9.5 Gran % (42.2 - 75.2 %) 78.4 H 69.6 Lymphocytes % (20.5 - 51.1 %) 13.4 L 19.0 L Monocytes % (1.7 - 9.3 %) 6.0 9.0 Eosinophils % (0 - 5 %) 1.7 1.6 Basophils % (0.0 - 2.0 %) 0.5 0.8 Absolute Granulocytes (1.4 - 6.5 /CUMM) 3.1 3.2 Absolute Lymphocytes (1.2 - 3.4 /CUMM) 0.5 L 0.9 L Absolute Monocytes (0.10 - 0.60 /CUMM) 0.2 0.4 Absolute Eosinophils (0.0 - 0.7 /CUMM) 0.1 0.1 Absolute Basophils (0.0 - 0.2 /CUMM) 0 0 PUBS MCHC (33.0 - 37.0 G/DL) 33.5 33.4 Retic Count (0.5 - 2.0 %) 1.56 Immunology IgA Pending IgM Pending IgE Pending Other Body Source Serum IgG Pending Serology HIV 1&2 Ab Western Blot (NONREACTIVE) NONREACTIVE 04/14 04/14 04/14 1130 1036 0700 Chemistry Sodium (137 - 145 mmol/L) 142 Potassium (3.5 - 5.1 mmol/L) 4.5 Chloride (98 - 107 mmol/L) 108 H Carbon Dioxide (22 - 30 mmol/L) 27 Anion Gap (5 - 16) 7 BUN (7 - 17 mg/dL) 61 H Creatinine (0.5 - 1.0 mg/dL) 2.0 H Estimated GFR (>60 ml/min) 25 L BUN/Creatinine Ratio (7 - 25 %) 30.5 H PTH Intact (13.8 - 85 pg/ml) 144.8 H Coagulation PT Cancelled INR Cancelled Hematology CBC w Diff NO MAN DIFF REQ WBC (4.8 - 10.8 /CUMM) 5.8 RBC (4.20 - 5.40 /CUMM) 2.63 L Hgb (12.0 - 16.0 G/DL) 9.4 L Hct (37 - 47 %) 27.8 L MCV (81.0 - 99.0 FL) 105.7 H MCH (27.0 - 31.0 PG) 35.6 H RDW (11.5 - 14.5 %) 19.4 H Plt Count (130 - 400 /CUMM) MPV (7.4 - 10.4 FL) 9.1 Gran % (42.2 - 75.2 %) 80.8 H Lymphocytes % (20.5 - 51.1 %) 11.8 L Monocytes % (1.7 - 9.3 %) 6.0 Eosinophils % (0 - 5 %) 0.8 Basophils % (0.0 - 2.0 %) 0.6 Absolute Granulocytes (1.4 - 6.5 /CUMM) 4.7 Absolute Lymphocytes (1.2 - 3.4 /CUMM) 0.7 L Absolute Monocytes (0.10 - 0.60 /CUMM) 0.4 Absolute Eosinophils (0.0 - 0.7 /CUMM) 0 Absolute Basophils (0.0 - 0.2 /CUMM) 0 PUBS MCHC (33.0 - 37.0 G/DL) 33.7
[2016-04-16 22:19] VITALS: BP 150/62
[2016-04-17 06:55] VITALS: BP 157/70
--- NOTE | 2016-04-17 07:58 | PN- Housestaff ---
See Addendum Subjective Follow-up For: Weakness S/P Hip Fracture Cirrhosis, Ascites Generalized edema 2/2 nephropathy Subjective: Patient seen and examined at bedside this AM. She reports hesitancy about discharge because she is worried her pain won't be as well controlled there. Otherwise she feels well and is accepting of being discharged to [facility] today. Review of Systems Constitutional: Denies: chills, fever, malaise. EENTM: Denies: blurred vision, visual changes, hearing changes. Cardiovascular: Reports: edema, peripheral edema. Denies: chest pain. Respiratory: Denies: cough, short of breath. Gastrointestinal: Reports: bloating, distention. Denies: constipation, diarrhea. Genitourinary: Denies: dysuria. Musculoskeletal: Reports: joint pain (Hip pain). Denies: back pain. Skin: Denies: change in skin color, change in hair/nails. Neurological/Psychological: Denies: confusion, headache, numbness. Hematologic/Endocrine: Denies: bruising, bleeding. Immunologic/Allergic: Denies: splenectomy. Objective Last 24 Hrs of Vital Signs/I&O Vital Signs Date Time Temp Pulse Resp B/P Pulse O2 O2 Flow FiO2 Ox Delivery Rate 04/17 0655 98.0 68 20 157/70 98 Room Air 04/16 2219 97.9 67 20 150/62 98 Room Air 04/16 1340 97.4 65 20 130/60 99 Room Air 04/16 1001 136/76 04/16 1001 136/76 Intake & Output 04/17 1600 04/17 0800 04/17 0000 Intake Total 100 9610 Output Total 700 470 Balance -600 9140 Intake, IV 0 10 Intake, Oral 100 9600 Number 1 1 Bowel Movements Output, Urine 700 470 Patient 193 lb Weight Physical Exam General Appearance: Oriented X3, Cooperative, No Acute Distress Skin: No Rashes, No Significant Lesion HEENT: Atraumatic, Mucous Membr. moist/pink Neck: Supple Lymphatic: Cervical nl Cardiovascular: Normal S1, Normal S2 Lungs: Clear to Auscultation, Normal Air Movement Abdomen: Thickening abdominal skin (peau d'orange), normal bowel sounds Neurological: Normal Speech, Normal Tone Extremities: 2+ pitting edema, no interval change from yesterday. Vascular: Pulses Symmetrical Current Medications: Current Medications Sig/Radha Start time Last Medication Dose Route Stop Time Status Admin Aspirin 81 MG DAILY 04/09 1000 AC 04/16 PO 1001 Atenolol 100 MG DAILY 04/08 1720 AC 04/16 PO 0959 Atorvastatin Calcium 50 MG 1700 04/10 1700 AC 04/16 PO 1741 Clonidine 0.1 MG DAILY 04/08 1719 AC 04/16 PO 1001 Docusate Sodium 100 MG DAILY 04/08 1832 AC 04/16 PO 1001 Ergocalciferol 50,000 IU QTUES 04/13 0700 AC 04/13 PO 0637 Fenofibrate 145 MG DAILY 04/09 1000 AC 04/16 PO 0959 Furosemide 80 MG Q12H 04/17 0600 AC 04/17 PO 0645 Furosemide 80 MG BID 04/15 1015 DC 04/16 PO 2053 Gabapentin 100 MG BID 04/11 1000 AC 04/16 PO 2053 Insulin Aspart 0 TIDAC 04/15 1200 AC 04/16 SC 1740 Levothyroxine Sodium 0.175 MG DAILY AC 04/10 0700 AC 04/17 PO 0646 Lisinopril 20 MG DAILY 04/09 1000 AC 04/16 PO 1001 Metolazone 2.5 MG DAILY 04/15 1625 AC 04/16 PO 1001 Omeprazole 20 MG DAILY AC 04/15 0700 AC 04/17 PO 0646 Ondansetron HCl 4 MG ONCE ONE 04/16 1245 DC 04/16 IV 04/16 1246 1247 Oxycodone HCl 5 MG Q6P PRN 04/08 1715 AC 04/17 PO 0300 Patient Medication 1 ED .STK-MED ONE 04/16 1305 DC Teaching ED 04/16 1306 Polyethylene Glycol 17 GM DAILY 04/08 1832 AC 04/16 PO 0958 Senna/Docusate Sodium 2 TAB DAILY PRN 04/08 1845 AC 04/12 PO 0958 Spironolactone 50 MG DAILY 04/15 1000 AC 04/16 PO 1001 Last 24 Hrs of Lab/Diego Results Last 24 Hrs of Labs/Mics: Laboratory Tests 04/17/16 0638: Anion Gap 7, Estimated GFR 22 L, BUN/Creatinine Ratio 28.2 H, CBC w Diff Pending, WBC Pending, RBC Pending, Hgb Pending, Hct Pending, MCV Pending, MCH Pending, RDW Pending, Plt Count Pending, MPV Pending, PUBS MCHC Pending 04/16/16 1055: Anion Gap 8, Estimated GFR 23 L, BUN/Creatinine Ratio 28.1 H, Magnesium 1.1 L , Total Bilirubin 1.0, Direct Bilirubin 0.7 H, AST 99 H, ALT 67 H, Alkaline Phosphatase 152 H, Total Protein 6.7, Albumin 2.5 L, Folate 4.9, CBC w Diff NO MAN DIFF REQ, RBC 2.79 L, MCV 106.0 H, MCH 35.5 H, RDW 18.9 H, MPV 8.8, Gran % 78.4 H, Lymphocytes % 13.4 L, Monocytes % 6.0, Eosinophils % 1.7, Basophils % 0.5, Absolute Granulocytes 3.1, Absolute Lymphocytes 0.5 L, Absolute Monocytes 0.2, Absolute Eosinophils 0.1, Absolute Basophils 0, PUBS MCHC 33.5, IgA Pending, IgM Pending, IgE Pending, Serum IgG Pending, HIV 1&2 Ab Western Blot NONREACTIVE Orders Radiology Findings: EXAMINATION: CT CHEST WITHOUT CONTRAST CLINICAL INFORMATION: Evaluation of the posterior mediastinal mass COMPARISON: CT chest dated 08/20/2013 TECHNIQUE: Multidetector volumetric CT imaging of the chest was done. Axial MIP volume rendering provided. Sagittal and coronal reformatted images were obtained. DLP: 561.01 mGy-cm. FINDINGS: MANAGER INVESTIGATIONS: Low lung volumes with elevation of the right hemidiaphragm. LUNGS: Pleural thickening and subpleural linear density right apical region. This may represent a subpleural nodule measuring 0.5 cm (sagittal image 86). Patchy groundglass attenuation noted in the right upper lobe. Bandlike atelectatic changes noted in the lingula and right lower lobe. Thickening of the left major fissure. MEDIASTINUM: Atherosclerotic disease with intimal calcification of aorta and aortic branches. Mild aneurysmal dilatation of the ascending aorta noted again. No evidence of mediastinal lymphadenopathy. No suspicious mass noted in the posterior mediastinum . PLEURA: Small to moderate left-sided pleural effusion extending into the left interlobar fissure. AXILLA: Anasarca type changes noted in the chest wall, left greater than right. Absence of left breast.. UPPER ABDOMEN: Moderate ascites. Nodular hepatic margin suspicious for underlying cirrhosis. Subtle low-attenuation superior spleen measuring approximately 1.9 cm demonstrates Hounsfield units higher than seen with cyst. This represents a new finding (series 2 image 37). Surgical clips noted in the subhepatic region. Atherosclerotic disease of the aorta and aortic branches. Nonobstructing calculus mid left kidney incompletely included in the examination measuring approximately 5 mm. Punctate nonobstructing calculi upper pole right kidney. OSSEOUS STRUCTURES: Mild scoliosis and degenerative changes of the spine. IMPRESSION: 1. No suspicious mass identified in the posterior mediastinum. 2. Nonspecific patchy groundglass attenuation right upper lobe may represent mild pneumonitis. 3. Nonspecific subpleural nodule right apex. 4. Left-sided effusion with adjacent bandlike atelectasis. 5. Moderate ascites. Anasarca. Nodular hepatic margin suspicious for underlying cirrhosis. Clinical and laboratory correlation recommended. 6. Low-attenuation lesion superior spleen measuring approximately 1.9 cm representing a new finding. Further assessment with contrast-enhanced CT or MRI recommended. 7. Nonobstructing calculi bilateral kidneys. Assessment/Plan Assessment: Ms. Angulo is a 70-year-old female with past medical history of hypothyroidism , hyperlipidemia, diabetes mellitus, hypertension and prior left hip fracture who presented for evaluation of pain in legs and her left hip. Patient is s/p mildly displaced, comminuted fracture of the greater trochanter of the left femur. In the ED: Vitals signs showed temperature 98.4, pulse 88, respiratory rate 19, 179/77, O2 saturation in the high 90s on room air. Labs showed H&H 9.7/29.5, creatinine 2.3, BUN 48. Patient was admitted to the general medicine floor and the following is the management: 1. Left-sided hip pain/ status post fall/hip fracture: * Patient fell in the shower on 03/02/2016 which resulted in a post comminuted fracture of the left greater trochanter of the femur. * Last month she was seen by orthopedic surgery and discharged for further outpatient evaluation and management were recommended, but she never followed up. * She has been moderately disabled since that time with pain in her left hip. * Ortho was reconsulted, Dr. 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 2. Anasarca: * Etiology likely secondary to nephropathy; GI, nephrology and cardiology have all been consulted, appreciate input, will continue to follow recs * Echo showed ejection fraction of 55-60% (no evidence of pulm hypertension) * Continue aldactone 50 mg daily. Lasix to continue at 80 mg PO BID and this will be her discharge dose. Strict Is/Os and daily BMPs (monitor K). * Urine SPEP, kappa lambda free light chains ordered, f/u results * Random urine protein HIGH to 109, protein/cre ration HIGH to 1580 * 2 g Na diet to continue * Continue senna, miralax, colace * Due to inability to obtain platelet count, will have to defer paracentesis to a later date until underlying disorder found 3. Cirrhosis * Likely 2/2 to BYERS, patient had prior workup with Dr. Cornelius for this issue * Patient will follow up with Dr. Cornelius upon discharge * Patient denies having recent Hep A or B vaccinations, will have patient follow up with PCP in regards to this (patient has had pneumovax and flu vaccination this past fall as per her) 4. Splenic/Pancreatic lesions * Prior CT showed 1.9 cm splenic lesion * Patient refuses MRI inpatient as she is claustrophobic, will referr her to an open MRI outpatient * Patient reports prior pancreatic lesion followed by Dr. Cornelius, she will continue to follow with him outpatient 5. Diabetes mellitus: * We have discontinued anti-diabetic regimen as FSGs have been adequate and well controlled. * Diabetic diet 6. Paresthesia in RLE * Continue gabapentin 100mg BID 7. History of hypothyroidism: * Continue Synthroid 0.175mg daily 8. History of hyperlipidemia: * Continue home dose of atorvastatin 50 mg daily * Fenofibrate 145 mg PO daily 9. History of hypertension, normal LF systolic function with mild diastolic dysfunction: * Continue home dose of lisinopril 20 mg daily * Continue clonidine 0.1 mg PO daily * Atenolol 100 mg PO daily * ASA 81 mg PO daily 10. Platelet clumping * Hematology consult placed and appreciated, will follow recommendations * Likely secondary to nephropathy, however further workup is being pursued * SPEP and immunoglobulin levels pending * Patient will require follow up with Dr. Driscoll for further management and workup of thrombocytopenia and platelet clumping, including ebv, cmv, cassie, platelet aggregation studies, complement level etc. She has been provided with a referral for this issue. DNR/DNI DVTP: Heparin SC Heart Healthy diet Mild-mod pain pathways Problem List: 1. Anasarca 2. Gastroparesis 3. Platelet disorder 4. Hip fracture, left 5. Cirrhosis 6. Hypoalbuminemia Pain Ratin Pain Location: Hip Pain Goal: Pain 4 or less Pain Plan: Roxicodone for moderate pain. Tomorrow's Labs & Rationales: Likely discharge today. If patient remains in house, will order CBC in attempt to obtain plt count and BEP to monitor renal function. Consulting Request: Consulting Specialty: Nephrology Consulting Physician: DR ROCHA Reason for Consult: elevated creatinine, leg swelling
[2016-04-17 08:29] LABS: ABSOLUTE BASOPHIL COUNT 0.1 /CUMM (0.0-0.2); ABSOLUTE EOSINOPHIL COUNT 0.1 /CUMM (0.0-0.7); ABSOLUTE GRANULOCYTE CT 6.3 /CUMM (1.4-6.5); ABSOLUTE LYMPH COUNT 1.7 /CUMM (1.2-3.4); ABSOLUTE MONOCYTE COUNT 0.5 /CUMM (0.10-0.60); BASOPHIL % 0.7 % (0.0-2.0); EOSINOPHIL % 1.6 % (0-5); GRANULOCYTE % 72.1 % (42.2-75.2); HEMATOCRIT 27.8 % (37-47); MEAN CORPUSCULAR HGB 35.4 PG (27.0-31.0); MEAN CORPUSCULAR HGB CONC 32.9 G/DL (33.0-37.0); MEAN CORPUSCULAR VOLUME 107.7 FL (81.0-99.0); MEAN PLATELET VOLUME 9.2 FL (7.4-10.4); RBC DISTRIBUTION WIDTH 19.3 % (11.5-14.5); RED BLOOD CELL CT 2.58 /CUMM (4.20-5.40)
[2016-04-17 11:10] LABS: WHITE BLOOD CELL COUNT 8.7 /CUMM (4.8-10.8)
[2016-04-17] MEDS ORDERED: OXYCODONE HCL5 M1 PO (11:16)
[2016-04-17 11:36] VITALS: BP 134/70
[2016-04-17] MEDS ORDERED: VITAMIN D250000 UNIT PO (12:38)
[2016-04-17] MEDS ORDERED: GABAPENTIN100 M2 PO (12:39)
[2016-04-17] MEDS ORDERED: SYNTHROID175 MCG PO (12:39)
[2016-04-17] MEDS ORDERED: LISINOPRIL20 M1 PO (12:39)
--- NOTE | 2016-04-17 12:58 | NUR ---
PT STATES SHE HAS "LUMP" ON RIGHT FOREARM AND ITS TENDER TO THE TOUCH. SOME ECCHYMOTIC AREAS NOTED. PT STATES SHE HAD BLOOD DRAWN NEAR THAT SITE. ASS[employer] IN NURSING TIARA HINSON AT BEDSIDE TO ASSESS. NO FURTHER INTEVENTION AT THIS TIME. WILL MONITOR.
== END 2016-04-17 14:14 | DRG 641 ==
LOC: ENRESERVTM → ENRESERVDT → ERH 06:07 → 2NA 14:55 → ERHI 14:55 → ENPENDDIS 14:55 → 2NA 16:59
PROVIDERS: Emergency Medicine; Student in an Organized Health Care Education/Training Program; ADMIT Internal Medicine
DX: E87.70 Fluid overload, unspecified (principal); R18.8 Other ascites; N18.4 Chronic kidney disease, stage 4 (severe); E11.21 Type 2 diabetes mellitus with diabetic nephropathy; I13.10 Hypertensive heart and chronic kidney disease without heart failure, with stage 1 through stage 4 chronic kidney disease, or unspecified chronic kidney disease; E66.01 Morbid (severe) obesity due to excess calories; S72.115D Nondisplaced fracture of greater trochanter of left femur, subsequent encounter for closed fracture with routine healing; K75.81 Nonalcoholic steatohepatitis (NASH); Z79.4 Long term (current) use of insulin; E11.65 Type 2 diabetes mellitus with hyperglycemia; Z68.32 Body mass index [BMI] 32.0-32.9, adult; E11.22 Type 2 diabetes mellitus with diabetic chronic kidney disease; E03.9 Hypothyroidism, unspecified; E78.5 Hyperlipidemia, unspecified; D50.9 Iron deficiency anemia, unspecified; I25.10 Atherosclerotic heart disease of native coronary artery without angina pectoris; E55.9 Vitamin D deficiency, unspecified; K74.60 Unspecified cirrhosis of liver; D73.89 Other diseases of spleen; W18.30XD Fall on same level, unspecified, subsequent encounter
CPT/HCPCS: 2NASP; 82570; 83883; 84133; 84156; 84300; 36415; 73502-LT; 81001; 82436; 82784; 84165; 87389; 93005; 93010; 93306; 97110-GO; 97112-GO; 97116-GO; 97162-GP; 97530-GO; J1644; J1940; J2405; J3490

== ENCOUNTER 2016-07-30 09:01 | Inpatient (IN) | payer OTHER, MEDICARE ==
[~2016-07-30] VITALS: Ht 160 cm; Wt 83.9 kg
[~2016-07-30 09:01] MED LIST changes: +ALDACTONE25 MG PO; +EPZICOM TABLET1 EACH PO; +FUROSEMIDE20 M1 PO; +GABAPENTIN100 M2 PO; +LASIX80 M1 PO; +LISINOPRIL20 M1 PO; +OMEPRAZOLE20 M2 PO; +OXYCODONE HCL5 M1 PO; +SYNTHROID175 MCG PO; +VITAMIN D250000 UNIT PO
--- NOTE | 2016-07-30 09:08 | ED MVC/FALL/TRAUMA COMPLAINT ---
History of Present Illness General Chief Complaint: General Adult Stated Complaint: BIBA FALL Source: patient Exam Limitations: confusion Vital Signs & Intake/Output Vital Signs & Intake/Output Vital Signs Date Time Temp Pulse Resp B/P B/P Pulse O2 O2 Flow FiO2 Mean Ox Delivery Rate 07/30 1315 96.7 129 20 122/83 96 Room Air 07/30 1230 96.8 136 20 124/66 97 Room Air 07/30 1156 97.1 148 20 127/60 07/30 1138 97.3 158 20 120/67 97 Room Air 07/30 1058 97.3 140 20 130/64 98 Room Air 07/30 1011 97.0 144 20 07/30 1011 97.0 144 20 07/30 1011 97.0 144 20 07/30 1011 97.0 144 20 07/30 0947 144 07/30 0910 97.0 20 Allergies Coded Allergies: codeine (Severe, RASH, DIFFICULTY BREATHING 04/08/16) morphine (Severe, SHORTNESS OF BREATH 04/08/16) Reconcile Medications Amlodipine Besylate 10 MG TABLET 1 TAB PO DAILY BLOOD PRESSURE Apixaban (Eliquis) 2.5 MG TABLET 1 TAB PO BID afib Aspirin (Children's Aspirin) 81 MG TAB.CHEW 81 MG PO DAILY HEART TAKE 1 TAB PO DAILY Atorvastatin Calcium 10 MG TABLET 50 MG PO 1300 HEART HEALTH (Reported) Ergocalciferol (Vitamin D2) (Vitamin D2) 50,000 UNIT CAPSULE 1 CAP PO QTUES Supplement FENOFIBRATE,MICRONIZED (Fenofibrate) 200 MG CAPSULE 1 CAP PO DAILY HLD ( Reported) Gabapentin 100 MG CAPSULE 1 TAB PO BID Neuropathy Lactulose 10 GRAM/15 ML SOLUTION 30 ML PO BID encephalopathy adjust to maintain 2-3 soft stool/day Levothyroxine Sodium (Synthroid) 175 MCG TABLET 1 TAB PO DAILY AC Hypothyroidism Magnesium Oxide (Magnesium) 400 MG CAPSULE 20.5 MG PO DAILY VITAMIN SUPPORT ( Reported) Metoprolol Tartrate 25 MG TABLET 1 TAB PO BID HTN,afib Omeprazole 20 MG CAPSULE.DR 20 MG PO DAILY AC stomach Oxycodone HCl 5 MG TABLET 1 TAB PO Q6P PRN PAIN SCALE 4-6 (MODERATE) PLEASE HOLD FOR SEDATION/DROWSINESS OR DECREASED RESPIRATORY RATE. Spironolactone (Aldactone) 25 MG TABLET 50 MG PO DAILY water pill Triage Nurses Notes Reviewed? yes Onset: Abrupt Duration: OVERNIGHT Timing: single episode today Severity: moderate, severe Loss of Consciousness: unsure No Modifying Factors: none HPI: This is a 70 over female who has a history of nonalcoholic cirrhosis, hypertension, CHF presents by EMS from home for chief complaint of fall on ground. Patient is unsure when she fell. She states she took her pain medication yesterday. History of very limited as patient is confused. Multiple areas of bruising. According to EMS a neighrbor called because she had not seen her in the last day and they suspected something might have happened. Patient with history of SVT in chart. Found to be in narrow complex tachycardia on monitor. Past History Travel History Traveled to [facility] past 21 day No Medical History Any Pertinent Medical History? 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), peripheral neuropathy EENT: NONE Cardiovascular: diastolic CHF, hypertension, hyperlipidemia, hx SVT Respiratory: asthma Gastrointestinal: hiatal hernia (mild) Hepatic: cirrhosis Renal: chronic kidney disease (r/o nephrotic) Musculoskeletal: chronic back pain, falls, fracture (L hip post fall), spinal stenosis Psychiatric: depression Endocrine: diabetes, hypothyroidism, obesity, vitamin D deficiency Blood Disorders: anemia (macrocytic w/o transfx), thrombocytopenia Cancer(s): NONE CLOTHES WRINGER/Reproductive: NONE History of MRSA: No History of VRE: No History of CDIFF: No Influenza Vaccine: 12/27/15 Surgical History Surgical History: appendectomy, cholecystectomy (open 1978), (x 2), RIGHT SHOULDER ROTATOR LEFT ANKLE SURGERY C-SECTIONS resection of pancreatic cyst at [facility] Psychosocial History Who do you live with Spouse Services at Home None What is your primary language Belarusian ETOH Use: denies use Family History Family History, If Any: SISTER FH: Crohn's disease FH: diabetes mellitus BROTHER FH: Hodgkins disease FATHER FH: heart disease MOTHER FH: diabetes mellitus Relation not specified for: FH: lung cancer Hx Contributory? No Review of Systems Review of Systems Constitutional: Reports: see HPI (LIMITED (PT CONFUSED)). Physical Exam Physical Exam General Appearance: well developed/nourished, alert, awake, moderate distress, obese Head: atraumatic, active bleeding Eyes: Bilateral: normal appearance, PERRL. Ears, Nose, Throat, Mouth: DRY ORAL MUCOSA Neck: normal inspection, supple, full range of motion Respiratory: decreased breath sounds Cardiovascular: tachycardia Peripheral Pulses: 1+ radial (R), 1+ radial (L) Gastrointestinal: soft, non-tender, DISTENDED Extremities: normal range of motion Neurologic/Psych: awake, ALERT, CONFUSED Skin: intact, normal color, warm/dry Core Measures ACS in differential dx? Yes ASA ordered for poss ACS? HEPARINZED Severe Sepsis Present: No Septic Shock Present: No Progress Differential Diagnosis: ENCEPHALITIS, AFIB, SVT, JUANI, SEPSIS, SBP, OPIATE OVERDOSE Plan of Care: Orders Procedure Date/time Status CULTURE,BODY FLUID 07/30 1329 Active BODY FLUID LIPASE 07/30 1329 Active BODY FLUID CELL COUNT 07/30 1329 Active BODY FLUID AMYLASE 07/30 1329 Active EKG 07/30 1329 Active Add-on Test (ER Only) 07/30 1250 Active Patient Data 07/30 1249 Active LACTIC ACID 07/30 1224 Complete US-PARACENTESIS 07/30 1220 Active Admit to inpatient 07/30 1220 Active Vital Signs 07/30 1220 Active Code Status 07/30 1220 Active LACTIC ACID 07/30 1219 Complete Intake & Output 07/30 1025 Active CULTURE,URINE 07/30 1024 Active TROPONIN LEVEL 07/30 1005 Complete COMPREHENSIVE METABOLIC PANEL 07/30 1005 Complete CREATINE PHOSPHOKINASE 07/30 1005 Complete BLOOD CULTURE 07/30 0929 Active Escobedo, Insertion/Removal/Asses 07/30 0924 Active LACTIC ACID 07/30 0924 Active AMMONIA 07/30 0920 Complete ETHANOL 07/30 0920 Complete Telemetry/Pharmacy Teacher 07/30 0919 Active URINALYSIS 07/30 0919 Complete PARTIAL THROMBOPLASTIN TIME 07/30 0919 Complete PROTHROMBIN TIME 07/30 0919 Complete CBC WITHOUT DIFFERENTIAL 07/30 0919 Complete TYPE & SCREEN (NOT X-MATCH) 07/30 0919 Complete EKG 07/30 0916 Active Current Medications Sig/Radha Start time Last Medication Dose Stop Time Status Admin Heparin Sodium 25,000 UNIT Q24H 07/30 1200 AC 07/30 (Porcine) 1218 (Heparin) Sodium Chloride 500 ML Diltiazem HCl 125 MG Q12H 07/30 1015 AC 07/30 (Cardizem DRIP) 1056 Sodium Chloride 100 ML (Normal Saline 0.9%) Laboratory Tests 07/30/16 1231: Lactic Acid 3.1 H 07/30/16 1024: Urinalysis MANY H, Urine Color PASQUALE, Urine Clarity CLEAR, Urine pH 5.5, Ur Specific Lynco >= 1.030, Urine Protein >=300 H, Urine Ketones NEG, Urine Nitrite NEG, Urine Bilirubin NEG@ICTO, Urine Urobilinogen 1.0, Ur Leukocyte Esterase NEG, Ur Microscopic SEDIMENT EXAMINED, Urine RBC 1-3, Urine WBC 3-5 H, Ur Epithelial Cells RARE, Urine Bacteria MANY H, Urine Hemoglobin TRACE-INTACT, Urine Glucose 100 H 07/30/16 1005: Lactic Acid 3.6 H 07/30/16 1005: Anion Gap 12, Estimated GFR 25 L, BUN/Creatinine Ratio 23.5, Glucose 146 H, Calcium 7.9 L, Total Bilirubin 1.5 H, AST 95 H, ALT 39, Alkaline Phosphatase 123, Ammonia 33 H, Creatine Kinase 256 H, Troponin I 0.07, Total Protein 5.8 L, Albumin 2.1 L, Globulin 3.7, Albumin/Globulin Ratio 0.6 L, PT 16.5 H, INR 1.58 H, APTT 32, CBC w Diff NO MAN DIFF REQ, RBC 2.64 L, MCV 102.2 H, MCH 33.0 H, RDW 17.3 H, MPV 8.3, Gran % 88.7 H, Lymphocytes % 4.6 L, Monocytes % 6.6, Eosinophils % 0, Basophils % 0.1, Absolute Granulocytes 6.4, Absolute Lymphocytes 0.3 L, Absolute Monocytes 0.5, Absolute Eosinophils 0, Absolute Basophils 0, PUBS MCHC 32.3 L, Serum Alcohol < 10.0 07/30/16 0919: Sodium Cancelled, Potassium Cancelled, Chloride Cancelled, Carbon Dioxide Cancelled, Anion Gap Cancelled, BUN Cancelled, Creatinine Cancelled, BUN/ Creatinine Ratio Cancelled, Glucose Cancelled, Lactic Acid Cancelled, Calcium Cancelled, Total Bilirubin Cancelled, AST Cancelled, ALT Cancelled, Alkaline Phosphatase Cancelled, Creatine Kinase Cancelled, Troponin I Cancelled, Total Protein Cancelled, Albumin Cancelled, Globulin Cancelled, Albumin/Globulin Ratio Cancelled Microbiology 07/30 1329 BODY FLUID: Body Fluid Culture - ORD 07/30 1329 BODY FLUID: Gram Stain - ORD 07/30 1024 URINE ROUT: Urine Culture - RECD 07/30 1005 BLOOD: Blood Culture - RECD 07/30 1000 BLOOD: Blood Culture - RECD 07/31 923 URINE ROUT: Urine Culture - CAN Cancelled: Cancelled via OE: REORDERED ADD ON narrow complex tachycardia on monitor, hypotensive. iv adenosine given. no change to rhythm. iv lopressor 5 mg given, still tachy in 130's. adenosine 12 mg given. patient slowed down, revealing underlying afib. new onset per chart. patient now more responsive. improved blood pressure. patient reports abdominal distention. due to have outpatient abdominal paracentesis performed. denies any abdominal pain, recent fever or chills. (SHAHRAM HERMAN,CARMEN) Diagnostic Imaging: Viewed by Me: Radiology Read, CT Scan. Discussed w/RAD: Radiology Read, CT Scan. CXR Impression: PATIENT: MALIK LOVE PRESENT AGE : 70 PATIENT ACCOUNT NO: [id number] : 46 LOCATION: [facility] ORDERING PHYSICIAN: CARMEN OMALLEY MD SERVICE DATE: 07/30/16 EXAM TYPE: RAD - XRY -PORTABLE CHEST XRAY EXAMINATION: XR PORTABLE CHEST CLINICAL INFORMATION: Supraventricular tachycardia COMPARISON: 04/08/2016, 10/02/2015. TECHNIQUE: Portable frontal view of the chest was obtained. FINDINGS: Lung volumes are diminished with elevation of the left hemidiaphragm which is increased compared with the previous exam from 2016 largely unchanged from the more recent exam. The lungs and pleural spaces appear clear without evidence of congestion, consolidation, or significant appearing effusion or atelectasis. The heart appears mildly enlarged. There is extensive atherosclerotic calcification of the aortic arch. There is no evidence of pneumothorax or pulmonary edema. Included osseous structures appear osteopenic without focal osseous lesions. IMPRESSION: Low lung volumes without evidence of an acute intrathoracic process. DICTATED BY : EVAN MULTANI MD DATE/TIME DICTATED:07/30/161113 GUT CLEANER: LINDSEY DATE/TIME TRANSCRIBED:07/30/161113 CONFIDENTIAL, DO NOT COPY WITHOUT APPROPRIATE AUTHORIZATION. <Electronically signed in Other Vendor System> SIGNED BY: EVAN MULTANI MD 07/30/161118 Initial ED EKG: svt 154 bpm Prior EKG: changed Repeat EKG: changed (atrial fibrillation) Rhythm Strip: svt Comments: PATIENT: MALIK LOVE PRESENT AGE: 70 PATIENT ACCOUNT NO: [id number] : 46 LOCATION: [facility] ORDERING PHYSICIAN: CARMEN OMALLEY MD SERVICE DATE: 07/30/16 EXAM TYPE: CAT - CT CERV SPINE WO IV CONTRAST; CT HEAD WO IV CONTRAST EXAMINATION: CT HEAD WITHOUT CONTRAST CT CERVICAL SPINE WITHOUT CONTRAST CLINICAL INFORMATION: Found down on ground. Confused. Assess for fracture or bleed. COMPARISON: None. TECHNIQUE: Multidetector CT imaging of the head and cervical spine was performed without the use of intravenous contrast. Coronal and sagittal reformatted images were generated at the technologist workstation. Images are slightly degraded by patient motion artifact. DLP: 927.32 mGy-cm. FINDINGS: CT head: There is no evidence of acute intracranial hemorrhage or territorial infarction. No abnormal mass-effect or midline shift is seen. Krishnan to white matter differentiation is well preserved. No extra-axial fluid collections are identified. The ventricles are normal in size. There are small areas of low attenuation in the basal ganglia bilaterally, most consistent with small lacunae infarcts. There are areas of low attenuation in the subcortical and periventricular white matter, consistent with chronic microvascular ischemic changes. There are no acute osseous findings. There are no large scalp contusions or hematomas. There are extensive atheromatous calcifications of the bilateral cavernous internal carotid and vertebral arteries. The mastoid air cells are well-aerated. There is an equivocal small fluid level in the partially visualized left maxillary sinus. CT cervical spine: There is anatomic alignment of the vertebral bodies. There is minimal narrowing of intervertebral disc height at C5-C6. There are marginal osteophytes at C4-C5 and C5-C6 anteriorly. There are no acute compression fractures. There are multilevel facet arthropathic changes, most severe on the left at C3-C4 and C4-C5. The lateral masses of C1 and C2 are normally aligned and the dens is intact. Atlantooccipital alignment is normal bilaterally. The prevertebral soft tissues are unremarkable apart from relatively extensive atheromatous vascular calcification and tortuosity of the right internal carotid artery. The right vocal cord appears to be medially positioned. There is severe atheromatous calcifications of the aorta and the origins of the great vessels of the neck. No pneumothoraces are demonstrated and the visualized lung marques are well-aerated. IMPRESSION: 1. There are no acute bleeds or territorial infarcts. 2. There are mild chronic microvascular ischemic changes. 3. There are no fractures or scalp contusions. 4. There are mild multilevel degenerative change in the cervical spine. 5. There are no acute fractures or subluxations in the cervical spine. 6. There appears to be medial positioning of the right vocal cord. This can be correlated clinically. DICTATED BY: RGIS CONCEPCION MD DATE/TIME DICTATED:07/30/161116 GUT CLEANER:LINDSEY DATE/TIME TRANSCRIBED:07/30/161116 CONFIDENTIAL, DO NOT COPY WITHOUT APPROPRIATE AUTHORIZATION. <Electronically signed in Other Vendor System> SIGNED BY: GRIS CONCEPCION MD 07/30/16 1138 Departure Departure Disposition: STILL A PATIENT Condition: Stable Clinical Impression Primary Impression: New onset a-fib Secondary Impressions: Ascites, Encephalopathy Referrals: ARLEEN HORN MD (PCP/Family) Departure Forms: Customer Survey General Discharge Information Prescriptions: Current Visit Scripts Apixaban (Eliquis) 1 TAB PO BID #30 TAB Metoprolol Tartrate 1 TAB PO BID #30 TAB Amlodipine Besylate 1 TAB PO DAILY #30 TAB Lactulose 30 ML PO BID #1800 ML adjust to maintain 2-3 soft stool/day Admission Note Spoke With: CHARISMA STOUT MD Documentation of Exam: Documentation of any treatments & extenuating circumstances including Concerns Regarding Discharge (functional status, medication knowledge or non-compliance, living conditions, etc.) that warrant an admission rather than observation: [ TELE MONITOR, CARDIZEM DRIP, SERIAL EKG/TROPONIN, ECHOCARDIOGRAM, CARDIOLOGY CONSULTATION, F/U RESULTS OF PARACENTESIS (FLUD CULTURES ORDERED)] Critical Care Note Critical Care Note Critical Care Time: 30-74 min
--- NOTE | 2016-07-30 09:10 | NUR ---
PT BIBA FROM HOME FOR FALL. PT IS CONFUSED WHEN QUESTIONED ABOUT CIRCUMSTANCES SURROUNDING FALL. STATES SHE TOOK AN OXYCODONE LAST NIGHT. PT CALLED A NEIGHBOR PER EMS WHO THEN CALLED 911. PT C/O BACK PAIN WHICH IS WHY SHE TAKES THE OXYCODONE TO BEGIN WITH. PT ALSO HAS BILATERAL KNEE ABRASIONS, NUMEROUS BRUISES ON ARMS AND LEGS. PT DENIES HITTING HEAD. PT IS CONFUSED AND STATES SHE WAS ON THE FLOOR FOR 8 HOURS BUT THOUGHT SHE WAS IN BED
--- NOTE | 2016-07-30 09:15 | NUR ---
UNABLE TO GET BP WITH AUTO CUFF OR MANUALLY. DR OMALLEY AWARE AND IV FLUIDS INFUSING
--- NOTE | 2016-07-30 09:20 | NUR ---
#20 TO LAC. PT MEDICATED WITH 6 MG ADENOSINE IV WITH NO CHANGE IN RHYTHM. PT MEDICATED WITH 5 MG LOPRESSOR, NO CHANGE AND 12 MG ADENOSINE WITH UNDERLYING RHYTHM SHOWN TO BE RAPID A-FIB. PT THEN MEDICATED WITH 10 MG LOPRESSOR WITH RATE CHANGE INTO 120S-130S.
--- NOTE | 2016-07-30 10:00 | NUR ---
PORTABLE CXR AT BEDSIDE.
--- NOTE | 2016-07-30 10:05 | NUR ---
CRITICAL TEST RESULTS [id number] MALIK LOVE M 70 F TESTS AND RESULTS: LACTIC ACID Results received and read back by: REGLA VALENCIA Results received date and time: 07/30/16 1005 The following provider was notified of the results, and read the results back: DR OMALLEY Notified date and time: 07/30/16 at 1005
[2016-07-30 10:20] LABS: ABSOLUTE BASOPHIL COUNT 0 /CUMM (0.0-0.2); ABSOLUTE EOSINOPHIL COUNT 0 /CUMM (0.0-0.7); ABSOLUTE GRANULOCYTE CT 6.4 /CUMM (1.4-6.5); ABSOLUTE LYMPH COUNT 0.3 /CUMM (1.2-3.4); ABSOLUTE MONOCYTE COUNT 0.5 /CUMM (0.10-0.60); BASOPHIL % 0.1 % (0.0-2.0); EOSINOPHIL % 0 % (0-5); MEAN CORPUSCULAR HGB CONC 32.3 G/DL (33.0-37.0); MEAN CORPUSCULAR VOLUME 102.2 FL (81.0-99.0); MEAN PLATELET VOLUME 8.3 FL (7.4-10.4); PLATELET COUNT 122 /CUMM (130-400); RBC DISTRIBUTION WIDTH 17.3 % (11.5-14.5); RED BLOOD CELL CT 2.64 /CUMM (4.20-5.40); WHITE BLOOD CELL COUNT 7.3 /CUMM (4.8-10.8)
[2016-07-30 10:29] LABS: PT 16.5 SEC (9.4-12.5); PTT 32 SEC (25-37)
[2016-07-30 10:35] LABS: GRANULOCYTE % 88.7 % (42.2-75.2)
--- NOTE | 2016-07-30 10:37 | NUR ---
PT TO CT SCAN
--- NOTE | 2016-07-30 10:57 | NUR ---
PT RETURNS FROM CT SCAN. CARDIZEM GTT STARTED AT 10 MG/HR CO-SIGNED BY MAYDA HENNESSY. PT GIVEN XTRA BLANKETS
--- NOTE | 2016-07-30 11:09 | NUR ---
UNABLE TO VERIFY HOME MEDS WITH PT
--- NOTE | 2016-07-30 11:19 | RADIOLOGY REPORT ---
EXAMINATION: XR PORTABLE CHEST CLINICAL INFORMATION: Supraventricular tachycardia COMPARISON: 04/08/2016, 10/02/2015. TECHNIQUE: Portable frontal view of the chest was obtained. FINDINGS: Lung volumes are diminished with elevation of the left hemidiaphragm which is increased compared with the previous exam from 2016 largely unchanged from the more recent exam. The lungs and pleural spaces appear clear without evidence of congestion, consolidation, or significant appearing effusion or atelectasis. The heart appears mildly enlarged. There is extensive atherosclerotic calcification of the aortic arch. There is no evidence of pneumothorax or pulmonary edema. Included osseous structures appear osteopenic without focal osseous lesions. IMPRESSION: Low lung volumes without evidence of an acute intrathoracic process.
--- NOTE | 2016-07-30 11:38 | CT SCAN REPORT ---
EXAMINATION: CT HEAD WITHOUT CONTRAST CT CERVICAL SPINE WITHOUT CONTRAST CLINICAL INFORMATION: Found down on ground. Confused. Assess for fracture or bleed. COMPARISON: None. TECHNIQUE: Multidetector CT imaging of the head and cervical spine was performed without the use of intravenous contrast. Coronal and sagittal reformatted images were generated at the technologist workstation. Images are slightly degraded by patient motion artifact. DLP: 927.32 mGy-cm. FINDINGS: CT head: There is no evidence of acute intracranial hemorrhage or territorial infarction. No abnormal mass-effect or midline shift is seen. Krishnan to white matter differentiation is well preserved. No extra-axial fluid collections are identified. The ventricles are normal in size. There are small areas of low attenuation in the basal ganglia bilaterally, most consistent with small lacunae infarcts. There are areas of low attenuation in the subcortical and periventricular white matter, consistent with chronic microvascular ischemic changes. There are no acute osseous findings. There are no large scalp contusions or hematomas. There are extensive atheromatous calcifications of the bilateral cavernous internal carotid and vertebral arteries. The mastoid air cells are well-aerated. There is an equivocal small fluid level in the partially visualized left maxillary sinus. CT cervical spine: There is anatomic alignment of the vertebral bodies. There is minimal narrowing of intervertebral disc height at C5-C6. There are marginal osteophytes at C4-C5 and C5-C6 anteriorly. There are no acute compression fractures. There are multilevel facet arthropathic changes, most severe on the left at C3-C4 and C4-C5. The lateral masses of C1 and C2 are normally aligned and the dens is intact. Atlantooccipital alignment is normal bilaterally. The prevertebral soft tissues are unremarkable apart from relatively extensive atheromatous vascular calcification and tortuosity of the right internal carotid artery. The right vocal cord appears to be medially positioned. There is severe atheromatous calcifications of the aorta and the origins of the great vessels of the neck. No pneumothoraces are demonstrated and the visualized lung marques are well-aerated. IMPRESSION: 1. There are no acute bleeds or territorial infarcts. 2. There are mild chronic microvascular ischemic changes. 3. There are no fractures or scalp contusions. 4. There are mild multilevel degenerative change in the cervical spine. 5. There are no acute fractures or subluxations in the cervical spine. 6. There appears to be medial positioning of the right vocal cord. This can be correlated clinically.
--- NOTE | 2016-07-30 11:40 | CT SCAN REPORT ---
EXAMINATION: CT ABDOMEN AND PELVIS WITHOUT CONTRAST CLINICAL INFORMATION: Fall out of bed. Left-sided abdominal pain. Assess for splenic injury. COMPARISON: CT of the abdomen and pelvis from 06/28/2016 TECHNIQUE: Multidetector volumetric imaging was performed from the superior aspect of the liver through the pubic symphysis. Sagittal and coronal reformatted images were obtained on the technologist's workstation. DLP: 759 mGy-cm FINDINGS: LUNG BASES: Platelike opacity in the lingula and left lower lobe suggesting atelectasis is progressive from the prior CT. There are mild dependent changes. There is subsolid opacification in the right base medially, stable, spanning approximately 3 cm. The heart size is slightly enlarged with calcifications involving the coronary arteries and in the region of the aortic valve. No large pericardial effusion. LIVER, GALLBLADDER, AND BILIARY TREE: The liver is shrunken and nodular compatible with cirrhosis. There are several clips in the region of the gallbladder fossa creating substantial artifact. These are stable. There is a large volume of ascites all of which is low attenuation ranging between 5 and 25 Hounsfield units, stable. No gross intrahepatic ductal dilatation. The extrahepatic duct is obscured by streak artifact from the surgical clips. PANCREAS: Not ideally assessed. Unchanged from prior. SPLEEN: There are punctate calcifications in the superior aspect of the spleen. There is a hypoattenuating 1.8 cm structure, unchanged. There is interval MRI evaluation of the splenic lesion suggestive of a cyst. ADRENAL GLANDS: The adrenal glands are partially obscured by surrounding ascites. KIDNEYS AND URETERS: There is no new hydronephrosis. Scattered nonobstructing punctate nephrolithiasis is seen bilaterally. There is mild nonspecific perinephric stranding, unchanged. Neither ureter is dilated. BLADDER: The bladder appears decompressed with a Escobedo catheter. GASTROINTESTINAL TRACT: No dilated loops of bowel are visualized. ABDOMINAL WALL: There is profound anasarca with extensive fluid and stranding within the anterolateral abdominal and pelvic ba, extending into the lower extremities bilaterally. This is progressive from 06/28/2016. Midline fascial closure suture material is redemonstrated and unchanged. LYMPH NODES: No gross adenopathy. VASCULAR: The aorta is normal in caliber with moderate atherosclerotic calcification. PELVIC VISCERA: No adnexal masses. OSSEOUS STRUCTURES: No acute osseous abnormalities are evident. There is multilevel thoracolumbar spondylosis. Healed anterolateral left-sided rib fractures are redemonstrated and stable. There is a stable ossific fragment arising from the left greater trochanter IMPRESSION: 1. No evidence of interval splenic injury. Stable punctate calcifications within the spleen suggesting prior exposure to granulomatous disease. Stable hypoattenuating oval splenic lesion which on the interval MRI had characteristics suggestive of a cyst. 2. Progressive fairly severe anasarca. Stable, large volume, low density ascites in the setting of cirrhosis. 3. Healed left-sided rib fractures. Stable fracture of the left greater trochanter. No acute osseous abnormality. 4. Stable area of subsolid opacity in the medial right lung base, possibly infectious/inflammatory. Follow-up can be performed per 2017 Fleischner guidelines, which would recommend CT at 6-12 months for reassessment, given size. 5. Stable bilateral nonobstructing nephrolithiasis.
--- NOTE | 2016-07-30 12:21 | NUR ---
OF PT AT BEDSIDE
--- NOTE | 2016-07-30 13:06 | NUR ---
PT BED ASSIGNMENT [id number]
--- NOTE | 2016-07-30 13:22 | NUR ---
CRITICAL TEST RESULTS [id number] MALIK LOVE 70 F TESTS AND RESULTS: LACTIC ACID 3.1 Results received and read back by: REGLA VALENCIA Results received date and time: 07/30/16 1322 The following provider was notified of the results, and read the results back: DR OMALLEY Notified date and time: 07/30/16 at 1322
--- NOTE | 2016-07-30 13:30 | NUR ---
HOUSESTAFF AT BEDSIDE FOR EVALUATION
--- NOTE | 2016-07-30 14:42 | History & Physical ---
HIEN ALMENDAREZ 07/30/16 1442: General Information and HPI MD Statement: I have seen and personally examined MALIK LOVE and documented this H&P. The patient is a 70 year old F who presented with a patient stated chief complaint of [SOB,DIZZINESS,LIGHTHEADEDNESS]. Source of Information: patient, family, old records Exam Limitations: physical impairment History of Present Illness: This is a 70-year-old female with extensive past medical history with extensive work up with history of insulin dependent diabetes mellitus complicated with neuropathy and gastroparesis, prior CVA in 1978 without any residual effects, diastolic CHF,JARQUIN progressing to ?cirrhosis complicated with anasarca and reccurent ascites, hypertension, hyperlipidemia, chronic kidney disease Stage 4 with ? nephrotic range proteinuria, hypothyroidism, depression, obesity, thrombocytopenia with platelet clumping with elevated serum IgA,previous multiple fractures ,severe vitamin D deficiency, DJD, migraine headache, chronic anemia for years without transfusion (currently macrocytic), migraine headache, with previous admission in March 2016 for anasarca with ascites, hip pain and weakness came in with chief complain of seeing illusions, feeling lightheaded and dizzy since last 2 days prior to admission and after being found on the ground after a ?fall. Patient was brought in by ambulance from home after having a fall, she was confused and did not know the circumstances under which she was found on the ground in her house. She said that she was seeing illusions like bugs crawling on her, she thought that she had a fall but she actually did not have a fall. She was confused about what happened and how she got where she was and how she was found on the ground. Patient called a neighbor per EMS and they called 911. She has also been complaining of severe mid back pain for which she took oxycodone just 1 tablet before the fall (as per her).Patient has bilateral knee abrasions, numerous bruises on arms and legs which as per the patient she has been having these for quite a while.She denied hitting her head at this instant however she has had multiple falls and has had an average 1 fall every week for last many months. She thought that she was on the floor for at least 8 hours however she wasn't completely sure. She also felt like her heart was racing for last 2 days on and off. She denied any chest pain, shortness of breath, any cold, congestion, any abdominal pain however the abdominal has been distended. Allergies/Medications Allergies: Coded Allergies: codeine (Severe, RASH, DIFFICULTY BREATHING 04/08/16) morphine (Severe, SHORTNESS OF BREATH 04/08/16) Home Med list Aspirin (Children's Aspirin) 81 MG TAB.CHEW 81 MG PO DAILY HEART TAKE 1 TAB PO DAILY Atenolol 100 MG TABLET 1 TAB PO 1300 HEART (Reported) Atorvastatin Calcium 10 MG TABLET 50 MG PO 1300 HEART HEALTH (Reported) Clonidine HCl (Catapres) 0.1 MG TABLET 1 TAB PO DAILY BP (Reported) Ergocalciferol (Vitamin D2) (Vitamin D2) 50,000 UNIT CAPSULE 1 CAP PO QTUES Supplement FENOFIBRATE,MICRONIZED (Fenofibrate) 200 MG CAPSULE 1 CAP PO DAILY HLD ( Reported) Furosemide (Lasix) 80 MG TABLET 1 TAB PO BID Edema Gabapentin 100 MG CAPSULE 1 TAB PO BID Neuropathy Levothyroxine Sodium (Synthroid) 175 MCG TABLET 1 TAB PO DAILY AC Hypothyroidism Lisinopril 20 MG TABLET 1 TAB PO DAILY Blood Pressure Magnesium Oxide (Magnesium) 400 MG CAPSULE 20.5 MG PO DAILY VITAMIN SUPPORT ( Reported) Omeprazole 20 MG CAPSULE.DR 20 MG PO DAILY AC stomach Oxycodone HCl 5 MG TABLET 1 TAB PO Q6P PRN PAIN SCALE 4-6 (MODERATE) PLEASE HOLD FOR SEDATION/DROWSINESS OR DECREASED RESPIRATORY RATE. Spironolactone (Aldactone) 25 MG TABLET 50 MG PO DAILY water pill Compliance With Home Meds: UNKNOWN Past History Travel History Traveled to [place] past 21 day No Medical History Neurological: 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), peripheral neuropathy EENT: NONE Cardiovascular: diastolic CHF, hypertension, hyperlipidemia, hx SVT Respiratory: asthma Gastrointestinal: hiatal hernia (mild) Hepatic: cirrhosis Renal: chronic kidney disease (r/o nephrotic) Musculoskeletal: chronic back pain, falls, fracture (L hip post fall), spinal stenosis Psychiatric: depression Endocrine: diabetes, hypothyroidism, obesity, vitamin D deficiency Blood Disorders: anemia (macrocytic w/o transfx), thrombocytopenia Cancer(s): NONE 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 AMBULATORY/Reproductive: NONE History of MRSA: No History of VRE: No History of CDIFF: No Influenza Vaccine: 12/27/15 Surgical History Surgical History: appendectomy, cholecystectomy (open 1978), (x 2), RIGHT SHOULDER ROTATOR LEFT ANKLE SURGERY C-SECTIONS [facility] of [facility] Results (as available) Date of last Echo 04/11/16 EF% 60 Past Family/Social History Family History Relations & Conditions if any SISTER FH: Crohn's disease FH: diabetes mellitus BROTHER FH: Hodgkins disease FATHER FH: heart disease MOTHER FH: diabetes mellitus Relation not specified for: FH: lung cancer Psychosocial History Where do you live? Home Who Do You Live With? spouse Services at Home: None Primary Language: Thai Smoking Status: Never Smoked ETOH Use: denies use Illicit Drug Use: denies illicit drug use Living Will? no Power of Blueprint Cutter/HCP? no Functional Ability ADLs Independent: dressing, eating. Needs Assist: toileting, bathing. Ambulation: non-ambulatory (post L hip fx) IADLs Independent: finances, food prep, telephone, medication admin. Needs Assist: shopping, housework, transportation. Review of Systems Review of Systems Constitutional: Denies: malaise, weakness. EENTM: Reports: visual changes. Denies: blurred vision, double vision, eye pain, eye drainage, eye tearing. Cardiovascular: Reports: edema, palpitations, peripheral edema. Denies: chest pain, orthopena. Respiratory: Reports: short of breath. Denies: cough, hemoptysis, orthopnea, sputum production, stridor, wheezing. GI: Reports: bloating, distention. Genitourinary: Denies: discharge, dysuria, frequency, hematuria. Musculoskeletal: Denies: back pain. Neurological/Psychological: Reports: no symptoms. Hematologic/Endocrine: Reports: no symptoms. Immunologic/Allergic: Reports: no symptoms. All Other Systems: Reviewed and Negative Exam & Diagnostic Data Last 24 Hrs of Vital Signs/I&O Vital Signs Date Time Temp Pulse Resp B/P B/P Pulse O2 O2 Flow FiO2 Mean Ox Delivery Rate 07/30 1512 97.7 14 98/62 97 Room Air 07/30 1315 96.7 129 20 122/83 96 Room Air 07/30 1230 96.8 136 20 124/66 97 Room Air 07/30 1156 97.1 148 20 127/60 05 1138 97.3 158 20 120/67 97 Room Air 07/30 1058 97.3 140 20 130/64 98 Room Air 07/30 1011 97.0 144 20 07/30 1011 97.0 144 20 07/30 1011 97.0 144 20 07/30 1011 97.0 144 20 07/30 0947 144 07/30 0910 97.0 20 Intake & Output 07/30 1600 07/30 0800 07/30 0000 Intake Total 500 Output Total 500 Balance 0 Intake, IV 500 Output, Urine 500 Patient 74.843 kg Weight Weight Reported by Patient Measurement Method Physical Exam General Appearance Alert, Oriented X3, Cooperative, Moderate Distress Skin bruises present on the legs intermittently, bruises present on bilateral upper extremity from the wrist up to the shoulder. Skin Temp/Moisture Exam: Cool/Dry Sepsis Skin Exam (color): Normal for Ethnicity HEENT Atraumatic, PERRLA, EOMI Neck Supple, No JVD, No thryomegaly Lymphatic no lad Cardiovascular Normal S1, Normal S2, irregularly irregular Lungs Normal Air Movement, basal crackles present. Abdomen Normal Bowel Sounds, distended, not tensed, fluid present. Neurological Normal Speech, Normal Tone, Sensation Intact Extremities No Clubbing, No Cyanosis, b/l edema present. Vascular Normal Pulses Sepsis Peripheral Pulse Location: Radial Last 24 Hrs of Labs/Diego: Laboratory Tests 07/30/16 1231: Lactic Acid 3.1 H 07/30/16 1024: Urinalysis MANY H, Urine Color PASQUALE, Urine Clarity CLEAR, Urine pH 5.5, Ur Specific [place] >= 1.030, Urine Protein >=300 H, Urine Ketones NEG, Urine Nitrite NEG, Urine Bilirubin NEG@ICTO, Urine Urobilinogen 1.0, Ur Leukocyte Esterase NEG, Ur Microscopic SEDIMENT EXAMINED, Urine RBC 1-3, Urine WBC 3-5 H, Ur Epithelial Cells RARE, Urine Bacteria MANY H, Urine Hemoglobin TRACE-INTACT, Urine Glucose 100 H 07/30/16 1005: Lactic Acid 3.6 H 07/30/16 1005: Anion Gap 12, Estimated GFR 25 L, BUN/Creatinine Ratio 23.5, Glucose 146 H, Calcium 7.9 L, Total Bilirubin 1.5 H, AST 95 H, ALT 39, Alkaline Phosphatase 123, Ammonia 33 H, Creatine Kinase 256 H, Troponin I 0.07, Total Protein 5.8 L, Albumin 2.1 L, Globulin 3.7, Albumin/Globulin Ratio 0.6 L, PT 16.5 H, INR 1.58 H, APTT 32, CBC w Diff NO MAN DIFF REQ, RBC 2.64 L, MCV 102.2 H, MCH 33.0 H, RDW 17.3 H, MPV 8.3, Gran % 88.7 H, Lymphocytes % 4.6 L, Monocytes % 6.6, Eosinophils % 0, Basophils % 0.1, Absolute Granulocytes 6.4, Absolute Lymphocytes 0.3 L, Absolute Monocytes 0.5, Absolute Eosinophils 0, Absolute Basophils 0, PUBS MCHC 32.3 L, Serum Alcohol < 10.0 07/30/16 0919: Sodium Cancelled, Potassium Cancelled, Chloride Cancelled, Carbon Dioxide Cancelled, Anion Gap Cancelled, BUN Cancelled, Creatinine Cancelled, BUN/ Creatinine Ratio Cancelled, Glucose Cancelled, Lactic Acid Cancelled, Calcium Cancelled, Total Bilirubin Cancelled, AST Cancelled, ALT Cancelled, Alkaline Phosphatase Cancelled, Creatine Kinase Cancelled, Troponin I Cancelled, Total Protein Cancelled, Albumin Cancelled, Globulin Cancelled, Albumin/Globulin Ratio Cancelled Microbiology 07/30 1329 BODY FLUID: Body Fluid Culture - ORD 07/30 1329 BODY FLUID: Gram Stain - ORD 07/30 1024 URINE ROUT: Urine Culture - RECD 07/30 1005 BLOOD: Blood Culture - RECD 07/30 1000 BLOOD: Blood Culture - RECD 07/30 0924 URINE ROUT: Urine Culture - CAN Cancelled: Cancelled via OE: REORDERED ADD ON Assessment/Plan Assessment: This is a 70-year-old female with extensive past medical history with extensive work up with history of insulin dependent diabetes mellitus complicated with neuropathy and gastroparesis, prior CVA in 1978 without any residual effects, diastolic CHF,jarquin progressing to ?cirrhosis complicated with anasarca and reccurent ascites, hypertension, hyperlipidemia, chronic kidney disease Stage 4 with ? nephrotic range proteinuria, hypothyroidism, depression, obesity, thrombocytopenia with platelet clumping with elevated serum IgA,previous multiple fractures,severe vitamin D deficiency, DJD, migraine headache, chronic anemia for years without transfusion (currently macrocytic),DJD, migraine headache,with previous admission in March 2016 for anasarca with ascites, hip pain and weakness came in with chief complain of seeing illusions, feeling lightheaded and dizzy since last 2 days prior to admission and after being found on the ground after a ?fall. Vitals on admission tmax - 97.0, pulse 120 to 140, RR 20,96% on RA. UA 3 to 5 wbc's, glucose+ LA 3.6>>>3.1>>1.4 CBC normal except pletelets low at 122 ( baseline : 120 to 140), MCV 102 ( chronic macrocytosis noted) Electrolytes wnl, bun/creatinine 47/2.0 ( baseline 2.0) Ca - 7.9. t zane elevated at 1.5, AST 95, ALT 39, Ammonia mildly elevated at 33, CK elevated at 256 Initial set of troponin negative. Total protein 5.8, albumin 2.1. A;G ratio : 0.6 Ct head : no acute infarct,haemorrhage, microvascular ischemic changes. Xray cervical, thoracic, lumbar spine : old healed fractures and severe DJD, no acute #/ subluxation. Ct A/p : severe anasarca with low attenuation ascites, splenic cyst in setting of cirrhosis Ascitic fluid tapping today on day of admission. ascitic fluid protein <2.0, ascitic fluid albumin <1.0, LDH 165 SAAG <1.1, white count of 40 and polymorphs 35% , ascitic fluid findings most likely consistent with nephrotic ascites. Problem list 1. Initial SVT with adenosine >> New onset A fib on rate control and AC 2. Abdominal Ascites most likely nephrotic ascites 3.CKD stage 4 with ? nepgrotic range proteinuria with elevated serum IGA ( as per previous test) 4. Mechanical fall with h/o recurrent fall and multiple fractures in past. 5. Encephelapothy 2/2 to increased ammonia vs opioid toxicity. 6. Thrombocytopenia 2/2 to platelet clumping disorder 6.HTN 7.HL 8. DM with ?nueropathy and gastroparesis 9. Mild CAD with reversible ischemia on stress test in 2014, with 20% stenosis of cardiac cath in 2014 and Stage 1 DD. 10.Severe DJD Plan 1. Initial SVT with adenosine >> New onset A fib on rate control and AC * Monitor vitals q shift * patient was in SVT, was given adenosine in ER,went into a fib, confirmed by 12 lead EKG at the ER, now started on cardizem drip and Iv heparin 2/2 to chads2 score of 4 to 5. * Continue to trend EKG and troponin to rule out ACS. * Hold all antihypertensives and b gadiel for now as patient is on iv cardizem. * cardio consult with DR munoz. * FOr now patient seems dry however does have fluid overload and 3rd spacing, Elevated CK, will give one bag of fluids with very gentle hydration at 50 CC * Further continuation of diuretic as per Cardio. * Continue statin. 2. Abdominal Ascites most likely nephrotic ascites * Ammonia mildly at 33 elevated, however patient has confusion, unclear what caused her confusion, therefore will treat with lactulose for now. * IR guided abdominal paracentesis, check Ascitic fluid for cell count, protein, LDH, amylase and gram stain, obtain SAAG ratio, rule out SBP, if SBP + , start ceftriaxone and flagyl and consider GI consult. * ascitic fluid protein <2.0, ascitic fluid albumin <1.0, LDH 165,SAAG <1.1, white count of 40 and polymorphs 35% , ascitic fluid findigns most likely consistent with nehprotic ascites. * Extensive work up previously with serum OSVALDO titres 1:40 in dec 2015 * Negative test for antimitochondrial Ad, Antigliandin, LKMigG, antiSm, antitransglutaminase, negative AFP,only postive test serum lambda and kappa chain elevated and elevated serum IGA 3.CKD stage 4 with ? nephrotic range proteinuria with elevated serum IGA ( as per previous test) * Extensive work up previsously * Most likey 2/2 to nephrotic range proteinuria. * Ct to trend * patient follow with Dr Saucedo as OP. 4. Mechanical fall with h/o recurrent fall and multiple fractures in past. * fall precautions * pain Mx with tylenol and lidocain patch. * We will not give any narcotics. * safe discharge plans. 5. Encephelapothy 2/2 to increased ammonia vs opioid toxicity. * follow u tox * ct lactulose even though ammonia not very high, unclear cause of lethargy, confusion. * hold for excessive diarrhea. 6. Thrombocytopenia 2/2 to platelet clumping * Dr barron was consulted on last admission. * PBS showed excessive platelet clumping. * SPEP and UPEP was send with coomb's test, Serum Iga was noted to be elevated with increased serum IGm and normal IgG and IgE. * Patient was to follow up results as OP. * will need to clarify with [facility]. 6.HTN * hold all antihypertensives and diureitcs for now. * Monitor BP closely. * ct iv cardizem. 7.HL * Ct statin. 8. DM with ?nueropathy and gastroparesis * Monitor FS, novolin SS as patient doesnt have much of appetite. 9. Mild CAD with reversible ischemia on stress test in 2014, with 20% stenosis of cardiac cath in 2014 and Stage 1 DD. 10.Severe DJD 11. Hypomagnesemia * Ct home medication of 400 mg daily. * ct to monitor daily. * replete as needed. DNR/DNI Npo for now. DVT px iv heparin PP with tylenol ad lidocaine patch avoid narcotics. As Ranked By This Provider Problem List: 1. Hypertension 2. Hyperlipidemia 3. Diabetes 4. Hypothyroid 5. Elevated liver function tests 6. Chronic kidney disease 7. Cirrhosis 8. Hypoalbuminemia 9. Anasarca 10. Gastroparesis 11. Encephalopathy 12. Platelet disorder 13. New onset a-fib Core Measures/Miscellaneous Acute Coronary Syndrome ACS Diagnosis: No Cerebrovascular Accident CVA/TIA Diagnosis: No Congestive Heart Failure CHF Diagnosis: No Venous Thromboembolism VTE Risk Factors: Age > 40 No [facility] VTE prophylaxis d/t: No contraindications No VTE Pharm Prophylaxis d/t: No contraindications VTE Diagnosis: No VTE Type: NONE VTE Confirmed by (Test): NONE Severe Sepsis Severe Sepsis Present: No Septic Shock Septic Shock Present: No Miscellaneous Documentation Attending Case Discussed With: ALIREZA MARK MD Primary Care Physician: ARLEEN MCMAHAN MD Patient sees these Specialists Dr landis, Dr smith ( cardio), Dr grimaldo( [facility]) Dr mcmahan PCP. Level of Patient Care: Telemetry ALIREZA MARK MD 07/30/16 1514: Attending Review Statement Attending Statement Attending MD Statement: examined this patient, discuss w/resident/PA/SENIOR PROFESSIONAL SERVICES CONSULTANT, agreed w/resident/PA/SENIOR PROFESSIONAL SERVICES CONSULTANT, discussed with family, reviewed EMR data (avail), discussed with nursing, reviewed images, amended to note Attending Assessment/Plan: 70 y/o F with pmh sig for insulin dependent diabetes mellitus complicated with neuropathy, prior CVA in 1978 without any residual effects, diastolic CHF,? cirrhosis 2/2 to jarquin, hypertension, hyperlipidemia, chronic kidney disease, hypothyroidism, depression, obesity, thrombocytopenia, macrocytic anemia, p/w found down in her house by her 's cousin. Unknown circumstances how she will. C/o crawling sensation. Does not remember how she fell. Also c/o fluttering in her chest from last two days. Hx of frequent falls. Denies any cp, no sob. no abd pain. According to her she took oxycodone either this am or prior. Afterwards she does not remember much but was found down. Denies any abd pain. no n/v/ urinary complaints. Vital Signs Date Time Temp Pulse Resp B/P B/P Pulse O2 O2 Flow FiO2 Mean Ox Delivery Rate 07/30 1512 97.7 14 98/62 97 Room Air 07/30 1315 96.7 129 20 122/83 96 Room Air 07/30 1230 96.8 136 20 124/66 97 Room Air 07/30 1156 97.1 148 20 127/60 07/30 1138 97.3 158 20 120/67 97 Room Air 07/30 1058 97.3 140 20 130/64 98 Room Air 07/30 1011 97.0 144 20 07/30 1011 97.0 144 20 / 1011 97.0 144 20 07/30 1011 97.0 144 20 07/30 0947 144 / 0910 97.0 20 on exam; aox3, nad. cv; s1,s2, irregular, tachy resp; clear with decresaed bs at b/l bases. abd: firm, distended, bs+ ext; 1+ edema. skin; + bruises. Laboratory Tests 07/30 07/30 05 1231 1024 1005 Chemistry Lactic Acid (0.7 - 2.1 mmol/L) 3.1 H 3.6 H Urines Urinalysis MANY H Urine Color (YEL,AMB,STR) [place] Urine Clarity (CLEAR) CLEAR Urine pH (5.0 - 8.0) 5.5 Ur Specific [place] (1.001 - 1.035) >= 1.030 Urine Protein (NEG,<30 MG/DL) >=300 H Urine Ketones (NEG) NEG Urine Nitrite (NEG) NEG Urine Bilirubin (NEG) NEG@ICTO Urine Urobilinogen (0.1 - 1.0 EU/dl) 1.0 Ur Leukocyte Esterase (NEG) NEG Ur Microscopic SEDIMENT EXAMINED Urine RBC (0 - 5 /HPF) 1-3 Urine WBC (0 - 2 /HPF) 3-5 H Ur Epithelial Cells (NONE,FEW) RARE Urine Bacteria (NEG/NONE) MANY H Urine Hemoglobin (NEG) TRACE-INTACT Urine Glucose (N MG/DL) 100 H 0505 05 1005 0919 Chemistry Sodium (137 - 145 mmol/L) 142 Cancelled Potassium (3.5 - 5.1 mmol/L) 4.9 Cancelled Chloride (98 - 107 mmol/L) 114 H Cancelled Carbon Dioxide (22 - 30 mmol/L) 16 L Cancelled Anion Gap (5 - 16) 12 Cancelled BUN (7 - 17 mg/dL) 47 H Cancelled Creatinine (0.5 - 1.0 mg/dL) 2.0 H Cancelled Estimated GFR (>60 ml/min) 25 L BUN/Creatinine Ratio (7 - 25 %) 23.5 Cancelled Glucose (65 - 99 mg/dL) 146 H Cancelled Lactic Acid Cancelled Calcium (8.4 - 10.2 mg/dL) 7.9 L Cancelled Total Bilirubin (0.2 - 1.3 mg/dL) 1.5 H Cancelled AST (14 - 36 U/L) 95 H Cancelled ALT (9 - 52 U/L) 39 Cancelled Alkaline Phosphatase (<127 U/L) 123 Cancelled Ammonia (9 - 30 umol/L) 33 H Creatine Kinase (30 - 135 U/L) 256 H Cancelled Troponin I (< 0.11 ng/ml) 0.07 Cancelled Total Protein (6.3 - 8.2 g/dL) 5.8 L Cancelled Albumin (3.5 - 5.0 g/dL) 2.1 L Cancelled Globulin (1.9 - 4.2 gm/dL) 3.7 Cancelled Albumin/Globulin Ratio (1.1 - 2.2 %) 0.6 L Cancelled Coagulation PT (9.4 - 12.5 SEC) 16.5 H INR (0.90 - 1.19) 1.58 H APTT (25 - 37 SEC) 32 Hematology CBC w Diff NO MAN DIFF REQ WBC (4.8 - 10.8 /CUMM) 7.3 RBC (4.20 - 5.40 /CUMM) 2.64 L Hgb (12.0 - 16.0 G/DL) 8.7 L Hct (37 - 47 %) 27.0 L MCV (81.0 - 99.0 FL) 102.2 H MCH (27.0 - 31.0 PG) 33.0 H RDW (11.5 - 14.5 %) 17.3 H Plt Count (130 - 400 /CUMM) 122 L MPV (7.4 - 10.4 FL) 8.3 Gran % (42.2 - 75.2 %) 88.7 H Lymphocytes % (20.5 - 51.1 %) 4.6 L Monocytes % (1.7 - 9.3 %) 6.6 Eosinophils % (0 - 5 %) 0 Basophils % (0.0 - 2.0 %) 0.1 Absolute Granulocytes (1.4 - 6.5 /CUMM) 6.4 Absolute Lymphocytes (1.2 - 3.4 /CUMM) 0.3 L Absolute Monocytes (0.10 - 0.60 /CUMM) 0.5 Absolute Eosinophils (0.0 - 0.7 /CUMM) 0 Absolute Basophils (0.0 - 0.2 /CUMM) 0 PUBS MCHC (33.0 - 37.0 G/DL) 32.3 L Toxicology Serum Alcohol (<10 MG/DL) < 10.0 ekg>>> afib. All imaging reviewed. A/P; 70 y/o F with pmh sig for insulin dependent diabetes mellitus complicated with neuropathy, prior CVA in 1978 without any residual effects, diastolic CHF,? cirrhosis 2/2 to jarquin, hypertension, hyperlipidemia, chronic kidney disease, hypothyroidism, depression, obesity, thrombocytopenia, macrocytic anemia, admitted with found down, ? syncope, New onset afib. ? SBP, high ammonia, high lactate. Patient admitted to telemetry. Patient will be treated with IV Cardizem, IV heparin has been started. Please obtain cardiology consult, echocardiogram and trend troponins. Long-term anticoagulation to be decided after discussion with assembler filters. Her chads vasc score is high. Suspicion for SBP although patient afebrile, white count normal. Patient will undergo ultrasound guidance paracentesis, CT scan consistent with large amount of ascites. F/U fluids studies, astart abx ( CTX/Flagyl) ifd positive and consider GI eval Patient should be treated with lactulose as ammonia high. Small amount of IV fluids will be given for high lactate. Lactate levels should be repeated this evening. Creatinine at baseline. Please monitor. Holding and that antihypertensives at this point while the patient on Cardizem. Once more stable her home medications including cardiac medications and diuretics. Resume. Please check a urine tox. Possibility off patient syncopized after taking oxycodone is better but we need to rule out any infectious and metabolic causes. Monitor platelets bite on IV heparin. Check T/L/S spine xray, tteat pain with tylenol and lidoderm patch. Avoid narcotics. DVT px: IV heparin. Patient DNR/DNI.
[2016-07-30 15:12] VITALS: BP 98/62
[2016-07-30 16:00] VITALS: BP 103/55
--- NOTE | 2016-07-30 17:20 | ULTRASOUND REPORT ---
CLINICAL HISTORY: This patient is a 70 years-old Female with ascites, who is referred to interventional radiology for ultrasound-guided therapeutic paracentesis. PROCEDURE: Ultrasound-guided paracentesis. PROCEDURALIST: Dr. George Manrique MEDICATIONS: 10 mL of 1% lidocaine SQ. COMPLICATIONS: None. ESTIMATED BLOOD LOSS: <5 mL. SPECIMENS: 4.0 L of clear ascitic fluid PROCEDURE NOTE: Informed consent was obtained from the patient prior to the procedure. During this process, the procedure and potential alternatives were explained along with the intended outcome and benefits. The risks of the procedure, including the possibility of an unsuccessful procedure, as well as the risk of not doing the procedure, were discussed. The patient was given the opportunity to ask questions regarding the procedure and appeared competent to make decisions. A signed consent form documenting this discussion was placed in the medical record. A time-out procedure was performed. Appropriate pre-procedure medical history and imaging studies were reviewed. The procedure was performed bedside in the patient was in the supine position. Ultrasound images of the abdomen were obtained to localize a moderate collection of ascites. Images were permanently saved to the record. An area of the left lower quadrant was prepped and draped in the standard sterile fashion. 10 mL of 1% lidocaine was used to obtain local anesthesia of the skin and deeper tissues. A 5 Italian/19-gauge Yueh catheter/needle was advanced into the peritoneal fluid under ultrasound guidance. There was no evidence of traversing adjacent organs or vascular structures. 4.0L of serosanguineous fluid was aspirated before drainage ceased. Samples were sent for analysis. The catheter was removed and sterile dressing applied. Dermabond adhesive was applied over the puncture site. The patient tolerated the procedure well without evidence of complications. FINDINGS: Moderate abdominal ascites as detailed above. No significant residual abdominal fluid noted after paracentesis. IMPRESSION: Successful ultrasound-guided diagnostic and therapeutic paracentesis.
--- NOTE | 2016-07-30 18:12 | Cons- Cardiology ---
General Information and HPI Consulting Request Date of Consult: 07/30/16 Requested By: ALIREZA MARK MD Reason for Consult: A-Fib History of Present Illness: The patient is a 70-year-old female with history of diabetes mellitus, hypertension, chronic kidney disease, mild coronary artery disease who is followed in the office by Dr. Galindo. Cardiac catheterization in 2013 revealed 20% proximal LAD with otherwise unremarkable coronary arteries. She presented to the hospital with complaint of lightheadedness, dizziness, visual hallucinations for the past 2 days. She was found on the floor after a fall and was brought to the hospital by ambulance. She was complaining of a lesion such as ox crawling on her. She was unsure how she came to be on the floor. She called a neighbor, who called 911. She complains of back pain, for which she took oxycodone. She denied head trauma. She felt that she was on the floor for approximately 8 hours. She felt her heart racing intermittently for the past 2 days. She was noted in the emergency department to be in atrial fibrillation with rapid ventricular rate. IV diltiazem was started for rate control. Allergies/Medications Allergies: Coded Allergies: codeine (Severe, RASH, DIFFICULTY BREATHING 04/08/16) morphine (Severe, SHORTNESS OF BREATH 04/08/16) Home Med List: Aspirin (Children's Aspirin) 81 MG TAB.CHEW 81 MG PO DAILY HEART TAKE 1 TAB PO DAILY Atenolol 100 MG TABLET 1 TAB PO 1300 HEART (Reported) Atorvastatin Calcium 10 MG TABLET 50 MG PO 1300 HEART HEALTH (Reported) Clonidine HCl (Catapres) 0.1 MG TABLET 1 TAB PO DAILY BP (Reported) Ergocalciferol (Vitamin D2) (Vitamin D2) 50,000 UNIT CAPSULE 1 CAP PO QTUES Supplement FENOFIBRATE,MICRONIZED (Fenofibrate) 200 MG CAPSULE 1 CAP PO DAILY HLD ( Reported) Furosemide (Lasix) 80 MG TABLET 1 TAB PO BID Edema Gabapentin 100 MG CAPSULE 1 TAB PO BID Neuropathy Levothyroxine Sodium (Synthroid) 175 MCG TABLET 1 TAB PO DAILY AC Hypothyroidism Lisinopril 20 MG TABLET 1 TAB PO DAILY Blood Pressure Magnesium Oxide (Magnesium) 400 MG CAPSULE 20.5 MG PO DAILY VITAMIN SUPPORT ( Reported) Omeprazole 20 MG CAPSULE.DR 20 MG PO DAILY AC stomach Oxycodone HCl 5 MG TABLET 1 TAB PO Q6P PRN PAIN SCALE 4-6 (MODERATE) PLEASE HOLD FOR SEDATION/DROWSINESS OR DECREASED RESPIRATORY RATE. Spironolactone (Aldactone) 25 MG TABLET 50 MG PO DAILY water pill Current Medications: Current Medications Sig/Radha Start time Last Medication Dose Route Stop Time Status Admin Acetaminophen 1,000 MG Q6P PRN 07/30 1615 AC N/A 1 UNIT IV Acetaminophen 650 MG Q4P PRN 07/30 1545 AC PO Adenosine 12 MG ONCE ONE 07/30 1000 DC 07/30 IV 07/30 1001 1011 Adenosine 0 .STK-MED ONE 07/30 0957 DC IV Adenosine 6 MG ONCE ONE 07/30 0930 DC 07/30 IV 07/30 0931 1011 Adenosine 0 .STK-MED ONE 07/30 0928 DC IV Atorvastatin Calcium 50 MG 1300 07/31 1300 AC PO Diltiazem HCl 10 MG ONCE ONE 07/30 1200 DC 07/30 IV PUSH 07/30 1201 1156 Diltiazem HCl 0 .STK-MED ONE 07/30 1158 DC .ROUTE Diltiazem HCl 10 MG ONCE ONE 07/30 1015 DC 07/30 IV PUSH 07/30 1016 1011 Diltiazem HCl 125 MG Q12H 07/30 1015 AC 07/30 Sodium Chloride 100 ML IV 1056 Diltiazem HCl 0 .STK-MED ONE 07/30 1003 DC .ROUTE Heparin Sodium 25,000 UNIT Q24H 07/30 1200 AC 07/30 (Porcine) IV 1811 Sodium Chloride 500 ML Levothyroxine Sodium 0.175 MG DAILY AC 07/30 1610 AC 07/30 PO 1804 Magnesium Oxide 400 MG DAILY 07/30 1611 AC 07/30 PO 1804 Metoprolol Tartrate 0 .STK-MED ONE 07/30 0933 DC IV Metoprolol Tartrate 5 MG ONCE ONE 07/30 0930 DC 07/30 IV 07/30 0931 1011 Sodium Chloride 500 ML BOLUS ONE 07/30 0930 DC 07/30 IV 07/30 1029 1006 Review of Systems Review of Systems: No rash. No tremor. No melena. No diaphoresis. All other systems were reviewed, and were noted to be negative. Past History Travel History Traveled to [place] past 21 day No Medical History Blood Transfusion Hx: No Neurological: 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), peripheral neuropathy EENT: NONE Cardiovascular: diastolic CHF, hypertension, hyperlipidemia, hx SVT Respiratory: asthma Gastrointestinal: hiatal hernia (mild) Hepatic: cirrhosis Renal: chronic kidney disease (r/o nephrotic) Musculoskeletal: chronic back pain, falls, fracture (L hip post fall), spinal stenosis Psychiatric: depression Endocrine: diabetes, hypothyroidism, obesity, vitamin D deficiency Blood Disorders: anemia (macrocytic w/o transfx), thrombocytopenia Cancer(s): NONE EX CHEF/Reproductive: NONE Surgical History Surgical History: appendectomy, cholecystectomy (open 1978), (x 2), RIGHT SHOULDER ROTATOR LEFT ANKLE SURGERY C-SECTIONS resection of pancreatic cyst at [facility] Family History Relations & Conditions If Any: SISTER FH: Crohn's disease FH: diabetes mellitus BROTHER FH: Hodgkins disease FATHER FH: heart disease MOTHER FH: diabetes mellitus Relation not specified for: FH: lung cancer Psychosocial History Where Do You Live? Home Who Do You Live With? spouse Services at Home: None Primary Language: Maltese Smoking Status: Never Smoked ETOH Use: denies use Illicit Drug Use: denies illicit drug use Living Will? no Power of Welder Apprentice/HCP? no Functional Ability ADLs Independent: dressing, eating. Needs Assist: toileting, bathing. Ambulation: non-ambulatory (post L hip fx) IADLs Independent: finances, food prep, telephone, medication admin. Needs Assist: shopping, housework, transportation. ECHO Results (as available) Date of last Echo 04/11/16 EF% 60 Exam & Diagnostic Data Vital Signs and I&O Vital Signs Date Time Temp Pulse Resp B/P B/P Pulse O2 O2 Flow FiO2 Mean Ox Delivery Rate 07/30 1600 98.0 119 20 103/55 97 Room Air 07/30 1512 97.7 14 98/62 97 Room Air 07/30 1315 96.7 129 20 122/83 96 Room Air 05 1230 96.8 136 20 124/66 97 Room Air 05 1156 97.1 148 20 127/60 05 1138 97.3 158 20 120/67 97 Room Air 07/30 1058 97.3 140 20 130/64 98 Room Air 07/30 1011 97.0 144 20 0505 1011 97.0 144 20 07/30 1011 97.0 144 20 07/30 1011 97.0 144 20 07/30 0947 144 07/30 0910 97.0 20 Intake & Output 07/30 1600 07/30 0800 07/30 0000 07/29 1600 07/29 0800 07/29 0000 Intake Total 500 Output Total 500 Balance 0 Intake, IV 500 Output, Urine 500 Patient 165 lb Weight Weight Reported by Patient Measurement Method Physical Exam: Gen: The patient is in no acute distress HEENT: Normal nose, ears, and oropharynx. Pupils equal bilaterally. Conjunctiva normal. Neck: Supple with no JVD, no masses, and no thyromegaly Lungs: Clear to auscultation with normal respiratory effort Heart: Irregularly irregular, S1, S2, no murmurs. 1+ peripheral edema, 2+ pulses in the lower extremities bilaterally Abdomen: Soft, nontender, no masses. No hepatomegaly. No splenomegaly Extremities: No clubbing or cyanosis. Normal muscle strength in the upper and lower extremities Skin: Normal skin turgor with no skin ulcers or lesions noted. Neuro: Cranial nerves intact. Sensation intact Psych: Alert and oriented 3 with appropriate affect Labs/Diego Results: Laboratory Tests 07/30 07/30 07/30 07/30 07/30 1834 1834 1623 1623 1231 Chemistry Lactic Acid (0.7 - 2.1 mmol/L) Pending 3.1 H Troponin I Pending Other Body Source Fluid WBC Pending Fld Total RBCs Counted Pending Fluid Total Protein (g/dL) < 2.0 Fluid Albumin (g/dL) < 1.0 Fluid LDH (U/L) 165 Fluid Amylase (U/L) < 30 Fluid Lipase (U/L) < 10 07/30 07/30 1024 1005 Chemistry Lactic Acid (0.7 - 2.1 mmol/L) 3.6 H Urines Urinalysis MANY H Urine Color (YEL,AMB,STR) [place] Urine Clarity (CLEAR) CLEAR Urine pH (5.0 - 8.0) 5.5 Ur Specific [place] (1.001 - 1.035) >= 1.030 Urine Protein (NEG,<30 MG/DL) >=300 H Urine Ketones (NEG) NEG Urine Nitrite (NEG) NEG Urine Bilirubin (NEG) NEG@ICTO Urine Urobilinogen (0.1 - 1.0 EU/dl) 1.0 Ur Leukocyte Esterase (NEG) NEG Ur Microscopic SEDIMENT EXAMINED Urine RBC (0 - 5 /HPF) 1-3 Urine WBC (0 - 2 /HPF) 3-5 H Ur Epithelial Cells (NONE,FEW) RARE Urine Bacteria (NEG/NONE) MANY H Urine Hemoglobin (NEG) TRACE-INTACT Urine Glucose (N MG/DL) 100 H 0505 05 1005 0919 Chemistry Sodium (137 - 145 mmol/L) 142 Cancelled Potassium (3.5 - 5.1 mmol/L) 4.9 Cancelled Chloride (98 - 107 mmol/L) 114 H Cancelled Carbon Dioxide (22 - 30 mmol/L) 16 L Cancelled Anion Gap (5 - 16) 12 Cancelled BUN (7 - 17 mg/dL) 47 H Cancelled Creatinine (0.5 - 1.0 mg/dL) 2.0 H Cancelled Estimated GFR (>60 ml/min) 25 L BUN/Creatinine Ratio (7 - 25 %) 23.5 Cancelled Glucose (65 - 99 mg/dL) 146 H Cancelled Lactic Acid Cancelled Calcium (8.4 - 10.2 mg/dL) 7.9 L Cancelled Total Bilirubin (0.2 - 1.3 mg/dL) 1.5 H Cancelled AST (14 - 36 U/L) 95 H Cancelled ALT (9 - 52 U/L) 39 Cancelled Alkaline Phosphatase (<127 U/L) 123 Cancelled Ammonia (9 - 30 umol/L) 33 H Creatine Kinase (30 - 135 U/L) 256 H Cancelled Troponin I (< 0.11 ng/ml) 0.07 Cancelled Total Protein (6.3 - 8.2 g/dL) 5.8 L Cancelled Albumin (3.5 - 5.0 g/dL) 2.1 L Cancelled Globulin (1.9 - 4.2 gm/dL) 3.7 Cancelled Albumin/Globulin Ratio (1.1 - 2.2 %) 0.6 L Cancelled Coagulation PT (9.4 - 12.5 SEC) 16.5 H INR (0.90 - 1.19) 1.58 H APTT (25 - 37 SEC) 32 Hematology CBC w Diff NO MAN DIFF REQ WBC (4.8 - 10.8 /CUMM) 7.3 RBC (4.20 - 5.40 /CUMM) 2.64 L Hgb (12.0 - 16.0 G/DL) 8.7 L Hct (37 - 47 %) 27.0 L MCV (81.0 - 99.0 FL) 102.2 H MCH (27.0 - 31.0 PG) 33.0 H RDW (11.5 - 14.5 %) 17.3 H Plt Count (130 - 400 /CUMM) 122 L MPV (7.4 - 10.4 FL) 8.3 Gran % (42.2 - 75.2 %) 88.7 H Lymphocytes % (20.5 - 51.1 %) 4.6 L Monocytes % (1.7 - 9.3 %) 6.6 Eosinophils % (0 - 5 %) 0 Basophils % (0.0 - 2.0 %) 0.1 Absolute Granulocytes (1.4 - 6.5 /CUMM) 6.4 Absolute Lymphocytes (1.2 - 3.4 /CUMM) 0.3 L Absolute Monocytes (0.10 - 0.60 /CUMM) 0.5 Absolute Eosinophils (0.0 - 0.7 /CUMM) 0 Absolute Basophils (0.0 - 0.2 /CUMM) 0 PUBS MCHC (33.0 - 37.0 G/DL) 32.3 L Toxicology Serum Alcohol (<10 MG/DL) < 10.0 Diagnostic Data EKG Results EKG tracings are reviewed, and reveals atrial fibrillation with ventricular response of 120, left hypertrophy CXR Results Low lung volumes without evidence of an acute intrathoracic process. Other Results CT scan of abdomen/Pelvis: 1. No evidence of interval splenic injury. Stable punctate calcifications within the spleen suggesting prior exposure to granulomatous disease. Stable hypoattenuating oval splenic lesion which on the interval MRI had CT scan of the head and neck: 1. There are no acute bleeds or territorial infarcts. 2. There are mild chronic microvascular ischemic changes. 3. There are no fractures or scalp contusions. 4. There are mild multilevel degenerative change in the cervical spine. 5. There are no acute fractures or subluxations in the cervical spine. 6. There appears to be medial positioning of the right vocal cord. This can be correlated clinically. characteristics suggestive of a cyst. 2. Progressive fairly severe anasarca. Stable, large volume, low density ascites in the setting of cirrhosis. 3. Healed left-sided rib fractures. Stable fracture of the left greater trochanter. No acute osseous abnormality. 4. Stable area of subsolid opacity in the medial right lung base, possibly infectious/inflammatory. Follow-up can be performed per 2017 Fleischner guidelines, which would recommend CT at 6-12 months for reassessment, given size. 5. Stable bilateral nonobstructing nephrolithiasis. Assessment/Plan Assessment/Plan Assessment: 1. Diabetes mellitus 2. History of CVA 3. Mild coronary artery disease, nonobstructive 4. 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 Atrial fibrillation with rapid ventricular rate, new onset Plan: * IV diltiazem for rate control, titrate to ventricular rate less than 110 * IV heparin per protocol * Check serial troponin to rule out myocardial infarction * Hold hypertension medications for now given borderline hypotension * Eliquis or other oral anticoagulant will be started prior to discharge. Consult Acknowledgment - Thank you for your consult request.
--- NOTE | 2016-07-30 20:19 | RADIOLOGY REPORT ---
EXAMINATION: XR THORACIC SPINE XR LUMBAR SPINE CLINICAL INFORMATION: Severe back pain following trauma. COMPARISON: None. TECHNIQUE: AP and lateral views of the track lumbar spine. FINDINGS: Thoracic spine: There is demineralization of the visualized bones. There is kyphosis of the thoracic spine. Also noted are mild to moderate multilevel degenerative changes of the thoracic spine. Vertebral body heights appear grossly preserved. Lumbar spine: There are 5 nonrib-bearing lumbar vertebral bodies. There is moderate multilevel degenerative disc disease of the lumbar spine, most significant at T12-L1 and L1-L2. Vertebral body heights appear grossly preserved. There is grade 1 retrolisthesis of L1 on L2. Lumbar spine alignment appears grossly maintained. Incidental note is made of atherosclerosis of the abdominal aorta. There are degenerative changes involving the bilateral sacroiliac joints and pubic symphysis. Surgical clips are present within the right upper quadrant of the abdomen. IMPRESSION: Multilevel degenerative changes of the thoracolumbar spine, as noted above, without visible fracture or subluxation of the thoracolumbar spine.
[2016-07-31 01:03] VITALS: BP 104/44
[2016-07-31 04:26] LABS: PTT 29 SEC (25-37)
--- NOTE | 2016-07-31 08:46 | PN- Housestaff ---
DELORES HERMAN,[facility] – [place], [place] 07/31/16 0845: Subjective Follow-up For: New onset atrial fibrillation Elevated troponins Possible SBP Cirhosis 2/2 BYERS Tele-Events Since Last Visit: Atrial fibrillation HR 85-107 Subjective: No acute events overnight. Patient seen and examined this morning. She is lying comfortably in bed. She reports low back pain which is chronic. She endorses mild shortness of breath. She denies chest pain or palpitations. She remains on room air with good oxygen saturations. Review of Systems Constitutional: Reports: see HPI. Objective Last 24 Hrs of Vital Signs/I&O Vital Signs Date Time Temp Pulse Resp B/P B/P Pulse O2 O2 Flow FiO2 Mean Ox Delivery Rate 07/31 1600 95 Room Air / 1559 110 106/52 / 1548 98.2 114 18 106/52 95 Room Air / 0850 97.7 113 16 116/54 94 Room Air / 0103 98.2 110 12 104/44 95 Room Air Intake & Output 07/31 1600 07/31 0800 05/06 0000 Intake Total 1460 300 Output Total 100 400 Balance 1360 -100 Intake, IV 760 200 Intake, Oral 700 100 Number 1 Bowel Movements Output, Urine 100 400 Patient 83.915 kg Weight Physical Exam General Appearance: Alert, Oriented X3, No Acute Distress HEENT: Atraumatic, Mucous Membr. moist/pink Cardiovascular: Normal S1, Normal S2, No Murmurs, Gallops, Rubs, Irregularly Irregular Lungs: Clear to Auscultation Abdomen: Soft, No Tenderness, Positive Bowel Sounds Extremities: No Clubbing, No Cyanosis, Bilateral Lower Extremities with 1+ Pitting Edema Current Medications: Current Medications Sig/Radha Start time Last Medication Dose Route Stop Time Status Admin Acetaminophen 650 MG .STK-MED ONE 07/31 1402 DC PO 07/31 1403 Acetaminophen 1,000 MG Q6P PRN 07/30 1615 AC N/A 1 UNIT IV Acetaminophen 650 MG Q4P PRN 07/30 1545 AC / PO 1900 Aspirin 81 MG DAILY 08/01 1000 AC PO Aspirin 325 MG ONCE ONE 07/31 1515 DC / PO 07/31 1516 1814 Atorvastatin Calcium 50 MG 1300 07/31 1300 AC 05/ PO 1558 Dextrose/Sodium 1,000 ML Q20H 07/30 2215 DC 07/30 Chloride IV 07/31 1814 2258 Diltiazem HCl 125 MG Q10H 07/31 1915 AC 07/31 Sodium Chloride 100 ML IV 1911 Diltiazem HCl 125 MG Q12H 07/30 1015 DC 07/31 Sodium Chloride 100 ML IV 0700 Heparin Sodium 25,000 UNIT Q24H 07/30 1200 AC 07/31 (Porcine) IV 1815 Sodium Chloride 500 ML Insulin Human Regular 6 UNITS .STK-MED ONE 07/31 1357 DC IV 07/31 1358 Insulin Human Regular 0 TIDAC/HS 07/30 2100 AC 07/31 SC 1741 Lactulose 20 GM DAILY 07/30 2045 AC 07/30 PO 2257 Levothyroxine Sodium 0.175 MG DAILY AC 07/30 1610 AC 07/31 PO 0700 Lidocaine 1 PAT DAILY 07/31 1000 AC EXT Magnesium Oxide 400 MG Q2 07/31 1600 DC 07/31 PO 07/31 1801 1814 Magnesium Oxide 400 MG DAILY 07/30 1611 AC 07/31 PO 1358 Metoprolol Tartrate 25 MG BID 07/31 1510 AC 07/31 PO 1559 Patient Medication 1 UNIT ONE NR 07/31 1530 HI Teaching ED 07/31 1600 Vancomycin HCl 1,000 MG DAILY 08/01 1000 AC Sodium Chloride 250 ML IV Vancomycin HCl 1,000 MG ONCE ONE 07/31 0515 DC 07/31 Sodium Chloride 250 ML IV 07/31 0614 0630 Last 24 Hrs of Lab/Diego Results Last 24 Hrs of Labs/Mics: Laboratory Tests 07/31/16 1410: APTT > 120 *H 07/31/16 1040: Troponin I 1.74 *H 07/31/16 0725: Anion Gap 11, Estimated GFR 23 L, BUN/Creatinine Ratio 24.8, Lactic Acid 1.4, Phosphorus 4.5, Magnesium 1.4 L, CBC w Diff NO MAN DIFF REQ, RBC 2.69 L, MCV 103.2 H, MCH 33.5 H, RDW 18.5 H, MPV 9.3, Gran % 79.8 H, Lymphocytes % 12.8 L, Monocytes % 6.1, Eosinophils % 0.8, Basophils % 0.5, Absolute Granulocytes 5.3, Absolute Lymphocytes 0.9 L, Absolute Monocytes 0.4, Absolute Eosinophils 0.1, Absolute Basophils 0, PUBS MCHC 32.4 L 05/06/17 0250: Troponin I 2.03 *H, APTT 29 BCx (07/30/16): Gram positive cocci in clusters x2 Culture of ascites fluid (07/30/16): NGTD Assessment/Plan Assessment: 70 y/o F with PMHx of 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 #New onset atrial fibrillation: Remains in atrial fibrillation. Heart rate currently controlled with IV diltiazem drip. * Continue telemetry monitoring. * Cardiology following. Appreciate their recs. * Start metoprolol 25 mg PO BID, uptitrating as needed for rate control. * Wean off IV diltiazem drip. * ECHO pending. #Elevated troponin: Troponins increased to a maximum of 2.03 but downtrended this morning. Could represent NSTEMI or demand ischemia. Patient has a history of mild nonobstructive CAD. * Continue IV heparin with plans to switch to Eliquis or other oral anticoagulant before discharge. * Consider nuclear stress test or cardiac catheterization prior to discharge. * Administer aspirin 325 mg PO daily x1 today. Start aspirin 81 mg PO daily in the AM. #Positive blood cultures: BCx growing gram positive cocci x2. Patient is afebrile and without leukocytosis. Etiology unclear with potential sources including the skin, given bilateral upper and lower extremities with multiple abrasions which could serve as portals of entry for the infection, SBP however peritoneal fluid studies negative for SBP and gram positive cocci are not a commonly encountered pathogen in SBP, urine although urine culture is negative so far and patient is without urinary symptoms and skin contamination especially since patient is a hard stick. Received 1 g of vancomycin. * ID consulted. Provided verbal recs with plans to see patient in the AM. * Continue vancomycin 1 g IV daily. * Repeat BCx. * Follow up BCx for speciation and susceptibilities. #Hypomagnesemia: Mg 1.4 today. * Repleted with 400 mg of PO magnesium x2. * Re-check Mg in the AM and replete to Mg >2. #HTN: Blood pressures have been running low, 100s/50s this AM. * Continue to hold [id number] hypertensives clonidine, spironolactone, lisinopril and Lasix in the setting of borderline hypotension. Diet: Clear liquid diet DVT PPx: IV heparin CODE: DNR/DNI Problem List: 1. New onset a-fib 2. Positive blood cultures 3. 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 CAD (coronary artery disease) 5. Elevated troponin 6. Hypomagnesemia 7. CKD (chronic kidney disease) stage 4, GFR 15-29 ml/min Pain Ratin Pain Location: Back Pain Goal: Remain pain free Pain Plan: Lidocaine patch Tylenol 1 g IV Q6H PRN Tylenol 650 mg PO Q6H PRN for mild pain (scale 1-3) Tomorrow's Labs & Rationales: CBC to monitor WBC count in the setting of positive blood cultures BMP and Mg to monitor lytes and kidney function in the setting of CKD and hypomagnesemia GUME SCOTT MD 07/31/16 1531: Attending MD Review Statement Attending Statement Attending MD Statement: examined this patient, discuss w/resident/PA/BUSINESS PROGRAMMER, agreed w/resident/PA/BUSINESS PROGRAMMER, reviewed EMR data (avail), discussed with nursing, amended to note Attending Assessment/Plan: Patient seen and examined. Lying in bed not in acute distress. She reports chronic low back pain. Denies chest pain. Reports more shortness of breath. Denies palpitations. She remains in atrial fibrillation on telemetry although with controlled rate on IV Cardizem. Blood pressure is stable although on the lower side. On examination she is not in acute distress. Lungs are clear bilaterally. Abdomen is soft and nontender. Labs show stable hemoglobin. Her creatinine is around her baseline. Paracentesis was done yesterday with no evidence of SBP. Blood cultures however growing gram-positive cocci Recommendations: 1. New-onset atrial fibrillation with rapid ventricular response. 2. Bacteremia 3. Thrombocytopenia; chronic 4. Altered mental status; improved 5. Abnormal troponin Plan: -Cardiology follow-up appreciated. Patient has a started off metoprolol and will be weaned off IV diltiazem. -Continue anticoagulation with IV heparin. She will be switched to an oral agent upon discharge. -Patient has been started on IV vancomycin. Follow-up culture identification and sensitivity. ID consultation. Follow-up echocardiogram. -She will need further ischemic workup prior to discharge either in the form of cardiac catheterization or nuclear stress test.
[2016-07-31 08:50] VITALS: BP 116/54
[2016-07-31 08:58] LABS: ABSOLUTE BASOPHIL COUNT 0 /CUMM (0.0-0.2); ABSOLUTE EOSINOPHIL COUNT 0.1 /CUMM (0.0-0.7); ABSOLUTE GRANULOCYTE CT 5.3 /CUMM (1.4-6.5); ABSOLUTE LYMPH COUNT 0.9 /CUMM (1.2-3.4); ABSOLUTE MONOCYTE COUNT 0.4 /CUMM (0.10-0.60); BASOPHIL % 0.5 % (0.0-2.0); EOSINOPHIL % 0.8 % (0-5); GRANULOCYTE % 79.8 % (42.2-75.2); HEMATOCRIT 27.7 % (37-47); MEAN CORPUSCULAR HGB 33.5 PG (27.0-31.0); MEAN CORPUSCULAR HGB CONC 32.4 G/DL (33.0-37.0); MEAN CORPUSCULAR VOLUME 103.2 FL (81.0-99.0); MEAN PLATELET VOLUME 9.3 FL (7.4-10.4); RBC DISTRIBUTION WIDTH 18.5 % (11.5-14.5); RED BLOOD CELL CT 2.69 /CUMM (4.20-5.40); WHITE BLOOD CELL COUNT 6.7 /CUMM (4.8-10.8)
--- NOTE | 2016-07-31 10:14 | PN- Cardiology ---
Subjective Subjective: The patient complains of back pain which has been chronic for her. No chest pain. She notes mild shortness of breath. No diaphoresis. No palpitations. Ventricular rate is under control on IV diltiazem. Objective Vital Signs and I&Os Vital Signs Date Time Temp Pulse Resp B/P B/P Pulse O2 O2 Flow FiO2 Mean Ox Delivery Rate 07/31 0850 97.7 113 16 116/54 94 Room Air / 0103 98.2 110 12 104/44 95 Room Air 05/05 1600 98.0 119 20 103/55 97 Room Air 05/05 1512 97.7 14 98/62 97 Room Air 05/ 1315 96.7 129 20 122/83 96 Room Air 05/05 1230 96.8 136 20 124/66 97 Room Air 05/05 1156 97.1 148 20 127/60 05/05 1138 97.3 158 20 120/67 97 Room Air 05/ 1058 97.3 140 20 130/64 98 Room Air 05/ 1011 97.0 144 20 05/05 1011 97.0 144 20 05/05 1011 97.0 144 20 05/05 1011 97.0 144 20 Intake & Output 07/31 1600 05/06 0800 05/06 0000 05/05 1600 05/ 0800 05/05 0000 Intake Total 300 500 Output Total 400 500 Balance -100 0 Intake, IV 200 500 Intake, Oral 100 Number 1 Bowel Movements Output, Urine 400 500 Patient 185 lb Weight Weight Reported by Patient Measurement Method Physical Exam: Gen: The patient is in no acute distress HEENT: Normal nose, ears, and oropharynx. Pupils equal bilaterally. Conjunctiva normal. Neck: Supple with no JVD, no masses, and no thyromegaly Lungs: Clear to auscultation with normal respiratory effort Heart: Irregularly irregular, S1, S2, no murmurs. 1+ peripheral edema, 2+ pulses in the lower extremities bilaterally Abdomen: Soft, nontender, no masses. No hepatomegaly. No splenomegaly Extremities: No clubbing or cyanosis. Normal muscle strength in the upper and lower extremities Skin: Normal skin turgor with no skin ulcers or lesions noted. Neuro: Cranial nerves intact. Sensation intact Current Medications: Current Medications Sig/Radha Start time Last Medication Dose Route Stop Time Status Admin Acetaminophen 1,000 MG Q6P PRN 07/30 1615 AC N/A 1 UNIT IV Acetaminophen 650 MG Q4P PRN 07/30 1545 AC PO Atorvastatin Calcium 50 MG 1300 07/31 1300 AC PO Dextrose/Sodium 1,000 ML Q20H 07/30 2215 AC 07/30 Chloride IV 07/31 1814 2258 Diltiazem HCl 10 MG ONCE ONE 07/30 1200 DC 07/30 IV PUSH 07/30 1201 1156 Diltiazem HCl 0 .STK-MED ONE 07/30 1158 DC .ROUTE Diltiazem HCl 10 MG ONCE ONE 07/30 1015 DC 07/30 IV PUSH 07/30 1016 1011 Diltiazem HCl 125 MG Q12H 07/30 1015 AC 07/31 Sodium Chloride 100 ML IV 0700 Heparin Sodium 25,000 UNIT Q24H 07/30 1200 AC 07/30 (Porcine) IV 1811 Sodium Chloride 500 ML Insulin Human Regular 0 TIDAC/HS 07/30 2100 AC SC Lactulose 20 GM DAILY 07/30 2045 AC 07/30 PO 2257 Levothyroxine Sodium 0.175 MG DAILY AC 07/30 1610 AC 07/31 PO 0700 Lidocaine 1 PAT DAILY 07/31 1000 AC EXT Magnesium Oxide 400 MG DAILY 07/30 1611 AC 07/30 PO 1804 Sodium Chloride 500 ML BOLUS ONE 07/30 0930 DC 07/30 IV 07/30 1029 1006 Vancomycin HCl 1,000 MG ONCE ONE 07/31 0515 DC 07/31 Sodium Chloride 250 ML IV 07/31 0614 0630 Results Last 48 Hrs of Labs/Mics: Laboratory Tests 07/31/16 0725: Anion Gap 11, Estimated GFR 23 L, BUN/Creatinine Ratio 24.8, Lactic Acid 1.4, Phosphorus 4.5, Magnesium 1.4 L, CBC w Diff Pending, WBC Pending, RBC Pending, Hgb Pending, Hct Pending, MCV Pending, MCH Pending, RDW Pending, Plt Count Pending, MPV Pending, PUBS MCHC Pending 07/31/16 0250: Troponin I 2.03 *H, APTT 29 07/30/16 1838: Urine Opiates Screen 239.00, Methadone Screen 80, Barbiturate Screen < 60, Ur Phencyclidine Scrn < 6.00, Amphetamines Screen < 100, U Benzodiazepines Scrn < 85, Urine Cocaine Screen < 50, Urine Cannabis Screen < 5.00 07/30/16 1834: Troponin I 1.23 *H 07/30/16 1834: Lactic Acid 1.5 07/30/16 1623: Fluid WBC 40 H, Fld Mesothelial Cells 54, Fld Total RBCs Counted 29 H 07/30/16 1623: Lymphocytes 7, % Normal PMNs 39, Fluid Total Protein < 2.0, Fluid Albumin < 1.0, Fluid LDH 165, Fluid Amylase < 30, Fluid Lipase < 10 07/30/16 1607: Troponin I Cancelled 07/30/16 1231: Lactic Acid 3.1 H 07/30/16 1024: Urinalysis MANY H, Urine Color PASQUALE, Urine Clarity CLEAR, Urine pH 5.5, Ur Specific Bittinger >= 1.030, Urine Protein >=300 H, Urine Ketones NEG, Urine Nitrite NEG, Urine Bilirubin NEG@ICTO, Urine Urobilinogen 1.0, Ur Leukocyte Esterase NEG, Ur Microscopic SEDIMENT EXAMINED, Urine RBC 1-3, Urine WBC 3-5 H, Ur Epithelial Cells RARE, Urine Bacteria MANY H, Urine Hemoglobin TRACE-INTACT, Urine Glucose 100 H 07/30/16 1005: Lactic Acid 3.6 H 07/30/16 1005: Anion Gap 12, Estimated GFR 25 L, BUN/Creatinine Ratio 23.5, Glucose 146 H, Calcium 7.9 L, Total Bilirubin 1.5 H, AST 95 H, ALT 39, Alkaline Phosphatase 123, Ammonia 33 H, Lactate Dehydrogenase 930 H, Creatine Kinase 256 H, Troponin I 0.07, Total Protein 5.8 L, Albumin 2.1 L, Globulin 3.7, Albumin/ Globulin Ratio 0.6 L, PT 16.5 H, INR 1.58 H, APTT 32, CBC w Diff NO MAN DIFF REQ, RBC 2.64 L, MCV 102.2 H, MCH 33.0 H, RDW 17.3 H, MPV 8.3, Gran % 88.7 H, Lymphocytes % 4.6 L, Monocytes % 6.6, Eosinophils % 0, Basophils % 0.1, Absolute Granulocytes 6.4, Absolute Lymphocytes 0.3 L, Absolute Monocytes 0.5, Absolute Eosinophils 0, Absolute Basophils 0, PUBS MCHC 32.3 L, Serum Alcohol < 10.0 07/30/16 0924: Lactic Acid Cancelled 07/30/16 0919: Sodium Cancelled, Potassium Cancelled, Chloride Cancelled, Carbon Dioxide Cancelled, Anion Gap Cancelled, BUN Cancelled, Creatinine Cancelled, BUN/ Creatinine Ratio Cancelled, Glucose Cancelled, Lactic Acid Cancelled, Calcium Cancelled, Total Bilirubin Cancelled, AST Cancelled, ALT Cancelled, Alkaline Phosphatase Cancelled, Creatine Kinase Cancelled, Troponin I Cancelled, Total Protein Cancelled, Albumin Cancelled, Globulin Cancelled, Albumin/Globulin Ratio Cancelled Assessment/Plan Assessment/Plan Assessment: 1. Diabetes mellitus 2. History of CVA 3. Mild coronary artery disease, nonobstructive 4. 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 Atrial fibrillation with rapid ventricular rate, new onset. Rate controlled on IV diltiazem 6. Positive troponin. Possible non-ST elevation myocardial infarction versus demand ischemia. Plan: * Start metoprolol 25 mg by mouth twice a day. * Wean off IV diltiazem. * Increase metoprolol as needed for rate control. * Continue IV heparin. This will be changed to Eliquis or other oral anticoagulation prior to discharge. * Aspirin 325 mg by mouth 1 and then 81 mg daily * Echocardiogram * Possible cardiac catheterization versus nuclear stress test prior to discharge. Continue telemetry? Yes
[2016-07-31 15:48] VITALS: BP 106/52
[2016-07-31 17:20] LABS: PTT > 120 SEC (25-37)
[2016-08-01 00:48] VITALS: BP 110/50
[2016-08-01 03:28] LABS: ABSOLUTE BASOPHIL COUNT 0 /CUMM (0.0-0.2); ABSOLUTE EOSINOPHIL COUNT 0.1 /CUMM (0.0-0.7); ABSOLUTE GRANULOCYTE CT 4.9 /CUMM (1.4-6.5); ABSOLUTE LYMPH COUNT 1.2 /CUMM (1.2-3.4); ABSOLUTE MONOCYTE COUNT 0.7 /CUMM (0.10-0.60); BASOPHIL % 0.6 % (0.0-2.0); EOSINOPHIL % 1.7 % (0-5); GRANULOCYTE % 69.9 % (42.2-75.2); HEMATOCRIT 24.5 % (37-47); MEAN CORPUSCULAR HGB 33.3 PG (27.0-31.0); MEAN CORPUSCULAR HGB CONC 32.4 G/DL (33.0-37.0); MEAN CORPUSCULAR VOLUME 103.1 FL (81.0-99.0); MEAN PLATELET VOLUME 8.7 FL (7.4-10.4); RBC DISTRIBUTION WIDTH 18.7 % (11.5-14.5); RED BLOOD CELL CT 2.38 /CUMM (4.20-5.40)
[2016-08-01 03:56] LABS: PTT > 120 SEC (25-37)
[2016-08-01 08:34] VITALS: BP 108/64
--- NOTE | 2016-08-01 08:42 | PN- Housestaff ---
CHEYENNE HERMAN,DODIE 08/01/16 0842: Subjective Follow-up For: New onset atrial fibrillation Elevated troponins Possible SBP Cirhosis 2/2 BYERS Tele-Events Since Last Visit: Atrial fibrillation as well as sinus rhythm overnight, heart rate ranging from 45-59, lowest at 1 AM, had premature junctional complexes. Subjective: Patient followed up and examined by me today. She is resting comfortably in her bed, not in distress, telemetry event noted as above, no other issues. Review of Systems Constitutional: Reports: no symptoms. Objective Last 24 Hrs of Vital Signs/I&O Vital Signs Date Time Temp Pulse Resp B/P B/P Pulse O2 O2 Flow FiO2 Mean Ox Delivery Rate 08/01 1644 98.1 71 18 140/80 97 Room Air 08/01 1011 58 108/60 08/01 0834 97.5 64 18 108/64 96 08/01 0048 97.5 45 20 110/50 93 Room Air 07/31 2200 45 110/50 Intake & Output 08/01 1600 08/01 0800 08/01 0000 Intake Total 750 300 800 Output Total 400 250 150 Balance 350 50 650 Intake, IV 350 200 300 Intake, Oral 400 100 500 Number 1 Bowel Movements Output, Urine 400 250 150 Physical Exam General Appearance: Alert, Oriented X3, Cooperative, No Acute Distress Other Physical Findings: HEENT: Atraumatic, Mucous Membr. moist/pink Cardiovascular: Normal S1, Normal S2, No Murmurs, Gallops, Rubs, Irregularly Irregular Lungs: Clear to Auscultation Abdomen: Soft, No Tenderness, Positive Bowel Sounds Extremities: No Clubbing, No Cyanosis, Bilateral Lower Extremities with 1+ Pitting Edema Current Medications: Current Medications Sig/Radha Start time Last Medication Dose Route Stop Time Status Admin Acetaminophen 650 MG .STK-MED ONE 08/01 0354 DC PO 08/01 0355 Acetaminophen 1,000 MG Q6P PRN 07/30 1615 AC N/A 1 UNIT IV Acetaminophen 650 MG Q4P PRN 07/30 1545 AC 08/01 PO 0358 Aspirin 81 MG DAILY 08/01 1000 AC 08/01 PO 1001 Atorvastatin Calcium 50 MG 1300 07/31 1300 AC 08/01 PO 1002 Dextrose/Sodium 1,000 ML Q20H 08/01 0230 AC 08/01 Chloride IV 08/01 2229 0240 Diltiazem HCl 125 MG Q10H 07/31 1915 DC 07/31 Sodium Chloride 100 ML IV 1911 Heparin Sodium 25,000 UNIT Q24H 07/30 1200 AC 08/01 (Porcine) IV 1542 Sodium Chloride 500 ML Insulin Human Regular 0 TIDAC/HS 07/30 2100 AC 08/01 SC 1758 Lactulose 20 GM DAILY 07/30 2045 AC 08/01 PO 1001 Levothyroxine Sodium 0.175 MG DAILY AC 07/30 1610 AC 08/01 PO 0634 Lidocaine 1 PAT DAILY 07/31 1000 AC EXT Magnesium Oxide 400 MG Q2 08/01 1600 DC 08/01 PO 08/01 1801 1552 Magnesium Oxide 400 MG DAILY 07/30 1611 AC 08/01 PO 1002 Metoprolol Tartrate 25 MG BID 07/31 1510 AC 07/31 PO 1559 Oxycodone/ 1 TAB Q6PRN PRN 08/01 1145 AC 08/01 Acetaminophen PO 1902 Vancomycin HCl 1,000 MG DAILY 08/01 1000 AC 08/01 Sodium Chloride 250 ML IV 0958 Last 24 Hrs of Lab/Diego Results Last 24 Hrs of Labs/Mics: Laboratory Tests 08/01/16 1945: APTT 89 H 08/01/16 0955: APTT > 120 *H 08/01/16 0250: Anion Gap 9, Estimated GFR 20 L, BUN/Creatinine Ratio 22.5, Magnesium 1.4 L, APTT > 120 *H, CBC w Diff MAN DIFF ORDERED, RBC 2.38 L, MCV 103.1 H, MCH 33.3 H, RDW 18.7 H, MPV 8.7, Gran % 69.9, Lymphocytes % 17.4 L, Monocytes % 10.4 H , Eosinophils % 1.7, Basophils % 0.6, Absolute Granulocytes 4.9, Segmented Neutrophils 71, Absolute Lymphocytes 1.2, Lymphocytes 20 L, Monocytes 5, Absolute Monocytes 0.7 H, Eosinophils 4, Absolute Eosinophils 0.1, Absolute Basophils 0, Platelet Estimate , Hypochromic-Microcytic 1+, Anisocytosis 1+, Macrocytic Cells 1+, PUBS MCHC 32.4 L Assessment/Plan Assessment: 70 y/o F with PMHx of 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 #New onset atrial fibrillation: Remains in atrial fibrillation. Heart rate currently controlled with IV diltiazem drip. * Continue telemetry monitoring. * Cardiology following. Appreciate their recs. * Patient had low blood pressure this morning so morning dose of metoprolol was held, will recheck blood pressure and decide the evening dose. * IV diltiazem drip was weaned and stopped yesterday. * ECHO pending. #Elevated troponin: Troponins increased to a maximum of 2.03 but downtrended this morning. Could represent NSTEMI or demand ischemia. Patient has a history of mild nonobstructive CAD. * Continue IV heparin with plans to switch to Eliquis or other oral anticoagulant before discharge. * Consider nuclear stress test or cardiac catheterization prior to discharge. * Administered aspirin 325 mg PO daily x1 yesterday. Start aspirin 81 mg PO daily in the AM today. #Positive blood cultures: BCx growing Gram positive cocci x2. Patient is afebrile and without leukocytosis. Etiology unclear with potential sources including the skin, given bilateral upper and lower extremities with multiple abrasions which could serve as portals of entry for the infection, SBP however peritoneal fluid studies negative for SBP and gram positive cocci are not a commonly encountered pathogen in SBP, urine although urine culture is negative so far and patient is without urinary symptoms and skin contamination especially since patient is a hard stick. * ID consult appreciated. * Continue vancomycin 1 g IV daily. * Repeat BCx, result awaited. Per ID, if blood culture remains negative tomorrow morning discontinue vancomycin. * Follow up BCx for speciation and susceptibilities. #Hypomagnesemia: Mg 1.4 today. * Repleted with 400 mg of PO magnesium x2. * Re-check Mg in the AM and replete to Mg >2. #HTN: Blood pressures have been running low, 100s/50s this AM. * Continue to hold [id number] hypertensives clonidine, spironolactone, lisinopril and Lasix in the setting of borderline hypotension. Morning dose of metoprolol was also held for the same reason. Diet: Clear liquid diet DVT PPx: IV heparin CODE: DNR/DNI Problem List: 1. New onset a-fib 2. Positive blood cultures 3. Elevated troponin 4. Hypomagnesemia 5. CKD (chronic kidney disease) stage 4, GFR 15-29 ml/min 6. Hypertension Pain Ratin Pain Location: - Pain Goal: Pain 4 or less Pain Plan: prn Tomorrow's Labs & Rationales: BEP, CBC SONIA HERMAN,GUME 08/01/16 1334: Attending MD Review Statement Attending Statement Attending MD Statement: examined this patient, discuss w/resident/PA/BUTTER PRINTER, agreed w/resident/PA/BUTTER PRINTER, reviewed EMR data (avail), discussed with nursing, amended to note Attending Assessment/Plan: Patient seen and examined. Overnight on telemetry she converted back into normal sinus rhythm. He denies chest pain. Denies palpitation. He however does complain of chronic low back pain. Is currently growing gram-positive cocci in 2 sets of cultures. Case discussed with the ID service. There is likely that this may be secondary to contamination. We'll continue to monitor. Recommendations: -Patient currently remains in sinus rhythm. IV Cardizem and discontinue that she is now on metoprolol. Monitor blood pressure closely as it is currently borderline. -Continue vancomycin to complete culture results. ID service recommend discontinuing tomorrow morning. -Hemoglobin level has trended down overnight. No evidence of active bleeding externally. -Check stool guaiac. Repeat hemoglobin this afternoon. If she continues to trend downwards recommend discontinuation of IV heparin, GI consultation and transfusion to keep hemoglobin greater than 7. -Continue IV Tylenol for pain control. Begin patient on Lidoderm patch.
--- NOTE | 2016-08-01 09:20 | Cons- Infect Disease ---
General Information and HPI Consulting Request Date of Consult: 08/01/16 Requested By: ALIREZA MARK MD Reason for Consult: Positive blood cultures 2 for gram-positive cocci in clusters Source of Information: patient, old records History of Present Illness: This is a 70-year-old woman with a history of diabetes, with secondary neuropathy and gastroparesis, status post CVA, CHF, cirrhosis with anasarca and recurrent ascites, chronic kidney disease, thrombocytopenia with platelet clumping, osteoarthritis, with chronic low back pain, status post frequent falls over the past 6 months, with a mildly displaced, comminuted fracture of the left femur 5 months prior to admission, managed conservatively, last hospitalized 4 months prior to admission with anasarca and left hip pain, admitted on July 30 after she was found on the floor at home following a fall. On admission she was afebrile. She was found to be in atrial fibrillation. Laboratory data revealed a white blood cell count of 7000, platelets 122,000, BUN/creatinine 47 and 2.0, bilirubin 1.5, AST/ALT 95 and 39, ammonia 33, CPK 256, INR 1.58. Urinalysis 1-3 RBC/3-5 WBCs. Chest x-ray was negative for any acute process. X-ray of the LS spine revealed multilevel degenerative disease. CT of the head and cervical spine were negative for any acute process. CT of the abdomen and pelvis revealed progressive severe anasarca, stable bilateral nonobstructing nephrolithiasis and a stable hypoattenuating splenic lesion. She underwent paracentesis, with cell count revealing a white blood cell count of 40. She was evaluated by Cardiology and placed on IV Diltiazem and Heparin. On July 31 blood cultures 2 were reported positive for gram-positive cocci in clusters. She was begun on Vancomycin. She has remained afebrile since admission and white blood cell count has remained normal. At present she does complain of her chronic back pain but offers no other complaints. Allergies/Medications Allergies: Coded Allergies: codeine (Severe, RASH, DIFFICULTY BREATHING 04/08/16) morphine (Severe, SHORTNESS OF BREATH 04/08/16) Home Med List: Aspirin (Children's Aspirin) 81 MG TAB.CHEW 81 MG PO DAILY HEART TAKE 1 TAB PO DAILY Atenolol 100 MG TABLET 1 TAB PO 1300 HEART (Reported) Atorvastatin Calcium 10 MG TABLET 50 MG PO 1300 HEART HEALTH (Reported) Clonidine HCl (Catapres) 0.1 MG TABLET 1 TAB PO DAILY BP (Reported) Ergocalciferol (Vitamin D2) (Vitamin D2) 50,000 UNIT CAPSULE 1 CAP PO QTUES Supplement FENOFIBRATE,MICRONIZED (Fenofibrate) 200 MG CAPSULE 1 CAP PO DAILY HLD ( Reported) Furosemide (Lasix) 80 MG TABLET 1 TAB PO BID Edema Gabapentin 100 MG CAPSULE 1 TAB PO BID Neuropathy Levothyroxine Sodium (Synthroid) 175 MCG TABLET 1 TAB PO DAILY AC Hypothyroidism Lisinopril 20 MG TABLET 1 TAB PO DAILY Blood Pressure Magnesium Oxide (Magnesium) 400 MG CAPSULE 20.5 MG PO DAILY VITAMIN SUPPORT ( Reported) Omeprazole 20 MG CAPSULE.DR 20 MG PO DAILY AC stomach Oxycodone HCl 5 MG TABLET 1 TAB PO Q6P PRN PAIN SCALE 4-6 (MODERATE) PLEASE HOLD FOR SEDATION/DROWSINESS OR DECREASED RESPIRATORY RATE. Spironolactone (Aldactone) 25 MG TABLET 50 MG PO DAILY water pill Past History Travel History Traveled to [place] past 21 day No Medical History Blood Transfusion Hx: No Neurological: 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), migraine, peripheral neuropathy EENT: NONE Cardiovascular: diastolic CHF, hypertension, hyperlipidemia, hx SVT Respiratory: asthma Gastrointestinal: hiatal hernia (mild), gastroparesis Hepatic: cirrhosis Renal: chronic kidney disease (r/o nephrotic) Musculoskeletal: chronic back pain, degen joint disease, falls, fracture (L hip post fall), spinal stenosis Psychiatric: depression Endocrine: diabetes, hypothyroidism, obesity, vitamin D deficiency Blood Disorders: anemia (macrocytic w/o transfx), thrombocytopenia Cancer(s): NONE BOTTOM FINISHER/Reproductive: NONE History of MRSA: No History of VRE: No History of CDIFF: No Isolation History: Standard Influenza Vaccine: 12/27/15 Surgical History Surgical History: appendectomy, cholecystectomy (open 1978), (x 2), RIGHT SHOULDER ROTATOR LEFT ANKLE SURGERY C-SECTIONS resection of pancreatic cyst at [facility] Family History Relations & Conditions If Any: SISTER FH: Crohn's disease FH: diabetes mellitus BROTHER FH: Hodgkins disease FATHER FH: heart disease MOTHER FH: diabetes mellitus Relation not specified for: FH: lung cancer Psychosocial History Where Do You Live? Home Who Do You Live With? spouse Services at Home: None Primary Language: Guyanese Smoking Status: Never Smoked ETOH Use: denies use Illicit Drug Use: denies illicit drug use Living Will? no Power of Demand Planner/HCP? no Functional Ability ADLs Independent: dressing, eating. Needs Assist: toileting, bathing. Ambulation: non-ambulatory (post L hip fx) IADLs Independent: finances, food prep, telephone, medication admin. Needs Assist: shopping, housework, transportation. ECHO Results (as available) Date of last Echo 04/11/16 EF% 60 Review of Systems Review of Systems All Other Systems: Reviewed and Negative Exam & Diagnostic Data Last 24 Hrs of Vital Signs/I&O Vital Signs Date Time Temp Pulse Resp B/P B/P Pulse O2 O2 Flow FiO2 Mean Ox Delivery Rate 08/01 0834 97.5 64 18 108/64 96 08/01 0048 97.5 45 20 110/50 93 Room Air 07/31 2200 45 110/50 07/31 1600 95 Room Air 07/31 1559 110 106/52 07/31 1548 98.2 114 18 106/52 95 Room Air Intake & Output 08/01 1600 08/01 0800 08/01 0000 Intake Total 300 800 Output Total 250 150 Balance 50 650 Intake, IV 200 300 Intake, Oral 100 500 Output, Urine 250 150 Physical Exam Other Physical Findings: She is awake and alert in no acute distress. She is afebrile. Skin reveals multiple abrasions over her extremities with scattered ecchymoses. HEENT exam is negative. Neck is supple with no adenopathy. Lungs are clear. Heart regular rhythm with no murmur. Abdomen is obese, soft, tender over the upper abdomen, with no guarding or rebound, with positive bowel sounds. Back no CVA tenderness. Extremities no cyanosis, clubbing or edema; erythema of the right second toe, with ulcerations over several toes. Neuro neuropathy both feet. Escobedo catheter is in place. Last 24 Hours of Lab Results: Laboratory Tests 08/01 07/31 07/31 0250 1410 1040 Chemistry Sodium (137 - 145 mmol/L) 136 L Potassium (3.5 - 5.1 mmol/L) 4.5 Chloride (98 - 107 mmol/L) 107 Carbon Dioxide (22 - 30 mmol/L) 20 L Anion Gap (5 - 16) 9 BUN (7 - 17 mg/dL) 54 H Creatinine (0.5 - 1.0 mg/dL) 2.4 H Estimated GFR (>60 ml/min) 20 L BUN/Creatinine Ratio (7 - 25 %) 22.5 Magnesium (1.6 - 2.3 mg/dL) 1.4 L Troponin I (< 0.11 ng/ml) 1.74 *H Coagulation APTT (25 - 37 SEC) > 120 *H > 120 *H Hematology CBC w Diff MAN DIFF ORDERED WBC (4.8 - 10.8 /CUMM) 7.0 RBC (4.20 - 5.40 /CUMM) 2.38 L Hgb (12.0 - 16.0 G/DL) 7.9 L Hct (37 - 47 %) 24.5 L MCV (81.0 - 99.0 FL) 103.1 H MCH (27.0 - 31.0 PG) 33.3 H RDW (11.5 - 14.5 %) 18.7 H MPV (7.4 - 10.4 FL) 8.7 Gran % (42.2 - 75.2 %) 69.9 Lymphocytes % (20.5 - 51.1 %) 17.4 L Monocytes % (1.7 - 9.3 %) 10.4 H Eosinophils % (0 - 5 %) 1.7 Basophils % (0.0 - 2.0 %) 0.6 Absolute Granulocytes (1.4 - 6.5 /CUMM) 4.9 Segmented Neutrophils (42.2 - 75.2 %) 71 Absolute Lymphocytes (1.2 - 3.4 /CUMM) 1.2 Lymphocytes (20.5 - 51.1 %) 20 L Monocytes (1.7 - 9.3 %) 5 Absolute Monocytes (0.10 - 0.60 /CUMM) 0.7 H Eosinophils (0 - 5.0 %) 4 Absolute Eosinophils (0.0 - 0.7 /CUMM) 0.1 Absolute Basophils (0.0 - 0.2 /CUMM) 0 Platelet Estimate (ADEQUATE) Hypochromic-Microcytic 1+ Anisocytosis 1+ Macrocytic Cells 1+ PUBS MCHC (33.0 - 37.0 G/DL) 32.4 L Last 24 Hours of Diego Results: Blood cultures July 30 positive for coag-negative Staph Urine culture July 30 negative Ascitic fluid culture July 30 negative Blood cultures 2 July 31 negative so far Diagnostic Data Recent Imaging Findings: Chest x-ray July 30 negative for any acute process. X-ray of the LS spine July 30 revealed multilevel degenerative disease. CT of the head and cervical spine July 30 negative for any acute process. CT of the abdomen and pelvis July 30 revealed progressive severe anasarca, stable bilateral nonobstructing nephrolithiasis and a stable hypoattenuating splenic lesion. Assessment/Plan Assessment/Plan Impression: This is a 70-year-old woman with a history of diabetes, with secondary neuropathy and gastroparesis, status post CVA, CHF, cirrhosis with anasarca and recurrent ascites, chronic kidney disease, thrombocytopenia with platelet clumping, osteoarthritis, with chronic low back pain, status post frequent falls over the past 6 months, admitted on July 30 after she was found on the floor home following a fall, found to be afebrile in atrial fibrillation, with a normal white blood cell count, with blood cultures 2 positive for coag-negative Staph. I suspect these blood cultures represent contaminants as she has no fever or leukocytosis, no obvious focus of infection and she is apparently quite difficult to draw blood from. Additionally the repeat blood cultures from yesterday, prior to antibiotics, are so far negative. She does have multiple abrasions with several lesions on her toes, some of which are of unclear duration, and she may warrant further evaluation of these if they do not resolve. Suggestion: 1. Follow-up results of the repeat blood culture sent July 31 2. Remove Escobedo catheter 3. Discontinue Vancomycin in the a.m. August 02 if her repeat blood cultures remain negative Consult Acknowledgment - Thank you for your consult request.
[2016-08-01 11:22] LABS: PTT > 120 SEC (25-37)
--- NOTE | 2016-08-01 11:55 | PN- Cardiology ---
Subjective Subjective: The patient complains of mild abdominal discomfort. No chest pain. No shortness of breath. No palpitations. She converted from atrial ablation to sinus rhythm on telemetry. Objective Vital Signs and I&Os Vital Signs Date Time Temp Pulse Resp B/P B/P Pulse O2 O2 Flow FiO2 Mean Ox Delivery Rate 08/01 1011 58 108/60 / 0834 97.5 64 18 108/64 96 / 0048 97.5 45 20 110/50 93 Room Air 07/31 2200 45 110/50 / 1600 95 Room Air / 1559 110 106/52 / 1548 98.2 114 18 106/52 95 Room Air Intake & Output 08/01 1600 08/01 0800 / 0000 07/31 1600 07/31 0800 07/31 0000 Intake Total 026 950 2594 300 Output Total 250 150 100 400 Balance 50 650 1360 -100 Intake, IV 200 300 760 200 Intake, Oral 100 500 700 100 Number 1 Bowel Movements Output, Urine 250 150 100 400 Patient 185 lb Weight Physical Exam: Gen: The patient is in no acute distress HEENT: Normal nose, ears, and oropharynx. Pupils equal bilaterally. Conjunctiva normal. Neck: Supple with no JVD, no masses, and no thyromegaly Lungs: Clear to auscultation with normal respiratory effort Heart: Irregularly irregular, S1, S2, no murmurs. 1+ peripheral edema, 2+ pulses in the lower extremities bilaterally Abdomen: Soft, nontender, no masses. No hepatomegaly. No splenomegaly Extremities: No clubbing or cyanosis. Normal muscle strength in the upper and lower extremities Skin: Normal skin turgor with no skin ulcers or lesions noted. Current Medications: Current Medications Sig/Radha Start time Last Medication Dose Route Stop Time Status Admin Acetaminophen 650 MG .STK-MED ONE 07/31 1900 DC PO 07/31 1901 Acetaminophen 650 MG .STK-MED ONE 07/31 1402 DC PO 07/31 1403 Acetaminophen 1,000 MG Q6P PRN 07/30 1615 AC N/A 1 UNIT IV Acetaminophen 650 MG Q4P PRN 07/30 1545 AC 08/01 PO 0358 Aspirin 81 MG DAILY 08/01 1000 AC 08/01 PO 1001 Aspirin 325 MG ONCE ONE 07/31 1515 DC 07/31 PO 07/31 1516 1814 Atorvastatin Calcium 50 MG 1300 05/06 1300 AC 05/ PO 1002 Dextrose/Sodium 1,000 ML Q20H / 0230 AC 05/ Chloride IV 08/01 2229 0240 Dextrose/Sodium 1,000 ML Q20H 05/05 2215 DC 05/05 Chloride IV 05/ 1814 2258 Diltiazem HCl 125 MG Q10H / 1915 DC 05/ Sodium Chloride 100 ML IV 1911 Diltiazem HCl 125 MG Q12H 05/ 1015 DC 05/ Sodium Chloride 100 ML IV 0700 Heparin Sodium 25,000 UNIT Q24H /05 1200 AC / (Porcine) IV 1815 Sodium Chloride 500 ML Insulin Human Regular 6 UNITS .STK-MED ONE 07/31 1729 DC IV 07/31 1730 Insulin Human Regular 6 UNITS .STK-MED ONE 07/31 1357 DC IV 07/31 1358 Insulin Human Regular 0 TIDAC/HS 07/30 2100 AC 08/01 SC 1013 Lactulose 20 GM DAILY 07/30 2045 AC 08/01 PO 1001 Levothyroxine Sodium 0.175 MG DAILY AC 07/30 1610 AC / PO 0634 Lidocaine 1 PAT DAILY 07/31 1000 AC EXT Magnesium Oxide 400 MG Q2 07/31 1600 DC 05/ PO 07/31 1801 1814 Magnesium Oxide 400 MG DAILY 07/30 1611 AC / PO 1002 Metoprolol Tartrate 25 MG BID 07/31 1510 AC / PO 1559 Oxycodone/ 1 TAB Q6PRN PRN 08/01 1145 UNVr Acetaminophen PO Patient Medication 1 UNIT ONE NR 07/31 1530 IA Teaching ED 07/31 1600 Vancomycin HCl 1,000 MG DAILY 08/01 1000 AC 05 Sodium Chloride 250 ML IV 0958 Results Last 48 Hrs of Labs/Mics: Laboratory Tests 08/01/16 0955: APTT > 120 *H 08/01/16 0250: Anion Gap 9, Estimated GFR 20 L, BUN/Creatinine Ratio 22.5, Magnesium 1.4 L, APTT > 120 *H, CBC w Diff MAN DIFF ORDERED, RBC 2.38 L, MCV 103.1 H, MCH 33.3 H, RDW 18.7 H, MPV 8.7, Gran % 69.9, Lymphocytes % 17.4 L, Monocytes % 10.4 H , Eosinophils % 1.7, Basophils % 0.6, Absolute Granulocytes 4.9, Segmented Neutrophils 71, Absolute Lymphocytes 1.2, Lymphocytes 20 L, Monocytes 5, Absolute Monocytes 0.7 H, Eosinophils 4, Absolute Eosinophils 0.1, Absolute Basophils 0, Platelet Estimate , Hypochromic-Microcytic 1+, Anisocytosis 1+, Macrocytic Cells 1+, PUBS MCHC 32.4 L 07/31/16 1410: APTT > 120 *H 07/31/16 1040: Troponin I 1.74 *H 07/31/16 0725: Anion Gap 11, Estimated GFR 23 L, BUN/Creatinine Ratio 24.8, Lactic Acid 1.4, Phosphorus 4.5, Magnesium 1.4 L, CBC w Diff NO MAN DIFF REQ, RBC 2.69 L, MCV 103.2 H, MCH 33.5 H, RDW 18.5 H, MPV 9.3, Gran % 79.8 H, Lymphocytes % 12.8 L, Monocytes % 6.1, Eosinophils % 0.8, Basophils % 0.5, Absolute Granulocytes 5.3, Absolute Lymphocytes 0.9 L, Absolute Monocytes 0.4, Absolute Eosinophils 0.1, Absolute Basophils 0, PUBS MCHC 32.4 L 07/31/16 0250: Troponin I 2.03 *H, APTT 29 07/30/16 1838: Urine Opiates Screen 239.00, Methadone Screen 80, Barbiturate Screen < 60, Ur Phencyclidine Scrn < 6.00, Amphetamines Screen < 100, U Benzodiazepines Scrn < 85, Urine Cocaine Screen < 50, Urine Cannabis Screen < 5.00 07/30/16 1834: Troponin I 1.23 *H 07/30/16 1834: Lactic Acid 1.5 07/30/16 1623: Fluid WBC 40 H, Fld Mesothelial Cells 54, Fld Total RBCs Counted 29 H 07/30/16 1623: Lymphocytes 7, % Normal PMNs 39, Fluid Total Protein < 2.0, Fluid Albumin < 1.0, Fluid LDH 165, Fluid Amylase < 30, Fluid Lipase < 10 07/30/16 1607: Troponin I Cancelled 07/30/16 1231: Lactic Acid 3.1 H Assessment/Plan Assessment/Plan Assessment: 1. Diabetes mellitus 2. History of CVA 3. Mild coronary artery disease, nonobstructive 4. 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 Atrial fibrillation with rapid ventricular rate, converted to sinus rhythm 6. Positive troponin. Possible non-ST elevation myocardial infarction versus demand ischemia. 7. Positive blood culture Plan: * Continue metoprolol * Continue IV heparin. Will change to Eliquis or other oral anticoagulant prior to discharge. * Antibiotic therapy as per ID * Echocardiogram pending * Possible cardiac catheterization or nuclear stress test prior to discharge for evaluation of positive troponin Continue telemetry? Yes
[2016-08-01 16:44] VITALS: BP 140/80
[2016-08-01 20:54] LABS: PTT 89 SEC (25-37)
[2016-08-01 23:16] LABS: ABSOLUTE BASOPHIL COUNT 0 /CUMM (0.0-0.2); ABSOLUTE EOSINOPHIL COUNT 0.1 /CUMM (0.0-0.7); ABSOLUTE GRANULOCYTE CT 4.2 /CUMM (1.4-6.5); ABSOLUTE LYMPH COUNT 0.8 /CUMM (1.2-3.4); ABSOLUTE MONOCYTE COUNT 0.5 /CUMM (0.10-0.60); BASOPHIL % 0.4 % (0.0-2.0); EOSINOPHIL % 2.3 % (0-5); GRANULOCYTE % 75.1 % (42.2-75.2); MEAN CORPUSCULAR HGB 33.4 PG (27.0-31.0); MEAN CORPUSCULAR HGB CONC 32.5 G/DL (33.0-37.0); MEAN CORPUSCULAR VOLUME 102.8 FL (81.0-99.0); MEAN PLATELET VOLUME 8.8 FL (7.4-10.4); PLATELET COUNT 86 /CUMM (130-400); RED BLOOD CELL CT 2.89 /CUMM (4.20-5.40); WHITE BLOOD CELL COUNT 5.6 /CUMM (4.8-10.8)
[2016-08-01 23:26] LABS: HEMATOCRIT 29.6 % (37-47)
[2016-08-02 00:34] VITALS: BP 190/80
[2016-08-02 04:30] VITALS: BP 164/72
--- NOTE | 2016-08-02 05:09 | NUR ---
LATE ENTRY: AT APPROX 2330 PT WAS NOTICED TO HAVE BP OF 190/80 ON BOTH ARMS; DR JUAN ALBERTO LEON NOTIFIED; 5MG AMLODIPINE PO GIVEN PER ORDER AND BP RECHECKED AT APPROX 0200 WHERE BP WAS STILL NOTED TO BE 190/82; DR JUAN ALBERTO LEON AT BEDSIDE ASSESSING PT; 5MG IV HYDRALAZINE ORDERED AND PUSHED BY DR LEON; BP TAKEN 30 MINS LATER WAS 164/72; DR LEON NOTIFIED
[2016-08-02 07:58] VITALS: BP 158/72
[2016-08-02 08:02] LABS: ABSOLUTE BASOPHIL COUNT 0 /CUMM (0.0-0.2); ABSOLUTE EOSINOPHIL COUNT 0.1 /CUMM (0.0-0.7)
--- NOTE | 2016-08-02 08:11 | PN- Housestaff ---
Subjective Follow-up For: - altered mental state Complaints: no complaints Tele-Events Since Last Visit: nsr, 67-82 bpm. At 356 AM SVT's 130s. Subjective: As per Dr. Galindo, the anticoagulation- Eliquis could be started at a lower dose. Although the pt has abnormal kidney function, the pt was less than 85, and weight was more than 65. Pt comfortable. VItals stable. Review of Systems Constitutional: Reports: see HPI. Objective Last 24 Hrs of Vital Signs/I&O Vital Signs Date Time Temp Pulse Resp B/P B/P Pulse O2 O2 Flow FiO2 Mean Ox Delivery Rate 08/028 97.8 77 20 158/72 96 08/02 0430 76 164/72 08/02 0301 76 190/82 / 0051 69 190/80 08/02 0034 97.6 69 20 190/80 96 05/08 0000 Room Air 08/01 2128 72 136/78 / 1644 98.1 71 18 140/80 97 Room Air 08/01 1011 58 108/60 08/01 0834 97.5 64 18 108/64 96 Intake & Output 08/02 1600 08 0800 05/ 0000 Intake Total 410 Output Total 1 Balance -1 410 Intake, IV 210 Intake, Oral 200 Output, Urine 1 Physical Exam General Appearance: No Acute Distress Other Physical Findings: General Appearance Alert, Oriented X3, Cooperative, Moderate Distress Skin bruises present on the legs intermittently, bruises present on bilateral upper extremity from the wrist up to the shoulder. Skin Temp/Moisture Exam: Cool/Dry HEENT Atraumatic, PERRLA, EOMI Neck Supple, No JVD, No thryomegaly Lymphatic no lad Cardiovascular Normal S1, Normal S2, irregularly irregular Lungs Normal Air Movement, basal crackles present. Abdomen Normal Bowel Sounds, distended, not tensed, fluid present. Neurological Normal Speech, Normal Tone, Sensation Intact Extremities No Clubbing, No Cyanosis, b/l edema present. Vascular Normal Pulses Current Medications: Current Medications Sig/Radha Start time Last Medication Dose Route Stop Time Status Admin Acetaminophen 1,000 MG Q6P PRN 07/30 1615 AC N/A 1 UNIT IV Acetaminophen 650 MG Q4P PRN 07/30 1545 AC 08/01 PO 0358 Amlodipine Besylate 5 MG ONCE ONE 05/08 0045 DC 08/02 PO 08/02 0046 0051 Aspirin 81 MG DAILY 08/01 1000 AC 08/01 PO 1001 Atorvastatin Calcium 50 MG 1300 /06 1300 AC 05 PO 1002 Dextrose/Sodium 1,000 ML Q20H / 0230 DC 05/ Chloride IV 08/01 2229 0240 Diltiazem HCl 125 MG Q10H 07/31 1915 DC 07/31 Sodium Chloride 100 ML IV 1911 Heparin Sodium 25,000 UNIT Q24H 07/30 1200 AC 08/01 (Porcine) IV 1542 Sodium Chloride 500 ML Hydralazine HCl 5 MG ONCE ONE 08/02 0300 DC 08/02 IV 08/02 0301 0301 Insulin Human Regular 1 UNITS .STK-MED ONE 08/01 1758 DC IV 08/01 1759 Insulin Human Regular 0 TIDAC/HS 07/30 2100 AC 08/01 SC 1758 Lactulose 20 GM DAILY 07/30 2045 AC 08/01 PO 1001 Levothyroxine Sodium 0.175 MG DAILY AC 07/30 1610 AC 08/02 PO 0611 Lidocaine 1 PAT DAILY 07/31 1000 AC EXT Magnesium Oxide 400 MG Q2 08/01 1600 DC 05 PO 08/01 1801 1552 Magnesium Oxide 400 MG DAILY 07/30 1611 AC 08/01 PO 1002 Metoprolol Tartrate 25 MG BID 07/31 1510 AC 08/01 PO 2128 Oxycodone/ 1 TAB Q6PRN PRN 08/01 1145 AC 05 Acetaminophen PO 1902 Vancomycin HCl 1,000 MG DAILY 08/01 1000 DC 08/01 Sodium Chloride 250 ML IV 0958 Last 24 Hrs of Lab/Diego Results Last 24 Hrs of Labs/Mics: Laboratory Tests 08/02/16 0722: Sodium Pending, Potassium Pending, Chloride Pending, Carbon Dioxide Pending, Anion Gap Pending, BUN Pending, Creatinine Pending, BUN/Creatinine Ratio Pending , CBC w Diff Pending, WBC Pending, RBC Pending, Hgb Pending, Hct Pending, MCV Pending, MCH Pending, RDW Pending, Plt Count Pending, MPV Pending, PUBS MCHC Pending 08/01/16 2250: Anion Gap 8, Estimated GFR 22 L, BUN/Creatinine Ratio 22.3, CBC w Diff NO MAN DIFF REQ, RBC 2.89 L, MCV 102.8 H, MCH 33.4 H, RDW 18.0 H, MPV 8.8, Gran % 75.1, Lymphocytes % 13.8 L, Monocytes % 8.4, Eosinophils % 2.3, Basophils % 0.4 , Absolute Granulocytes 4.2, Absolute Lymphocytes 0.8 L, Absolute Monocytes 0.5 , Absolute Eosinophils 0.1, Absolute Basophils 0, PUBS MCHC 32.5 L 08/01/16 1945: APTT 89 H 08/01/16 0955: APTT > 120 *H Assessment/Plan Assessment: 70 y/o F with PMHx of 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 #New onset atrial fibrillation: Remains in atrial fibrillation. Heart rate currently controlled with IV diltiazem drip. * Continue telemetry monitoring. * Cardiology following. Appreciate their recs. * IV diltiazem drip was discontinued. Start metoprolol. * ECHO pending. #Elevated troponin: Troponins increased to a maximum of 2.03 but trended down. Could represent NSTEMI or demand ischemia. Patient has a history of mild nonobstructive CAD. * IV heparin--> eliquis(half the dose, as the pt has portal HTN) * Nuclear stress test in the am. * Continue aspirin 81 mg PO daily #Positive blood cultures: BCx growing Gram positive cocci x2. Patient is afebrile and without leukocytosis, likely a contaminant. SBP however peritoneal fluid studies negative for SBP and gram positive cocci are not a commonly encountered pathogen in SBP, urine although urine culture is negative so far and patient is without urinary symptoms and skin contamination especially since patient is a hard stick. * DC vancomycin 1 g IV. Staph coag negative. * Repeat BCx, negative. #Hypomagnesemia: Mg 1.6 today. * Repleted with 400 mg of PO magnesium x2. * Re-check Mg in the AM #HTN: Blood pressures have been running low, 100s/50s this AM. * Continue to hold excvo-ti-qeepsnffn hypertensives clonidine, spironolactone, lisinopril and Lasix in the setting of borderline hypotension. Morning dose of metoprolol was also held for the same reason. Diet: Clear liquid diet DVT PPx: IV heparin CODE: DNR/DNI Problem List: 1. Hypomagnesemia 2. Elevated troponin 3. CAD (coronary artery disease) 4. Liver cirrhosis secondary to BYERS 5. Positive blood cultures 6. New onset a-fib Pain Ratin Pain Location: none Pain Goal: Pain 4 or less Pain Plan: tylenol Tomorrow's Labs & Rationales: cbc bep mg
[2016-08-02 08:20] LABS: ABSOLUTE GRANULOCYTE CT 4.5 /CUMM (1.4-6.5); ABSOLUTE LYMPH COUNT 0.7 /CUMM (1.2-3.4); ABSOLUTE MONOCYTE COUNT 0.4 /CUMM (0.10-0.60); BASOPHIL % 0.5 % (0.0-2.0); EOSINOPHIL % 2.2 % (0-5); GRANULOCYTE % 77.3 % (42.2-75.2); HEMATOCRIT 30.8 % (37-47); MEAN CORPUSCULAR HGB 33.5 PG (27.0-31.0); MEAN CORPUSCULAR HGB CONC 32.7 G/DL (33.0-37.0); MEAN CORPUSCULAR VOLUME 102.5 FL (81.0-99.0); RBC DISTRIBUTION WIDTH 17.8 % (11.5-14.5); WHITE BLOOD CELL COUNT 5.8 /CUMM (4.8-10.8)
[2016-08-02 09:04] LABS: PLATELET COUNT 71 /CUMM (130-400)
--- NOTE | 2016-08-02 09:18 | ECHOCARDIOGRAM REPORT ---
MALIK LOVE Age: 70 : 1945 Gender: F Exam Date: 08/01/2016 09:06 Exam Location: [place] Ht (in): 63 Wt (lb): 185 BSA: 1.96 BP: 110 / 50 Ordering Physician: HIEN ALMENDAREZ MD Referring Physician: Kendall Galindo MD Chief, SoC Technologist: Kristy Evans [facility] Room Number: 179-01 Indications: AFIB/FLUTTER Rhythm: Sinus Technical Quality: Good FINDINGS Left Ventricle Normal size left ventricle. Moderate concentric left ventricular hypertrophy. Normal left ventricular ejection fraction visually estimated at >65 %. No obvious regional wall motion abnormalities. "pseudonormal" filling pattern of the left ventricle for age (stage 2 diastolic dysfunction). Right Ventricle The right ventricle is normal in size and function. Right Atrium The right atrium is normal in size. Left Atrium Mild left atrial dilatation. Mitral Valve Mild to moderae thickening/calcification of the mitral valve leaflets. Moderate mitral annular calcification. Csbm-sa-yekkfgms mitral regurgitation. Aortic Valve Focal thickening of the aortic valve cusps. No aortic stenosis. No aortic regurgitation. Tricuspid Valve Tricuspid valve is normal in structure and function. Mild tricuspid regurgitation. Right ventricular systolic pressure estimated to be elevated at 50-55 mmHg. Pulmonic Valve Structurally normal pulmonic valve. There is mild pulmonic regurgitation. Pericardium Normal pericardium without effusion. No pleural effusion. Great Vessels Normal aortic root dimension. Bodrderline dilated ascending aorta. The aortic arch and great vessels are well seen and are normal. CONCLUSIONS Moderate concentric left ventricular hypertrophy. Normal left ventricular ejection fraction visually estimated at >65 No obvious regional wall motion abnormalities. "pseudonormal" filling pattern of the left ventricle for age (stage 2 diastolic dysfunction). Mild left atrial dilatation. Mild to moderae thickening/calcification of the mitral valve leaflets. Moderate mitral annular calcification. Imek-ia-tjukgdil mitral regurgitation. Focal thickening of the aortic valve cusps. No aortic stenosis. Right ventricular systolic pressure estimated to be elevated at 50- 55 mmHg. Bodrderline dilated ascending aorta. Kendall Galindo M.D. (Electronically Signed) Final Date: 02 Aug 2016 09:18 MEASUREMENTS (Male / Female) Normal Values 2D ECHO LV Diastolic Diameter PLAX 4.5 cm 4.2 - 5.9 / 3.9 - 5.3 cm LV Systolic Diameter PLAX 2.8 cm 2.1 - 4.0 cm LV Fractional Shortening PLAX 37.8 % 25 - 46 % LV Ejection Fraction 2D Teich 68.0 % IVS Diastolic Thickness 1.4 cm LVPW Diastolic Thickness 1.4 cm LV Relative Wall Thickness 0.6 RV Internal Dim ED PLAX 2.8 cm 1.9 - 3.8 cm LVOT Diameter 2.0 cm Aortic Root Diameter 3.3 cm LA Systolic Diameter LX 4.2 cm 3.0 - 4.0 / 2.7 - 3.8 cm LA Volume 69.0 cm 18 - 58 / 22 - 52 cm Ascending Aorta Diameter 3.5 cm DOPPLER AV Peak Velocity 113.0 cm/s AV Peak Gradient 5.1 mmHg AV Mean Velocity 85.4 cm/s AV Mean Gradient 3.0 mmHg AV Velocity Time Integral 26.1 cm LVOT Peak Velocity 91.1 cm/s LVOT Peak Gradient 3.3 mmHg LVOT Mean Velocity 67.3 cm/s LVOT Mean Gradient 2.0 mmHg LVOT Velocity Time Integral 21.3 cm LVOT Stroke Volume 66.9 cm AV Area Cont Eq vti 2.6 cm AV Area Cont Eq pk 2.5 cm MV Peak Velocity 157.0 cm/s MV Peak Gradient 9.9 mmHg MV Mean Velocity 86.1 cm/s MV Mean Gradient 3.0 mmHg Mitral E Point Velocity 141.0 cm/s Mitral A Point Velocity 88.3 cm/s Mitral E to A Ratio 1.6 MV PHT Velocity 159.0 cm/s MV Deceleration [place] 764.0 cm/s MV Pressure Half Time 62.4 ms MV Area PHT 3.5 cm MV Deceleration Time 182.0 ms TR Peak Velocity 341.0 cm/s TR Peak Gradient 46.5 mmHg Right Atrial Pressure 5.0 mmHg Pulmonary Artery Systolic Pressu 51.5 mmHg Right Ventricular Systolic Press 51.5 mmHg PV Peak Velocity 101.0 cm/s PV Peak Gradient 4.1 mmHg PV Mean Velocity 63.1 cm/s PV Mean Gradient 2.0 mmHg PV Velocity Time Integral 27.7 cm LV E' Lateral Velocity 10.9 cm/s Mitral E to LV E' Lateral Ratio 12.9 LV E' Septal Velocity 4.0 cm/s Mitral E to LV E' Septal Ratio 35.4
--- NOTE | 2016-08-02 09:41 | PN- Cardiology ---
Subjective Subjective: The patient is not having any major complaints. She has some back pain. She remains in sinus rhythm with some PVCs and PACs on the monitor. She is still on IV heparin. Follow-up Blood cultures remain negative and original blood cultures were thought to be contaminant by ID. From a cardiac standpoint she is on metoprolol and has been receiving doses of hydralazine and amlodipine for high blood pressure. IV diltiazem has been discontinued. Peak troponin was 2.03. Her echocardiogram shows good left ventricular systolic function and moderate pulmonary hypertension. Objective Vital Signs and I&Os Vital Signs Date Time Temp Pulse Resp B/P B/P Pulse O2 O2 Flow FiO2 Mean Ox Delivery Rate 08/02 0758 97.8 77 20 158/72 96 08/02 0430 76 164/72 08/02 0301 76 190/82 08/02 0051 69 190/80 / 0034 97.6 69 20 190/80 96 /08 0000 Room Air 08/01 2128 72 136/78 08/01 1644 98.1 71 18 140/80 97 Room Air 08/01 1011 58 108/60 Intake & Output 08/02 1600 08/02 0800 05/ 0000 / 1600 08/01 0800 05/ 0000 Intake Total 410 750 300 800 Output Total 1 400 250 150 Balance -1 410 350 50 650 Intake, IV 210 350 200 300 Intake, Oral 200 400 100 500 Number 1 Bowel Movements Output, Urine 1 400 250 150 Physical Exam: She is in no distress HEENT exam is normal Chest is clear Heart reveals regular rhythm with some extrasystoles and no murmurs Extremities 1+ edema Current Medications: Current Medications Sig/Radha Start time Last Medication Dose Route Stop Time Status Admin Acetaminophen 1,000 MG Q6P PRN 07/30 1615 AC N/A 1 UNIT IV Acetaminophen 650 MG Q4P PRN 07/30 1545 AC / PO 0358 Amlodipine Besylate 5 MG ONCE ONE 08/02 0045 DC 08/02 PO 08/02 0046 0051 Aspirin 81 MG DAILY 08/01 1000 AC 05/ PO 1001 Atorvastatin Calcium 50 MG 1300 / 1300 AC 08/01 PO 1002 Dextrose/Sodium 1,000 ML Q20H 08/01 0230 DC 08/01 Chloride IV 08/01 2229 0240 Diltiazem HCl 125 MG Q10H 07/31 1915 DC 07/31 Sodium Chloride 100 ML IV 1911 Heparin Sodium 25,000 UNIT Q24H / 1200 AC 08/01 (Porcine) IV 1542 Sodium Chloride 500 ML Hydralazine HCl 5 MG ONCE ONE 08/02 0300 DC 08/02 IV 08/02 0301 0301 Insulin Human Regular 1 UNITS .STK-MED ONE 08/01 1758 DC IV 08/01 1759 Insulin Human Regular 0 TIDAC/HS 07/30 2100 AC 08/01 SC 1758 Lactulose 20 GM DAILY 07/30 2045 AC 08/01 PO 1001 Levothyroxine Sodium 0.175 MG DAILY AC 07/30 1610 AC 08/02 PO 0611 Lidocaine 1 PAT DAILY 07/31 1000 AC EXT Magnesium Oxide 400 MG Q2 08/01 1600 DC 08/01 PO 08/01 1801 1552 Magnesium Oxide 400 MG DAILY 07/30 1611 AC 08/01 PO 1002 Metoprolol Tartrate 25 MG BID 07/31 1510 AC 08/01 PO 2128 Oxycodone/ 1 TAB Q6PRN PRN 08/01 1145 AC 08/01 Acetaminophen PO 1902 Vancomycin HCl 1,000 MG DAILY 08/01 1000 DC 08/01 Sodium Chloride 250 ML IV 0958 Results Last 48 Hrs of Labs/Mics: Laboratory Tests 08/02/16 0722: Anion Gap 8, Estimated GFR 25 L, BUN/Creatinine Ratio 24.5, CBC w Diff NO MAN DIFF REQ, RBC 3.00 L, MCV 102.5 H, MCH 33.5 H, RDW 17.8 H, MPV 9.0, Gran % 77.3 H, Lymphocytes % 12.6 L, Monocytes % 7.4, Eosinophils % 2.2, Basophils % 0.5, Absolute Granulocytes 4.5, Absolute Lymphocytes 0.7 L, Absolute Monocytes 0.4, Absolute Eosinophils 0.1, Absolute Basophils 0, PUBS MCHC 32.7 L 08/01/16 2250: Anion Gap 8, Estimated GFR 22 L, BUN/Creatinine Ratio 22.3, CBC w Diff NO MAN DIFF REQ, RBC 2.89 L, MCV 102.8 H, MCH 33.4 H, RDW 18.0 H, MPV 8.8, Gran % 75.1, Lymphocytes % 13.8 L, Monocytes % 8.4, Eosinophils % 2.3, Basophils % 0.4 , Absolute Granulocytes 4.2, Absolute Lymphocytes 0.8 L, Absolute Monocytes 0.5 , Absolute Eosinophils 0.1, Absolute Basophils 0, PUBS MCHC 32.5 L 08/01/16 1945: APTT 89 H 08/01/16 0955: APTT > 120 *H 08/01/16 0250: Anion Gap 9, Estimated GFR 20 L, BUN/Creatinine Ratio 22.5, Magnesium 1.4 L, APTT > 120 *H, CBC w Diff MAN DIFF ORDERED, RBC 2.38 L, MCV 103.1 H, MCH 33.3 H, RDW 18.7 H, MPV 8.7, Gran % 69.9, Lymphocytes % 17.4 L, Monocytes % 10.4 H , Eosinophils % 1.7, Basophils % 0.6, Absolute Granulocytes 4.9, Segmented Neutrophils 71, Absolute Lymphocytes 1.2, Lymphocytes 20 L, Monocytes 5, Absolute Monocytes 0.7 H, Eosinophils 4, Absolute Eosinophils 0.1, Absolute Basophils 0, Platelet Estimate , Hypochromic-Microcytic 1+, Anisocytosis 1+, Macrocytic Cells 1+, PUBS MCHC 32.4 L 07/31/16 1410: APTT > 120 *H 07/31/16 1040: Troponin I 1.74 *H Recent Imaging Studies: CONCLUSIONS Moderate concentric left ventricular hypertrophy. Normal left ventricular ejection fraction visually estimated at >65 No obvious regional wall motion abnormalities. "pseudonormal" filling pattern of the left ventricle for age (stage 2 diastolic dysfunction). Mild left atrial dilatation. Mild to moderae thickening/calcification of the mitral valve leaflets. Moderate mitral annular calcification. [id number] mitral regurgitation. Focal thickening of the aortic valve cusps. No aortic stenosis. Right ventricular systolic pressure estimated to be elevated at 50- 55 mmHg. Bodrderline dilated ascending aorta. Kendall Galindo M.D. (Electronically Signed) Final Date: 02 Aug 2016 09:18 Assessment/Plan Assessment/Plan Her rhythm has improved. Her blood pressure remains elevated. I recommend starting amlodipine 5 mg daily and adding hydralazine if her blood pressure remains elevated. I would continue Lopressor for now. Heparin can be discontinued and she can be placed on Eliquis because of the prolonged episode of atrial fibrillation. I recommend A Persantine stress test prior to discharge. We can try and get this done tomorrow if possible. Continue telemetry? Yes
--- NOTE | 2016-08-02 10:13 | PN- Infect Dx ---
Subjective Subjective: Afebrile. She reports confusion regarding where she is, but is oriented to person and time and is now aware that she is in [facility]. She complains of back pain and abdominal pain. Objective Last 24 Hrs of Vital Signs/I&O Vital Signs Date Time Temp Pulse Resp B/P B/P Pulse O2 O2 Flow FiO2 Mean Ox Delivery Rate 08/02 0758 97.8 77 20 158/72 96 08/02 0430 76 164/72 08/02 0301 76 190/82 08/02 0051 69 190/80 / 0034 97.6 69 20 190/80 96 08/02 0000 Room Air 08/01 2128 72 136/78 08/01 1644 98.1 71 18 140/80 97 Room Air 08/01 1011 58 108/60 Intake & Output 08/02 1600 08/02 0800 08/02 0000 Intake Total 410 Output Total 1 Balance -1 410 Intake, IV 210 Intake, Oral 200 Output, Urine 1 Physical Exam Other Physical Findings: She appears comfortable in no acute distress Lungs are clear Heart regular rhythm with no murmur Abdomen is distended, tender on palpation of the upper abdomen, with no guarding or rebound, positive bowel sounds Extremities no cyanosis, clubbing or edema Results Last 24 Hours of Lab Results: Laboratory Tests 08/02 08/01 0722 2250 Chemistry Sodium (137 - 145 mmol/L) 138 137 Potassium (3.5 - 5.1 mmol/L) 4.3 4.3 Chloride (98 - 107 mmol/L) 111 H 110 H Carbon Dioxide (22 - 30 mmol/L) 18 L 19 L Anion Gap (5 - 16) 8 8 BUN (7 - 17 mg/dL) 49 H 49 H Creatinine (0.5 - 1.0 mg/dL) 2.0 H 2.2 H Estimated GFR (>60 ml/min) 25 L 22 L BUN/Creatinine Ratio (7 - 25 %) 24.5 22.3 Magnesium (1.6 - 2.3 mg/dL) Pending Hematology CBC w Diff NO MAN DIFF REQ NO MAN DIFF REQ WBC (4.8 - 10.8 /CUMM) 5.8 5.6 RBC (4.20 - 5.40 /CUMM) 3.00 L 2.89 L Hgb (12.0 - 16.0 G/DL) 10.1 L 9.6 L Hct (37 - 47 %) 30.8 L 29.6 L MCV (81.0 - 99.0 FL) 102.5 H 102.8 H MCH (27.0 - 31.0 PG) 33.5 H 33.4 H RDW (11.5 - 14.5 %) 17.8 H 18.0 H Plt Count (130 - 400 /CUMM) 71 L 86 L MPV (7.4 - 10.4 FL) 9.0 8.8 Gran % (42.2 - 75.2 %) 77.3 H 75.1 Lymphocytes % (20.5 - 51.1 %) 12.6 L 13.8 L Monocytes % (1.7 - 9.3 %) 7.4 8.4 Eosinophils % (0 - 5 %) 2.2 2.3 Basophils % (0.0 - 2.0 %) 0.5 0.4 Absolute Granulocytes (1.4 - 6.5 /CUMM) 4.5 4.2 Absolute Lymphocytes (1.2 - 3.4 /CUMM) 0.7 L 0.8 L Absolute Monocytes (0.10 - 0.60 /CUMM) 0.4 0.5 Absolute Eosinophils (0.0 - 0.7 /CUMM) 0.1 0.1 Absolute Basophils (0.0 - 0.2 /CUMM) 0 0 PUBS MCHC (33.0 - 37.0 G/DL) 32.7 L 32.5 L / 1945 Coagulation APTT (25 - 37 SEC) 89 H Last 24 Hours of Diego Results: Blood cultures 2 July 31 remain negative Ascitic fluid culture July 30 negative Assessment/Plan Impression: Stable with temperatures and white blood cell count remaining normal on Vancomycin for coag-negative Staph isolated from 2 sets of blood cultures, which most likely represent contaminants as she has been afebrile with a normal white blood cell count and no obvious focus of infection and repeat blood cultures, sent prior to initiation of antibiotics, remain negative. Her back pain is chronic. Her abdominal discomfort may be secondary to her ascites/anasarca. Suggestion: 1. Discontinue Vancomycin and follow off antibiotics
[2016-08-02 16:00] VITALS: BP 130/60
--- NOTE | 2016-08-02 17:31 | PN- Att Addend ---
Attending MD Review Statement Attending Statement Attending MD Statement: examined this patient, discuss w/resident/PA/CRIMINAL JUSTICE PROFESSOR, agreed w/resident/PA/CRIMINAL JUSTICE PROFESSOR, discussed with family, reviewed EMR data (avail), discussed w/ nursing, discussed w/case mgmt Attending Assessment/Plan: Laboratory Tests 08/02/16 0722: Anion Gap 8, Estimated GFR 25 L, BUN/Creatinine Ratio 24.5, Magnesium 1.6, CBC w Diff NO MAN DIFF REQ, RBC 3.00 L, MCV 102.5 H, MCH 33.5 H, RDW 17.8 H, MPV 9.0, Gran % 77.3 H, Lymphocytes % 12.6 L, Monocytes % 7.4, Eosinophils % 2.2, Basophils % 0.5, Absolute Granulocytes 4.5, Absolute Lymphocytes 0.7 L, Absolute Monocytes 0.4, Absolute Eosinophils 0.1, Absolute Basophils 0, PUBS MCHC 32.7 L 08/01/16 2250: Anion Gap 8, Estimated GFR 22 L, BUN/Creatinine Ratio 22.3, CBC w Diff NO MAN DIFF REQ, RBC 2.89 L, MCV 102.8 H, MCH 33.4 H, RDW 18.0 H, MPV 8.8, Gran % 75.1, Lymphocytes % 13.8 L, Monocytes % 8.4, Eosinophils % 2.3, Basophils % 0.4 , Absolute Granulocytes 4.2, Absolute Lymphocytes 0.8 L, Absolute Monocytes 0.5 , Absolute Eosinophils 0.1, Absolute Basophils 0, PUBS MCHC 32.5 L 08/01/16 1945: APTT 89 H Vital Signs Date Time Temp Pulse Resp B/P B/P Pulse O2 O2 Flow FiO2 Mean Ox Delivery Rate 08/02 1600 98.5 74 20 130/60 96 Room Air 08/02 1527 Room Air 08/02 1038 140/60 08/02 0758 97.8 77 20 158/72 96 08/02 0430 76 164/72 08/02 0301 76 190/82 08/02 0051 69 190/80 08/02 0034 97.6 69 20 190/80 96 08/02 0000 Room Air 08/01 2128 72 136/78 Patient seen and examined at bedside. Discussed with patient as well as patient 's family member at bedside the care plan. Patient will be started on Eliquis for new onset atrial fibrillation: We will stop the IV heparin drip. Hematology will be consulted given the patient's low platelet count which could have been secondary to platelet clumping. We will follow up on the recommendations. Blood cultures have grown coagulase-negative staph which likely is a contaminant. Patient had paracentesis with 4 L of ascitic fluid removed but the cultures have been negative so far. Discussed with patient disposition and patient is interested in going to rehabilitation at [facility]. Discussed with counter caser the patient's preferences and we're awaiting physical therapy evaluation.
[2016-08-02 22:00] VITALS: BP 160/70
[2016-08-03 08:00] VITALS: BP 148/72
[2016-08-03 08:23] LABS: ABSOLUTE BASOPHIL COUNT 0 /CUMM (0.0-0.2); ABSOLUTE EOSINOPHIL COUNT 0.1 /CUMM (0.0-0.7); ABSOLUTE GRANULOCYTE CT 4.4 /CUMM (1.4-6.5); ABSOLUTE LYMPH COUNT 0.7 /CUMM (1.2-3.4); ABSOLUTE MONOCYTE COUNT 0.4 /CUMM (0.10-0.60); BASOPHIL % 0.4 % (0.0-2.0); EOSINOPHIL % 1.8 % (0-5); GRANULOCYTE % 78.9 % (42.2-75.2); HEMATOCRIT 29.6 % (37-47); MEAN CORPUSCULAR HGB 33.6 PG (27.0-31.0); MEAN CORPUSCULAR HGB CONC 32.9 G/DL (33.0-37.0); MEAN CORPUSCULAR VOLUME 101.9 FL (81.0-99.0); RBC DISTRIBUTION WIDTH 18.3 % (11.5-14.5); RED BLOOD CELL CT 2.91 /CUMM (4.20-5.40); WHITE BLOOD CELL COUNT 5.6 /CUMM (4.8-10.8)
--- NOTE | 2016-08-03 09:56 | PN- Housestaff ---
JESUSITA HERMAN,PAUL 08/03/16 0956: Subjective Follow-up For: AMS Subjective: Seen and examined at bedside. Does not endorse any chest pain or palpitations. overnight BP is noted to be elevated. Review of Systems Constitutional: Reports: no symptoms. Objective Last 24 Hrs of Vital Signs/I&O Vital Signs Date Time Temp Pulse Resp B/P B/P Pulse O2 O2 Flow FiO2 Mean Ox Delivery Rate 08/03 1549 97.7 96 20 160/82 93 Room Air 08/03 1439 98.2 88 20 170/80 08/03 0829 88 180/80 08/03 0800 98.2 81 20 148/72 95 Room Air 08/02 2200 98.0 88 20 160/70 95 Room Air Intake & Output 08/03 1600 08/03 0800 08/03 0000 Intake Total 120 100 Output Total 350 Balance 120 -250 Intake, Oral 120 100 Output, Urine 350 Physical Exam General Appearance: Alert, Oriented X3, Cooperative Other Physical Findings: General Appearance Alert, Oriented X3, Cooperative, Moderate Distress Skin bruises present on the legs intermittently, bruises present on bilateral upper extremity from the wrist up to the shoulder. Skin Temp/Moisture Exam: Cool/Dry HEENT Atraumatic, PERRLA, EOMI Neck Supple, No JVD, No thryomegaly Lymphatic no lad Cardiovascular Normal S1, Normal S2, irregularly irregular Lungs Normal Air Movement, basal crackles present. Abdomen Normal Bowel Sounds, distended, not tensed, fluid present. Neurological Normal Speech, Normal Tone, Sensation Intact Extremities No Clubbing, No Cyanosis, b/l edema present. Vascular Normal Pulses Current Medications: Current Medications Sig/Radha Start time Last Medication Dose Route Stop Time Status Admin Acetaminophen 650 MG .STK-MED ONE 08/02 2152 DC PO 08/02 215 Acetaminophen 1,000 MG Q6P PRN 07/30 1615 AC N/A 1 UNIT IV Acetaminophen 650 MG Q4P PRN 07/30 1545 AC 08/03 PO 1926 Aminophylline 250 MG .STK-MED ONE 08/03 1350 DC IV 08/03 1351 Amlodipine Besylate 10 MG DAILY 08/04 1000 AC PO Amlodipine Besylate 5 MG ONCE ONE 08/03 2100 UNVr PO 08/03 2101 Amlodipine Besylate 5 MG DAILY 08/02 1030 DC 08/03 PO 0829 Apixaban 2.5 MG BID 08/02 1016 AC 08/03 PO 0830 Aspirin 81 MG DAILY 08/01 1000 AC 08/03 PO 0829 Atorvastatin Calcium 50 MG 1300 07/31 1300 AC 08/03 PO 1436 Dipyridamole 50 MG ONE ONE 08/03 1100 DC Dextrose/Water 30 ML IV 08/03 1101 Insulin Aspart 0 TIDAC 08/02 1200 AC SC Lactulose 20 GM DAILY 07/30 2045 AC 08/03 PO 1440 Levothyroxine Sodium 0.175 MG DAILY AC 07/30 1610 AC 08/03 PO 0549 Lidocaine 1 PAT DAILY 07/31 1000 AC 08/03 EXT 0829 Magnesium Oxide 400 MG ONE ONE 08/03 2100 UNVr PO 08/03 2101 Magnesium Oxide 400 MG DAILY 07/30 1611 AC 08/03 PO 0829 Metoprolol Tartrate 25 MG BID 07/31 1510 AC 08/03 PO 1439 Patient Medication 1 ED ONE ONE 08/03 1400 DC 08/03 Teaching ED 08/03 1401 1443 Last 24 Hrs of Lab/Diego Results Last 24 Hrs of Labs/Mics: Laboratory Tests 08/03/16 0720: Anion Gap 8, Estimated GFR 26 L, BUN/Creatinine Ratio 25.3 H, CBC w Diff NO MAN DIFF REQ, RBC 2.91 L, MCV 101.9 H, MCH 33.6 H, RDW 18.3 H, Gran % 78.9 H, Lymphocytes % 12.3 L, Monocytes % 6.6, Eosinophils % 1.8, Basophils % 0.4, Absolute Granulocytes 4.4, Absolute Lymphocytes 0.7 L, Absolute Monocytes 0.4, Absolute Eosinophils 0.1, Absolute Basophils 0, PUBS MCHC 32.9 L Assessment/Plan Assessment: This is a 70 y/o F with PMHx of 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 #New onset atrial fibrillation: Rate controlled with metoprolol 25 mg po bid . * Continue telemetry monitoring. * Continue ELiquis 2.5 mg po bid * Cardiology following. Appreciate their recs. #Elevated troponin: Troponins increased to a maximum of 2.03 but trended down. Could represent NSTEMI or demand ischemia. Patient has a history of mild nonobstructive CAD. * s/p IV heparin,currently on eliquis * Nuclear stress test today in am. * Continue aspirin 81 mg PO daily #Positive blood cultures: BCx growing Gram positive cocci x2. However,next set was negative. Patient is afebrile and without leukocytosis, likely a contaminant. Regarding ascites from BYERS/cirrhoisis, peritoneal fluid studies negative for SBP and gram positive cocci are not a commonly encountered pathogen in SBP, urine although urine culture is negative so far and patient is without urinary symptoms and skin contamination especially since patient is a hard stick. * Continue to monitor without ABX. #Hypomagnesemia: Mg 1.6 today. * Repleted with 400 mg of PO magnesium x2. * Re-check Mg in the AM #HTN: Will increase amlodipine to 10 mg po qd Problem List: 1. Elevated troponin 2. Ascites Pain Ratin Pain Location: none Pain Goal: Remain pain free Pain Plan: per pain pathway Tomorrow's Labs & Rationales: BEP AND MAG JAS HERMAN,[facility] 08/03/16 1348: Attending MD Review Statement Attending Statement Attending MD Statement: examined this patient, discuss w/resident/PA/ELEVATING GRADER OPERATOR, agreed w/resident/PA/ELEVATING GRADER OPERATOR, reviewed EMR data (avail), discussed with nursing, discussed with case mgmt, reviewed images, amended to note Attending Assessment/Plan: Patient seen and examined, feeling slightly better than before but still not back to her baseline yet. Denies any abdominal pain. Status post large volume paracentesis on Tuesday but no evidence of subacute bacterial peritonitis. Vital Signs Date Time Temp Pulse Resp B/P B/P Pulse O2 O2 Flow FiO2 Mean Ox Delivery Rate 08/03 0829 88 180/80 08/03 0800 98.2 81 20 148/72 95 Room Air 08/02 2200 98.0 88 20 160/70 95 Room Air 08/02 1600 98.5 74 20 130/60 96 Room Air 08/02 1527 Room Air on exam; aox3, nad. cv; s1,s2, rrr resp; clear abd; firm, nt, bs+ ext; 2+ edema. skin; + bruising. Laboratory Tests 08/04 719 Chemistry Sodium (137 - 145 mmol/L) 139 Potassium (3.5 - 5.1 mmol/L) 4.6 Chloride (98 - 107 mmol/L) 111 H Carbon Dioxide (22 - 30 mmol/L) 21 L Anion Gap (5 - 16) 8 BUN (7 - 17 mg/dL) 48 H Creatinine (0.5 - 1.0 mg/dL) 1.9 H Estimated GFR (>60 ml/min) 26 L BUN/Creatinine Ratio (7 - 25 %) 25.3 H Hematology CBC w Diff NO MAN DIFF REQ WBC (4.8 - 10.8 /CUMM) 5.6 RBC (4.20 - 5.40 /CUMM) 2.91 L Hgb (12.0 - 16.0 G/DL) 9.8 L Hct (37 - 47 %) 29.6 L MCV (81.0 - 99.0 FL) 101.9 H MCH (27.0 - 31.0 PG) 33.6 H RDW (11.5 - 14.5 %) 18.3 H Plt Count (/CUMM) Gran % (42.2 - 75.2 %) 78.9 H Lymphocytes % (20.5 - 51.1 %) 12.3 L Monocytes % (1.7 - 9.3 %) 6.6 Eosinophils % (0 - 5 %) 1.8 Basophils % (0.0 - 2.0 %) 0.4 Absolute Granulocytes (1.4 - 6.5 /CUMM) 4.4 Absolute Lymphocytes (1.2 - 3.4 /CUMM) 0.7 L Absolute Monocytes (0.10 - 0.60 /CUMM) 0.4 Absolute Eosinophils (0.0 - 0.7 /CUMM) 0.1 Absolute Basophils (0.0 - 0.2 /CUMM) 0 PUBS MCHC (33.0 - 37.0 G/DL) 32.9 L A/P; 70 y/o F with pmh sig for insulin dependent diabetes mellitus complicated with neuropathy, prior CVA in 1978 without any residual effects, diastolic CHF,? cirrhosis 2/2 to byers, hypertension, hyperlipidemia, chronic kidney disease, hypothyroidism, depression, obesity, thrombocytopenia, macrocytic anemia, admitted with found down, New onset afib. high ammonia, high lactate which has resolved. Patient also has high troponin and is scheduled to go to stress test. SBP was ruled out after the paracentesis and ascitic fluid results came back. Patient has also developed from cytopenia as well as clamping of platelets. Seen by hematology and they are recommending adding citrate to the CBC while. Follow-up on the stress test. Patient has been started on lactulose. She seems to be more awake now. DVT prophylaxis: Eliquis. PT recommends Rehab. Disposition plan will be decided after stress test results. If normal then likely can be discharged tomorrow if bed available. PT recommends Rehab. Disposition plan will be decided after stress test results. If normal then likely can be discharged tomorrow if bed available.
--- NOTE | 2016-08-03 10:14 | PN- Cardiology ---
Subjective Subjective: The patient is feeling well. She is not having any chest pain or shortness of breath at this time. She remains in sinus rhythm. She is on metoprolol and low -dose Eliquis. She is to have her stress test today. Objective Vital Signs and I&Os Vital Signs Date Time Temp Pulse Resp B/P B/P Pulse O2 O2 Flow FiO2 Mean Ox Delivery Rate 08/03 828 88 180/80 08/04 799 98.2 81 20 148/72 95 Room Air 08/02 2200 98.0 88 20 160/70 95 Room Air 08/02 1600 98.5 74 20 130/60 96 Room Air 08/02 1527 Room Air 08/02 1038 140/60 Intake & Output 08/03 0000 08/02 1600 08/02 0000 Intake Total 100 410 Output Total 350 1 Balance -250 -1 410 Intake, IV 210 Intake, Oral 100 200 Output, Urine 350 1 Patient 185 lb Weight Physical Exam: She is in no distress Chest is clear Heart reveals slightly irregular rhythm and no murmurs Current Medications: Current Medications Sig/Radha Start time Last Medication Dose Route Stop Time Status Admin Acetaminophen 650 MG .STK-MED ONE 08/02 2152 DC PO 08/02 2153 Acetaminophen 1,000 MG Q6P PRN 07/30 161 AC N/A 1 UNIT IV Acetaminophen 650 MG Q4P PRN 07/30 1545 AC 08/02 PO 2154 Amlodipine Besylate 5 MG DAILY 08/02 1030 AC 08/03 PO 0829 Apixaban 2.5 MG BID 08/02 1016 AC 08/03 PO 0830 Aspirin 81 MG DAILY 08/01 1000 AC 08/03 PO 0829 Atorvastatin Calcium 50 MG 1300 07/31 1300 AC 08/02 PO 1038 Dipyridamole 50 MG ONE ONE 08/03 1100 AC Dextrose/Water 30 ML IV 08/03 1101 Heparin Sodium 25,000 UNIT Q24H 07/30 1200 DC 08/01 (Porcine) IV 1542 Sodium Chloride 500 ML Insulin Aspart 0 TIDAC 08/02 1200 AC SC Insulin Human Regular 0 TIDAC/HS 07/30 2100 DC 08/02 SC 1039 Lactulose 20 GM DAILY 07/30 2045 AC 08/02 PO 1037 Levothyroxine Sodium 0.175 MG DAILY AC 07/30 1610 AC 08/03 PO 0549 Lidocaine 1 PAT DAILY 07/31 1000 AC 08/03 EXT 0829 Magnesium Oxide 400 MG ONE ONE 08/02 1330 DC 08/02 PO 08/02 1331 1336 Magnesium Oxide 400 MG DAILY 07/30 1611 AC 08/03 PO 0829 Metoprolol Tartrate 25 MG BID 07/31 1510 AC 08/02 PO 2149 Oxycodone/ 1 TAB Q6PRN PRN 08/01 1145 DC 08/02 Acetaminophen PO 1338 Patient Medication 1 UNIT ONE NR 08/02 1030 IN Teaching ED 08/02 1630 Results Last 48 Hrs of Labs/Mics: Laboratory Tests 08/03/16 0720: Anion Gap 8, Estimated GFR 26 L, BUN/Creatinine Ratio 25.3 H, CBC w Diff NO MAN DIFF REQ, RBC 2.91 L, MCV 101.9 H, MCH 33.6 H, RDW 18.3 H, Gran % 78.9 H, Lymphocytes % 12.3 L, Monocytes % 6.6, Eosinophils % 1.8, Basophils % 0.4, Absolute Granulocytes 4.4, Absolute Lymphocytes 0.7 L, Absolute Monocytes 0.4, Absolute Eosinophils 0.1, Absolute Basophils 0, PUBS MCHC 32.9 L 08/02/16 0900: APTT Cancelled 08/02/16 0722: Anion Gap 8, Estimated GFR 25 L, BUN/Creatinine Ratio 24.5, Magnesium 1.6, CBC w Diff NO MAN DIFF REQ, RBC 3.00 L, MCV 102.5 H, MCH 33.5 H, RDW 17.8 H, MPV 9.0, Gran % 77.3 H, Lymphocytes % 12.6 L, Monocytes % 7.4, Eosinophils % 2.2, Basophils % 0.5, Absolute Granulocytes 4.5, Absolute Lymphocytes 0.7 L, Absolute Monocytes 0.4, Absolute Eosinophils 0.1, Absolute Basophils 0, PUBS MCHC 32.7 L 08/01/16 2250: Anion Gap 8, Estimated GFR 22 L, BUN/Creatinine Ratio 22.3, CBC w Diff NO MAN DIFF REQ, RBC 2.89 L, MCV 102.8 H, MCH 33.4 H, RDW 18.0 H, MPV 8.8, Gran % 75.1, Lymphocytes % 13.8 L, Monocytes % 8.4, Eosinophils % 2.3, Basophils % 0.4 , Absolute Granulocytes 4.2, Absolute Lymphocytes 0.8 L, Absolute Monocytes 0.5 , Absolute Eosinophils 0.1, Absolute Basophils 0, PUBS MCHC 32.5 L 08/01/161944: APTT 89 H Assessment/Plan Assessment/Plan Her rhythm has improved. Her blood pressure remains slightly elevated but is improved. Her renal function is slightly improved. I would recommend increasing the amlodipine to 10 mg daily. We will review her stress test when it is completed. If it is negative then she probably can be discharged tomorrow. Continue telemetry? Yes
--- NOTE | 2016-08-03 12:21 | Cons- Hematology ---
General Information and HPI Consulting Request Date of Consult: 08/03/16 Requested By: JAS HERMAN,ALIREZA Reason for Consult: Platelet clumping Source of Information: patient, old records Exam Limitations: no limitations History of Present Illness: Ms. 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 She was found to be confused and on the round in her home by her neighbor.. She was brought to the hospital by EMS. She was noted to be confused with reported hallucination. She has been having abdominal pain and was taking oxycodone. She only took 1 tablet for the patient. She has not been sick recently. It was unknown how long she was on the floor. In the ED, she was noted to be in atrial fibrillation with RVR. She was starte don IV diltiazem. Blood work demonstrated decreased platelet count at 122,000 and subsequent repeat demonstrated clumping. His has been an issue with her during her last admission. Work up included SPEP, UPEP, immunoglobulin levels, viral studies, and all was negative. She did have slightly elevated IgA level. She currently feels about the same with weakness and fatigue. Allergies/Medications Allergies: Coded Allergies: codeine (Severe, RASH, DIFFICULTY BREATHING 04/08/16) morphine (Severe, SHORTNESS OF BREATH 04/08/16) Home Med List: Aspirin (Children's Aspirin) 81 MG TAB.CHEW 81 MG PO DAILY HEART TAKE 1 TAB PO DAILY Atenolol 100 MG TABLET 1 TAB PO 1300 HEART (Reported) Atorvastatin Calcium 10 MG TABLET 50 MG PO 1300 HEART HEALTH (Reported) Clonidine HCl (Catapres) 0.1 MG TABLET 1 TAB PO DAILY BP (Reported) Ergocalciferol (Vitamin D2) (Vitamin D2) 50,000 UNIT CAPSULE 1 CAP PO QTUES Supplement FENOFIBRATE,MICRONIZED (Fenofibrate) 200 MG CAPSULE 1 CAP PO DAILY HLD ( Reported) Furosemide (Lasix) 80 MG TABLET 1 TAB PO BID Edema Gabapentin 100 MG CAPSULE 1 TAB PO BID Neuropathy Levothyroxine Sodium (Synthroid) 175 MCG TABLET 1 TAB PO DAILY AC Hypothyroidism Lisinopril 20 MG TABLET 1 TAB PO DAILY Blood Pressure Magnesium Oxide (Magnesium) 400 MG CAPSULE 20.5 MG PO DAILY VITAMIN SUPPORT ( Reported) Omeprazole 20 MG CAPSULE.DR 20 MG PO DAILY AC stomach Oxycodone HCl 5 MG TABLET 1 TAB PO Q6P PRN PAIN SCALE 4-6 (MODERATE) PLEASE HOLD FOR SEDATION/DROWSINESS OR DECREASED RESPIRATORY RATE. Spironolactone (Aldactone) 25 MG TABLET 50 MG PO DAILY water pill Current Medications: Current Medications Sig/Radha Start time Last Medication Dose Route Stop Time Status Admin Acetaminophen 650 MG .STK-MED ONE 08/02 2152 DC PO 08/02 2153 Acetaminophen 1,000 MG Q6P PRN 07/30 1615 AC N/A 1 UNIT IV Acetaminophen 650 MG Q4P PRN 07/30 1545 AC 08/02 PO 2154 Amlodipine Besylate 5 MG DAILY 08/02 1030 AC 08/03 PO 0829 Apixaban 2.5 MG BID 08/02 1016 AC 08/03 PO 0830 Aspirin 81 MG DAILY 08/01 1000 AC 08/03 PO 0829 Atorvastatin Calcium 50 MG 1300 07/31 1300 AC 08/02 PO 1038 Dipyridamole 50 MG ONE ONE 08/03 1100 DC Dextrose/Water 30 ML IV 08/03 1101 Insulin Aspart 0 TIDAC 08/02 1200 AC SC Lactulose 20 GM DAILY 07/30 2045 AC 08/02 PO 1037 Levothyroxine Sodium 0.175 MG DAILY AC 07/30 1610 AC 08/03 PO 0549 Lidocaine 1 PAT DAILY 07/31 1000 AC 08/03 EXT 0829 Magnesium Oxide 400 MG ONE ONE 08/02 1330 DC 05 PO 08/02 1331 1336 Magnesium Oxide 400 MG DAILY 07/30 1611 AC 08/03 PO 0829 Metoprolol Tartrate 25 MG BID 07/31 1510 AC 08/02 PO 2149 Oxycodone/ 1 TAB Q6PRN PRN 08/01 1145 DC 08/02 Acetaminophen PO 1338 Patient Medication 1 UNIT ONE NR 08/02 1030 DC Teaching ED 08/02 1630 Review of Systems Review of Systems Constitutional: Reports: malaise, weakness. Denies: chills, fever. Cardiovascular: Reports: palpitations, syncope. Denies: chest pain. Respiratory: Reports: short of breath. Denies: cough, hemoptysis. GI: Denies: abdominal pain. Musculoskeletal: Reports: back pain. Skin: Reports: erythema. Neurological/Psychological: Denies: anxiety. Hematologic/Endocrine: Reports: bruising. Denies: bleeding. Immunologic/Allergic: Denies: lymphadenopathy. 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), migraine, peripheral neuropathy EENT: NONE Cardiovascular: diastolic CHF, hypertension, hyperlipidemia, hx SVT Respiratory: asthma Gastrointestinal: hiatal hernia (mild), gastroparesis Hepatic: cirrhosis Renal: chronic kidney disease (r/o nephrotic) Musculoskeletal: chronic back pain, degen joint disease, falls, fracture (L hip post fall), spinal stenosis Psychiatric: depression Endocrine: diabetes, hypothyroidism, obesity, vitamin D deficiency Blood Disorders: anemia (macrocytic w/o transfx), thrombocytopenia Cancer(s): NONE DEAN OF MEN/Reproductive: NONE Surgical History Surgical History: appendectomy, cholecystectomy (open 1978), (x 2), RIGHT SHOULDER ROTATOR LEFT ANKLE SURGERY C-SECTIONS resection of pancreatic cyst at [facility] Family History Relations & Conditions If Any: SISTER FH: Crohn's disease FH: diabetes mellitus BROTHER FH: Hodgkins disease FATHER FH: heart disease MOTHER FH: diabetes mellitus Relation not specified for: FH: lung cancer Psychosocial History Where Do You Live? Home Who Do You Live With? spouse Services at Home: None Primary Language: [place] Smoking Status: Never Smoked ETOH Use: denies use Illicit Drug Use: denies illicit drug use Living Will? no Power of Dimpling Machine Operator/HCP? no Functional Ability ADLs Independent: dressing, eating. Needs Assist: toileting, bathing. Ambulation: non-ambulatory (post L hip fx) IADLs Independent: finances, food prep, telephone, medication admin. Needs Assist: shopping, housework, transportation. ECHO Results (as available) Date of last Echo 04/11/16 EF% 60 Exam & Diagnostic Data Vital Signs and I&O Vital Signs Date Time Temp Pulse Resp B/P B/P Pulse O2 O2 Flow FiO2 Mean Ox Delivery Rate 08/04 0729 88 180/80 08/03 0800 98.2 81 20 148/72 95 Room Air 08/02 2200 98.0 88 20 160/70 95 Room Air 08/02 1600 98.5 74 20 130/60 96 Room Air 08/02 1527 Room Air Intake & Output 08/03 1600 08/03 0800 05 0000 Intake Total 100 Output Total 350 Balance -250 Intake, Oral 100 Output, Urine 350 Physical Exam General Appearance: alert, awake, comfortable, obese Head: atraumatic Respiratory: chest non-tender, no respiratory distress, quiet respiration Cardiovascular: regular rate/rhythm, edema Gastrointestinal: normal bowel sounds, soft, non-tender Extremities: pedal edema Neurologic/Psych: awake, alert, oriented x 3 Skin: ecchymosis (diffuse in the BUE.) Lymphatic: no anterior cervical shira Last 48 Hours of Lab Results: Laboratory Tests 08/03 08/02 0720 0900 Chemistry Sodium (137 - 145 mmol/L) 139 Potassium (3.5 - 5.1 mmol/L) 4.6 Chloride (98 - 107 mmol/L) 111 H Carbon Dioxide (22 - 30 mmol/L) 21 L Anion Gap (5 - 16) 8 BUN (7 - 17 mg/dL) 48 H Creatinine (0.5 - 1.0 mg/dL) 1.9 H Estimated GFR (>60 ml/min) 26 L BUN/Creatinine Ratio (7 - 25 %) 25.3 H Coagulation APTT Cancelled Hematology CBC w Diff NO MAN DIFF REQ WBC (4.8 - 10.8 /CUMM) 5.6 RBC (4.20 - 5.40 /CUMM) 2.91 L Hgb (12.0 - 16.0 G/DL) 9.8 L Hct (37 - 47 %) 29.6 L MCV (81.0 - 99.0 FL) 101.9 H MCH (27.0 - 31.0 PG) 33.6 H RDW (11.5 - 14.5 %) 18.3 H Plt Count (/CUMM) Gran % (42.2 - 75.2 %) 78.9 H Lymphocytes % (20.5 - 51.1 %) 12.3 L Monocytes % (1.7 - 9.3 %) 6.6 Eosinophils % (0 - 5 %) 1.8 Basophils % (0.0 - 2.0 %) 0.4 Absolute Granulocytes (1.4 - 6.5 /CUMM) 4.4 Absolute Lymphocytes (1.2 - 3.4 /CUMM) 0.7 L Absolute Monocytes (0.10 - 0.60 /CUMM) 0.4 Absolute Eosinophils (0.0 - 0.7 /CUMM) 0.1 Absolute Basophils (0.0 - 0.2 /CUMM) 0 PUBS MCHC (33.0 - 37.0 G/DL) 32.9 L 08/02 05 0722 2250 Chemistry Sodium (137 - 145 mmol/L) 138 137 Potassium (3.5 - 5.1 mmol/L) 4.3 4.3 Chloride (98 - 107 mmol/L) 111 H 110 H Carbon Dioxide (22 - 30 mmol/L) 18 L 19 L Anion Gap (5 - 16) 8 8 BUN (7 - 17 mg/dL) 49 H 49 H Creatinine (0.5 - 1.0 mg/dL) 2.0 H 2.2 H Estimated GFR (>60 ml/min) 25 L 22 L BUN/Creatinine Ratio (7 - 25 %) 24.5 22.3 Magnesium (1.6 - 2.3 mg/dL) 1.6 Hematology CBC w Diff NO MAN DIFF REQ NO MAN DIFF REQ WBC (4.8 - 10.8 /CUMM) 5.8 5.6 RBC (4.20 - 5.40 /CUMM) 3.00 L 2.89 L Hgb (12.0 - 16.0 G/DL) 10.1 L 9.6 L Hct (37 - 47 %) 30.8 L 29.6 L MCV (81.0 - 99.0 FL) 102.5 H 102.8 H MCH (27.0 - 31.0 PG) 33.5 H 33.4 H RDW (11.5 - 14.5 %) 17.8 H 18.0 H Plt Count (130 - 400 /CUMM) 71 L 86 L MPV (7.4 - 10.4 FL) 9.0 8.8 Gran % (42.2 - 75.2 %) 77.3 H 75.1 Lymphocytes % (20.5 - 51.1 %) 12.6 L 13.8 L Monocytes % (1.7 - 9.3 %) 7.4 8.4 Eosinophils % (0 - 5 %) 2.2 2.3 Basophils % (0.0 - 2.0 %) 0.5 0.4 Absolute Granulocytes (1.4 - 6.5 /CUMM) 4.5 4.2 Absolute Lymphocytes (1.2 - 3.4 /CUMM) 0.7 L 0.8 L Absolute Monocytes (0.10 - 0.60 /CUMM) 0.4 0.5 Absolute Eosinophils (0.0 - 0.7 /CUMM) 0.1 0.1 Absolute Basophils (0.0 - 0.2 /CUMM) 0 0 PUBS MCHC (33.0 - 37.0 G/DL) 32.7 L 32.5 L 08/01 194 Coagulation APTT (25 - 37 SEC) 89 H Assessment/Plan Assessment: Ms. 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 She was noted to have elevated troponin and atrial fibrillation with RVR. She was started on IV diltiazem and IV heparin. She is now on Eliquis and metoprolol. During admission, she was noted to have thrombocytopenia but noted to have platelet clumping. She had similar issues during the previous admission. It is unclear as to the etiology. SPEP, UPEP, hepatitis, HIV, and immunoglobulins were check. IgA was noted to be elevated but this is nonspecific as it may be elevated in chronic liver disease patient. She has have nephrotic range proteinuria which have been reported to have increased platelet aggregation. She is also a difficult stick. She needs to have multiple stick for blood work. Trauma injury with phlebotoy is also a common cause for clumping with activation of the platelet. Citrate and heparin tubes have been evaluated and did not noted any changes. She may be monitored for now. Recommendations: 1. Monitor CBC for now 2. Consider platelet aggregation studies 3. Use citrate tube for CBC (alert lab regarding platelet clumping) 4. Follow up as outpatient for other work up Problem List: 1. CKD (chronic kidney disease) stage 4, GFR 15-29 ml/min 2. Thrombocytopenia 3. 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 CAD (coronary artery disease) Other Findings/Comments: Please call [phone] Consult Acknowledgment - Thank you for your consult request.
--- NOTE | 2016-08-03 15:35 | NUCLEAR MEDICINE REPORT ---
PERSANTINE STRESS AND RESTING SPECT MYOCARDIAL PERFUSION IMAGING STUDY CLINICAL INDICATION: Positive troponins, myocardial infarction. PROCEDURE: Regional myocardial perfusion was assessed using a 2 day protocol. Stress images were obtained on 08/03/2016 following the intravenous administration of 31.5 mCi Tc 99m Myoview. Stress consisted of 50 mg Persantine given intravenously. Following the sestamibi injection, 125 mg aminophylline was given intravenously. Rest images were obtained 08/02/2016 following the intravenous administration of 31.8 mCi Technetium 99m Myoview. Single photon emission tomographic (SPECT) images were obtained. SPECT images were acquired in a 64 x 64 matrix of 64 projections over 180 degrees. These were reconstructed into standard short axis, horizontal and vertical long axis cardiac projections. FINDINGS: The post stress images demonstrate the left ventricular chamber to be normal in size. There is a very small focus of mildly decreased activity present in the mid inferolateral wall. The in the other ba appears normal. The rest images show minimal equivocal decreased activity in the inferolateral wall, but this is less apparent than the very small abnormality present on the stress images. Because of the patient's irregular heart rate, gated images could not be obtained. Therefore, wall motion and ejection fraction cannot be evaluated. Compared to the previous study dated 09/18/2013, small reversible inferolateral wall perfusion abnormality noted on that study is less severe on the current study, now being just barely perceptible on the stress images and very equivocal on the rest images. IMPRESSION: Very minimal reversible abnormality is suggested in the mid inferolateral wall. The finding is less apparent than on the previous study. No other perfusion abnormalities are noted. Gated images could not be obtained because of the patient's irregular heart rate and wall motion and ejection fraction cannot be evaluated.
[2016-08-03 15:49] VITALS: BP 160/82
--- NOTE | 2016-08-03 16:10 | Discharge Summary ---
Visit Information Visit Dates Admission Date: 07/30/16 Discharge Date: 08/04/2016 Hospital Course Course Attending Physician: ALIREZA MARK MD Primary Care Physician: ARLEEN HORN MD Consulting Request: 1 Consulting Specialty: Cardiology Consulting Physician: Dr. Galindo Reason for Consult: atrial fibrillation, NSTEMI Consulting Request: 2 Consulting Specialty: Infectious Disease Consulting Physician: Dr. Grier Reason for Consult: bacteremia Hospital Course: This is a 70-year-old female with extensive past medical history with of insulin dependent diabetes mellitus complicated with neuropathy and gastroparesis, prior CVA in 1978 without any residual effects, diastolic CHF,CEDEÑO progressing to cirrhosis complicated with anasarca and reccurent ascites, hypertension, hyperlipidemia, chronic kidney disease Stage 4 with ? nephrotic range proteinuria, hypothyroidism, depression, obesity, thrombocytopenia with platelet clumping with elevated serum IgA,previous multiple fractures ,severe vitamin D deficiency, DJD, migraine headache, chronic anemia for years without transfusion (currently macrocytic), with previous admission in March 2016 for anasarca with ascites, hip pain and weakness came in with chief complain of seeing illusions, feeling lightheaded and dizzy since last 2 days prior to admission and after being found on the ground after a fall. She did not know how she fell , but noted that she had severe back pain and was taking oxycodone. Her vitals on admission were T 97, HR 144, RR 20, BP 130/64, O2 sat 97% on room air. On physical exam patient noted alert oriented 3, in moderate distress, HEENT PERRLA EOMI, neck supple without JVD, heart S1-S2 normal with a regular rhythm, lungs clear on auscultation, abdomen soft nontender, distended with fluid thrill , no focal gross neuro deficit, bilateral lower extremity edema. Labs were significant for WBC 7.3, H&H 8.7/27 (baseline hemoglobin 9 in June) platelet 122, BUN 47, creatinine 2 (baseline creatinine 1.9 in June), ammonia 33, AST 95, ALT 39, alkaline phosphatase 123, total bilirubin 1.5, CK 256, INR 1.58, total protein 5.8, albumin 2.1, albumin to globulin ratio 0.6. Troponin negative Ct head : no acute infarct,haemorrhage, microvascular ischemic changes. Xray cervical, thoracic, lumbar spine : old healed fractures and severe DJD, no acute #/ subluxation. Ct A/p : severe anasarca with low attenuation ascites, splenic cyst in setting of cirrhosis Patient admitted on telemetry and following problems were addressed during course of hospital stay. 1. Metabolic encephalopathy Patient noted confused on admission. CT head was negative for any intracranial hemorrhage. Patient noted electrolyte abnormalities due to CKD, but also noted slightly elevated ammonia level in setting of cirrhosis, patient started on lactulose. Also patient was taking oxycodone which was also thought to be culprit for her confusion which was held on admission. SBP ruled out with paracentesis. Patient's mental status improved to back to her baseline. 2. New onset atrial fibrillation Patient noted tachycardic on admission with rate of 140s, initially there was suspicion for SVT, patient was given 1 dose of IV push of adenosine with slowing down heart rate suggestive of atrial fibrillation. Finished Yarn Examiner consulted and Patient was started on IV heparin and Cardizem drip. Later rate control medication changed to metoprolol and anticoagulation was changed from IV heparin to low dose Eliquis 2.5 mg twice a day as per cardiology recommendation due to history of cirrhosis and concern of massive bleed in setting of full anticoagulation. Echocardiogram obtained which showed moderate concentric left ventricular hypertrophy, normal LVEF of more than 65%, no obvious regional wall motion abnormality, stage II diastolic dysfunction, mild to moderate mitral valve calcification, mild to moderate MR, RVSP of 50-55 mmHg. 3. Demand Ischemia Patient did not complain any chest pain on admission and initial troponin was negative but consecutive troponin went up to maximum of 2.03 and later trended down. Patient was on IV heparin for A. fib. Patient started on baby aspirin and beta gadiel. Due to patient's history of mild nonobstructive CAD and elevated troponin, echo was obtained which did not reveal any regional wall motion abnormality, so for further risk stratification nuclear stress test was done which revealed very minimal reversible abnormality in the mid inferolateral wall. 4. CEDEÑO/liver cirrhosis Patient noted confused on admission with distended abnormal with CT finding of large peritoneal fluid. IR guided paracentesis was done on admission which revealed SAAG ratio> 1.1 with bloody fluid WBC of 40 suggestive of ascites secondary to portal hypertension. Patient also have nephrotic range proteinuria which could be also contributing to ascites. Body fluid culture remain negative. SBP ruled out. On admission patient was on spironolactone and Lasix for ascites. Dr. Pompa was contacted and he recommended to continue Aldactone but stopped the Lasix. 5. Thrombocytopenia Patient noted having low platelet count, which further trended down on IV heparin treatment. Due to low platelet count IV heparin stopped and converted to Eliquis. During admission, she was noted to have thrombocytopenia but noted to have platelet clumping. She had similar issues during the previous admission. It is unclear as to the etiology. Hematology oncology consult sought. SPEP, UPEP, hepatitis, HIV, and immunoglobulins were checked previously and all were negative . IgA was noted to be elevated but this was nonspecific as it may be elevated in chronic liver disease patient. 6. Positive blood cultures Patient noted having positive blood culture on admission with 2 sets of blood culture growing GPC which later identified as coagulase-negative. Patient noted afebrile, without any elevated WBC count or suspicion for infection. SBP ruled out with paracentesis. ID consulted and as per recommendation blood culture repeated on day 2 of admission which remained negative suggestive of possible false blood set as contamination with Ronk blood draw technique since patient is a hard stick. 7. Hypertension Due to patient's persistent hypotension home dose clonidine, spironolactone, Lasix and lisinopril held during admission. Patient was started on metoprolol for cardioprotection 8. Stage 3/4 CKD Patient's kidney function monitored closely and remained stable during course of hospital stay. 8. DVT prophylaxis Initially patient received IV heparin followed by Eliquis Allergies: Coded Allergies: codeine (Severe, RASH, DIFFICULTY BREATHING 04/08/16) morphine (Severe, SHORTNESS OF BREATH 04/08/16) Significant Procedures: US-PARACENTESIS: PROCEDURE NOTE: Informed consent was obtained from the patient prior to the procedure. During this process, the procedure and potential alternatives were explained along with the intended outcome and benefits. The risks of the procedure, including the possibility of an unsuccessful procedure, as well as the risk of not doing the procedure, were discussed. The patient was given the opportunity to ask questions regarding the procedure and appeared competent to make decisions. A signed consent form documenting this discussion was placed in the medical record. A time-out procedure was performed. Appropriate pre-procedure medical history and imaging studies were reviewed. The procedure was performed bedside in the patient was in the supine position. Ultrasound images of the abdomen were obtained to localize a moderate collection of ascites. Images were permanently saved to the record. An area of the left lower quadrant was prepped and draped in the standard sterile fashion. 10 mL of 1% lidocaine was used to obtain local anesthesia of the skin and deeper tissues. A 5 Swedish/19-gauge Golden Reviewseh catheter/needle was advanced into the peritoneal fluid under ultrasound guidance. There was no evidence of traversing adjacent organs or vascular structures. 4.0L of serosanguineous fluid was aspirated before drainage ceased. Samples were sent for analysis. The catheter was removed and sterile dressing applied. Dermabond adhesive was applied over the puncture site. The patient tolerated the procedure well without evidence of complications. FINDINGS: Moderate abdominal ascites as detailed above. No significant residual abdominal fluid noted after paracentesis. IMPRESSION: Successful ultrasound-guided diagnostic and therapeutic paracentesis. ECHO: CONCLUSIONS Moderate concentric left ventricular hypertrophy. Normal left ventricular ejection fraction visually estimated at >65 No obvious regional wall motion abnormalities. "pseudonormal" filling pattern of the left ventricle for age (stage 2 diastolic dysfunction). Mild left atrial dilatation. Mild to moderae thickening/calcification of the mitral valve leaflets. Moderate mitral annular calcification. [id number] mitral regurgitation. Focal thickening of the aortic valve cusps. No aortic stenosis. Right ventricular systolic pressure estimated to be elevated at 50- 55 mmHg. Bodrderline dilated ascending aorta. Pertinent Lab Results: Laboratory Tests 08/03/16 0720: Anion Gap 8, Estimated GFR 26 L, BUN/Creatinine Ratio 25.3 H, CBC w Diff NO MAN DIFF REQ, RBC 2.91 L, MCV 101.9 H, MCH 33.6 H, RDW 18.3 H, Gran % 78.9 H, Lymphocytes % 12.3 L, Monocytes % 6.6, Eosinophils % 1.8, Basophils % 0.4, Absolute Granulocytes 4.4, Absolute Lymphocytes 0.7 L, Absolute Monocytes 0.4, Absolute Eosinophils 0.1, Absolute Basophils 0, PUBS MCHC 32.9 L 08/02/16 0900: APTT Cancelled 08/02/16 0722: Anion Gap 8, Estimated GFR 25 L, BUN/Creatinine Ratio 24.5, Magnesium 1.6, CBC w Diff NO MAN DIFF REQ, RBC 3.00 L, MCV 102.5 H, MCH 33.5 H, RDW 17.8 H, MPV 9.0, Gran % 77.3 H, Lymphocytes % 12.6 L, Monocytes % 7.4, Eosinophils % 2.2, Basophils % 0.5, Absolute Granulocytes 4.5, Absolute Lymphocytes 0.7 L, Absolute Monocytes 0.4, Absolute Eosinophils 0.1, Absolute Basophils 0, PUBS MCHC 32.7 L 08/01/16 2250: Anion Gap 8, Estimated GFR 22 L, BUN/Creatinine Ratio 22.3, CBC w Diff NO MAN DIFF REQ, RBC 2.89 L, MCV 102.8 H, MCH 33.4 H, RDW 18.0 H, MPV 8.8, Gran % 75.1, Lymphocytes % 13.8 L, Monocytes % 8.4, Eosinophils % 2.3, Basophils % 0.4 , Absolute Granulocytes 4.2, Absolute Lymphocytes 0.8 L, Absolute Monocytes 0.5 , Absolute Eosinophils 0.1, Absolute Basophils 0, PUBS MCHC 32.5 L 08/01/16 1945: APTT 89 H 08/01/16 0955: APTT > 120 *H 08/01/16 0250: Anion Gap 9, Estimated GFR 20 L, BUN/Creatinine Ratio 22.5, Magnesium 1.4 L, APTT > 120 *H, CBC w Diff MAN DIFF ORDERED, RBC 2.38 L, MCV 103.1 H, MCH 33.3 H, RDW 18.7 H, MPV 8.7, Gran % 69.9, Lymphocytes % 17.4 L, Monocytes % 10.4 H , Eosinophils % 1.7, Basophils % 0.6, Absolute Granulocytes 4.9, Segmented Neutrophils 71, Absolute Lymphocytes 1.2, Lymphocytes 20 L, Monocytes 5, Absolute Monocytes 0.7 H, Eosinophils 4, Absolute Eosinophils 0.1, Absolute Basophils 0, Platelet Estimate , Hypochromic-Microcytic 1+, Anisocytosis 1+, Macrocytic Cells 1+, PUBS MCHC 32.4 L Disposition Summary Disposition Principal Diagnosis: 1. Metabolic encephalopathy 2. Demand Ischemia 3. New onset atrial fibrillation 4. Ascites secondary to liver cirrhosis Additional Diagnosis: 1. Hypertension 2. Liver cirrhosis/Cedeño Discharge Disposition: SNF Discharge Instructions General Discharge Information Code Status: Do Not Resucitate/Intubat Patient's Diet: Heart healthy diet Patient's Activity: As tolerated continue physical therapy Follow-Up Instructions/Appts: Please follow-up with primary care physician within a week of discharge. Please follow-up with apprentice machinist outside Dr. Galindo within a week of discharge. Please follow-up with manager marketing communications Dr. Pompa within a week of discharge. Please follow-up with mattress renovator Dr. Doll within a week of discharge. Please check BEP in 1 week for kidney functions Medications at Discharge Discharge Medications: Stop taking the following medications: Atenolol (Atenolol) 100 MG TABLET ORAL 1300 Clonidine HCl (Catapres) 0.1 MG TABLET ORAL DAILY Lisinopril (Lisinopril) 20 MG TABLET ORAL DAILY Qty = 30 Furosemide (Lasix) 80 MG TABLET ORAL TWICE DAILY Qty = 60 Continue taking these medications: Atorvastatin Calcium (Atorvastatin Calcium) 10 MG TABLET 50 Milligram ORAL 1300 Comments: Last Taken: 08/04/16 Time: 1 PM FENOFIBRATE,MICRONIZED (Fenofibrate) 200 MG CAPSULE 1 Capsule ORAL DAILY Comments: Last Taken: 10/25/13 Time: 10 AM Aspirin (Children's Aspirin) 81 MG TAB.CHEW 81 Milligram ORAL DAILY Qty = 60 Instructions: TAKE 1 TAB PO DAILY Comments: Last Taken: 10/25/13 Time: 10 AM Magnesium Oxide (Magnesium) 400 MG CAPSULE 20.5 Milligram ORAL DAILY Comments: Last Taken: 08/04/16 Time: 10:30 AM Spironolactone (Aldactone) 25 MG TABLET 50 Milligram ORAL DAILY Days = 28 Comments: NOT GIVEN IN THE HOSPITAL Omeprazole (Omeprazole) 20 MG CAPSULE.DR 20 Milligram ORAL DAILY BEFORE BREAKFAST Days = 28 Comments: NOT GIVEN IN THE HOSPITAL Gabapentin (Gabapentin) 100 MG CAPSULE 1 Tablet ORAL TWICE DAILY Qty = 60 Comments: NOT GIVEN IN THE HOSPITAL Levothyroxine Sodium (Synthroid) 175 MCG TABLET 1 Tablet ORAL DAILY BEFORE BREAKFAST Qty = 30 Comments: Last Taken: 08/04/16 Time: 7 AM Ergocalciferol (Vitamin D2) (Vitamin D2) 50,000 UNIT CAPSULE 1 Capsule ORAL EVERY TUESDAY Qty = 30 Comments: NOT GIVEN IN THE HOSPITAL Oxycodone HCl (Oxycodone HCl) 5 MG TABLET 1 Tablet ORAL EVERY SIX HOURS NEEDED as needed for PAIN SCALE 4-6 ( MODERATE) Qty = 10 Instructions: PLEASE HOLD FOR SEDATION/DROWSINESS OR DECREASED RESPIRATORY RATE. Comments: Last Taken: 08/04/16 Time: 11 AM Start taking the following new medications: Amlodipine Besylate (Amlodipine Besylate) 10 MG TABLET 1 Tablet ORAL DAILY Qty = 30 No Refills Comments: Last Taken: 08/04/16 Time: 10:30 AM Apixaban (Eliquis) 2.5 MG TABLET 1 Tablet ORAL TWICE DAILY Qty = 30 No Refills Comments: Last Taken: 08/04/16 Time: 10:30 AM Metoprolol Tartrate (Metoprolol Tartrate) 25 MG TABLET 1 Tablet ORAL TWICE DAILY Qty = 30 No Refills Comments: Last Taken: 08/04/16 Time: 10:30 AM Lactulose (Lactulose) 10 GRAM/15 ML SOLUTION 30 Milliliters ORAL TWICE DAILY Qty = 1800 No Refills Instructions: adjust to maintain 2-3 soft stool/day Comments: Last Taken: 08/04/16 Time: 10:30 AM Copies To: JUSTINA HERMAN,AYUSH POMPA MD,RADHA TKoko; KAILYN HERMAN,[facility] HOLLY SPRINGSGustavo GALINDO MD,RENETTA Khan Attending MD Review Statement Documenting Attending: JAS HERMAN,ALIREZA
[2016-08-03] MEDS ORDERED: AMLODIPINE BESYL5 M1 PO (17:40)
[2016-08-03] MEDS ORDERED: ELIQUIS2.5 M1 PO (17:40)
[2016-08-03] MEDS ORDERED: METOPROLOL TART25 M1 PO (17:40)
[2016-08-03 21:07] VITALS: BP 130/64
[2016-08-03] MEDS ORDERED: AMLODIPINE BESY10 M1 PO (21:26)
--- NOTE | 2016-08-03 21:33 | Patient Discharge Instructions ---
Discharge Instructions General Discharge Information You were seen/treated for: atrial fibrillation Non ST elevated Myocardial infection Special Instructions: Please seek medical attention if you develop chest pain Please follow up with your primary care within 1 week Please follow up with your strapper within 1 week Please f/u with barrel endshake adjuster (Dr Carr) within 1 week Acute Coronary Syndrome Inclusion Criteria At DC or during hospital stay patient has or had the following: ACS DIAGNOSIS Yes Discharge Core Measures Meds if any: Prescribed or Continued at Discharge Aspirin Yes Beta-Justin Yes Statin Yes Meds if any: NOT Prescribed or Continued at Discharge Congestive Heart Failure Inclusion Criteria At DC or during hospital stay patient has or had the following: CHF DIAGNOSIS No Discharge Core Measures Meds if any: Prescribed or Continued at Discharge Meds if any: NOT Prescribed or Continued at Discharge Cerebrovascular accident Inclusion Criteria At DC or during hospital stay patient has or had the following: CVA/TIA Diagnosis No Discharge Core Measures Meds if any: Prescribed or Continued at Discharge Meds if any: NOT Prescribed or Continued at Discharge Venous thromboembolism Inclusion Criteria VTE Diagnosis No VTE Type NONE VTE Confirmed by (Test) NONE Discharge Core Measures - Per Current guidelines, there needs to be overlap - treatment for the first 5 days of Warfarin therapy. - If discharged on Warfarin prior to 5 days of - overlap therapy, the patient will need to be - assessed for post discharge needs including - *Post discharge parental anticoagulation - *Warfarin and/or parental anticoagulation education - *Follow up date to check INR post discharge At least 5 days overlap therapy as Inpatient No Meds if any: Prescribed or Continued at Discharge Note: Overlap Therapy is Warfarin and Anticoagulant Meds if any: NOT Prescribed or Continued at Discharge
[2016-08-04 00:16] VITALS: BP 132/64
[2016-08-04 07:59] LABS: ABSOLUTE BASOPHIL COUNT 0 /CUMM (0.0-0.2); ABSOLUTE EOSINOPHIL COUNT 0.1 /CUMM (0.0-0.7); ABSOLUTE GRANULOCYTE CT 4.8 /CUMM (1.4-6.5); ABSOLUTE LYMPH COUNT 0.9 /CUMM (1.2-3.4); ABSOLUTE MONOCYTE COUNT 0.4 /CUMM (0.10-0.60); BASOPHIL % 0.3 % (0.0-2.0); EOSINOPHIL % 1.6 % (0-5); GRANULOCYTE % 77.2 % (42.2-75.2); HEMATOCRIT 31.6 % (37-47); MEAN CORPUSCULAR HGB 33.7 PG (27.0-31.0); MEAN PLATELET VOLUME 9.1 FL (7.4-10.4); RBC DISTRIBUTION WIDTH 18.6 % (11.5-14.5); WHITE BLOOD CELL COUNT 6.2 /CUMM (4.8-10.8)
[2016-08-04 08:02] VITALS: BP 144/78
--- NOTE | 2016-08-04 08:15 | PN- Housestaff ---
JESUSITA HERMAN,PAUL 08/04/16 0814: Subjective Follow-up For: ams NSTEMI AFIB Tele-Events Since Last Visit: PVCs noted with questionable 7beat V-tach run. Subjective: And examined while resting comfortable on a recliner. She she does endorse some back pain which she attributes to her chronic pain and states that her Percocet she received overnight remarkably relieved her pain. She does not endorse any other acute complaint including chest pain, palpitation, shortness of breath, dizziness, fever, chills, vomiting, nausea, focal neurological deficit, abdominal pain or dysuria. No acute overnight event reported by nursing staff. Review of Systems Constitutional: Reports: no symptoms. Objective Last 24 Hrs of Vital Signs/I&O Vital Signs Date Time Temp Pulse Resp B/P B/P Pulse O2 O2 Flow FiO2 Mean Ox Delivery Rate 08/04 1303 97.5 87 22 144/78 08/04 1050 87 144/78 08/04 1049 87 144/78 08/04 0802 97.5 87 22 144/78 98 08/04 0016 97.8 84 20 132/64 96 Room Air 08/03 2113 82 130/64 08/03 2113 82 130/64 08/03 2107 96.9 85 20 130/64 96 Room Air 08/03 1600 93 Room Air 08/03 1549 97.7 96 20 160/82 93 Room Air 08/03 1439 98.2 88 20 170/80 Intake & Output 08/04 1600 08/04 0800 08/04 0000 Intake Total 100 680 Output Total 500 650 Balance -400 30 Intake, Oral 100 680 Number 1 Bowel Movements Output, Urine 500 650 Physical Exam General Appearance: Alert, Oriented X3, Cooperative Other Physical Findings: General Appearance Alert, Oriented X3, Cooperative, Moderate Distress Skin bruises present on the legs intermittently, bruises present on bilateral upper extremity from the wrist up to the shoulder. Skin Temp/Moisture Exam: Cool/Dry HEENT Atraumatic, PERRLA, EOMI Neck Supple, No JVD, No thryomegaly Lymphatic no lad Cardiovascular Normal S1, Normal S2, irregularly irregular Lungs Normal Air Movement, minimal basal crackles present. Abdomen Normal Bowel Sounds, distended, not tender to palpation. No rebound tenderness Neurological Normal Speech, Normal Tone, Sensation Intact Extremities No Clubbing, No Cyanosis, Vascular Normal Pulses Current Medications: Current Medications Sig/Radha Start time Last Medication Dose Route Stop Time Status Admin Acetaminophen 650 MG .STK-MED ONE 08/03 1921 DC PO 08/03 192 Acetaminophen 1,000 MG Q6P PRN 07/30 1615 AC N/A 1 UNIT IV Acetaminophen 650 MG Q4P PRN 07/30 1545 AC 08/03 PO 1926 Aminophylline 250 MG .STK-MED ONE 08/03 1350 DC IV 08/03 1351 Amlodipine Besylate 10 MG DAILY 08/04 1000 AC 08/04 PO 1050 Amlodipine Besylate 5 MG ONCE ONE 08/03 2100 DC 08/03 PO 08/03 210 211 Amlodipine Besylate 5 MG DAILY 08/02 1030 DC 08/03 PO 0829 Apixaban 2.5 MG BID 08/02 1016 AC 08/04 PO 1049 Aspirin 81 MG DAILY 08/01 1000 AC 08/04 PO 1049 Atorvastatin Calcium 50 MG 1300 07/31 1300 AC 08/04 PO 1251 Insulin Aspart 0 TIDAC 08/02 1200 AC SC Lactulose 20 GM DAILY 07/30 2045 AC 08/04 PO 1049 Levothyroxine Sodium 0.175 MG DAILY AC 07/30 1610 AC 08/04 PO 0659 Lidocaine 1 PAT DAILY 07/31 1000 AC 08/04 EXT 1050 Magnesium Oxide 400 MG ONE ONE 08/03 2100 DC 08/03 PO 08/03 210 2114 Magnesium Oxide 400 MG DAILY 07/30 1611 AC 08/04 PO 1049 Metoprolol Tartrate 25 MG BID 07/31 1510 AC 08/04 PO 1049 Oxycodone/ 1 TAB Q6P PRN 08/04 1100 AC 08/04 Acetaminophen PO 1053 Oxycodone/ 1 TAB ONCE PRN 08/04 0130 DC 08/04 Acetaminophen PO 08/04 0131 0123 Patient Medication 1 ED ONE ONE 08/03 1400 DC 08/03 Teaching ED 08/03 1401 1443 Last 24 Hrs of Lab/Diego Results Last 24 Hrs of Labs/Mics: Laboratory Tests 08/04/16 1020: CBC w Diff NO MAN DIFF REQ, RBC 3.18 L, MCV 101.5 H, MCH 34.0 H, RDW 18.5 H, MPV 8.7, Gran % 83.2 H, Lymphocytes % 10.5 L, Monocytes % 5.3, Eosinophils % 0.7, Basophils % 0.3, Absolute Granulocytes 4.2, Absolute Lymphocytes 0.5 L, Absolute Monocytes 0.3, Absolute Eosinophils 0, Absolute Basophils 0, PUBS MCHC 33.5 08/04/16 0645: Anion Gap 10, Estimated GFR 30 L, BUN/Creatinine Ratio 27.6 H, Magnesium 1.7, CBC w Diff NO MAN DIFF REQ, RBC 3.10 L, MCV 102.0 H, MCH 33.7 H, RDW 18.6 H, MPV 9.1, Gran % 77.2 H, Lymphocytes % 14.6 L, Monocytes % 6.3, Eosinophils % 1.6, Basophils % 0.3, Absolute Granulocytes 4.8, Absolute Lymphocytes 0.9 L, Absolute Monocytes 0.4, Absolute Eosinophils 0.1, Absolute Basophils 0, PUBS MCHC 33.0 Assessment/Plan Assessment: This is a 70 y/o F with PMHx of 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 #New onset atrial fibrillation: Rate controlled with metoprolol 25 mg po bid . * Continue ELiquis 2.5 mg po bid #Elevated troponin: Troponins increased to a maximum of 2.03 but trended down. Could represent NSTEMI or demand ischemia. Patient has a history of mild nonobstructive CAD. * s/p IV heparin,currently on eliquis * Nuclear stress unremarkable for any significant reverisble ischemia. * Continue aspirin 81 mg PO daily #Hypomagnesemia: Mg 1.7 today. * Continue with daily repletion of Magnesium #Ascites Possible 2/2 to BYERS. Day of admission symptoms suggestive of encephalopathy ( AMS). SBP was ruled out. Consulted with GI (appreciated) for discharge reccomendation regarding ascites meds. Reccomendation was to stop furosemide in the setting of worsening renal function, but to continue spironolactone and Lactulose. #Thrombocytopenia Etiology unknown, could be secondary to multiple phlebotomy procedures. Currently platelet levels stable and uptrending. No acute bleeding noted to warrant any medical intervention. Pt will f/u with heme on an outpatient basis. #HTN: Discharge on amlodipine 10 mg po qd. Stopped Clonidine and Lisinopril (per cardiology reccomendation). Problem List: 1. Elevated troponin 2. Thrombocytopenia Pain Ratin Pain Location: back Pain Goal: Remain pain free Pain Plan: percocet Tomorrow's Labs & Rationales: none-discharge Consulting Request: Consulting Specialty: Infectious Disease Consulting Physician: Dr. Grier Reason for Consult: bacteremia JAS HERMAN,ALIREZA 08/04/16 1235: Attending MD Review Statement Attending Statement Attending MD Statement: examined this patient, discuss w/resident/PA/BERRY PLANTER, agreed w/resident/PA/BERRY PLANTER, reviewed EMR data (avail), discussed with nursing, discussed with case mgmt, reviewed images, amended to note Attending Assessment/Plan: Patient seen and examined, c/o pain in her lower abd. She did recieve one percocet lats night and it helped. As per cardiology, nuclear stress test is basically negative. Dr. Galindo wants to continue the patient on amlodipine. Her) 6 were discontinued as her repeat blood cultures remained negative. Patient is medically stable for discharge today. I spoke with Dr. Zaomra who is her GI doctor. Because of the fact that her creatinine and GFR have declined slightly over the last few months, Dr. Zamora wants to continue Aldactone but stop the Lasix. At this point we will continue her amlodipine, resume her Aldactone but will not resume her Lasix. She can be continued on her home medication oxycodone as needed. She should also be continued on daily dosing of lactulose. Patient does have a bed available at rehabilitation today and she'll be discharged to rehabilitation.
--- NOTE | 2016-08-04 11:23 | PN- Cardiology ---
Subjective Subjective: The patient is feeling okay. She has no chest pain or shortness of breath. She had her stress test yesterday which showed a minimal area of possible ischemia. Her renal function is slowly improving. She is on amlodipine for blood pressure. She was previously on clonidine and two diuretics, apparently for chronic ascites. Her blood pressure is better controlled at this time. She remains in sinus rhythm with frequent PACs on the monitor. Objective Vital Signs and I&Os Vital Signs Date Time Temp Pulse Resp B/P B/P Pulse O2 O2 Flow FiO2 Mean Ox Delivery Rate 08/04 1050 87 144/78 08/04 1049 87 144/78 08/04 0802 97.5 87 22 144/78 98 / 0016 97.8 84 20 132/64 96 Room Air 08/03 2113 82 130/64 08/03 2113 82 130/64 08/03 2107 96.9 85 20 130/64 96 Room Air 08/03 1600 93 Room Air 08/03 1549 97.7 96 20 160/82 93 Room Air 08/03 1439 98.2 88 20 170/80 Intake & Output 08/04 1600 08/04 0800 08/04 0000 08/03 1600 08/03 0800 08/03 0000 Intake Total 100 680 120 100 Output Total 500 650 350 Balance -400 30 120 -250 Intake, Oral 100 680 120 100 Number 1 Bowel Movements Output, Urine 500 650 350 Physical Exam: She is in no distress HEENT exam is normal Chest is clear Heart reveals irregular rhythm with no murmurs There is no edema Current Medications: Current Medications Sig/Radha Start time Last Medication Dose Route Stop Time Status Admin Acetaminophen 650 MG .STK-MED ONE 08/03 1920 DC PO 08/03 192 Acetaminophen 1,000 MG Q6P PRN 07/30 1615 AC N/A 1 UNIT IV Acetaminophen 650 MG Q4P PRN 07/30 1545 AC 08/03 PO 1926 Aminophylline 250 MG .STK-MED ONE 08/03 1350 DC IV 08/03 1351 Amlodipine Besylate 10 MG DAILY 08/04 1000 AC 08/04 PO 1050 Amlodipine Besylate 5 MG ONCE ONE 08/03 2100 DC 08/03 PO 08/03 2100 211 Amlodipine Besylate 5 MG DAILY 08/02 1030 DC 08/03 PO 0829 Apixaban 2.5 MG BID 08/02 1016 AC 08/04 PO 1049 Aspirin 81 MG DAILY 08/01 1000 AC 08/04 PO 1049 Atorvastatin Calcium 50 MG 1300 07/31 1300 AC 08/03 PO 1436 Insulin Aspart 0 TIDAC 08/02 1200 AC SC Lactulose 20 GM DAILY 07/30 2045 AC 08/04 PO 1049 Levothyroxine Sodium 0.175 MG DAILY AC 07/30 1610 AC 08/04 PO 0659 Lidocaine 1 PAT DAILY 07/31 1000 AC 08/04 EXT 1050 Magnesium Oxide 400 MG ONE ONE 08/03 2100 DC 08/03 PO 08/03 2101 2114 Magnesium Oxide 400 MG DAILY 07/30 1611 AC 08/04 PO 1049 Metoprolol Tartrate 25 MG BID 07/31 1510 AC 08/04 PO 1049 Oxycodone/ 1 TAB Q6P PRN 08/04 1100 AC 08/04 Acetaminophen PO 1053 Oxycodone/ 1 TAB ONCE PRN 08/04 0130 DC 08/04 Acetaminophen PO 08/04 0131 0123 Patient Medication 1 ED ONE ONE 08/03 1400 DC 08/03 [facility] ED 08/03 1401 1443 Results Last 48 Hrs of Labs/Mics: Laboratory Tests 08/04/16 1020: CBC w Diff Pending, WBC Pending, RBC Pending, Hgb Pending, Hct Pending, MCV Pending, MCH Pending, RDW Pending, Plt Count Pending, MPV Pending, PUBS MCHC Pending 08/04/16 0645: Anion Gap 10, Estimated GFR 30 L, BUN/Creatinine Ratio 27.6 H, Magnesium 1.7, CBC w Diff NO MAN DIFF REQ, RBC 3.10 L, MCV 102.0 H, MCH 33.7 H, RDW 18.6 H, MPV 9.1, Gran % 77.2 H, Lymphocytes % 14.6 L, Monocytes % 6.3, Eosinophils % 1.6, Basophils % 0.3, Absolute Granulocytes 4.8, Absolute Lymphocytes 0.9 L, Absolute Monocytes 0.4, Absolute Eosinophils 0.1, Absolute Basophils 0, PUBS MCHC 33.0 08/03/16 0720: Anion Gap 8, Estimated GFR 26 L, BUN/Creatinine Ratio 25.3 H, CBC w Diff NO MAN DIFF REQ, RBC 2.91 L, MCV 101.9 H, MCH 33.6 H, RDW 18.3 H, Gran % 78.9 H, Lymphocytes % 12.3 L, Monocytes % 6.6, Eosinophils % 1.8, Basophils % 0.4, Absolute Granulocytes 4.4, Absolute Lymphocytes 0.7 L, Absolute Monocytes 0.4, Absolute Eosinophils 0.1, Absolute Basophils 0, PUBS MCHC 32.9 L Assessment/Plan Assessment/Plan The blood pressure is improved. I think her stress test was basically negative. I would continue her on amlodipine. The patient can be discharged from a cardiac standpoint. I would just ask GI about her diuretics, which were apparently being given for chronic ascites due to liver disease. Continue telemetry? No
[2016-08-04 11:45] LABS: ABSOLUTE BASOPHIL COUNT 0 /CUMM (0.0-0.2); ABSOLUTE EOSINOPHIL COUNT 0 /CUMM (0.0-0.7); ABSOLUTE GRANULOCYTE CT 4.2 /CUMM (1.4-6.5); ABSOLUTE LYMPH COUNT 0.5 /CUMM (1.2-3.4); ABSOLUTE MONOCYTE COUNT 0.3 /CUMM (0.10-0.60); BASOPHIL % 0.3 % (0.0-2.0); EOSINOPHIL % 0.7 % (0-5); GRANULOCYTE % 83.2 % (42.2-75.2); HEMATOCRIT 32.3 % (37-47); MEAN CORPUSCULAR HGB CONC 33.5 G/DL (33.0-37.0); MEAN CORPUSCULAR VOLUME 101.5 FL (81.0-99.0); MEAN PLATELET VOLUME 8.7 FL (7.4-10.4); RBC DISTRIBUTION WIDTH 18.5 % (11.5-14.5); RED BLOOD CELL CT 3.18 /CUMM (4.20-5.40)
[2016-08-04 11:52] LABS: WHITE BLOOD CELL COUNT 5.6 /CUMM (4.8-10.8)
[2016-08-04 12:15] LABS: PLATELET COUNT 99 /CUMM (130-400)
[2016-08-04 13:03] VITALS: BP 144/78
--- NOTE | 2016-08-04 13:13 | PN- Hematology ---
Subjective Subjective: She feels about the same. She has no new changes. She has no fever or chills. Breathing is about the same. Bruising is about the same. Review of Systems: Constitutional: Reports: malaise, weakness. Denies: chills, fever. Cardiovascular : Reports: palpitations, syncope. Denies: chest pain. Respiratory: Reports: short of breath. Denies: cough, hemoptysis. GI: Denies: abdominal pain. Musculoskeletal: Reports: back pain. Skin: Reports: bruising Hematologic/Endocrine: Reports: bruising. Denies: bleeding. Immunologic/Allergic: Denies: lymphadenopathy. All Other Systems: Reviewed and Negative Objective Vital Signs and I&Os Vital Signs Date Time Temp Pulse Resp B/P B/P Pulse O2 O2 Flow FiO2 Mean Ox Delivery Rate 08/04 801 97.5 87 22 144/78 98 08/04 0016 97.8 84 20 132/64 96 Room Air 08/03 2113 82 130/64 08/03 2113 82 130/64 08/03 2107 96.9 85 20 130/64 96 Room Air 08/03 1600 93 Room Air 08/03 1549 97.7 96 20 160/82 93 Room Air 08/03 1439 98.2 88 20 170/80 Intake & Output 08/04 0808/04 0000 08/03 1600 08/03 0000 Intake Total 100 680 120 100 Output Total 500 650 350 Balance -400 30 120 -250 Intake, Oral 100 680 120 100 Number 1 Bowel Movements Output, Urine 500 650 350 Physical Exam: General Appearance: alert, awake, comfortable, obese Head: atraumatic Respiratory: chest non-tender, no respiratory distress, quiet respiration Cardiovascular: regular rate/rhythm, edema Gastrointestinal: normal bowel sounds, soft, non-tender Extremities: pedal edema Neurologic/Psych: awake, alert, oriented x 3 Skin: ecchymosis (diffuse in the BUE and anterior chest/neck) Lymphatic: no anterior cervical shira Current Medications: Current Medications Sig/Radha Start time Last Medication Dose Route Stop Time Status Admin Acetaminophen 650 MG .STK-MED ONE 08/03 1920 DC PO 08/03 1921 Acetaminophen 1,000 MG Q6P PRN 07/30 1615 AC N/A 1 UNIT IV Acetaminophen 650 MG Q4P PRN 07/30 1545 AC 08/03 PO 1926 Aminophylline 250 MG .STK-MED ONE 08/03 1350 DC IV 08/03 1351 Amlodipine Besylate 10 MG DAILY 08/04 1000 AC 05 PO 1050 Amlodipine Besylate 5 MG ONCE ONE 08/03 2100 DC 08/03 PO 08/03 2101 2113 Amlodipine Besylate 5 MG DAILY 08/02 1030 DC 08/03 PO 0829 Apixaban 2.5 MG BID 08/02 1016 AC 05 PO 1049 Aspirin 81 MG DAILY 08/01 1000 AC 05 PO 1049 Atorvastatin Calcium 50 MG 1300 07/31 1300 AC 05 PO 1251 Insulin Aspart 0 TIDAC 08/02 1200 AC SC Lactulose 20 GM DAILY 07/30 2045 AC 08/04 PO 1049 Levothyroxine Sodium 0.175 MG DAILY AC 07/30 1610 AC 05 PO 0659 Lidocaine 1 PAT DAILY 07/31 1000 AC 08/04 EXT 1050 Magnesium Oxide 400 MG ONE ONE 08/03 2100 DC 08/03 PO 08/03 2101 2114 Magnesium Oxide 400 MG DAILY 07/30 1611 AC 05 PO 1049 Metoprolol Tartrate 25 MG BID 07/31 1510 AC 05 PO 1049 Oxycodone/ 1 TAB Q6P PRN 08/04 1100 AC 05 Acetaminophen PO 1053 Oxycodone/ 1 TAB ONCE PRN 08/04 0130 DC 05 Acetaminophen PO 08/04 0131 0123 Patient Medication 1 ED ONE ONE 08/03 1400 DC 08/03 Teaching ED 08/03 1401 1443 Assessment/Plan Assessment/Recommendations: Ms. 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 She was noted to have elevated troponin and atrial fibrillation with RVR. She was started on IV diltiazem and IV heparin. She is now on Eliquis and metoprolol. During admission, she was noted to have thrombocytopenia but noted to have platelet clumping. She had similar issues during the previous admission. Work up has been negative. This is likely related to nephrotic syndrome and liver disease. CBC can be drawn in citrate tube. Recommendations: 1. Monitor CBC for now 2. Consider platelet aggregation studies 3. Use citrate tube for CBC (alert lab regarding platelet clumping) 4. Follow up as outpatient Please call [phone] with any questions. Problem List: 1. Thrombocytopenia 2. CKD (chronic kidney disease) stage 4, GFR 15-29 ml/min 3. CAD (coronary artery disease) 4. 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
[2016-08-04] MEDS ORDERED: LACTULOSE10 GM/153 PO (13:15)
--- NOTE | 2016-08-05 12:10 | IV DIPYRIDAMOLE NUCLEAR STRESS ---
Clinical Diagnosis: Myocardial Infarction, R/O Ischemia Acid Pump Operator: Yanelis Leung IV DIPYRIDAMOLE INFUSED: 50 mg IV AMINOPHYLLINE INFUSED: 125 mg PATIENT WEIGHT: 185 lbs INTERPRETATION: The patient's baseline EKG showed sinus rhythm with premature atrial contractions, left ventricular hypertension at 98 BPM. Baseline B/P 138/ 80. The patient received 45 mg of dipyridamole infused intravenously over a 4 minute period. TC-99M or Myoview was injected after dipyridamole infusion. The patient complained of nausea. She was given 125 mg aminophylline with improvement. There were no EKG changes seen following pharmacologic infusion. Arrhythmias: Premature atrial contractions throughout. IMPRESSION: The test was supervised by the interpreting Employment Instructional Associate, who was in attendance during the entire test. No EKG evidence of stress induced myocardial ischemia, abnormal control. See separately dictated Nuclear Report.
== END 2016-08-04 13:45 | DRG 308 ==
LOC: ERH 09:01 → ERHI 12:20 → 1NO 12:20 → ENRESERV 13:02 → 1NO 14:51 → ENPENDDIS 08-04 11:45 → 1NO 08-04 13:45
PROVIDERS: Dermatology; Emergency Medicine; Internal Medicine; Internal Medicine Endocrinology, Diabetes & Metabolism; Student in an Organized Health Care Education/Training Program; ADMIT Hospitalist
PROC: 0W9G3ZX Drainage of Peritoneal Cavity, Percutaneous Approach, Diagnostic (ICD-10-PCS; principal; 2016-07-30)
DX: I48.91 Unspecified atrial fibrillation (principal); G93.41 Metabolic encephalopathy; R18.8 Other ascites; N18.4 Chronic kidney disease, stage 4 (severe); I24.8 Other forms of acute ischemic heart disease; I13.0 Hypertensive heart and chronic kidney disease with heart failure and stage 1 through stage 4 chronic kidney disease, or unspecified chronic kidney disease; I50.32 Chronic diastolic (congestive) heart failure; E11.22 Type 2 diabetes mellitus with diabetic chronic kidney disease; D69.59 Other secondary thrombocytopenia; E11.43 Type 2 diabetes mellitus with diabetic autonomic (poly)neuropathy; D69.6 Thrombocytopenia, unspecified; E83.42 Hypomagnesemia; K31.84 Gastroparesis; K75.81 Nonalcoholic steatohepatitis (NASH); K74.69 Other cirrhosis of liver; E66.9 Obesity, unspecified; I25.10 Atherosclerotic heart disease of native coronary artery without angina pectoris; Z66 Do not resuscitate; E78.5 Hyperlipidemia, unspecified; Z86.73 Personal history of transient ischemic attack (TIA), and cerebral infarction without residual deficits; Z68.32 Body mass index [BMI] 32.0-32.9, adult
CPT/HCPCS: 1NSP; 87075; 36415; 72070; 72100; 74176; 78452; 80307; 81001; 82436; 87040; 87086; 87147; 93005; 93010; 93016; 93017; 93306; 96361; 96374; 96375; 96376; 97110-GO; 97116-GO; 97161-GP; 97530-GO; 99291; A9502; G0480; J0153; J0360; J1245; J1644; J1815; J3370; J3490; J7040; J7042

== ENCOUNTER 2016-10-11 12:28 | Inpatient (IN) | payer OTHER, MEDICARE ==
[~2016-10-11] VITALS: Ht 160 cm; Wt 68.0 kg
[~2016-10-11 12:28] MED LIST changes: +AMLODIPINE BESY10 M1 PO; +AMLODIPINE BESYL5 M1 PO; -ATORVASTATIN CA10 M1 PO; +ATORVASTATIN CA80 M1 PO; +ELIQUIS2.5 M1 PO; +FENOFIBRATE200 M1 PO; -FENOFIBRATE200 MG PO; +LACTULOSE10 GM/153 PO; +METOPROLOL TART25 M1 PO
--- NOTE | 2016-10-11 13:49 | ED GI/GU/ABDOMINAL COMPLAINT ---
History of Present Illness General Chief Complaint: Nausea, Vomiting, Diarrhea Stated Complaint: NVD Source: patient, old records Exam Limitations: no limitations Allergies Coded Allergies: codeine (Severe, RASH, DIFFICULTY BREATHING 04/08/16) morphine (Severe, SHORTNESS OF BREATH 04/08/16) Reconcile Medications Amlodipine Besylate 10 MG TABLET 1 TAB PO DAILY BLOOD PRESSURE Apixaban (Eliquis) 2.5 MG TABLET 1 TAB PO BID afib Atenolol 100 MG TABLET 1 TAB PO QPM HEART (Reported) Atorvastatin Calcium 80 MG TABLET 1 TAB PO DAILY CHOLESTROL (Reported) Clonidine HCl 0.1 MG TABLET 1 TAB PO QPM PRN UNKNOWN (Reported) Fenofibrate,Micronized (Fenofibrate) 200 MG CAPSULE 1 CAP PO DAILY HLD ( Reported) Furosemide 20 MG TABLET 1 TAB PO DAILY WATER RETENTION (Reported) Gabapentin (Neurontin) 300 MG CAPSULE 2 CAP PO DAILY NEUROPATHY (Reported) Gabapentin (Neurontin) 300 MG CAPSULE 1 CAP PO QPM NEUROPATHY (Reported) Levothyroxine Sodium (Synthroid) 175 MCG TABLET 1 TAB PO DAILY AC Hypothyroidism Lisinopril 2.5 MG TABLET 1 TAB PO DAILY HEART (Reported) Lisinopril (Prinivil) 20 MG TABLET 1 TAB PO DAILY HEART (Reported) Magnesium Oxide (Magnesium) 400 MG CAPSULE 20.5 MG PO DAILY VITAMIN SUPPORT ( Reported) Metoprolol Tartrate 25 MG TABLET 1 TAB PO BID HTN,afib Omeprazole 20 MG CAPSULE.DR 20 MG PO DAILY AC stomach Spironolactone (Aldactone) 25 MG TABLET 50 MG PO DAILY water pill Triage Note: PT TO ED WITH C/O NAUSEA, VOMITING AND DIARRHEA X 4-5 DAYS, "I HAVE A VISITING NURSE AND THEY STONGLY RECOMMENDED ME TO COME IN". Triage Nurses Notes Reviewed? yes ? n Is pt currently ? No Onset: Abrupt Duration: day(s): (5), constant Timing: recent history Quality/Severity: aching, cramping Severity Numbers: 7 Location: generalized abdomen Radiation: no radiation Activities at Onset: none No Modifying Factors: none Associated Symptoms: diarrhea, nausea/vomiting HPI: 71-year-old female with history of hypertension, LVH, diabetic since 1988 with questionable neuropathy, hyperlipidemia, morbid obesity, mild CVA in 1978 without residual, hypothyroidism, asthma, ASHD, CHF, history of SVT, renal insufficiency, presents to ER for evaluation bleeding of nausea vomiting diarrhea for the past 5 days. No recent antibiotic use. She denies hematemesis black or bloody stools. She reports that her abdomen is felt crampy aching nonradiating worse over the periumbilical region. She denies any dysuria urgency frequency however reports a weakness secondary to poor appetite. No chest pain shortness of breath. Her abdominal surgery significant for cholecystectomy appendectomy. Her last episode diarrhea was yesterday. She's been taking Zofran which is helping overran out. She reports chills no fevers. The patient states over the past 6 months she has noted that her abdomen has felt distended she's been worked up by GI with no known cause identified. (MALOU CHATMAN,JAHAIRA) Vital Signs & Intake/Output Vital Signs & Intake/Output Vital Signs Date Time Temp Pulse Resp B/P B/P Pulse O2 O2 Flow FiO2 Mean Ox Delivery Rate 10/11 1512 96.0 79 20 178/83 97 Room Air 10/11 1238 97.8 82 20 150/92 97 Room Air Past History Travel History Traveled to [place] past 21 day No Medical History Any Pertinent Medical History? 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), migraine, peripheral neuropathy EENT: NONE Cardiovascular: diastolic CHF, hypertension, hyperlipidemia, hx SVT Respiratory: asthma Gastrointestinal: hiatal hernia (mild), gastroparesis Hepatic: cirrhosis Renal: chronic kidney disease (r/o nephrotic) Musculoskeletal: chronic back pain, degen joint disease, falls, fracture (L hip post fall), spinal stenosis Psychiatric: depression Endocrine: diabetes, hypothyroidism, obesity, vitamin D deficiency Blood Disorders: anemia (macrocytic w/o transfx), thrombocytopenia Cancer(s): NONE MOTOR VEHICLE LECTURER/Reproductive: NONE History of MRSA: No History of VRE: No History of CDIFF: No Surgical History Surgical History: appendectomy, cholecystectomy (open 1978), (x 2), RIGHT SHOULDER ROTATOR LEFT ANKLE SURGERY C-SECTIONS resection of pancreatic cyst at [facility] Psychosocial History Who do you live with Spouse Services at Home None What is your primary language Mongolian Tobacco Use: Quit >30 days ago ETOH Use: denies use Illicit Drug Use: denies illicit drug use Family History Family History, If Any: SISTER FH: Crohn's disease FH: diabetes mellitus BROTHER FH: Hodgkins disease FATHER FH: heart disease MOTHER FH: diabetes mellitus Relation not specified for: FH: lung cancer Hx Contributory? No (JAHAIRA JULES) Review of Systems Review of Systems Constitutional: Reports: see HPI. All Other Systems: Reviewed and Negative Comments Review of systems: See HPI, All other systems negative. Constitutional, no chills no fever, no malaise HEENT: no sore throat no congestion Cardiovascular: No chest pain , no palpitation Skin: no rashes, no change in skin Respiratory: No dyspnea no cough no sputum GI: nausea vomiting, diarrhea, gu: no dysuria, no discharge Muscle skeletal: No joint pain, no joint swelling, no back pain, no neck pain, Neurologic: No numbness no headache Psych: No stress Heme/endocrine: No bruising Immunology: No lymphadenopathy (JAHAIRA JULES) Physical Exam Physical Exam General Appearance: well developed/nourished, no apparent distress, alert, awake Gastrointestinal: soft, distention Comments: Well-developed well-nourished person in no acute distress HEENT: Normal EENT exam; PERRL, EOMI, HEAD is atraumatic. moist mucous membranes. Neck: Supple, normal range of motion Back: Nontender, no CVA tenderness. Full range of motion Cardiovascular: Regular rate and rhythms no murmurs rubs Respiratory: Chest nontender.There were no bony deformities, no asymmetry. No respiratory distress. Patient speaking in full complete sentences. Breath sounds clear to auscultation bilaterally: NO W/R/R Abdomen: Soft, diffuse tenderness distended abdomen firm nondistended, no appreciable organomegaly. Normal bowel sounds. No rebound/guarding, No appreciable enlargement of the abdominal aorta, DIFFUSE ascites. Extremity: No edema, full range of motion of extremities Neuro: Alert oriented x3, motor sensory normal, . There were no obvious focal neurologic abnormalities. Skin: No appreciable rash on exposed skin, skin is warm and dry. Psych: Mood and affect is normal, memory and judgment is normal. Core Measures ACS in differential dx? Yes Severe Sepsis Present: No Septic Shock Present: No (JAHAIRA JULES) Progress Differential Diagnosis: appendicitis, biliary colic, bowel obstruction, colon cancer, diverticulitis, inflamm bowel dis, perforated viscous, SBO, malignancy pancreatitis, SBP-NO FEVERS,NO LEUKOCYTOSIS Diagnostic Imaging: Viewed by Me: CT Scan. Discussed w/RAD: CT Scan. Radiology Impression: PATIENT: MALIK LOVE PRESENT AGE: 71 PATIENT ACCOUNT NO: [id number] : 46 LOCATION: [facility] ORDERING PHYSICIAN: JAHAIRA CHATMAN SERVICE DATE: 10/11/16 EXAM TYPE: CAT - CT ABD & PELVIS W/O IV CONTRAS EXAMINATION: CT ABDOMEN AND PELVIS WITHOUT CONTRAST CLINICAL INFORMATION: Nausea, vomiting, diarrhea. Abdominal distention. COMPARISON: 07/30/2016 TECHNIQUE: Multidetector volumetric imaging was performed from the superior aspect of the liver through the pubic symphysis. Sagittal and coronal reformatted images were obtained on the technologist's workstation. DLP: 753 mGy-cm FINDINGS: LUNG BASES: Elevation of the left hemidiaphragm. Small left pleural effusion. An area artery calcifications. LIVER, GALLBLADDER, AND BILIARY TREE: The liver is shrunken with a nodular Contour, consistent with cirrhosis. No hepatic lesion identified or ductal dilatation. Status post cholecystectomy. There is a large volume of ascites, increased from the prior CT from 07/30/2016. PANCREAS: Limited evaluation with no gross abnormality. SPLEEN: Unremarkable. ADRENAL GLANDS: Unremarkable. KIDNEYS AND URETERS: The kidneys are normal in size, shape, and attenuation. No hydronephrosis. Bilateral renal calculi are present. There are 2 small calculi at the upper pole of the right kidney measuring 0.2 cm, 6.5 cm from the posterior axillary line. There is a 0.3 cm left midpole calculus 7 cm from the posterior axillary line. BLADDER: Unremarkable. GASTROINTESTINAL TRACT: Ascites and lack of contrast limits the evaluation. The stomach and small bowel appear unremarkable. No obstruction. There is wall thickening of the cecum and ascending colon, which could represent portal colopathy. Colitis not excluded. Scattered diverticulosis noted. No free air. ABDOMINAL WALL: Extensive anasarca. LYMPH NODES: Normal. VASCULAR: Moderate atherosclerotic calcifications. PELVIC VISCERA: Unremarkable. OSSEOUS STRUCTURES : No acute or suspicious osseous abnormality. Degenerative changes throughout the spine. IMPRESSION: Cirrhosis. Large volume of ascites is increased from previous. Diffuse anasarca. Wall thickening of the ascending colon could represent portal colopathy. This is a change from prior and colitis is possible. Bilateral nonobstructing renal calculi. Small left pleural effusion. DICTATED BY : SHERI LUNA MD DATE/TIME DICTATED:10/11/161599 MEN'S GARMENT FITTER: LINDSEY DATE/TIME TRANSCRIBED:10/11/161599 CONFIDENTIAL, DO NOT COPY WITHOUT APPROPRIATE AUTHORIZATION. <Electronically signed in Other Vendor System> SIGNED BY: JEREMY HERMAN,SHERI 10/11/16 1614 Initial ED EKG: normal intervals, normal p-waves, normal QRS complex, normal sinus rhythm, nonspecific ST T wave chg Prior EKG: unchanged (07/2016) (JAHAIRA JULES) Plan of Care: Orders Procedure Date/time Status Admit to inpatient 10/11 171 Active Patient Data 10/11 171 Active Add-on Test (ER Only) 10/11 1525 Active EKG 10/11 1525 Active CULTURE,STOOL 10/11 1444 Active C.DIFFICILE 10/11 1444 Active TROPONIN LEVEL 10/11 1442 Complete LIPASE 10/11 1411 Complete LACTIC ACID 10/11 1411 Complete COMPREHENSIVE METABOLIC PANEL 10/11 1411 Complete CBC WITHOUT DIFFERENTIAL 10/11 1411 Complete AMYLASE 10/11 1411 Complete Laboratory Tests 10/11/16 1711: Lactic Acid Cancelled 10/11/16 1442: Anion Gap 7, Estimated GFR 23 L, BUN/Creatinine Ratio 18.1, Glucose 98, Lactic Acid 1.3, Calcium 8.4, Total Bilirubin 1.6 H, AST 56 H, ALT 28, Alkaline Phosphatase 103, Troponin I 0.09, Total Protein 6.7, Albumin 2.5 L, Globulin 4.2, Albumin/Globulin Ratio 0.6 L, Amylase < 30 L, Lipase 77, CBC w Diff NO MAN DIFF REQ, RBC 3.36 L, MCV 97.8, MCH 32.1 H, RDW 16.4 H, MPV 9.5, Gran % 72.8, Lymphocytes % 18.2 L, Monocytes % 7.6, Eosinophils % 0.8, Basophils % 0.6 , Absolute Granulocytes 2.4, Absolute Lymphocytes 0.6 L, Absolute Monocytes 0.3 , Absolute Eosinophils 0, Absolute Basophils 0, PUBS MCHC 32.8 L Microbiology 10/11 144 STOOL: Clostridium difficile Toxin A & B - ORD 10/12 1443 STOOL: Stool Culture - ORD Patient taking Zofran IV Tylenol IV fluids CAT scan and labs ordered Old records reviewed patient's creatinine through July of this year has been 1.4 1.3 elevated creatinine today secondary possible to vomiting diarrhea unable to tolerate by mouth here patient reports pain is improved with Tylenol on repeat evaluation, she has a history of ascites in the past there is no leukocytosis or fever recently to suggest SBP do not believe the patient requires paracentesis at this time as patient has had a several month history and workup in the past regarding her ascites however patient unable to tolerate by mouth given elevated creatinine function I believe premature discharge reviewed metacarpal which she is in agreement with case discussed with Dr. Wilkinson who evaluated the patient agrees with plan Repeat evaluation patient's had no episodes of nausea vomiting vomiting or diarrhea here in the department denies pain declining anything else for pain when offered on repeat evaluation D/W DR STOUT WILL ADMIT (JAHAIRA JULES) Departure Departure Time of Disposition: 1625 Disposition: STILL A PATIENT Condition: Stable Clinical Impression Primary Impression: Acute on chronic renal insufficiency Secondary Impressions: Ascites, Hyperkalemia, Nausea vomiting and diarrhea Referrals: ARLEEN HORN MD (PCP/Family) Departure Forms: Customer Survey General Discharge Information Admission Note Spoke With: CHARISMA STOUT MD Documentation of Exam: Documentation of any treatments & extenuating circumstances including Concerns Regarding Discharge (functional status, medication knowledge or non-compliance, living conditions, etc.) that warrant an admission rather than observation: GI consult trend labs IV fluids trend electrolytes premature discharge would BE medically harmful (JAHAIAR JULES) PA/LIBRARY CIRCULATION CLERK Co-Sign Statement Statement: ED Attending supervision documentation- [X] I saw and evaluated the patient. I have also reviewed all the pertinent lab results and diagnostic results. I agree with the findings and the plan of care as documented in the PA's/LIBRARY CIRCULATION CLERK's documentation. [] I have reviewed the ED Record and agree with the PA's/LIBRARY CIRCULATION CLERK's documentation. [] Additions or exceptions (if any) to the PAs/LIBRARY CIRCULATION CLERK's note and plan are summarized below: [] (JOYCE HERMAN,DAVONTE Chand)
[2016-10-11] MEDS ORDERED: ATENOLOL100 M1 PO (14:43)
[2016-10-11] MEDS ORDERED: FUROSEMIDE20 M1 PO (14:45)
[2016-10-11] MEDS ORDERED: CLONIDINE HCL0.1 MG PO (14:45)
[2016-10-11] MEDS ORDERED: NEURONTIN300 M1 PO ×2 (14:46)
[2016-10-11] MEDS ORDERED: LISINOPRIL2.5 M1 PO (14:47)
[2016-10-11] MEDS ORDERED: PRINIVIL20 M1 PO (14:48)
[2016-10-11 14:50] LABS: ABSOLUTE BASOPHIL COUNT 0 /CUMM (0.0-0.2); ABSOLUTE EOSINOPHIL COUNT 0 /CUMM (0.0-0.7); ABSOLUTE GRANULOCYTE CT 2.4 /CUMM (1.4-6.5); ABSOLUTE LYMPH COUNT 0.6 /CUMM (1.2-3.4); ABSOLUTE MONOCYTE COUNT 0.3 /CUMM (0.10-0.60); BASOPHIL % 0.6 % (0.0-2.0); EOSINOPHIL % 0.8 % (0-5); GRANULOCYTE % 72.8 % (42.2-75.2); HEMATOCRIT 32.8 % (37-47); MEAN CORPUSCULAR HGB 32.1 PG (27.0-31.0); MEAN CORPUSCULAR HGB CONC 32.8 G/DL (33.0-37.0); MEAN CORPUSCULAR VOLUME 97.8 FL (81.0-99.0); MEAN PLATELET VOLUME 9.5 FL (7.4-10.4); RBC DISTRIBUTION WIDTH 16.4 % (11.5-14.5); RED BLOOD CELL CT 3.36 /CUMM (4.20-5.40); WHITE BLOOD CELL COUNT 3.4 /CUMM (4.8-10.8)
--- NOTE | 2016-10-11 16:14 | CT SCAN REPORT ---
EXAMINATION: CT ABDOMEN AND PELVIS WITHOUT CONTRAST CLINICAL INFORMATION: Nausea, vomiting, diarrhea. Abdominal distention. COMPARISON: 07/30/2016 TECHNIQUE: Multidetector volumetric imaging was performed from the superior aspect of the liver through the pubic symphysis. Sagittal and coronal reformatted images were obtained on the technologist's workstation. DLP: 753 mGy-cm FINDINGS: LUNG BASES: Elevation of the left hemidiaphragm. Small left pleural effusion. An area artery calcifications. LIVER, GALLBLADDER, AND BILIARY TREE: The liver is shrunken with a nodular Contour, consistent with cirrhosis. No hepatic lesion identified or ductal dilatation. Status post cholecystectomy. There is a large volume of ascites, increased from the prior CT from 07/30/2016. PANCREAS: Limited evaluation with no gross abnormality. SPLEEN: Unremarkable. ADRENAL GLANDS: Unremarkable. KIDNEYS AND URETERS: The kidneys are normal in size, shape, and attenuation. No hydronephrosis. Bilateral renal calculi are present. There are 2 small calculi at the upper pole of the right kidney measuring 0.2 cm, 6.5 cm from the posterior axillary line. There is a 0.3 cm left midpole calculus 7 cm from the posterior axillary line. BLADDER: Unremarkable. GASTROINTESTINAL TRACT: Ascites and lack of contrast limits the evaluation. The stomach and small bowel appear unremarkable. No obstruction. There is wall thickening of the cecum and ascending colon, which could represent portal colopathy. Colitis not excluded. Scattered diverticulosis noted. No free air. ABDOMINAL WALL: Extensive anasarca. LYMPH NODES: Normal. VASCULAR: Moderate atherosclerotic calcifications. PELVIC VISCERA: Unremarkable. OSSEOUS STRUCTURES: No acute or suspicious osseous abnormality. Degenerative changes throughout the spine. IMPRESSION: Cirrhosis. Large volume of ascites is increased from previous. Diffuse anasarca. Wall thickening of the ascending colon could represent portal colopathy. This is a change from prior and colitis is possible. Bilateral nonobstructing renal calculi. Small left pleural effusion.
[2016-10-11 19:03] LABS: ABSOLUTE BASOPHIL COUNT 0 /CUMM (0.0-0.2); ABSOLUTE EOSINOPHIL COUNT 0 /CUMM (0.0-0.7); ABSOLUTE GRANULOCYTE CT 1.9 /CUMM (1.4-6.5); ABSOLUTE LYMPH COUNT 0.7 /CUMM (1.2-3.4); ABSOLUTE MONOCYTE COUNT 0.3 /CUMM (0.10-0.60); BASOPHIL % 0.5 % (0.0-2.0); EOSINOPHIL % 0.9 % (0-5); GRANULOCYTE % 65.3 % (42.2-75.2); HEMATOCRIT 29.6 % (37-47); MEAN CORPUSCULAR HGB 32.4 PG (27.0-31.0); MEAN CORPUSCULAR HGB CONC 32.8 G/DL (33.0-37.0); MEAN CORPUSCULAR VOLUME 98.7 FL (81.0-99.0); RBC DISTRIBUTION WIDTH 16.4 % (11.5-14.5); WHITE BLOOD CELL COUNT 2.9 /CUMM (4.8-10.8)
--- NOTE | 2016-10-11 20:00 | History & Physical ---
NILAM HERMAN,IMELDA 10/[birth year]161958: General Information and HPI MD Statement: I have seen and personally examined MALIK LOVE and documented this H&P. The patient is a 71 year old F who presented with a patient stated chief complaint of [nausea,vomiting and diarrhea]. 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 nephrotic range proteinuria, hypothyroidism, depression, obesity, thrombocytopenia with platelet clumping with elevated serum IgA,previous multiple fractures ,severe vitamin D deficiency, DJD, migraine headache, chronic anemia for years without transfusion (currently macrocytic), recently admitted to [facility] for metabolic encephalopathy with new onset atrial fibrillation on elliquis presented to the ED for evaluation of worsening nausea vomiting with diarrhea for the last 4 days. Patient mentioned that she has been having nausea with bilious vomiting associated with loose non-bloody watery stools for the last 4 days. She also reported lower abdominal discomfort with worsening abdominal girth. Denies any fever or chills denies, any recent infections, denies any sick contacts or any recent travels she has been taking Zofran at home without any improvement in her nausea, came to the ER for further assessment denies any chest discomfort or breathing or any palpitations denies any urinary symptoms. Patient was recently admitted to [facility] after having a fall and was also treated for blisters on her lower extremities. Allergies/Medications Allergies: Coded Allergies: codeine (Severe, RASH, DIFFICULTY BREATHING 04/08/16) morphine (Severe, SHORTNESS OF BREATH 04/08/16) Home Med list Amlodipine Besylate 10 MG TABLET 1 TAB PO DAILY BLOOD PRESSURE Apixaban (Eliquis) 2.5 MG TABLET 1 TAB PO BID afib Atenolol 100 MG TABLET 1 TAB PO QPM HEART (Reported) Atorvastatin Calcium 80 MG TABLET 1 TAB PO DAILY CHOLESTROL (Reported) Clonidine HCl 0.1 MG TABLET 1 TAB PO QPM PRN UNKNOWN (Reported) Fenofibrate,Micronized (Fenofibrate) 200 MG CAPSULE 1 CAP PO DAILY HLD ( Reported) Furosemide 20 MG TABLET 1 TAB PO DAILY WATER RETENTION (Reported) Gabapentin (Neurontin) 300 MG CAPSULE 2 CAP PO DAILY NEUROPATHY (Reported) Gabapentin (Neurontin) 300 MG CAPSULE 1 CAP PO QPM NEUROPATHY (Reported) Levothyroxine Sodium (Synthroid) 175 MCG TABLET 1 TAB PO DAILY AC Hypothyroidism Lisinopril 2.5 MG TABLET 1 TAB PO DAILY HEART (Reported) Lisinopril (Prinivil) 20 MG TABLET 1 TAB PO DAILY HEART (Reported) Magnesium Oxide (Magnesium) 400 MG CAPSULE 20.5 MG PO DAILY VITAMIN SUPPORT ( Reported) Metoprolol Tartrate 25 MG TABLET 1 TAB PO BID HTN,afib Omeprazole 20 MG CAPSULE.DR 20 MG PO DAILY AC stomach Spironolactone (Aldactone) 25 MG TABLET 50 MG PO DAILY water pill Past History Travel History Traveled to [place] past 21 day No Medical History Neurological: 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), migraine, peripheral neuropathy EENT: NONE Cardiovascular: diastolic CHF, hypertension, hyperlipidemia, hx SVT Respiratory: asthma Gastrointestinal: hiatal hernia (mild), gastroparesis Hepatic: cirrhosis Renal: chronic kidney disease (r/o nephrotic) Musculoskeletal: chronic back pain, degen joint disease, falls, fracture (L hip post fall), spinal stenosis Psychiatric: depression Endocrine: diabetes, hypothyroidism, obesity, vitamin D deficiency Blood Disorders: anemia (macrocytic w/o transfx), thrombocytopenia Cancer(s): NONE EMPLOYMENT APPEALS EXAMINER/Reproductive: NONE History of MRSA: No History of VRE: No History of CDIFF: No Surgical History Surgical History: appendectomy, cholecystectomy (open 1978), (x 2), RIGHT SHOULDER ROTATOR LEFT ANKLE SURGERY C-SECTIONS [facility] Past Family/Social History Family History Relations & Conditions if any SISTER FH: Crohn's disease FH: diabetes mellitus BROTHER FH: Hodgkins disease FATHER FH: heart disease MOTHER FH: diabetes mellitus Relation not specified for: FH: lung cancer Psychosocial History Who Do You Live With? spouse Services at Home: None Primary Language: Icelandic ETOH Use: denies use Illicit Drug Use: denies illicit drug use Living Will? no Power of Warp Splitter/HCP? no Functional Ability ADLs Independent: dressing, eating. Needs Assist: toileting, bathing. Ambulation: non-ambulatory (post L hip fx) IADLs Independent: finances, food prep, telephone, medication admin. Needs Assist: shopping, housework, transportation. Review of Systems Review of Systems Constitutional: Reports: weakness. EENTM: Denies: no symptoms. Cardiovascular: Denies: no symptoms. Respiratory: Denies: no symptoms. GI: Reports: abdominal pain, diarrhea, nausea, vomiting. Genitourinary: Denies: no symptoms. Musculoskeletal: Denies: no symptoms. Skin: Reports: see HPI. Neurological/Psychological: Denies: no symptoms. Hematologic/Endocrine: Denies: no symptoms. Immunologic/Allergic: Denies: no symptoms. Exam & Diagnostic Data Last 24 Hrs of Vital Signs/I&O Vital Signs Date Time Temp Pulse Resp B/P B/P Pulse O2 O2 Flow FiO2 Mean Ox Delivery Rate 10/12 2047 97.6 74 18 158/94 94 10/11 1916 97.5 77 18 170/80 98 Room Air 10/11 1744 96.9 76 20 187/88 97 Room Air 10/11 1512 96.0 79 20 178/83 97 Room Air 10/11 1238 97.8 82 20 150/92 97 Room Air Intake & Output 10/11 1600 10/11 0800 10/11 0000 Intake Total 1000 Output Total Balance 1000 Intake, IV 1000 Patient 161 lb Weight Weight Reported by Patient Measurement Method Physical Exam General Appearance Alert, Oriented X3, Cooperative HEENT Atraumatic, PERRLA, EOMI Neck Supple, No JVD, No thryomegaly Cardiovascular Normal S1, Normal S2, No Murmurs Lungs Clear to Auscultation, Normal Air Movement Abdomen Normal Bowel Sounds, Soft, No Tenderness Neurological Normal Speech, Strength at 5/5 X4 Ext, Normal Tone Extremities No Clubbing, No Cyanosis, Normal Pulses, Blisters on lower extremities Diagnostic Data Other Results CT abdomen and pelvis revealed Cirrhosis. Large volume of ascites is increased from previous. Diffuse anasarca. Wall thickening of the ascending colon could represent portal colopathy. This is a change from prior and colitis is possible. Bilateral nonobstructing renal calculi. Small left pleural effusion. 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 nephrotic range proteinuria, hypothyroidism, depression, obesity, thrombocytopenia with platelet clumping with elevated serum IgA,previous multiple fractures ,severe vitamin D deficiency, DJD, migraine headache, chronic anemia for years without transfusion (currently macrocytic), recently admitted to [facility] for metabolic encephalopathy with new onset atrial fibrillation on elliquis presented to the ED for evaluation of worsening nausea vomiting with diarrhea for the last 4 days. 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 Lower extremity ulcers * Visiting nurse comes to do the dressing every other day. Its been 5 days since last dressing was changed. * Wound care consult History of atrial fibrillation * Continue home dose of elliquis and Metoprolol History of hypertension and hyperlipidemia * Continue medications. Moderate severe pain controlled with tramadol DVT prophylaxis: Patient is on Eliquis Patient is full code As Ranked By This Provider Problem List: 1. Liver cirrhosis secondary to BYERS 2. Nausea vomiting and diarrhea 3. CKD (chronic kidney disease) stage 4, GFR 15-29 ml/min 4. Thrombocytopenia 5. Nausea and vomiting Core Measures/Miscellaneous Acute Coronary Syndrome ACS Diagnosis: No Cerebrovascular Accident CVA/TIA Diagnosis: No Congestive Heart Failure CHF Diagnosis: No VTE (View Protocol) VTE Risk Factors: Acute medical illness, Age > 40, CHF or Resp failure, Nephrotic syndrome No [facility] VTE prophylaxis d/t: No contraindications No VTE Pharm Prophylaxis d/t: No contraindications VTE Diagnosis: No VTE Type: NONE VTE Confirmed by (Test): NONE Sepsis (View Protocol) Severe Sepsis Present: No Septic Shock Septic Shock Present: No Miscellaneous Documentation Attending Case Discussed With: CHARISMA STOUT MD Primary Care Physician: ARLEEN HORN MD Patient sees these Specialists Dr.Pearson Dr. 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 nephrotic range proteinuria, hypothyroidism, depression, obesity, thrombocytopenia with platelet clumping with elevated serum IgA,previous multiple fractures ,severe vitamin D deficiency, DJD, migraine headache, chronic anemia for years without transfusion (currently macrocytic), recently admitted to [facility] for metabolic encephalopathy with new onset atrial fibrillation on elliquis presented to the ED for evaluation of worsening nausea vomiting with diarrhea for the last 4 days. Patient mentioned that she has been having nausea with billious vomiting associated with loose watery stools for the last 4 days ,Also reported lower abdominal discomfort with worsening abdominal girth. Denies any fever or chills denies any recent infections denies any sick contacts or any recent travels she has been taking Zofran at home without any improvement in her nausea, came to the ER for further assessment denies any chest discomfort or breathing or any palpitations denies any urinary symptoms Vital stable on admission General Appearance: Alert, No Acute Distress Skin: Grossly normal HEENT: PEERLA Neck: Supple, No JVD Cardiovascular: Regular Rate, Normal S1, Normal S2, No Murmurs Lungs: Lungs clear to auscultation bilaterally Abdomen: Generalized abdominal discomfort , positive fluid shift Neurological: Normal Speech, Strength at 5/5 X4 Ext, Cranial Nerves 3-12 NL, Reflexes 2+ Extremities: Lower extremity wounds covered with clean dry dressings Vascular: Normal Pulses. Pertinent labs on admission WBC count low at 2.9 H&H low 9.7/29.6 hyperkalemia 5.3 with a BUN and creatinine 38/2.1 elevated total bilirubin 1.6 CT abdomen and pelvis revealed Cirrhosis. Large volume of ascites is increased from previous. Diffuse anasarca.Wall thickening of the ascending colon could represent portal colopathy. Thisis a change from prior and colitis is possible.Bilateral nonobstructing renal calculi. Small left pleural effusion. 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 * Elevated total bilirubin ,check direct bilirubin * Obtain GI consult inthe morning * Nephrology consult in the morning * Tigan as needed for nausea and vomiting * Watch for any hemodynamic instability. History of atrial fibrillation * Continue home dose of elliquis History of hypertension and hyperlipidemia * Continue medications. Low extremity wounds (followed by home visiting nurse twice weekly): * covered with clean dry dressings. * obtain wound consult in am. 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 nephrotic range proteinuria, hypothyroidism, depression, obesity, thrombocytopenia with platelet clumping with elevated serum IgA, previous multiple fractures ,severe vitamin D deficiency, DJD, migraine headache , chronic anemia presenting with 1 week of nausea, vomiting, generalized weakness, and loose stools. Denies fever or chills. Plan - Admit to general medicine - GI consult - Restart home medications - Nephrology consult - Consider paracentesis - Hold antibiotics for now - DVT PPx
[2016-10-11 20:48] VITALS: BP 158/94
[2016-10-12 06:41] VITALS: BP 140/92; BP 158/87
--- NOTE | 2016-10-12 07:19 | PN- Housestaff ---
See Addendum Subjective Follow-up For: Ascites Hepatorenal syndrome Subjective: I have personally seen and examined the patient this morning. Patient denies any overnight events, fever, chills, nausea or vomiting. Review of Systems Constitutional: Denies: no symptoms. EENTM: Denies: no symptoms. Cardiovascular: Denies: no symptoms. Respiratory: Denies: no symptoms. Gastrointestinal: Denies: no symptoms. Genitourinary: Denies: no symptoms. Musculoskeletal: Denies: no symptoms. Skin: Denies: no symptoms. Neurological/Psychological: Denies: no symptoms. Hematologic/Endocrine: Denies: no symptoms. Objective Last 24 Hrs of Vital Signs/I&O Vital Signs Date Time Temp Pulse Resp B/P B/P Pulse O2 O2 Flow FiO2 Mean Ox Delivery Rate 10/12 1423 97.4 52 20 142/70 98 Room Air 10/12 0846 68 152/70 10/12 0845 68 152/70 10/12 0845 68 152/70 10/12 0844 68 152/70 10/12 0641 97.5 63 20 158/87 96 Room Air 10/11 2236 75 160/90 10/11 2048 97.6 74 18 158/94 94 10/11 1916 97.5 77 18 170/80 98 Room Air 10/11 1744 96.9 76 20 187/88 97 Room Air Intake & Output 10/12 1600 10/12 0800 10/12 0000 Intake Total 125 100 Output Total 300 500 Balance -175 -400 Intake, Oral 125 100 Output, Urine 300 500 Physical Exam General Appearance: Alert, Oriented X3, Cooperative, No Acute Distress HEENT: Atraumatic, PERRLA, EOMI Neck: Supple, No JVD, No thryomegaly Cardiovascular: Regular Rate, Normal S1, Normal S2 Lungs: Clear to Auscultation, Normal Air Movement Abdomen: Normal Bowel Sounds, Soft, No Hepatospenomegaly Neurological: Normal Speech, Strength at 5/5 X4 Ext, Normal Tone, Sensation Intact Extremities: No Clubbing, No Cyanosis, No Edema, Normal Pulses Current Medications: Current Medications Sig/Radha Start time Last Medication Dose Route Stop Time Status Admin Acetaminophen 650 MG Q6P PRN 10/11 1845 AC PO Amlodipine Besylate 10 MG DAILY 10/12 1000 AC 10/12 PO 0845 Apixaban 2.5 MG BID 10/11 2200 DC 10/12 PO 0844 Atenolol 100 MG DAILY 10/12 1000 AC 10/12 PO 0845 Atorvastatin Calcium 80 MG 1700 10/11 1901 AC 10/11 PO 1927 Clonidine 0.1 MG QPM PRN 10/11 191 AC PO Fenofibrate 145 MG DAILY 10/12 1000 AC 10/12 PO 0846 Furosemide 40 MG DAILY 10/12 1000 AC 10/12 PO 0844 Furosemide 0 .STK-MED ONE 10/11 1924 DC PO Furosemide 20 MG ONCE ONE 10/11 191 DC 10/11 PO 10/11 191 1927 Furosemide 40 MG DAILY 10/11 1903 DC PO Furosemide 40 MG DAILY 10/11 1900 DC PO Gabapentin 600 MG DAILY 10/12 1000 DC 10/12 PO 0845 Gabapentin 300 MG BID 10/12 1000 AC PO Gabapentin 300 MG QPM 10/11 2200 DC 10/11 PO 2232 Levothyroxine Sodium 0.175 MG DAILY AC 10/12 0700 AC 10/12 PO 0619 Lisinopril 2.5 MG DAILY 10/12 1000 AC 10/12 PO 0846 Magnesium Oxide 400 MG DAILY 10/12 1000 AC 10/12 PO 0845 Metoprolol Tartrate 25 MG BID 10/11 2200 AC 10/12 PO 0844 Omeprazole 20 MG DAILY AC 10/12 0700 AC 10/12 PO 0619 Patient Medication 1 ED .STK-MED ONE 10/12 1425 AL Teaching ED 10/13 1426 Spironolactone 50 MG DAILY 10/12 1000 AC 10/12 PO 0843 Tramadol HCl 50 MG Q4P PRN 10/11 1845 AC 10/11 PO 2232 Trimethobenzamide HCl 200 MG TID PRN 10/11 2030 AC IM Last 24 Hrs of Lab/Diego Results Last 24 Hrs of Labs/Mics: Laboratory Tests 10/12/16 0710: Anion Gap 6, Estimated GFR 25 L, BUN/Creatinine Ratio 16.5, Magnesium Pending 10/11/16 1854: CBC w Diff NO MAN DIFF REQ, RBC 3.00 L, MCV 98.7, MCH 32.4 H, RDW 16.4 H, MPV 8.6, Gran % 65.3, Lymphocytes % 23.9, Monocytes % 9.4 H, Eosinophils % 0.9, Basophils % 0.5, Absolute Granulocytes 1.9, Absolute Lymphocytes 0.7 L, Absolute Monocytes 0.3, Absolute Eosinophils 0, Absolute Basophils 0, PUBS MCHC 32.8 L 10/11/16 1711: Lactic Acid Cancelled Assessment/Plan Assessment: History of,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 NPO after midnight. Will also hold her eliquis tonight and restart after the tap. * Increase the dose of by mouth Lasix to 40 mg daily patient already received 20 of Lasix in the morning Will give additional 20 in the evening * GI consulted: awaiting recommendations * Nephrology recommends: -Strict intakes and outputs and daily weights -Would be strict sodium in her diet -These send a spot urine for protein and microalbumin and a spot urine for creatinine.The other alternative would be to order a 24-hour urine whilel she is here. That should be ordered as a total protein, total creatinine and creatinine clearance. * Tigan as needed for nausea and vomiting. * Watch for any hemodynamic instability. * Follow stool cultures and C.diff. Lower extremity ulcers * Visiting nurse comes to do the dressing every other day. * Wound care consulted. History of atrial fibrillation * Continue home dose of elliquis and Metoprolol History of hypertension and hyperlipidemia * Continue medications. Moderate severe pain controlled with tramadol DVT prophylaxis: Patient is on Eliquis Patient is full code Problem List: 1. Nausea and vomiting 2. Cirrhosis 3. Liver cirrhosis secondary to BYERS Pain Ratin Pain Location: Abdomen Pain Goal: Remain pain free Pain Plan: PAin pathway Tomorrow's Labs & Rationales: CBC(pancytopenia), BEP(Hepatorenal syndrome)
--- NOTE | 2016-10-12 10:43 | Cons- Nephrology ---
General Information and HPI Consulting Request Date of Consult: 10/12/16 Requested By: CHARISMA STOUT MD Reason for Consult: Chronic kidney disease possibly acute kidney injury Source of Information: patient, old records Exam Limitations: no limitations History of Present Illness: This 71-year-old woman has a history of diabetes staying back 30 years. She also has a history of hypertension. Previous episode of acute kidney injury when she was hospitalized with 5 depletion 2001. She is been seen by nephrology back in March of this year, however, it seems that she has missed some outpatient appointments. She otherwise complains of frequency as well as nocturia 3. Her urine has been on occasionally foamy. She has a strongly positive family history with her mother having been on dialysis and succumbed after number of years. Otherwise she has had no dysuria just frequency, every hour she needs to void and nocturia once or twice a night. She does complain of lower extremity edema. Allergies/Medications Allergies: Coded Allergies: codeine (Severe, RASH, DIFFICULTY BREATHING 04/08/16) morphine (Severe, SHORTNESS OF BREATH 04/08/16) Home Med List: Amlodipine Besylate 10 MG TABLET 1 TAB PO DAILY BLOOD PRESSURE Apixaban (Eliquis) 2.5 MG TABLET 1 TAB PO BID afib Atenolol 100 MG TABLET 1 TAB PO QPM HEART (Reported) Atorvastatin Calcium 80 MG TABLET 1 TAB PO DAILY CHOLESTROL (Reported) Clonidine HCl 0.1 MG TABLET 1 TAB PO QPM PRN UNKNOWN (Reported) Fenofibrate,Micronized (Fenofibrate) 200 MG CAPSULE 1 CAP PO DAILY HLD ( Reported) Furosemide 20 MG TABLET 1 TAB PO DAILY WATER RETENTION (Reported) Gabapentin (Neurontin) 300 MG CAPSULE 2 CAP PO DAILY NEUROPATHY (Reported) Gabapentin (Neurontin) 300 MG CAPSULE 1 CAP PO QPM NEUROPATHY (Reported) Levothyroxine Sodium (Synthroid) 175 MCG TABLET 1 TAB PO DAILY AC Hypothyroidism Lisinopril 2.5 MG TABLET 1 TAB PO DAILY HEART (Reported) Lisinopril (Prinivil) 20 MG TABLET 1 TAB PO DAILY HEART (Reported) Magnesium Oxide (Magnesium) 400 MG CAPSULE 20.5 MG PO DAILY VITAMIN SUPPORT ( Reported) Metoprolol Tartrate 25 MG TABLET 1 TAB PO BID HTN,afib Omeprazole 20 MG CAPSULE.DR 20 MG PO DAILY AC stomach Spironolactone (Aldactone) 25 MG TABLET 50 MG PO DAILY water pill Current Medications: Current Medications Sig/Radha Start time Last Medication Dose Route Stop Time Status Admin Acetaminophen 650 MG Q6P PRN 10/11 1845 AC PO Acetaminophen 0 .STK-MED ONE 10/11 1449 DC IV Acetaminophen 1,000 MG ONCE ONE 10/11 1415 DC 10/11 N/A 1 UNIT IV 10/11 1429 1450 Amlodipine Besylate 10 MG DAILY 10/12 1000 AC 10/12 PO 0845 Apixaban 2.5 MG BID 10/11 2200 AC 10/12 PO 0844 Atenolol 100 MG DAILY 10/12 1000 AC 10/12 PO 0845 Atorvastatin Calcium 80 MG 1700 10/11 1901 AC 10/11 PO 1927 Clonidine 0.1 MG QPM PRN 10/11 191 AC PO Fenofibrate 145 MG DAILY 10/12 1000 AC 10/12 PO 0846 Furosemide 40 MG DAILY 10/12 1000 AC 10/12 PO 0844 Furosemide 0 .STK-MED ONE 10/11 1924 DC PO Furosemide 20 MG ONCE ONE 10/11 1915 DC 10/11 PO 10/11 1916 1927 Furosemide 40 MG DAILY 10/11 1903 DC PO Furosemide 40 MG DAILY 10/11 1900 DC PO Gabapentin 600 MG DAILY 10/12 1000 DC 10/12 PO 0845 Gabapentin 300 MG BID 10/12 1000 AC PO Gabapentin 300 MG QPM 10/11 2200 DC 10/11 PO 2232 Levothyroxine Sodium 0.175 MG DAILY AC 10/12 0700 AC 10/12 PO 0619 Lisinopril 2.5 MG DAILY 10/12 1000 AC 10/12 PO 0846 Magnesium Oxide 400 MG DAILY 10/12 1000 AC 10/12 PO 0845 Metoprolol Tartrate 25 MG BID 10/11 2200 AC 10/12 PO 0844 Omeprazole 20 MG DAILY AC 10/12 0700 AC 10/12 PO 0619 Ondansetron HCl 0 .STK-MED ONE 10/11 1449 DC .ROUTE Ondansetron HCl 4 MG ONCE ONE 10/11 1415 DC 10/11 IV 10/11 1416 1450 Sodium Chloride 1,000 ML BOLUS ONE 10/11 1415 DC 10/11 IV 10/11 1514 1450 Spironolactone 50 MG DAILY 10/12 1000 AC 10/12 PO 0843 Tramadol HCl 50 MG Q4P PRN 10/11 1845 AC 10/11 PO 2232 Trimethobenzamide HCl 200 MG TID PRN 10/11 2030 AC IM Review of Systems Review of Systems Constitutional: Reports: weakness. Denies: chills, diaphoresis, fever. EENTM: Denies: blurred vision, double vision, visual changes, eye pain, eye drainage, eye tearing. Cardiovascular: Reports: peripheral edema. Denies: chest pain, edema, orthopena, palpitations. Respiratory: Denies: cough, hemoptysis, orthopnea, short of breath. GI: Reports: diarrhea, distention, nausea, changes in stool, vomiting. Denies: abdominal pain, bloating, constipation, bowel incontinence, melena, bloody stool , steatorrhea. Genitourinary: Reports: frequency, nocturia (2-3 X). Denies: discharge, dysuria, hematuria, pain, urgency. Musculoskeletal: Denies: joint pain, joint swelling, muscle pain, muscle stiffness. Skin: Denies: no symptoms, erythema. Neurological/Psychological: Denies: anxiety, tingling, tremors. Hematologic/Endocrine: Reports: polyuria. Denies: bruising, bleeding, polydipsia. 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), migraine, peripheral neuropathy EENT: NONE Cardiovascular: diastolic CHF, hypertension, hyperlipidemia, NSTEMI, hx SVT Respiratory: asthma, No h/o TB Gastrointestinal: hiatal hernia (mild), gastroparesis Hepatic: cirrhosis Renal: chronic kidney disease (Stage III/IV, serum creatinine), remote h/0 JUANI in 2001 Musculoskeletal: chronic back pain, degen joint disease, falls, fracture (L hip post fall), spinal stenosis Psychiatric: depression Endocrine: diabetes (for 30 yrs), Veena's thyroiditis, hypothyroidism, obesity, vitamin D deficiency Blood Disorders: anemia (macrocytic w/o transfx), thrombocytopenia Cancer(s): NONE CHIEF SCIENTIST/Reproductive: NONE Surgical History Surgical History: appendectomy, cholecystectomy (open 1978), (x 2), RIGHT SHOULDER ROTATOR LEFT ANKLE SURGERY C-SECTIONS resection of pancreatic cyst at [facility] Family History Relations & Conditions If Any: SISTER FH: Crohn's disease FH: diabetes mellitus BROTHER FH: Hodgkins disease FATHER FH: heart disease MOTHER FH: diabetes mellitus Relation not specified for: FH: lung cancer Psychosocial History Where Do You Live? Home Who Do You Live With? spouse Services at Home: Nursing Primary Language: Kiswahili Smoking Status: Never Smoked ETOH Use: denies use Illicit Drug Use: denies illicit drug use Living Will? no Power of Lung Puller/HCP? no Functional Ability ADLs Independent: dressing, eating. Needs Assist: toileting, bathing. Ambulation: non-ambulatory (post L hip fx) IADLs Independent: finances, food prep, telephone, medication admin. Needs Assist: shopping, housework, transportation. Exam & Diagnostic Data Vital Signs and I&O Vital Signs Date Time Temp Pulse Resp B/P B/P Pulse O2 O2 Flow FiO2 Mean Ox Delivery Rate 10/12 0846 68 152/70 10/12 0845 68 152/70 10/12 0845 68 152/70 10/12 0844 68 152/70 10/12 0641 97.5 63 20 158/87 96 Room Air 10/11 2236 75 160/90 10/11 2048 97.6 74 18 158/94 94 10/11 1916 97.5 77 18 170/80 98 Room Air 10/11 1744 96.9 76 20 187/88 97 Room Air 10/11 1512 96.0 79 20 178/83 97 Room Air 10/11 1238 97.8 82 20 150/92 97 Room Air Intake & Output 10/12 1600 10/12 0400 10/11 1600 10/11 0400 10/10 1600 10/10 0400 Intake Total 231 991 2943 Output Total 300 500 Balance -175 -400 1000 Intake, IV 1000 Intake, Oral 125 100 Output, Urine 300 500 Patient 161 lb 161 lb Weight Weight Reported by Patient Reported by Patient Measurement Method Physical Exam General Appearance: well developed/nourished, no apparent distress, alert, awake , comfortable, obese Head: atraumatic, normal appearance Eyes: Bilateral: PERRL, EOMI, pale conjunctivae. Ears, Nose, Throat: normal pharynx, normal ENT inspection, hearing grossly normal Neck: normal inspection, supple, full range of motion, trachea mid line, no midline tenderness Respiratory: normal breath sounds, chest non-tender, lungs clear Cardiovascular: regular rate/rhythm, edema Peripheral Pulses: 2+ femoral (R), 2+ femoral (L), 2+ popliteal (R), 2+ popliteal (L), 2+ tibialis posterior (R), 2+ tibialis posterior (L), 2+ dorsalis pedis (R), 2+ dorsalis pedis (L) Gastrointestinal: normal bowel sounds, soft, non-tender, distention, no hepatosplenomegaly Extremities: normal inspection, pedal edema, swelling Neurologic/Psych: no motor/sensory deficits, awake, alert, oriented x 3, normal mood/affect Cranial Nerves: normal hearing, normal speech, PERRL Skin: intact, normal color, warm/dry Lymphatic: no anterior cervical shira Results Pertinent Lab Results: Laboratory Tests 10/12 10/11 10/11 0710 1854 1711 Chemistry Sodium (137 - 145 mmol/L) 139 Potassium (3.5 - 5.1 mmol/L) 4.3 Chloride (98 - 107 mmol/L) 109 H Carbon Dioxide (22 - 30 mmol/L) 23 Anion Gap (5 - 16) 6 BUN (7 - 17 mg/dL) 33 H Creatinine (0.5 - 1.0 mg/dL) 2.0 H Estimated GFR (>60 ml/min) 25 L BUN/Creatinine Ratio (7 - 25 %) 16.5 Lactic Acid Cancelled Hematology CBC w Diff NO MAN DIFF REQ WBC (4.8 - 10.8 /CUMM) 2.9 L RBC (4.20 - 5.40 /CUMM) 3.00 L Hgb (12.0 - 16.0 G/DL) 9.7 L Hct (37 - 47 %) 29.6 L MCV (81.0 - 99.0 FL) 98.7 MCH (27.0 - 31.0 PG) 32.4 H RDW (11.5 - 14.5 %) 16.4 H Plt Count (130 - 400 /CUMM) 63 L MPV (7.4 - 10.4 FL) 8.6 Gran % (42.2 - 75.2 %) 65.3 Lymphocytes % (20.5 - 51.1 %) 23.9 Monocytes % (1.7 - 9.3 %) 9.4 H Eosinophils % (0 - 5 %) 0.9 Basophils % (0.0 - 2.0 %) 0.5 Absolute Granulocytes (1.4 - 6.5 /CUMM) 1.9 Absolute Lymphocytes (1.2 - 3.4 /CUMM) 0.7 L Absolute Monocytes (0.10 - 0.60 /CUMM) 0.3 Absolute Eosinophils (0.0 - 0.7 /CUMM) 0 Absolute Basophils (0.0 - 0.2 /CUMM) 0 PUBS MCHC (33.0 - 37.0 G/DL) 32.8 L 10/11 1442 Chemistry Sodium (137 - 145 mmol/L) 137 Potassium (3.5 - 5.1 mmol/L) 5.3 H Chloride (98 - 107 mmol/L) 109 H Carbon Dioxide (22 - 30 mmol/L) 21 L Anion Gap (5 - 16) 7 BUN (7 - 17 mg/dL) 38 H Creatinine (0.5 - 1.0 mg/dL) 2.1 H Estimated GFR (>60 ml/min) 23 L BUN/Creatinine Ratio (7 - 25 %) 18.1 Glucose (65 - 99 mg/dL) 98 Lactic Acid (0.7 - 2.1 mmol/L) 1.3 Calcium (8.4 - 10.2 mg/dL) 8.4 Total Bilirubin (0.2 - 1.3 mg/dL) 1.6 H Direct Bilirubin (< 0.4 mg/dL) 1.0 H AST (14 - 36 U/L) 56 H ALT (9 - 52 U/L) 28 Alkaline Phosphatase (<127 U/L) 103 Troponin I (< 0.11 ng/ml) 0.09 Total Protein (6.3 - 8.2 g/dL) 6.7 Albumin (3.5 - 5.0 g/dL) 2.5 L Globulin (1.9 - 4.2 gm/dL) 4.2 Albumin/Globulin Ratio (1.1 - 2.2 %) 0.6 L Amylase (30 - 110 U/L) < 30 L Lipase (23 - 300 U/L) 77 Hematology CBC w Diff NO MAN DIFF REQ WBC (4.8 - 10.8 /CUMM) 3.4 L RBC (4.20 - 5.40 /CUMM) 3.36 L Hgb (12.0 - 16.0 G/DL) 10.8 L Hct (37 - 47 %) 32.8 L MCV (81.0 - 99.0 FL) 97.8 MCH (27.0 - 31.0 PG) 32.1 H RDW (11.5 - 14.5 %) 16.4 H Plt Count (130 - 400 /CUMM) MPV (7.4 - 10.4 FL) 9.5 Gran % (42.2 - 75.2 %) 72.8 Lymphocytes % (20.5 - 51.1 %) 18.2 L Monocytes % (1.7 - 9.3 %) 7.6 Eosinophils % (0 - 5 %) 0.8 Basophils % (0.0 - 2.0 %) 0.6 Absolute Granulocytes (1.4 - 6.5 /CUMM) 2.4 Absolute Lymphocytes (1.2 - 3.4 /CUMM) 0.6 L Absolute Monocytes (0.10 - 0.60 /CUMM) 0.3 Absolute Eosinophils (0.0 - 0.7 /CUMM) 0 Absolute Basophils (0.0 - 0.2 /CUMM) 0 PUBS MCHC (33.0 - 37.0 G/DL) 32.8 L Assessment/Plan Assessment/Recommendations Assessment: 1. Acute kidney injury? Reviewing her creatinine is ranged anywhere from 1.4- 2.0 the past 6 months. She did have significant proteinuria in March. However, I do not see that a total protein to creatinine ratio was obtained. Instead, it appears that only a urine microalbumin was checked. She has a long history of diabetes coupled with a positive family history for both diabetes and renal failure. Her mother after being on dialysis. No one else in the family has a history of renal failure. If very real sense, her kidney function appears to be near his baseline. 2. Chronic kidney disease? Her creatinine was as low as 1.4 within the last [address] her more in the stage III rather than stage IV level. Keep in mind 2 observations in this patient. 1. People with cirrhosis often have deceptively low serum creatinines for their level of renal failure. 2. The MDRD equation upon which the EGFR is based, his applicable all related people with GFR is ranging from 15 mL/m to 60 mL/m. Someone say below 25 mL/m the EGFR is not helpful. The putative cause of her renal disease would be diabetic nephropathy. However, as noted elsewhere, with this level of renal dysfunction a nephrotic range proteinuria would be expected 3. History of cirrhosis. She tells me that she had a liver biopsy in the past. The presence of cirrhosis always raises the issue of hepatorenal syndrome stop 4. History of diastolic heart failure 5. History of ascites due to cirrhosis. At this point I would be very careful in the setting of perhaps abnormal kidney function in terms of large-volume paracenteses. If she does receive one, she needs to receive IV albumin at a dose of roughly 25%. Do not use 5% albumin. 6. History of atrial fibrillation Recommendations: 1. Strict intakes and outputs and daily weights 2. Would be strict sodium in her diet 3. These send a spot urine for protein and microalbumin and a spot urine for creatinine. The other alternative would be to order a 24-hour urine whilel she is here. That should be ordered as a total protein, total creatinine and creatinine clearance.
[2016-10-12 14:23] VITALS: BP 142/70
--- NOTE | 2016-10-12 16:15 | Cons- Gastroenterology ---
General Information and HPI Consulting Request Date of Consult: 10/12/16 Requested By: CHARISMA STOUT MD Reason for Consult: I was called earlier this morning by the hospitalist service for a GI consult to assess cirrhosis, ascites, and chronic renal failure. Source of Information: patient, old records Exam Limitations: poor historian History of Present Illness: 71-year-old female, non-EtOH, fair historian, not compliant with medical follow- up in [place], she is in [place] for 10 months out of the year, with actually Get a past history, hypertension, LVH, diabetic since 1998 with questionable neuropathy, CKD stage 4 (felt to be from diabetic nephropathy, as per renal, with proteinuria & strong family history of DM/CKD), hyperlipidemia, obesity, CVA in 1978 without residual, hypothyroid, asthma, ASHD, CHF, history of SVT, afib (on Eliquis), history of falls, repair right rotator cuff 1998, repair of fractured left ankle 07/2013, closed left hip fracture 03/2016 post fall, DJD, migraine headache, chronic macrocytic anemia for years without transfusion, open cholecystectomy 1978 followed by resection of what sounds like a pancreatic cyst at [place] a few weeks later, appendectomy, compliant with outpatient GI follow-up since then, nor was she compliant with multiple requests to have large volume abdominal tap with albumin as outpatient. Additionally, she apparently stopped her diuretics & insulin on her own! Previous imaging studies were without hepatoma. 09/17/13: Hep A Ab, Hep Bs Ag, Hep B core Ab & Hep C Ab- all negative. 10/23/13: EGD by myself- gastroparesis with retained food cleared from the fundus and posterior wall of the stomach, patent pylorus without mechanical gastric outlet obstruction. A metal suture with a blue guidewire was seen loosely embedded in the wall of the lower gastric body. Scant internal hernia. Z line at 38 cm. J-shaped stomach. Erosive esophagitis on biopsies. Mild gastritis, H. pylori negative. Random biopsies second and third portion of the duodenum-normal villi. The patient previously tolerated a short course of Reglan without any extrapyramidal side effects, but had stopped this, as well. *Metozolv 5 mg TID was prescirbed on 06/18/16 (? compliance). A baseline and only colonoscopy in [place] in 2014 was "normal", however she was not sure who performed this, or where was done. Aside from the family history of DM/CKD, from a GI perspective, a sister had a cholecystectomy and another sister had Crohn's disease. There was no family history of any GI malignancy, additional GI disease, inherited liver disease, or inherited pancreatitis. The patient's cirrhosis has been manifested by thrombocytopenia, reversal of the albumin:globulin ratio, ascites & anasarca. 01/02/16: *MELD score- [place] 15/[place] 17, with normal AFP 1.8, normal IgA 472, borderline positive DGP Ab IgA 21/IgG- negative, tTG Ab (IgA/IgG)- both negative, Fe 51, TIBC 310, Fe sat 16.5%, ferririn 171, B12 415, folate 3.8, normal TFTs with TSH 0.941, markers for AIH and PBC- negative (AMA < 20, OSVALDO- neg 1:40, anti-LKM Ab < 20, anti-smooth muscle Ab < 20), normal A1AT 182, SPEP- acute phase reactant, normal IPEP. 01/04/16: stool Ag H. pylori- neg. 01/07/16: Complete abdominal sono- mild to moderate ascites, cirrhotic appearing liver without focal lesion, postmastectomy, postop dilated CBD 1.5 cm, normal IHD, spleen 13 cm with nonspecific hyperechoic lesion, bilateral nonobstructing renal stones, without hydronephrosis. 01/07/16: Liver spleen scan- positive colloid shift, consistent with cirrhosis. 01/26/16: Large-volume abdominal tap by IR at [facility]- 900 mL size removed, without SBP (absolute # PMNs 37.9), BF protein < 2.0, SAAG > 1.3, BF albumin < 1.0. High SAAG & low BF protein were consistent with portal hypertension etiology of the ascites. Most likely, the patient had BYERS that went on to cirrhosis. Ascitic fluid Gram stain and culture-negative. Ascitic cytology without malignancy. There were some atypical cells, felt to be reactive mesothelial cells. 02/09/16: EGD to [facility]- random small bowel biopsies-negative. Minimal antral erythema, biopsies-mild chronic antral gastritis, H. pylori negative. Questionable portal gastropathy lesser curvature, biopsy gastric body-mild chronic fundal gastritis, H. pylori negative. Nonspecific thickened folds gastric fundus, without definite gastric varices. No esophageal varices were seen. Scant hiatal hernia with Z line at 36 cm. Tertiary contractions distal esophagus. Metal suture loosely embedded posterior aspect of lower gastric body, without change from 10/23/13. History of gastroparesis, although no bezoar seen, off Metozolv, with patent pylorus. The patient was placed on Prilosec 20 mg daily, along with Zofran. There was no need to change to a non-selective beta gadiel, and so the patient remained on the selective beta gadiel, Atenolol 100 mg daily. 01/02/16: *Hep A Ab, Hep Bs Ag, Hep B core Ab, Hep Bs Ab, & Hep C Ab- all negative. 04/16/16: *HIV- negative. The patient previously had a workup for possible nephrotic syndrome as per renal. 04/14/16: 24-hour urine- only 1.566 g protein. 04/11/16: Echocardiogram- normal LVEF 60% with questionable posterior mediastinal mass. 04/12/16: CT chest w/o IV contrast- *no posterior mediastinal mass. Anasarca. Nodular hepatic margin suspicious for cirrhosis. Low attenuation splenic lesion. Nonobstructing bilateral renal stones. Questionable RUL pneumonitis. Nonspecific subpleural nodule right apex. Left pleural effusion with atelectasis. The patient never had MRCP to check her dilated CBD, which was probably postoperative in nature, and requested an open MRI. *She has never officially had a liver biopsy. Plans were to consider referral to the [place] liver unit if her MELD score rised. 06/28/16: CT abdomen and pelvis without contrast (low GFR)-2 cm low-density lesion spleen, generalized anasarca, moderate ascites, otherwise without change. 06/28/16: RUQ sono- cirrhotic liver, no focal hepatic lesion, moderate ascites, post-CCKY, stable postop 1.6 cm CBD. 06/30/16: *MRCP- post-CCKY, dilated CBD 1.9 cm, mild dilated IHD, no choledocholithiasis, cirrhotic liver, moderate ascites, probable splenic cyst. The patient last had a large volume abdominal tap by IR 07/30/16, at which point 4L ascites was drained- no SBP, culture- neg, high SAAG > 1.1, low BF protein < 1.0. *The patient was contacted by my office multiple times, and we also spoke with her visiting nurse to arrange for outpatient abdominal large volume abdominal tap, but the patient was not compliant with this. The patient presented to the [facility] 10/11/16 at 12:28 PM, with a few days of nausea, vomiting and diarrhea, as per advice of visiting nurse. The vomitus was bilious, without hematemesis. There was no melena or BRBPR. She is still mildly nauseous. Her vomiting and diarrhea resolved. There has been no recurrent diarrhea since admission. She had chronic mild early satiety ( gastroparesis), & also had vague, sharp epigastric discomfort. Upon arrival, BP 150/92, P 82, RR 20, T 97.8, O2 sat RA 97%. She received Zofran, Tylenol, and 1L of IV NS by the ER, although she was not hypotensive, and the latter probably exacerbated her ascites. She denied any recent antibiotics, travel, or NSAIDs. She had some fatigue. She denied any confusion, head trauma, jaundice, dark urine, light stool, pruritus, fevers, chills, symptoms of UTI or URI, or increasing peripheral edema, although there was some mild increased abdominal girth. The patient is a very poor historian. She claimed she was on Lasix 20 mg daily & was taking Aldactone, dosage unknown, and perhaps ACEI. Her diuetics were increased by the medical team on admission, and her GFR (23 to 25) went up slightly, but as per my discussion with renal, this is not completely accurate in patients with cirrhosis or in the elderly > 70 y/o. 10/11/16: Admission labs- WBC 3.4, H/H 10.8/32.8, normal MCV, PLT- clumped, *no INR sent, glucose 98, BUN/Cr 38/2.1, GFR 23, Na 137, K 5.3, HCO3 21, AG 7, lipase 77, Ca 8.4, alb 2.5, glob 4.2, TBil 1.6, DBil 1.0, alk phos 103, AST 56, ALT 28, troponin .09. 10/12/16: CBC 2.9, H/H9.7/29.6, MCV 98.7, PLT 63, BUN/Cr 33/2.0, GFR 25, Na 139. K 4.3, HCO3 23, AG 6, Mg 1.2. *No EKG on chart. 10/11/16: CT abdomen and pelvis without contrast- Cirrhosis. Shrunken nodular liver without focal hepatic defects (within limits of a non-IV contrast study, due to low GFR). Large volume of ascites is increased from previous. Diffuse anasarca. Wall thickening of the ascending colon could represent portal colopathy. This is a change from prior and colitis is possible (*not clinically). Bilateral nonobstructing renal calculi. Small left pleural effusion. Allergies/Medications Allergies: Coded Allergies: codeine (Severe, RASH, DIFFICULTY BREATHING 04/08/16) morphine (Severe, SHORTNESS OF BREATH 04/08/16) Home Med List: Amlodipine Besylate 10 MG TABLET 1 TAB PO DAILY BLOOD PRESSURE Apixaban (Eliquis) 2.5 MG TABLET 1 TAB PO BID afib Atenolol 100 MG TABLET 1 TAB PO QPM HEART (Reported) Atorvastatin Calcium 80 MG TABLET 1 TAB PO DAILY CHOLESTROL (Reported) Clonidine HCl 0.1 MG TABLET 1 TAB PO QPM PRN UNKNOWN (Reported) Fenofibrate,Micronized (Fenofibrate) 200 MG CAPSULE 1 CAP PO DAILY HLD ( Reported) Furosemide 20 MG TABLET 1 TAB PO DAILY WATER RETENTION (Reported) Gabapentin (Neurontin) 300 MG CAPSULE 2 CAP PO DAILY NEUROPATHY (Reported) Gabapentin (Neurontin) 300 MG CAPSULE 1 CAP PO QPM NEUROPATHY (Reported) Levothyroxine Sodium (Synthroid) 175 MCG TABLET 1 TAB PO DAILY AC Hypothyroidism Lisinopril 2.5 MG TABLET 1 TAB PO DAILY HEART (Reported) Lisinopril (Prinivil) 20 MG TABLET 1 TAB PO DAILY HEART (Reported) Magnesium Oxide (Magnesium) 400 MG CAPSULE 20.5 MG PO DAILY VITAMIN SUPPORT ( Reported) Metoprolol Tartrate 25 MG TABLET 1 TAB PO BID HTN,afib Omeprazole 20 MG CAPSULE.DR 20 MG PO DAILY AC stomach Spironolactone (Aldactone) 25 MG TABLET 50 MG PO DAILY water pill Current Medications: Current Medications Sig/Radha Start time Last Medication Dose Route Stop Time Status Admin Acetaminophen 650 MG Q6P PRN 10/11 1845 AC PO Amlodipine Besylate 10 MG DAILY 10/12 1000 AC 10/12 PO 0845 Apixaban 2.5 MG BID 10/11 2200 DC 10/12 PO 0844 Atenolol 100 MG DAILY 10/12 1000 AC 10/12 PO 0845 Atorvastatin Calcium 80 MG 1700 10/11 1901 AC 10/12 PO 1635 Clonidine 0.1 MG QPM PRN 10/11 1915 AC PO Fenofibrate 145 MG DAILY 10/12 1000 AC 10/12 PO 0846 Furosemide 40 MG DAILY 10/12 1000 AC 10/12 PO 0844 Furosemide 0 .STK-MED ONE 10/11 192 DC PO Furosemide 20 MG ONCE ONE 10/11 191 DC 10/11 PO 10/11 191 1927 Furosemide 40 MG DAILY 10/11 190 DC PO Furosemide 40 MG DAILY 10/11 190 DC PO Gabapentin 600 MG DAILY 10/12 1000 DC 10/12 PO 0845 Gabapentin 300 MG BID 10/12 1000 AC PO Gabapentin 300 MG QPM 10/11 2200 DC 10/11 PO 2232 Levothyroxine Sodium 0.175 MG DAILY AC 10/12 0700 AC 10/12 PO 0619 Lisinopril 2.5 MG DAILY 10/12 1000 AC 10/12 PO 0846 Magnesium Oxide 400 MG BID 10/12 2200 AC PO Magnesium Oxide 400 MG DAILY 10/12 1000 AC 10/12 PO 0845 Metoprolol Tartrate 25 MG BID 10/11 2200 AC 10/12 PO 0844 Omeprazole 20 MG DAILY AC 10/12 0700 AC 10/12 PO 0619 Patient Medication 1 ED .STK-MED ONE 10/12 1425 [facility] 10/13 1426 Spironolactone 50 MG DAILY 10/12 1000 AC 10/12 PO 0843 Tramadol HCl 50 MG Q4P PRN 10/11 1845 AC 10/11 PO 2232 Trimethobenzamide HCl 200 MG TID PRN 10/11 2030 AC IM Past History Travel History Traveled to [place] past 21 day No Medical History Blood Transfusion Hx: No Type of Reaction: Hives/Urticaria Neurological: CVA (mild CVA 1979 w/o residual), migraine, peripheral neuropathy EENT: NONE Cardiovascular: AFIB, diastolic CHF, hypertension, hyperlipidemia, NSTEMI, hx SVT Respiratory: asthma, No h/o TB Gastrointestinal: hiatal hernia (mild), gastroparesis Hepatic: NONE (prob proression BYERS- never bx), cirrhosis Renal: chronic kidney disease (Stage III/IV, serum creatinine), remote h/0 JUANI in 2001 Musculoskeletal: chronic back pain, degen joint disease, falls, fracture (L hip post fall), spinal stenosis Psychiatric: depression Endocrine: diabetes (for 30 yrs), Veena's thyroiditis, hypothyroidism, obesity, vitamin D deficiency Blood Disorders: anemia (macrocytic w/o transfx), thrombocytopenia Cancer(s): NONE 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 Home (Has VNS) Who Do You Live With? spouse Services at Home: Nursing Primary Language: Mohawk Smoking Status: Never Smoked ETOH Use: denies use Illicit Drug Use: denies illicit drug use Living Will? no Power of Marketing Content Manager/HCP? no Other Social History: . Lives with . Has visiting nurse. No cigarettes, EtOH or drugs. 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 Lives in [place] for 10 months out of the year. 1 son & 1 dtr- [employer] (dtr with DM) Functional Ability ADLs Independent: dressing, eating, toileting, bathing. Ambulation: independent (per pt despite L hip fx) IADLs Independent: shopping, housework, finances, food prep, telephone, medication admin. Needs Assist: transportation. Employment History Employment: Retired Profession/Employer: worked for [employer] ECHO Results (as available) Date of last Echo 08/01/16 EF% 65 Review of Systems Review of Systems: Full 14 point review of systems otherwise noncontributory, and as above. Review of Systems Constitutional: Reports: weakness. Denies: chills, diaphoresis, fever, malaise, unexplained weight loss. EENTM: Denies: blurred vision, double vision, visual changes, eye pain, eye drainage, eye tearing, icterus, ear discharge, ear pain, ear redness, hearing changes, nasal congestion, epistaxis, nasal pain, throat pain, throat swelling, mouth pain, tooth pain. Cardiovascular: Reports: peripheral edema (trace). Denies: chest pain, edema, orthopena, palpitations, syncope. Respiratory: Denies: cough, hemoptysis, orthopnea, short of breath, sputum production, stridor, wheezing. GI: Reports: abdominal pain (near liver edge), diarrhea (rsolved), nausea (improved) , vomiting (resolved). Denies: bloating, constipation, distention, bowel incontinence, melena, bloody stool, changes in stool, steatorrhea. Genitourinary: Denies: discharge, dysuria, frequency, hematuria, hesitation, nocturia, pain, urgency. Musculoskeletal: Reports: joint pain (DJD/L hip fx). Denies: back pain, gout, joint swelling, muscle pain, muscle stiffness, neck pain. Skin: Denies: cysts, change in skin color, change in hair/nails, dryness, erythema, jaundice, lesions, lymphangitis, lumps, moles, rash. Neurological/Psychological: Reports: weakness. Denies: anxiety, ataxia, cognitive dysfunction, confusion, depressed, dementia, emotional problems, headache, numbness, paresthesia, pre- existing deficit, petit mal seizures, tingling, tremors, tonic-clonic seizures, unable to move lower ext, unable to move upper ext. Hematologic/Endocrine: Denies: bruising, bleeding, polyuria, polydipsia. Immunologic/Allergic: Denies: splenectomy, HIV/AIDS, lymphadenopathy. All Other Systems: Reviewed and Negative Exam & Diagnostic Data Vital Signs and I&O Vital Signs Date Time Temp Pulse Resp B/P B/P Pulse O2 O2 Flow FiO2 Mean Ox Delivery Rate 10/12 1600 Room Air 10/12 1423 97.4 52 20 142/70 98 Room Air 10/12 0846 68 152/70 10/12 0845 68 152/70 10/12 0845 68 152/70 10/12 0844 68 152/70 10/12 0641 97.5 63 20 158/87 96 Room Air 10/11 2236 75 160/90 10/11 2048 97.6 74 18 158/94 94 10/11 1916 97.5 77 18 170/80 98 Room Air Intake & Output 10/12 1600 10/12 0400 10/11 1600 10/11 0400 10/10 1600 10/10 0400 Intake Total 538 262 8710 Output Total 300 500 Balance -175 -400 1000 Intake, IV 1000 Intake, Oral 125 100 Output, Urine 300 500 Patient 161 lb 161 lb Weight Weight Reported by Patient Reported by Patient Measurement Method Physical Exam: Somewhat obese female, in no apparent distress. Sclera anicteric. Conjunctiva pink. Oropharynx clear. No oral thrush. No aphthous ulcers. There is no adenopathy, thyromegaly, or JVD. Questionable mild HJR. No peripheral stigmata of inflammatory bowel disease on exam. No spiders on the anterior chest wall. Breast & pelvic exams: API. No CVA tenderness. Lungs: clear to A&P, with slight decreased breath sounds at the bases B/L, L > R. No wheezing, rales, or rhonchi. Heart exam: regular rate rhythm, S1 and S2, with soft I/ systolic murmur. Abdominal exam: normal bowel sounds, soft doughy abdominal wall with anasarca/pannus, *mildly tender nodular liver edge, without guarding or rebound. Otherwise, no definite mass. Liver approximately 10 cm by percussion. Questionable palpable spleen tip. Positive fluid shift. No pulsatile mass. No epigastric bruit. Digital rectal exam: deferred by patient (previously, OB- negative in ER in 10/2015). Extremities: without cyanosis or clubbing. Scant pedal edema LE B/L. No palpable cords. No palmar erythema. No Dupuytren's contractures. Deformed left ankle post fracture, uncertain if Charcot's joint. Distal pulses 1+ bilaterally. DTRs 1+ bilaterally. Alert and oriented x 3. No tremor. No asterixis. No cogwheeling or extrapyramidal signs (back on Reglan). A detailed exam for peripheral neuropathy was deferred. Motor 5/5, except 4/5 LLE, post previous fracture. Results Pertinent Lab Results: Laboratory Tests 10/12 10/11 10/11 0710 1854 1711 Chemistry Sodium (137 - 145 mmol/L) 139 Potassium (3.5 - 5.1 mmol/L) 4.3 Chloride (98 - 107 mmol/L) 109 H Carbon Dioxide (22 - 30 mmol/L) 23 Anion Gap (5 - 16) 6 BUN (7 - 17 mg/dL) 33 H Creatinine (0.5 - 1.0 mg/dL) 2.0 H Estimated GFR (>60 ml/min) 25 L BUN/Creatinine Ratio (7 - 25 %) 16.5 Lactic Acid Cancelled Magnesium (1.6 - 2.3 mg/dL) 1.2 L Hematology CBC w Diff NO MAN DIFF REQ WBC (4.8 - 10.8 /CUMM) 2.9 L RBC (4.20 - 5.40 /CUMM) 3.00 L Hgb (12.0 - 16.0 G/DL) 9.7 L Hct (37 - 47 %) 29.6 L MCV (81.0 - 99.0 FL) 98.7 MCH (27.0 - 31.0 PG) 32.4 H RDW (11.5 - 14.5 %) 16.4 H Plt Count (130 - 400 /CUMM) 63 L MPV (7.4 - 10.4 FL) 8.6 Gran % (42.2 - 75.2 %) 65.3 Lymphocytes % (20.5 - 51.1 %) 23.9 Monocytes % (1.7 - 9.3 %) 9.4 H Eosinophils % (0 - 5 %) 0.9 Basophils % (0.0 - 2.0 %) 0.5 Absolute Granulocytes (1.4 - 6.5 /CUMM) 1.9 Absolute Lymphocytes (1.2 - 3.4 /CUMM) 0.7 L Absolute Monocytes (0.10 - 0.60 /CUMM) 0.3 Absolute Eosinophils (0.0 - 0.7 /CUMM) 0 Absolute Basophils (0.0 - 0.2 /CUMM) 0 PUBS MCHC (33.0 - 37.0 G/DL) 32.8 L 10/11 1442 Chemistry Sodium (137 - 145 mmol/L) 137 Potassium (3.5 - 5.1 mmol/L) 5.3 H Chloride (98 - 107 mmol/L) 109 H Carbon Dioxide (22 - 30 mmol/L) 21 L Anion Gap (5 - 16) 7 BUN (7 - 17 mg/dL) 38 H Creatinine (0.5 - 1.0 mg/dL) 2.1 H Estimated GFR (>60 ml/min) 23 L BUN/Creatinine Ratio (7 - 25 %) 18.1 Glucose (65 - 99 mg/dL) 98 Lactic Acid (0.7 - 2.1 mmol/L) 1.3 Calcium (8.4 - 10.2 mg/dL) 8.4 Total Bilirubin (0.2 - 1.3 mg/dL) 1.6 H Direct Bilirubin (< 0.4 mg/dL) 1.0 H AST (14 - 36 U/L) 56 H ALT (9 - 52 U/L) 28 Alkaline Phosphatase (<127 U/L) 103 Troponin I (< 0.11 ng/ml) 0.09 Total Protein (6.3 - 8.2 g/dL) 6.7 Albumin (3.5 - 5.0 g/dL) 2.5 L Globulin (1.9 - 4.2 gm/dL) 4.2 Albumin/Globulin Ratio (1.1 - 2.2 %) 0.6 L Amylase (30 - 110 U/L) < 30 L Lipase (23 - 300 U/L) 77 Hematology CBC w Diff NO MAN DIFF REQ WBC (4.8 - 10.8 /CUMM) 3.4 L RBC (4.20 - 5.40 /CUMM) 3.36 L Hgb (12.0 - 16.0 G/DL) 10.8 L Hct (37 - 47 %) 32.8 L MCV (81.0 - 99.0 FL) 97.8 MCH (27.0 - 31.0 PG) 32.1 H RDW (11.5 - 14.5 %) 16.4 H Plt Count (130 - 400 /CUMM) MPV (7.4 - 10.4 FL) 9.5 Gran % (42.2 - 75.2 %) 72.8 Lymphocytes % (20.5 - 51.1 %) 18.2 L Monocytes % (1.7 - 9.3 %) 7.6 Eosinophils % (0 - 5 %) 0.8 Basophils % (0.0 - 2.0 %) 0.6 Absolute Granulocytes (1.4 - 6.5 /CUMM) 2.4 Absolute Lymphocytes (1.2 - 3.4 /CUMM) 0.6 L Absolute Monocytes (0.10 - 0.60 /CUMM) 0.3 Absolute Eosinophils (0.0 - 0.7 /CUMM) 0 Absolute Basophils (0.0 - 0.2 /CUMM) 0 PUBS MCHC (33.0 - 37.0 G/DL) 32.8 L Imaging/Other Studies: *No EKG on chart. 10/11/16: CT abdomen and pelvis without contrast- Cirrhosis. Shrunken nodular liver without focal hepatic defects (within limits of a non-IV contrast study, due to low GFR). Large volume of ascites is increased from previous. Diffuse anasarca. Wall thickening of the ascending colon could represent portal colopathy. This is a change from prior and colitis is possible (*not clinically). Bilateral nonobstructing renal calculi. Small left pleural effusion. Assessment/Plan Assessment/Recommendations: 71-year-old female, non-EtOH, fair historian, not compliant with medical follow- up in [place], she is in [place] for 10 months out of the year, with actually Get a past history, hypertension, LVH, diabetic since 1998 with questionable neuropathy, CKD stage 4 (felt to be from diabetic nephropathy, as per renal, with proteinuria & strong family history of DM/CKD), hyperlipidemia, obesity, CVA in 1978 without residual, hypothyroid, asthma, ASHD, CHF, history of SVT, afib (on Eliquis), history of falls, repair right rotator cuff 1998, repair of fractured left ankle 07/2013, closed left hip fracture 03/2016 post fall, DJD, migraine headache, chronic macrocytic anemia for years without transfusion, open cholecystectomy 1978 followed by resection of what sounds like a pancreatic cyst at [place] a few weeks later, appendectomy, compliant with outpatient GI follow-up since then, nor was she compliant with multiple requests to have large volume abdominal tap with albumin as outpatient. Additionally, she apparently stopped her diuretics & insulin on her own! Previous imaging studies were without hepatoma. 09/17/13: Hep A Ab, Hep Bs Ag, Hep B core Ab & Hep C Ab- all negative. 10/23/13: EGD by myself- gastroparesis with retained food cleared from the fundus and posterior wall of the stomach, patent pylorus without mechanical gastric outlet obstruction. A metal suture with a blue guidewire was seen loosely embedded in the wall of the lower gastric body. Scant internal hernia. Z line at 38 cm. J-shaped stomach. Erosive esophagitis on biopsies. Mild gastritis, H. pylori negative. Random biopsies second and third portion of the duodenum-normal villi. The patient previously tolerated a short course of Reglan without any extrapyramidal side effects, but had stopped this, as well. *Metozolv 5 mg TID was prescirbed on 06/18/16 (? compliance). A baseline and only colonoscopy in [place] in 2014 was "normal", however she was not sure who performed this, or where was done. Aside from the family history of DM/CKD, from a GI perspective, a sister had a cholecystectomy and another sister had Crohn's disease. There was no family history of any GI malignancy, additional GI disease, inherited liver disease, or inherited pancreatitis. The patient's cirrhosis has been manifested by thrombocytopenia, reversal of the albumin:globulin ratio, ascites & anasarca. 01/02/16: *MELD score- [place] 15/[facility] 17, with normal AFP 1.8, normal IgA 472, borderline positive DGP Ab IgA 21/IgG- negative, tTG Ab (IgA/IgG)- both negative, Fe 51, TIBC 310, Fe sat 16.5%, ferririn 171, B12 415, folate 3.8, normal TFTs with TSH 0.941, markers for AIH and PBC- negative (AMA < 20, OSVALDO- neg 1:40, anti-LKM Ab < 20, anti-smooth muscle Ab < 20), normal A1AT 182, SPEP- acute phase reactant, normal IPEP. 01/04/16: stool Ag H. pylori- neg. 01/07/16: Complete abdominal sono- mild to moderate ascites, cirrhotic appearing liver without focal lesion, postmastectomy, postop dilated CBD 1.5 cm, normal IHD, spleen 13 cm with nonspecific hyperechoic lesion, bilateral nonobstructing renal stones, without hydronephrosis. 01/07/16: Liver spleen scan- positive colloid shift, consistent with cirrhosis. 01/26/16: Large-volume abdominal tap by IR at [facility]- 900 mL size removed, without SBP (absolute # PMNs 37.9), BF protein < 2.0, SAAG > 1.3, BF albumin < 1.0. High SAAG & low BF protein were consistent with portal hypertension etiology of the ascites. Most likely, the patient had BYERS that went on to cirrhosis. Ascitic fluid Gram stain and culture-negative. Ascitic cytology without malignancy. There were some atypical cells, felt to be reactive mesothelial cells. 02/09/16: EGD to D[facility]- random small bowel biopsies-negative. Minimal antral erythema, biopsies-mild chronic antral gastritis, H. pylori negative. Questionable portal gastropathy lesser curvature, biopsy gastric body-mild chronic fundal gastritis, H. pylori negative. Nonspecific thickened folds gastric fundus, without definite gastric varices. No esophageal varices were seen. Scant hiatal hernia with Z line at 36 cm. Tertiary contractions distal esophagus. Metal suture loosely embedded posterior aspect of lower gastric body, without change from 10/23/13. History of gastroparesis, although no bezoar seen, off Metozolv, with patent pylorus. The patient was placed on Prilosec 20 mg daily, along with Zofran. There was no need to change to a non-selective beta gadiel, and so the patient remained on the selective beta gadiel, Atenolol 100 mg daily. 01/02/16: *Hep A Ab, Hep Bs Ag, Hep B core Ab, Hep Bs Ab, & Hep C Ab- all negative. 04/16/16: *HIV- negative. The patient previously had a workup for possible nephrotic syndrome as per renal. 04/14/16: 24-hour urine- only 1.566 g protein. 04/11/16: Echocardiogram- normal LVEF 60% with questionable posterior mediastinal mass. 04/12/16: CT chest w/o IV contrast- *no posterior mediastinal mass. Anasarca. Nodular hepatic margin suspicious for cirrhosis. Low attenuation splenic lesion. Nonobstructing bilateral renal stones. Questionable RUL pneumonitis. Nonspecific subpleural nodule right apex. Left pleural effusion with atelectasis. The patient never had MRCP to check her dilated CBD, which was probably postoperative in nature, and requested an open MRI. *She has never officially had a liver biopsy. Plans were to consider referral to the [place] [facility] if her MELD score rised. 06/28/16: CT abdomen and pelvis without contrast (low GFR)-2 cm low-density lesion spleen, generalized anasarca, moderate ascites, otherwise without change. 06/28/16: RUQ sono- cirrhotic liver, no focal hepatic lesion, moderate ascites, post-CCKY, stable postop 1.6 cm CBD. 06/30/16: *MRCP- post-CCKY, dilated CBD 1.9 cm, mild dilated IHD, no choledocholithiasis, cirrhotic liver, moderate ascites, probable splenic cyst. The patient last had a large volume abdominal tap by IR 07/30/16, at which point 4L ascites was drained- no SBP, culture- neg, high SAAG > 1.1, low BF protein < 1.0. *The patient was contacted by my office multiple times, and we also spoke with her visiting nurse to arrange for outpatient abdominal large volume abdominal tap, but the patient was not compliant with this. The patient presented to the [facility] 10/11/16 at 12:28 PM, with a few days of nausea, vomiting and diarrhea, as per advice of visiting nurse. The vomitus was bilious, without hematemesis. There was no melena or BRBPR. She is still mildly nauseous. Her vomiting and diarrhea resolved. There has been no recurrent diarrhea since admission. She had chronic mild early satiety ( gastroparesis), & also had vague, sharp epigastric discomfort. Upon arrival, BP 150/92, P 82, RR 20, T 97.8, O2 sat RA 97%. She received Zofran, Tylenol, and 1L of IV NS by the ER, although she was not hypotensive, and the latter probably exacerbated her ascites. She denied any recent antibiotics, travel, or NSAIDs. She had some fatigue. She denied any confusion, head trauma, jaundice, dark urine, light stool, pruritus, fevers, chills, symptoms of UTI or URI, or increasing peripheral edema, although there was some mild increased abdominal girth. The patient is a very poor historian. She claimed she was on Lasix 20 mg daily & was taking Aldactone, dosage unknown, and perhaps ACEI. Her diuetics were increased by the medical team on admission, and her GFR (23 to 25) went up slightly, but as per my discussion with renal, this is not completely accurate in patients with cirrhosis or in the elderly > 70 y/o. 10/11/16: Admission labs- WBC 3.4, H/H 10.8/32.8, normal MCV, PLT- clumped, *no INR sent, glucose 98, BUN/Cr 38/2.1, GFR 23, Na 137, K 5.3, HCO3 21, AG 7, lipase 77, Ca 8.4, alb 2.5, glob 4.2, TBil 1.6, DBil 1.0, alk phos 103, AST 56, ALT 28, troponin .09. 10/12/16: CBC 2.9, H/H9.7/29.6, MCV 98.7, PLT 63, BUN/Cr 33/2.0, GFR 25, Na 139. K 4.3, HCO3 23, AG 6, Mg 1.2. *No EKG on chart. 10/11/16: CT abdomen and pelvis without contrast- Cirrhosis. Shrunken nodular liver without focal hepatic defects (within limits of a non-IV contrast study, due to low GFR). Large volume of ascites is increased from previous. Diffuse anasarca. Wall thickening of the ascending colon could represent portal colopathy. This is a change from prior and colitis is possible (*not clinically). Bilateral nonobstructing renal calculi. Small left pleural effusion. *The patient is clearly cirrhotic. The patient was very nebulous about her outpatient medications. I feel that the majority of her chronic renal failure is from diabetic nephropathy rather than HRS. Her 24 hr urine for protein was previously 1.56g /24h on 04/14/16, non-nephrotic range. At present, suggest hold diuretics and ACEI, to get a better handle on renal function. She has a shrunken nodular liver. Her ascites has worsened. She would benefit from a large volume tap with albumin, to maintain her oncotic pressure and avoid hypotension. Low magnesium is noted. She is on PPI. Compliance has been an issue. No INR has been sent. Clinically, there is no colitis. The nonspecific CT findings are probably from low albumin. SUGGEST: 2g Na DM renal diet. Avoid IV NS, which will exacerbate ascites. *Hold diuretics and ACEI for now. *Check urine lytes & FENa (*would expect low U Na & low FENa if HRS). *Large volume abdominal tap as BP tolerates. *Give 50g IV SPA with abdominal tap (or at least 25g SPA for each 3L ascites removed), to help maintain oncotic pressure & avoid hyptoension. *Send ascitic fluid for g stain, cell count, C&S (no need to repeat ascitic chemistries). Replete Mg. Switch PPI to H2B with low Mg. Zofran as needed. Reglan as tolerated (previoulsy tolerated without EPS side effects). *Check INR, with repeat TBil & Cr to be able to calculate MELD. Close follow up of lytes, GFR, LFTs, CBC. *Check AFP, then Q 6mos for hepatoma surveillance. Avoid NSAIDs. Avoid hepatotoxins. Follow-up with PMD for semi-elective Hepatitis A & B vaccinations. Annual flu shot. The patient reportedly received Pneumovax in the recent past. Keep Tylenol use to < 2 g daily. The patient is due for repeat EGD 2 years from last study, namely for variceal surveillance. Consideration for referral to [place] [facility] as outpatient, to potentially put her on the transplant list, but uncertain if the patient has the psychosocial support systems or compliance for this, and she is of borderline advanced age. The above findings and recommendations were discussed with Dr. Trevino & Dr. Stout this evening, 10/12/16. Further GI recommendations to follow, depending on clinical course. Problem List: 1. Cirrhosis 2. Ascites 3. Anasarca 4. CKD (chronic kidney disease) stage 4, GFR 15-29 ml/min 5. Gastroparesis 6. Nausea 7. Thrombocytopenia Copies To: ARGELIA HERMAN,CHARISMA; JUSTINA HERMAN,ARLEEN; JOSEFINA HERMAN,JAHAIRA Mehta; CHANELLE HERMAN,JAMAAL Carranza; SOTERO HERMAN,RENETTA Fisher. Consult Acknowledgment - Thank you for your consult request.
[2016-10-12 21:30] VITALS: BP 150/70
[2016-10-12 22:30] VITALS: BP 155/68
[2016-10-12 22:47] VITALS: BP 120/60
[2016-10-13 07:45] VITALS: BP 135/60
--- NOTE | 2016-10-13 08:19 | PN- Gastroenterology ---
Assessment/Plan Assessment/Recommendations: 71-year-old female, non-EtOH, fair historian, not compliant with medical follow- up in [place], she is in [place] for 10 months out of the year, with actually Get a past history, hypertension, LVH, diabetic since 1998 with questionable neuropathy, CKD stage 4 (felt to be from diabetic nephropathy, as per renal, with proteinuria & strong family history of DM/CKD), hyperlipidemia, obesity, CVA in 1978 without residual, hypothyroid, asthma, ASHD, CHF, history of SVT, afib (on Eliquis), history of falls, repair right rotator cuff 1998, repair of fractured left ankle 07/2013, closed left hip fracture 03/2016 post fall, DJD, migraine headache, chronic macrocytic anemia for years without transfusion, open cholecystectomy 1978 followed by resection of what sounds like a pancreatic cyst at [facility] a few weeks later, appendectomy, compliant with outpatient GI follow-up since then, nor was she compliant with multiple requests to have large volume abdominal tap with albumin as outpatient. Additionally, she apparently stopped her diuretics & insulin on her own! Previous imaging studies were without hepatoma. 09/17/13: Hep A Ab, Hep Bs Ag, Hep B core Ab & Hep C Ab- all negative. 10/23/13: EGD by myself- gastroparesis with retained food cleared from the fundus and posterior wall of the stomach, patent pylorus without mechanical gastric outlet obstruction. A metal suture with a blue guidewire was seen loosely embedded in the wall of the lower gastric body. Scant internal hernia. Z line at 38 cm. J-shaped stomach. Erosive esophagitis on biopsies. Mild gastritis, H. pylori negative. Random biopsies second and third portion of the duodenum-normal villi. The patient previously tolerated a short course of Reglan without any extrapyramidal side effects, but had stopped this, as well. *Metozolv 5 mg TID was prescirbed on 06/18/16 (? compliance). A baseline and only colonoscopy in [place] in 2014 was "normal", however she was not sure who performed this, or where was done. Aside from the family history of DM/CKD, from a GI perspective, a sister had a cholecystectomy and another sister had Crohn's disease. There was no family history of any GI malignancy, additional GI disease, inherited liver disease, or inherited pancreatitis. The patient's cirrhosis has been manifested by thrombocytopenia, reversal of the albumin:globulin ratio, ascites & anasarca. 01/02/16: *MELD score- Anna 15/UNOS 17, with normal AFP 1.8, normal IgA 472, borderline positive DGP Ab IgA 21/IgG- negative, tTG Ab (IgA/IgG)- both negative, Fe 51, TIBC 310, Fe sat 16.5%, ferririn 171, B12 415, folate 3.8, normal TFTs with TSH 0.941, markers for AIH and PBC- negative (AMA < 20, OSVALDO- neg 1:40, anti-LKM Ab < 20, anti-smooth muscle Ab < 20), normal A1AT 182, SPEP- acute phase reactant, normal IPEP. 01/04/16: stool Ag H. pylori- neg. 01/07/16: Complete abdominal sono- mild to moderate ascites, cirrhotic appearing liver without focal lesion, postmastectomy, postop dilated CBD 1.5 cm, normal IHD, spleen 13 cm with nonspecific hyperechoic lesion, bilateral nonobstructing renal stones, without hydronephrosis. 01/07/16: Liver spleen scan- positive colloid shift, consistent with cirrhosis. 01/26/16: Large-volume abdominal tap by IR at [facility]- 900 mL size removed, without SBP (absolute # PMNs 37.9), BF protein < 2.0, SAAG > 1.3, BF albumin < 1.0. High SAAG & low BF protein were consistent with portal hypertension etiology of the ascites. Most likely, the patient had BYERS that went on to cirrhosis. Ascitic fluid Gram stain and culture-negative. Ascitic cytology without malignancy. There were some atypical cells, felt to be reactive mesothelial cells. 02/09/16: EGD to [facility]- random small bowel biopsies-negative. Minimal antral erythema, biopsies-mild chronic antral gastritis, H. pylori negative. Questionable portal gastropathy lesser curvature, biopsy gastric body-mild chronic fundal gastritis, H. pylori negative. Nonspecific thickened folds gastric fundus, without definite gastric varices. No esophageal varices were seen. Scant hiatal hernia with Z line at 36 cm. Tertiary contractions distal esophagus. Metal suture loosely embedded posterior aspect of lower gastric body, without change from 10/23/13. History of gastroparesis, although no bezoar seen, off Metozolv, with patent pylorus. The patient was placed on Prilosec 20 mg daily, along with Zofran. There was no need to change to a non-selective beta gadiel, and so the patient remained on the selective beta gadiel, Atenolol 100 mg daily. 01/02/16: *IPEP- negative, without monoclonal spike. 01/02/16: *Hep A Ab, Hep Bs Ag, Hep B core Ab, Hep Bs Ab, & Hep C Ab- all negative. 04/12/16: *SPEP- low serum albumin & beta-gamma bridging, most c/w cirrhosis. 04/16/16: *HIV- negative. The patient previously had a workup for possible nephrotic syndrome as per renal. 04/14/16: 24-hour urine- only 1.566 g protein. 04/11/16: Echocardiogram- normal LVEF 60% with questionable posterior mediastinal mass. 04/12/16: CT chest w/o IV contrast- *no posterior mediastinal mass. Anasarca. Nodular hepatic margin suspicious for cirrhosis. Low attenuation splenic lesion. Nonobstructing bilateral renal stones. Questionable RUL pneumonitis. Nonspecific subpleural nodule right apex. Left pleural effusion with atelectasis. The patient never had MRCP to check her dilated CBD, which was probably postoperative in nature, and requested an open MRI. *She has never officially had a liver biopsy. Plans were to consider referral to the [facility] unit if her MELD score rised. 06/28/16: CT abdomen and pelvis without contrast (low GFR)-2 cm low-density lesion spleen, generalized anasarca, moderate ascites, otherwise without change. 06/28/16: RUQ sono- cirrhotic liver, no focal hepatic lesion, moderate ascites, post-CCKY, stable postop 1.6 cm CBD. 06/30/16: *MRCP- post-CCKY, dilated CBD 1.9 cm, mild dilated IHD, no choledocholithiasis, cirrhotic liver, moderate ascites, probable splenic cyst. 06/28/16: *normal AFP 1.4 The patient last had a large volume abdominal tap by IR 07/30/16, at which point 4L ascites was drained- no SBP, culture- neg, high SAAG > 1.1, low BF protein < 1.0. *The patient was contacted by my office multiple times, and we also spoke with her visiting nurse to arrange for outpatient abdominal large volume abdominal tap, but the patient was not compliant with this. The patient presented to the [facility] 10/11/16 at 12:28 PM, with a few days of nausea, vomiting and diarrhea, as per advice of visiting nurse. The vomitus was bilious, without hematemesis. There was no melena or BRBPR. She is still mildly nauseous. Her vomiting and diarrhea resolved. There has been no recurrent diarrhea since admission. She had chronic mild early satiety ( gastroparesis), & also had vague, sharp epigastric discomfort. Upon arrival, BP 150/92, P 82, RR 20, T 97.8, O2 sat RA 97%. She received Zofran, Tylenol, and 1L of IV NS by the ER, although she was not hypotensive, and the latter probably exacerbated her ascites. She denied any recent antibiotics, travel, or NSAIDs. She had some fatigue. She denied any confusion, head trauma, jaundice, dark urine, light stool, pruritus, fevers, chills, symptoms of UTI or URI, or increasing peripheral edema, although there was some mild increased abdominal girth. The patient is a very poor historian. She claimed she was on Lasix 20 mg daily & was taking Aldactone, dosage unknown, and perhaps ACEI. Her diuetics were increased by the medical team on admission, and her GFR (23 to 25) went up slightly, but as per my discussion with renal, this is not completely accurate in patients with cirrhosis or in the elderly > 70 y/o. 10/11/16: Admission labs- WBC 3.4, H/H 10.8/32.8, normal MCV, PLT- clumped, *no INR sent, glucose 98, BUN/Cr 38/2.1, GFR 23, Na 137, K 5.3, HCO3 21, AG 7, lipase 77, Ca 8.4, alb 2.5, glob 4.2, TBil 1.6, DBil 1.0, alk phos 103, AST 56, ALT 28, troponin .09. 10/12/16: CBC 2.9, H/H9.7/29.6, MCV 98.7, PLT 63, BUN/Cr 33/2.0, GFR 25, Na 139. K 4.3, HCO3 23, AG 6, Mg 1.2. *No EKG on chart. 10/11/16: CT abdomen and pelvis without contrast- Cirrhosis. Shrunken nodular liver without focal hepatic defects (within limits of a non-IV contrast study, due to low GFR). Large volume of ascites is increased from previous. Diffuse anasarca. Wall thickening of the ascending colon could represent portal colopathy. This is a change from prior and colitis is possible (*not clinically). Bilateral nonobstructing renal calculi. Small left pleural effusion. 10/12/16: *elevated spot Gia 140 with elevated FENa 7.6 (*NOT c/w HRS) *As of 10/13/16, the patient remained hemodynamically stable (*mildly bradycardic on Atenolol AND Metoprolol ?) & afebrile, with O2 sat RA 96%. *She remained on Omeprazole despite hypomagnesemia, which was repleted. Lasix, Aldactone, Lisinopril have been held for now. The patient is awaiting a large volume abdominal tap with SPA, as outlined. The patient's ascites was more intense. She denied any chest pain, shortness of breath, abdominal pain, overt GI bleeding, melena, jaundice, confusion, fevers, or chills. She had minimal nausea, but no vomiting. She remained a poor historian. *Apparently, she was put on Tramadol 50 mg po Q4h as needed, which should be given at a doae of 50 mg BID as needed maximum, as she is cirrhotic. *The patient is clearly cirrhotic. Most likely, she had BYERS (multiple risk factors) progressing to cirrhosis. Extensive serologies negative.The patient was very nebulous about her outpatient medications. I initially felt that the majority of her chronic renal failure was from chronic diabetic nephropathy, rather than HRS. *10/12/16: elevated Gia+ & elevated FENa both go against HRS. Her 24 hr urine for protein was previously 1.56g /24h on 04/14/16, non-nephrotic range. I advised holdung diuretics and ACEI on admission, to get a better handle on her renal function. She has a shrunken nodular liver. Her ascites has worsened. She would benefit from a large volume tap with albumin, to maintain her oncotic pressure and avoid hypotension. Low magnesium is noted. She is on PPI. Compliance has been an issue. No INR has been sent. Clinically, there is no colitis. The nonspecific CT findings are probably from low albumin. *SUGGEST: 2g Na DM renal diet. Avoid IV NS, which will exacerbate ascites. *Contiue to hold diuretics and ACEI for now. *Repeat 24 hr urine collection for protein, Cr, Cr clearance rxd, as per renal.*Large volume abdominal tap, as BP tolerates. * Give 50g IV SPA with abdominal tap (or at least 25g SPA/every 3L ascites removed ), to help maintain oncotic pressure & avoid hyptoension. *Send ascitic fluid for g stain, cell count, C&S (no need to repeat ascitic chemistries). Strict I/O 's. Replete Mg. *Switch PPI to H2B with low Mg. Zofran as needed. Reglan as tolerated (previoulsy tolerated, without EPS side effects). Check INR, with repeat TBil & Cr, to be able to calculate MELD. Close follow up of lytes, GFR, LFTs, CBC. *Check AFP (next due in 12/2016) & RUQ sono Q 6mos for hepatoma surveillance. Avoid NSAIDs. Avoid hepatotoxins. Keep Tylenol use to < 2 g daily. *The dose of Tramadol should not exceed 50 mg Q12h as needed, in view of cirrhosis. *The patient should NOT be on BOTH Atenolol and Metoprolol (she does not have documented varices to warrant non-selective beta blockers). Follow-up with PMD for semi-elective Hepatitis A & B vaccinations. Annual flu shot. The patient reportedly received Pneumovax in the recent past. The patient is due for repeat EGD 2 years from her last study, namely 01/2018, for variceal surveillance. Consideration for referral to [facility] as outpatient, to potentially put her on the transplant list, but uncertain if the patient has the psychosocial support systems or compliance for this, and she is of borderline advanced age. The above findings and recommendations were discussed with the medical housestaff, & previously with Dr. Trevino & Dr. Lindsay. Follow up with medicine & renal. Further GI recommendations to follow, depending on clinical course. Problem List: 1. Cirrhosis 2. Ascites 3. Anasarca 4. CKD (chronic kidney disease) stage 4, GFR 15-29 ml/min 5. Gastroparesis 6. Nausea 7. Thrombocytopenia Subjective Subjective: 10/12/16: *elevated spot Gia 140 with elevated FENa 7.6 (*NOT c/w HRS) *As of 10/13/16, the patient remained hemodynamically stable (*mildly bradycardic on Atenolol AND Metoprolol ?) & afebrile, with O2 sat RA 96%. *She remained on Omeprazole despite hypomagnesemia, which was repleted. Lasix, Aldactone, Lisinopril have been held for now. The patient is awaiting a large volume abdominal tap with SPA, as outlined. The patient's ascites was more intense. She denied any chest pain, shortness of breath, abdominal pain, overt GI bleeding, melena, jaundice, confusion, fevers, or chills. She had minimal nausea, but no vomiting. She remained a poor historian. *Apparently, she was put on Tramadol 50 mg po Q4h as needed, which should be given at a doae of 50 mg BID as needed maximum, as she is cirrhotic. Review of Systems: Full 14 point review of systems otherwise noncontributory, and as above. Review of Systems Constitutional: Reports: weakness. Denies: chills, diaphoresis, fever, malaise, unexplained weight loss. EENTM: Denies: blurred vision, double vision, visual changes, eye pain, eye drainage, eye tearing, icterus, ear discharge, ear pain, ear redness, hearing changes, nasal congestion, epistaxis, nasal pain, throat pain, throat swelling, mouth pain, tooth pain. Cardiovascular: Reports: peripheral edema (trace). Denies: chest pain, edema, orthopena, palpitations, syncope. Respiratory: Denies: cough, hemoptysis, orthopnea, short of breath, sputum production, stridor, wheezing. GI: Reports: abdominal pain (near liver edge- slightly better), diarrhea (rsolved), nausea (improved), vomiting (resolved). Denies: bloating, constipation, distention, bowel incontinence, melena, bloody stool, changes in stool, steatorrhea. Genitourinary: Denies: discharge, dysuria, frequency, hematuria, hesitation, nocturia, pain, urgency. Musculoskeletal: Reports: joint pain (DJD/L hip fx). Denies: back pain, gout, joint swelling, muscle pain, muscle stiffness, neck pain. Skin: Denies: cysts, change in skin color, change in hair/nails, dryness, erythema, jaundice, lesions, lymphangitis, lumps, moles, rash. Neurological/Psychological: Reports: weakness. Denies: anxiety, ataxia, cognitive dysfunction, confusion, depressed, dementia, emotional problems, headache, numbness, paresthesia, pre-existing deficit, petit mal seizures, tingling, tremors, tonic-clonic seizures, unable to move lower ext , unable to move upper ext. Hematologic/Endocrine: Denies: bruising, bleeding, polyuria, polydipsia. Immunologic/Allergic: Denies: splenectomy, HIV/AIDS, lymphadenopathy. All Other Systems: Reviewed and Negative Objective Vital Signs and I&Os Vital Signs Date Time Temp Pulse Resp B/P B/P Pulse O2 O2 Flow FiO2 Mean Ox Delivery Rate 10/13 0745 98.0 50 20 135/60 96 Room Air 10/12 2247 50 120/60 10/12 2245 50 120/60 10/12 2230 97.7 96 20 155/68 96 Room Air 10/12 2130 97.8 51 16 150/70 94 Room Air 10/12 1600 Room Air 10/12 1423 97.4 52 20 142/70 98 Room Air Intake & Output 10/13 1600 10/13 0400 10/12 1600 10/12 0400 10/11 1600 10/11 0400 Intake Total 380 681 485 2482 Output Total 200 300 300 500 Balance -200 80 -175 -400 1000 Intake, IV 1000 Intake, Oral 380 125 100 Output, Urine 200 300 300 500 Patient 154 lb 161 lb 161 lb Weight Weight Chair scale Reported by Patient Reported by Patient Measurement Method Physical Exam: Obese female, in no apparent distress. Sclera anicteric. Conjunctiva pink. Oropharynx clear. No oral thrush. No aphthous ulcers. There is no adenopathy, thyromegaly, or JVD. Questionable mild HJR. No peripheral stigmata of inflammatory bowel disease on exam. ? Scant spiders on the anterior chest wall. Breast & pelvic exams: API. No CVA tenderness. Lungs: clear to A&P, with slight decreased breath sounds at the bases B/L, L > R. No wheezing, rales, or rhonchi. Heart exam: regular rate rhythm, S1 and S2, with soft I/ systolic murmur. Abdominal exam: normal bowel sounds, soft doughy abdominal wall with anasarca/pannus, *mildly tender nodular liver edge, without guarding or rebound. Otherwise, no definite mass. Liver approximately 10 cm by percussion. Questionable palpable spleen tip. Positive fluid shift with tense ascites. No pulsatile mass. No epigastric bruit. Digital rectal exam: deferred by patient ( previously, OB-negative in ER in 10/2015). Extremities: without cyanosis or clubbing. Scant pedal edema LE B/L. No palpable cords. No palmar erythema. No Dupuytren's contractures. Deformed left ankle post fracture, uncertain if Charcot's joint. Distal pulses 1+ bilaterally. DTRs 1+ bilaterally. Alert and oriented x 3, but baseline poor historian. No tremor. No asterixis. No cogwheeling or extrapyramidal signs (now off Reglan). A detailed exam for peripheral neuropathy was deferred. Motor 5/5, except 4/5 LLE, post previous fracture. Current Medications: Current Medications Sig/Radha Start time Last Medication Dose Route Stop Time Status Admin Acetaminophen 650 MG Q6P PRN 10/11 1845 AC PO Amlodipine Besylate 10 MG DAILY 10/12 1000 AC 10/12 PO 0845 Apixaban 2.5 MG BID 10/11 2200 DC 10/12 PO 0844 Atenolol 100 MG DAILY 10/12 1000 AC 10/12 PO 0845 Atorvastatin Calcium 80 MG 1700 10/11 1901 AC 10/12 PO 1635 Clonidine 0.1 MG QPM PRN 10/11 1915 AC PO Fenofibrate 145 MG DAILY 10/12 1000 AC 10/12 PO 0846 Furosemide 40 MG DAILY 10/12 1000 DC 10/12 PO 0844 Gabapentin 600 MG DAILY 10/12 1000 DC 10/12 PO 0845 Gabapentin 300 MG BID 10/12 1000 AC 10/12 PO 2146 Gabapentin 300 MG QPM 10/11 2200 DC 10/11 PO 2232 Levothyroxine Sodium 0.175 MG DAILY AC 10/12 0700 AC 10/13 PO 0624 Lisinopril 2.5 MG DAILY 10/12 1000 DC 10/12 PO 0846 Magnesium Oxide 400 MG BID 10/12 2200 AC 10/12 PO 2145 Magnesium Oxide 400 MG DAILY 10/12 1000 DC 10/12 PO 0845 Metoprolol Tartrate 25 MG BID 10/11 2200 AC 10/12 PO 0844 Omeprazole 20 MG DAILY AC 10/12 0700 AC 10/13 PO 0624 Patient Medication 1 ED .STK-MED ONE 10/12 1425 [place] Teaching ED 10/13 1426 Spironolactone 50 MG DAILY 10/12 1000 DC 10/12 PO 0843 Tramadol HCl 50 MG Q4P PRN 10/11 1845 AC 10/12 PO 2148 Trimethobenzamide HCl 200 MG TID PRN 10/11 2030 AC IM Results Pertinent Lab Results: Laboratory Tests 10/13 10/12 10/12 10/12 0821 1915 1915 0710 Chemistry Sodium (137 - 145 mmol/L) Pending 139 Potassium (3.5 - 5.1 mmol/L) Pending 4.3 Chloride (98 - 107 mmol/L) Pending 109 H Carbon Dioxide (22 - 30 mmol/L) Pending 23 Anion Gap (5 - 16) Pending 6 BUN (7 - 17 mg/dL) Pending 33 H Creatinine (0.5 - 1.0 mg/dL) Pending 2.0 H Estimated GFR (>60 ml/min) 25 L BUN/Creatinine Ratio (7 - 25 %) Pending 16.5 Magnesium (1.6 - 2.3 mg/dL) 1.2 L Hematology CBC w Diff Pending WBC Pending RBC Pending Hgb Pending Hct Pending MCV Pending MCH Pending RDW Pending Plt Count Pending MPV Pending PUBS MCHC Pending Urines Ur Random Creatinine (mg/dL) 27.6 26.5 Ur Random Microalbumin (<1.7 mg/dl) 56.6 H Ur Random Sodium (30 - 90 mmol/L) 140 H Ur Random Potassium (mmol/L) 20.5 Fraction Sodium Excret (<1% %) 7.6 H U Cystine/Creat Ratio (mcg/mg) 0.72 10/11 10/11 1854 1711 Chemistry Lactic Acid Cancelled Hematology CBC w Diff NO MAN DIFF REQ WBC (4.8 - 10.8 /CUMM) 2.9 L RBC (4.20 - 5.40 /CUMM) 3.00 L Hgb (12.0 - 16.0 G/DL) 9.7 L Hct (37 - 47 %) 29.6 L MCV (81.0 - 99.0 FL) 98.7 MCH (27.0 - 31.0 PG) 32.4 H RDW (11.5 - 14.5 %) 16.4 H Plt Count (130 - 400 /CUMM) 63 L MPV (7.4 - 10.4 FL) 8.6 Gran % (42.2 - 75.2 %) 65.3 Lymphocytes % (20.5 - 51.1 %) 23.9 Monocytes % (1.7 - 9.3 %) 9.4 H Eosinophils % (0 - 5 %) 0.9 Basophils % (0.0 - 2.0 %) 0.5 Absolute Granulocytes (1.4 - 6.5 /CUMM) 1.9 Absolute Lymphocytes (1.2 - 3.4 /CUMM) 0.7 L Absolute Monocytes (0.10 - 0.60 /CUMM) 0.3 Absolute Eosinophils (0.0 - 0.7 /CUMM) 0 Absolute Basophils (0.0 - 0.2 /CUMM) 0 PUBS MCHC (33.0 - 37.0 G/DL) 32.8 L 10/11 1442 Chemistry Sodium (137 - 145 mmol/L) 137 Potassium (3.5 - 5.1 mmol/L) 5.3 H Chloride (98 - 107 mmol/L) 109 H Carbon Dioxide (22 - 30 mmol/L) 21 L Anion Gap (5 - 16) 7 BUN (7 - 17 mg/dL) 38 H Creatinine (0.5 - 1.0 mg/dL) 2.1 H Estimated GFR (>60 ml/min) 23 L BUN/Creatinine Ratio (7 - 25 %) 18.1 Glucose (65 - 99 mg/dL) 98 Lactic Acid (0.7 - 2.1 mmol/L) 1.3 Calcium (8.4 - 10.2 mg/dL) 8.4 Total Bilirubin (0.2 - 1.3 mg/dL) 1.6 H Direct Bilirubin (< 0.4 mg/dL) 1.0 H AST (14 - 36 U/L) 56 H ALT (9 - 52 U/L) 28 Alkaline Phosphatase (<127 U/L) 103 Troponin I (< 0.11 ng/ml) 0.09 Total Protein (6.3 - 8.2 g/dL) 6.7 Albumin (3.5 - 5.0 g/dL) 2.5 L Globulin (1.9 - 4.2 gm/dL) 4.2 Albumin/Globulin Ratio (1.1 - 2.2 %) 0.6 L Amylase (30 - 110 U/L) < 30 L Lipase (23 - 300 U/L) 77 Hematology CBC w Diff NO MAN DIFF REQ WBC (4.8 - 10.8 /CUMM) 3.4 L RBC (4.20 - 5.40 /CUMM) 3.36 L Hgb (12.0 - 16.0 G/DL) 10.8 L Hct (37 - 47 %) 32.8 L MCV (81.0 - 99.0 FL) 97.8 MCH (27.0 - 31.0 PG) 32.1 H RDW (11.5 - 14.5 %) 16.4 H Plt Count (130 - 400 /CUMM) MPV (7.4 - 10.4 FL) 9.5 Gran % (42.2 - 75.2 %) 72.8 Lymphocytes % (20.5 - 51.1 %) 18.2 L Monocytes % (1.7 - 9.3 %) 7.6 Eosinophils % (0 - 5 %) 0.8 Basophils % (0.0 - 2.0 %) 0.6 Absolute Granulocytes (1.4 - 6.5 /CUMM) 2.4 Absolute Lymphocytes (1.2 - 3.4 /CUMM) 0.6 L Absolute Monocytes (0.10 - 0.60 /CUMM) 0.3 Absolute Eosinophils (0.0 - 0.7 /CUMM) 0 Absolute Basophils (0.0 - 0.2 /CUMM) 0 PUBS MCHC (33.0 - 37.0 G/DL) 32.8 L Imaging/Other Studies: *No EKG on chart. 10/11/16: CT abdomen and pelvis without contrast- Cirrhosis. Shrunken nodular liver without focal hepatic defects (within limits of a non-IV contrast study, due to low GFR). Large volume of ascites is increased from previous. Diffuse anasarca. Wall thickening of the ascending colon could represent portal colopathy. This is a change from prior and colitis is possible (*not clinically). Bilateral nonobstructing renal calculi. Small left pleural effusion.
[2016-10-13 09:05] LABS: ABSOLUTE BASOPHIL COUNT 0 /CUMM (0.0-0.2); ABSOLUTE EOSINOPHIL COUNT 0.1 /CUMM (0.0-0.7); ABSOLUTE GRANULOCYTE CT 2.5 /CUMM (1.4-6.5); ABSOLUTE LYMPH COUNT 0.8 /CUMM (1.2-3.4); ABSOLUTE MONOCYTE COUNT 0.3 /CUMM (0.10-0.60); BASOPHIL % 0.8 % (0.0-2.0); EOSINOPHIL % 3.2 % (0-5); GRANULOCYTE % 66.6 % (42.2-75.2); HEMATOCRIT 32.8 % (37-47); MEAN CORPUSCULAR HGB 31.8 PG (27.0-31.0); MEAN CORPUSCULAR HGB CONC 32.1 G/DL (33.0-37.0); MEAN CORPUSCULAR VOLUME 98.9 FL (81.0-99.0); RBC DISTRIBUTION WIDTH 16.7 % (11.5-14.5); RED BLOOD CELL CT 3.32 /CUMM (4.20-5.40)
--- NOTE | 2016-10-13 09:07 | PN- Housestaff ---
NILAM HERMAN,[facility] 10/13/16 0907: Subjective Follow-up For: Ascites Hepatorenal syndrome Subjective: Patient was lying comfortably in her bed when i went to see her this morning. Still complains of abdominal pain but it comes only while she is walking, does not feel any pain when she is lying down. Denies any overnight events, nausea, vomiting, Diarrhea, SOB or chest pain. Review of Systems Constitutional: Denies: no symptoms. EENTM: Denies: no symptoms. Cardiovascular: Denies: no symptoms. Respiratory: Denies: no symptoms. Gastrointestinal: Reports: abdominal pain. Genitourinary: Denies: no symptoms. Musculoskeletal: Denies: no symptoms. Skin: Denies: no symptoms. Objective Last 24 Hrs of Vital Signs/I&O Vital Signs Date Time Temp Pulse Resp B/P B/P Pulse O2 O2 Flow FiO2 Mean Ox Delivery Rate 10/13 1011 51 140/72 10/13 0745 98.0 50 20 135/60 96 Room Air 10/12 2247 50 120/60 10/12 2245 50 120/60 10/12 2230 97.7 96 20 155/68 96 Room Air 10/12 2130 97.8 51 16 150/70 94 Room Air 10/12 1600 Room Air 10/12 1423 97.4 52 20 142/70 98 Room Air Intake & Output 10/13 1600 10/13 0800 10/13 0000 Intake Total 380 Output Total 200 300 Balance -200 80 Intake, Oral 380 Output, Urine 200 300 Patient 154 lb Weight Weight Chair scale Measurement Method Physical Exam General Appearance: Alert, Oriented X3, Cooperative Other Physical Findings: HEENT: Atraumatic, PERRLA, EOMI Neck: Supple, No JVD, No thryomegaly Cardiovascular: Regular Rate, Normal S1, Normal S2 Lungs: Clear to Auscultation, Normal Air Movement Abdomen: Normal Bowel Sounds, Soft, distended due to fluids, No Hepatospenomegaly Neurological: Normal Speech, Strength at 5/5 X4 Ext, Normal Tone, Sensation Intact Extremities: wrapped with dressing, Normal Pulses Current Medications: Current Medications Sig/Radha Start time Last Medication Dose Route Stop Time Status Admin Acetaminophen 650 MG Q6P PRN 10/11 1845 AC PO Albumin Human 50 GM ONCE ONE 10/13 1315 CANr IV 10/13 1316 Amlodipine Besylate 10 MG DAILY 10/12 1000 AC 10/13 PO 1011 Atenolol 100 MG DAILY 10/12 1000 DC 10/12 PO 0845 Atorvastatin Calcium 80 MG 1700 10/11 1901 AC 10/12 PO 1635 Clonidine 0.1 MG QPM PRN 10/11 1915 AC PO Fenofibrate 145 MG DAILY 10/12 1000 AC 10/13 PO 1011 Furosemide 40 MG DAILY 10/12 1000 DC 10/12 PO 0844 Gabapentin 300 MG BID 10/12 1000 AC 10/13 PO 1010 Levothyroxine Sodium 0.175 MG DAILY AC 10/12 0700 AC 10/13 PO 0624 Lisinopril 2.5 MG DAILY 10/12 1000 DC 10/12 PO 0846 Magnesium Oxide 400 MG BID 10/12 2200 AC 10/13 PO 1010 Magnesium Oxide 400 MG DAILY 10/12 1000 DC 10/12 PO 0845 Metoprolol Tartrate 25 MG BID 10/11 2200 DC 10/12 PO 0844 Omeprazole 20 MG DAILY AC 10/12 0700 AC 10/13 PO 0624 Patient Medication 1 ED .STK-MED ONE 10/12 1425 VT Teaching ED 10/13 1426 Spironolactone 50 MG DAILY 10/12 1000 DC 10/12 PO 0843 Tramadol HCl 50 MG Q4P PRN 10/11 1845 AC 10/12 PO 2148 Trimethobenzamide HCl 200 MG TID PRN 10/11 2030 AC IM Last 24 Hrs of Lab/Diego Results Last 24 Hrs of Labs/Mics: Laboratory Tests 10/13/16 1325: PT Pending, INR Pending 10/13/16 0821: Anion Gap 7, Estimated GFR 23 L, BUN/Creatinine Ratio 17.6, Total Bilirubin 1.0 , Direct Bilirubin 0.5 H, AST 44 H, ALT 34, Alkaline Phosphatase 81, Total Protein 5.6 L, Albumin 2.1 L, CBC w Diff NO MAN DIFF REQ, RBC 3.32 L, MCV 98.9, MCH 31.8 H, RDW 16.7 H, MPV ND, Gran % 66.6, Lymphocytes % 20.4 L, Monocytes % 9.0, Eosinophils % 3.2, Basophils % 0.8, Absolute Granulocytes 2.5, Absolute Lymphocytes 0.8 L, Absolute Monocytes 0.3, Absolute Eosinophils 0.1, Absolute Basophils 0, PUBS MCHC 32.1 L 10/12/161914: Ur Random Creatinine 27.6, Ur Random Microalbumin 56.6 H, U Cystine/Creat Ratio 0.72 10/12/161914: Ur Random Creatinine 26.5, Ur Random Sodium 140 H, Ur Random Potassium 20.5, Fraction Sodium Excret 7.6 H Assessment/Plan Assessment: Patient is a 71-year-old woman withextensive past medical history with of, prior CVA in 1978 without any residual effects, diastolic CHF,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 nephrotic range proteinuria, hypothyroidism, depression, obesity, thrombocytopenia with platelet clumping with elevated serum IgA,previous multiple fractures ,severe vitamin D deficiency, DJD, migraine headache, chronic anemia for years without transfusion (currently macrocytic), recently admitted to [facility] for metabolic encephalopathy with new onset atrial fibrillation on elliquis presented to the ED for evaluation of worsening nausea vomiting with diarrhea for the last 4 days. History of,BYERS progressing to cirrhosis complicated with anasarca and reccurent ascites with JUANI(possible hepatorenal syndrome) * Parecentesis(Diagnostic and Therapeutic) wa ssupposed to be done today but it was delayed until tomorrow because of the risk of bleeding as the eliquis was stopped for 1 day only. NPO after midnight. Will continue to hold her eliquis tonight and restart after the tap. * GI Recommends holding Diuretics and ACEI for now. Check urine lytes & FENa (* would expect low U Na & low FENa if HRS). Large volume abdominal tap as BP tolerates and send ascitic fluid for g stain, cell count, C&S. - Will switch PPI to H2B. - Will Check INR, repeat TBil & Cr to calculate MELD. - Close follow up of lytes, GFR, LFTs, CBC. - Check AFP, then Q 6mos for hepatoma surveillance. * Nephrology recommends: -Strict intakes and outputs and daily weights -Would be strict sodium in her diet -Spot urine for protein and microalbumin and a spot urine for creatinine OR a 24-hour urine, that should be ordered as a total protein, total creatinine and creatinine clearance. * Tigan as needed for nausea and vomiting. * Watch for any hemodynamic instability. * Follow stool cultures and C.diff. Lower extremity ulcers * Visiting nurse comes to do the dressing at home every other day. * Wound care consulted. History of atrial fibrillation * Will hold Eliquis in preparation for paracentecis tomorrow. History of hypertension and hyperlipidemia * Patient is bradycardic. Will discontinue metoprolol and control her BP with norvasc. * Will continue her home meds for HLD. Moderate severe pain controlled with tramadol. DVT prophylaxis: Patient is on Eliquis Patient is full code Problem List: 1. Liver cirrhosis secondary to BYERS 2. CKD (chronic kidney disease) stage 4, GFR 15-29 ml/min 3. Nausea vomiting and diarrhea 4. Platelet disorder 5. Hypomagnesemia 6. Hyperlipidemia 7. Hypertension Pain Ratin Pain Location: Abdomen Pain Goal: Remain pain free Pain Plan: Pain Pathway Tomorrow's Labs & Rationales: CBC (Pancytopenia), BEP (Hepatorenal syndrome) CHARISMA STOUT MD 10/13/16 1317: Attending MD Review Statement Attending Statement Attending MD Statement: examined this patient, discuss w/resident/PA/DELPHI PROGRAMMER, agreed w/resident/PA/DELPHI PROGRAMMER, reviewed EMR data (avail) Attending Assessment/Plan: 71F PMH extensive past medical history with of, prior CVA in 1978 without any residual effects, diastolic CHF,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 nephrotic range proteinuria, hypothyroidism, depression, obesity, thrombocytopenia with platelet clumping with elevated serum IgA, previous multiple fractures ,severe vitamin D deficiency, DJD, migraine headache , chronic anemia presenting with 1 week of nausea, vomiting, generalized weakness, and loose stools. Denies fever or chills. Plan - Continue on general medicine - Follow GI and nephrology recommendations - Hold diuretics for now - Paracentesis today - Hold antibiotics for now - DVT PPx
[2016-10-13 10:07] LABS: MEAN PLATELET VOLUME ND FL (7.4-10.4); WHITE BLOOD CELL COUNT 3.7 /CUMM (4.8-10.8)
--- NOTE | 2016-10-13 13:04 | PN- Student ---
Subjective Subjective: This morning she said the she did not slept fairly well and that she had 2 water consistency bowel movements. She at dinner at 5pm and was not able to eat anything all day due to the scheduled pericentisis. This was postponed today per IR consult which suggested dc Eliquis two days prior to procedure. Objective Objective: Physical exam: Vitals: WNL General appearance: Appears tired, but has a normal affect. No acute distress CV: RRR, normal s1, s2, no R/M/G Lungs:CTA BL Abd: Distended abd. Diminshed bowel bowel sounds. No tenderness to palpation Results Results: Laboratory Tests 10/14/16 0705: Anion Gap 6, Estimated GFR 20 L, BUN/Creatinine Ratio 17.1, CBC w Diff Pending, WBC Pending, RBC Pending, Hgb Pending, Hct Pending, MCV Pending, MCH Pending, RDW Pending, Plt Count Pending, MPV Pending, Gran % Pending, Lymphocytes % Pending, Monocytes % Pending, Eosinophils % Pending, Basophils % Pending, Absolute Granulocytes Pending, Absolute Lymphocytes Pending, Absolute Monocytes Pending, Absolute Eosinophils Pending, Absolute Basophils Pending, PUBS MCHC Pending 10/13/16 1325: PT 15.7 H, INR 1.50 H 10/13/16 0821: Anion Gap 7, Estimated GFR 23 L, BUN/Creatinine Ratio 17.6, Total Bilirubin 1.0 , Direct Bilirubin 0.5 H, AST 44 H, ALT 34, Alkaline Phosphatase 81, Total Protein 5.6 L, Albumin 2.1 L, CBC w Diff NO MAN DIFF REQ, RBC 3.32 L, MCV 98.9, MCH 31.8 H, RDW 16.7 H, MPV ND, Gran % 66.6, Lymphocytes % 20.4 L, Monocytes % 9.0, Eosinophils % 3.2, Basophils % 0.8, Absolute Granulocytes 2.5, Absolute Lymphocytes 0.8 L, Absolute Monocytes 0.3, Absolute Eosinophils 0.1, Absolute Basophils 0, PUBS MCHC 32.1 L 10/12/166: Urine Total Volume 375 L, Ur Total Protein 24 Hr 521.7 H 10/12/16 1915: Ur Random Creatinine 27.6, Ur Random Microalbumin 56.6 H, U Cystine/Creat Ratio 2050.72 10/12/16 1915: Ur Random Creatinine 26.5, Ur Random Sodium 140 H, Ur Random Potassium 20.5, Fraction Sodium Excret 7.6 H 10/12/16 1000: Urine Total Volume Cancelled, Ur Total Protein 24 Hr Cancelled 10/12/16 0710: Anion Gap 6, Estimated GFR 25 L, BUN/Creatinine Ratio 16.5, Magnesium 1.2 L 10/11/16 1854: CBC w Diff NO MAN DIFF REQ, RBC 3.00 L, MCV 98.7, MCH 32.4 H, RDW 16.4 H, MPV 8.6, Gran % 65.3, Lymphocytes % 23.9, Monocytes % 9.4 H, Eosinophils % 0.9, Basophils % 0.5, Absolute Granulocytes 1.9, Absolute Lymphocytes 0.7 L, Absolute Monocytes 0.3, Absolute Eosinophils 0, Absolute Basophils 0, PUBS MCHC 32.8 L 10/11/16 1711: Lactic Acid Cancelled 10/11/16 1442: Anion Gap 7, Estimated GFR 23 L, BUN/Creatinine Ratio 18.1, Glucose 98, Lactic Acid 1.3, Calcium 8.4, Total Bilirubin 1.6 H, Direct Bilirubin 1.0 H, AST 56 H, ALT 28, Alkaline Phosphatase 103, Troponin I 0.09, Total Protein 6.7, Albumin 2.5 L, Globulin 4.2, Albumin/Globulin Ratio 0.6 L, Amylase < 30 L, Lipase 77, CBC w Diff NO MAN DIFF REQ, RBC 3.36 L, MCV 97.8, MCH 32.1 H, RDW 16.4 H, MPV 9.5, Gran % 72.8, Lymphocytes % 18.2 L, Monocytes % 7.6, Eosinophils % 0.8, Basophils % 0.6, Absolute Granulocytes 2.4, Absolute Lymphocytes 0.6 L, Absolute Monocytes 0.3, Absolute Eosinophils 0, Absolute Basophils 0, PUBS MCHC 32.8 L Microbiology 10/11 144 STOOL: Clostridium difficile Toxin A & B - CAN Cancelled: SPECIMEN NOT RECEIVED IN LABORATORY 10/12 1443 STOOL: Stool Culture - CAN Cancelled: SPECIMEN NOT RECEIVED IN LABORATORY Assessment/Plan Assessment: Ms. Angulo is a 71-year-old female with a PMH of BYERS progressing to cirrhosis and non-compliance with medical follow-up due to living in [place] for part of the year. She also has a PMH of hypertension, LVH, diabetic with questionable neuropathy, CKD stage 4, hyperlipidemia, obesity, CVA , hypothyroidism, asthma, ASHD, CHF, history of SVT, afib (on Eliquis), history of falls. She presented with ascites and was hemodynamically stable with abnormal CMP and CBC results. Abd. CT without contrast showed cirrhosis, large volume of ascites that is worse than in the past, diffuse anasarca, ascending colon wall thickening representing potential portal colopathy. This is a change from prior imaging and colitis is possible. There is also bilateral nonobstructing renal calculi, and small left pleural effusion. 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 -2g Na DM renal diet. -Avoid IV NS, which will exacerbate ascites. -Contiue to hold diuretics and ACEI for now. -Repeat 24 hr urine collection for protein, Cr, Cr clearance rxd, as per renal. -Large volume abdominal tap, as BP tolerates. -Give 50g IV SPA with abdominal tap (or at least 25g SPA/every 3L ascites removed), to help maintain oncotic pressure & avoid hyptoension. -Send ascitic fluid for gram stain, cell count, C&S (no need to repeat ascitic chemistries) -Replete Mg. -Switch PPI to H2B with low Mg. -Zofran as needed. -Reglan as tolerated (previoulsy tolerated, without EPS side effects). -Check INR, with repeat TBil & Cr, to be able to calculate MELD. -Close follow up of lytes, GFR, LFTs, CBC. -Check AFP (next due in 12/2016) & RUQ sono Q 6mos for hepatoma surveillance. -Avoid NSAIDs. -Avoid hepatotoxins -Keep Tylenol use to < 2 g daily. -The dose of Tramadol should not exceed 50 mg Q12h as needed, in view of cirrhosis. -The patient should NOT be on BOTH Atenolol and Metoprolol (she does not have documented varices to warrant non-selective beta blockers). 2) CKD stage III: Nephrology consult -Strict intakes and outputs and daily weights -low sodium diet -24-hour urine to check microalbumin and creatinine clearance. -Tigan 200mg TID PRN IM as needed for nausea and vomiting. -Watch for any hemodynamic instability. -Follow stool cultures and C.diff. -If large volume paracenticis is preformed she will need 25% albulmin IV due to compromised kidney fuction. 3)Chronic health conditions: Lower extremity ulcers, Atrial fibrillation, hypertension, hyperlipidemia, LVD, moderate severe pain, hypothyroidism, acid reflux -visiting nurse comes to do the dressing every other day on ulcers. -wound care consulted. -Continue home dose: -atrovostain 80mg -fenofibrate 145mg -Amlodipine besylate 10mg -levothyroxine 0.175mg -Pepcid AC 20mg -Mag Ox 400mg BID -Clonidine 0.1mg PRN -pain control: -tramadol 50mg q4h PRN -Acetaminophen 650 mg q6h PRN -Gabapentin 300mg BID 4) DVT prophylaxis: Patient is on Eliquis 5)Patient is full code
[2016-10-13 13:40] LABS: PT 15.7 SEC (9.4-12.5)
[2016-10-13 14:56] VITALS: BP 100/63
--- NOTE | 2016-10-13 15:37 | Discharge Summary ---
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 nephrotic range proteinuria, hypothyroidism, depression, obesity, thrombocytopenia with platelet clumping with elevated serum IgA,previous multiple fractures ,severe vitamin D deficiency, DJD, migraine headache, chronic anemia for years without transfusion (currently macrocytic), recently admitted to [facility] for metabolic encephalopathy with new onset atrial fibrillation on elliquis presented to the ED for evaluation of worsening nausea vomiting with diarrhea for the last 4 days. Patient mentioned that she has been having nausea with billious vomiting associated with loose watery stools for the last 4 days ,Also reported lower abdominal discomfort with worsening abdominal girth. Denies any fever or chills denies any recent infections denies any sick contacts or any recent travels she has been taking Zofran at home without any improvement in her nausea, came to the ER for further assessment denies any chest discomfort or breathing or any palpitations denies any urinary symptoms Vital stable on admission: Temp 97.8, pulse 82, Resp 20, BP 150/92, Pulse Ox 97 on room air Pertinent labs on admission: WBC count low at 2.9 H&H low 9.7/29.6 hyperkalemia 5.3 with a BUN and creatinine 38/2.1 elevated total bilirubin 1.6 CT abdomen and pelvis revealed: Cirrhosis. Large volume of ascites is increased from previous. Diffuse anasarca.Wall thickening of the ascending colon could represent portal colopathy. Thisis a change from prior and colitis is possible.Bilateral nonobstructing renal calculi. Small left pleural effusion. 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 Approx 3L of fluid was drawn and she was given 50g IV albumin during the procedure. Patient had some leakage from the procedure site and had some abdominal discomfort which was well controlled with tramadol. * GI recommended discontinuing her B-blockers(She does not have any varices at this point).She will need a follow up AFP in 6mos for hepatoma surveillance. She is also due for a follow up EGD. Will keep her on 20mg PO pepcid. She will follow up with as an outpatient. * Patient was started on sodium restricted diet as per nephrology recommendations. She also doid not need any diuretics at that point, will hold her furosemide and aldectone. Patient was continued on her ACEI. Patient was instructed to repeat the BEP and follow up with her PCP in a week. Lower extremity ulcers * Visiting nurse comes to do the dressing at home every other day. * Wound care consulted: recommended cleaning the left foot ulcer with normal saline f/b promogram f/b kerlix daily and PRN. History of atrial fibrillation and hypertension * Patient had been running bradycardic so her metoprolol and atenolol were discontinued, continued norvasc 10mg PO daily for blood pressure control. She did not need any beta-blockers or diuretics from cardiac standpoint. Her Eliquis was also held as per cardio recommendations(Atrial Fibrillation was in the setting of acute Illness).She will follow up with Dr. Galindo as an outpatient for her HTN and Bradycardia. * Hypomagnesemia: Patient was on 400mg mag-ox BID daily. History of hyperlipidemia: * Her home meds were continued. Allergies: Coded Allergies: codeine (Severe, RASH, DIFFICULTY BREATHING 04/08/16) morphine (Severe, SHORTNESS OF BREATH 04/08/16) Disposition Summary Disposition Principal Diagnosis: Acites Hepatorenal Syndrome Additional Diagnosis: Cirrhosis HTN Discharge Disposition: home health services Discharge Instructions General Discharge Information Code Status: Full Code Patient's Diet: Renal and Diabrtic Diet Patient's Activity: As tolerated. Follow-Up Instructions/Appts: Please have blood work done on 10/19/16 and follow up with your PCP on 10/20/16. Please follow up with your for Atrial fibrillation and Bradycardia. Please follow up with Dr. Aviles within a week. You will need a follow-up endoscopy/colonoscopy which can be arranged at that time. You may need follow-up in the future with the liver transplant team at [facility]. Please follow-up with the outreach clinician after discharge. Please follow up with within a week. Medications at Discharge Discharge Medications: Stop taking the following medications: Magnesium Oxide (Magnesium) 400 MG CAPSULE ORAL DAILY Spironolactone (Aldactone) 25 MG TABLET ORAL DAILY Days = 28 Omeprazole (Omeprazole) 20 MG CAPSULE.DR ORAL DAILY BEFORE BREAKFAST Days = 28 Apixaban (Eliquis) 2.5 MG TABLET ORAL TWICE DAILY Qty = 30 Metoprolol Tartrate (Metoprolol Tartrate) 25 MG TABLET ORAL TWICE DAILY Qty = 30 Atenolol (Atenolol) 100 MG TABLET ORAL Every night Furosemide (Furosemide) 20 MG TABLET ORAL DAILY Gabapentin (Neurontin) 300 MG CAPSULE ORAL DAILY Gabapentin (Neurontin) 300 MG CAPSULE ORAL Every night Lisinopril (Prinivil) 20 MG TABLET ORAL DAILY Continue taking these medications: Atorvastatin Calcium (Atorvastatin Calcium) 80 MG TABLET 1 Tablet ORAL DAILY Comments: Last Taken: 10/14/16 Time: 4:30 PM Fenofibrate,Micronized (Fenofibrate) 200 MG CAPSULE 1 Capsule ORAL DAILY Comments: Last Taken: 10/15/16 Time: 10:30 AM Levothyroxine Sodium (Synthroid) 175 MCG TABLET 1 Tablet ORAL DAILY BEFORE BREAKFAST Qty = 30 Comments: Last Taken: 10/15/16 Time: 6:00 AM Amlodipine Besylate (Amlodipine Besylate) 10 MG TABLET 1 Tablet ORAL DAILY Qty = 30 Comments: Last Taken: 10/15/16 Time: 10:30 AM Clonidine HCl (Clonidine HCl) 0.1 MG TABLET 1 Tablet ORAL Every night as needed for UNKNOWN Comments: NOT GIVEN IN HOSPITAL Lisinopril (Lisinopril) 2.5 MG TABLET 1 Tablet ORAL DAILY Comments: 12.5MG DOSE NOT GIVEN IN HOSPITAL Tramadol HCl (Tramadol HCl) 50 MG TABLET 50 Milligram ORAL EVERY 12 HOURS as needed for ABDOMINAL PAIN Qty = 30 Instructions: . Comments: Last Taken: 10/14/16 Time: 8:30 PM This prescription has been renewed Start taking the following new medications: Lisinopril (Prinivil) 10 MG TABLET 1 Tablet ORAL DAILY Qty = 30 No Refills Instructions: .. Comments: NOT GIVEN IN GIVEN HOSPITAL Gabapentin (Gabapentin) 300 MG CAPSULE 1 Tablet ORAL TWICE DAILY Qty = 60 No Refills Instructions: .. Comments: Last Taken: 10/15/16 Time: 10:30 AM Magnesium Oxide (Magnesium Oxide) 400 MG TABLET 1 Tablet ORAL TWICE DAILY Qty = 60 No Refills Instructions: .. Comments: Last Taken: 10/15/16 Time: 10:30 AM Famotidine (Famotidine) 20 MG TABLET 1 Tablet ORAL DAILY Qty = 30 No Refills Instructions: .. Comments: Last Taken: 10/15/16 Time: 10:30 AM Tramadol HCl (Tramadol HCl) 50 MG TABLET 50 Milligram ORAL EVERY 12 HOURS as needed for ABDOMINAL PAIN Qty = 30 No Refills Comments: SEE ABOVE Copies To: JUSTINA HERMAN,ARLEEN; ALETHA HERMAN,RADHA Vargas; CHANELLE HERMAN,JAMAAL Carranza; SOTERO HERMAN, RENETTA Khan
[2016-10-13 23:34] VITALS: BP 104/62
--- NOTE | 2016-10-14 07:38 | PN- Gastroenterology ---
Assessment/Plan Assessment/Recommendations: 71-year-old female, non-EtOH, fair historian, not compliant with medical follow- up in [place], she is in [place] for 10 months out of the year, with actually Get a past history, hypertension, LVH, diabetic since 1998 with questionable neuropathy, CKD stage 4 (felt to be from diabetic nephropathy, as per renal, with proteinuria & strong family history of DM/CKD), hyperlipidemia, obesity, CVA in 1978 without residual, hypothyroid, asthma, ASHD, CHF, history of SVT, afib (on Eliquis), history of falls, repair right rotator cuff 1998, repair of fractured left ankle 07/2013, closed left hip fracture 03/2016 post fall, DJD, migraine headache, chronic macrocytic anemia for years without transfusion, open cholecystectomy 1978 followed by resection of what sounds like a pancreatic cyst at [facility] a few weeks later, appendectomy, compliant with outpatient GI follow-up since then, nor was she compliant with multiple requests to have large volume abdominal tap with albumin as outpatient. Additionally, she apparently stopped her diuretics & insulin on her own! Previous imaging studies were without hepatoma. 09/17/13: Hep A Ab, Hep Bs Ag, Hep B core Ab & Hep C Ab- all negative. 10/23/13: EGD by myself- gastroparesis with retained food cleared from the fundus and posterior wall of the stomach, patent pylorus without mechanical gastric outlet obstruction. A metal suture with a blue guidewire was seen loosely embedded in the wall of the lower gastric body. Scant internal hernia. Z line at 38 cm. J-shaped stomach. Erosive esophagitis on biopsies. Mild gastritis, H. pylori negative. Random biopsies second and third portion of the duodenum-normal villi. The patient previously tolerated a short course of Reglan without any extrapyramidal side effects, but had stopped this, as well. *Metozolv 5 mg TID was prescirbed on 06/18/16 (? compliance). A baseline and only colonoscopy in [place] in 2014 was "normal", however she was not sure who performed this, or where was done. Aside from the family history of DM/CKD, from a GI perspective, a sister had a cholecystectomy and another sister had Crohn's disease. There was no family history of any GI malignancy, additional GI disease, inherited liver disease, or inherited pancreatitis. The patient's cirrhosis has been manifested by thrombocytopenia, reversal of the albumin:globulin ratio, ascites & anasarca. 01/02/16: *MELD score- [place] 15/UNOS 17, with normal AFP 1.8, normal IgA 472, borderline positive DGP Ab IgA 21/IgG- negative, tTG Ab (IgA/IgG)- both negative, Fe 51, TIBC 310, Fe sat 16.5%, ferririn 171, B12 415, folate 3.8, normal TFTs with TSH 0.941, markers for AIH and PBC- negative (AMA < 20, OSVALDO- neg 1:40, anti-LKM Ab < 20, anti-smooth muscle Ab < 20), normal A1AT 182, SPEP- acute phase reactant, normal IPEP. 01/04/16: stool Ag H. pylori- neg. 01/07/16: Complete abdominal sono- mild to moderate ascites, cirrhotic appearing liver without focal lesion, postmastectomy, postop dilated CBD 1.5 cm, normal IHD, spleen 13 cm with nonspecific hyperechoic lesion, bilateral nonobstructing renal stones, without hydronephrosis. 01/07/16: Liver spleen scan- positive colloid shift, consistent with cirrhosis. 01/26/16: Large-volume abdominal tap by IR at [facility]- 900 mL size removed, without SBP (absolute # PMNs 37.9), BF protein < 2.0, SAAG > 1.3, BF albumin < 1.0. High SAAG & low BF protein were consistent with portal hypertension etiology of the ascites. Most likely, the patient had BYERS that went on to cirrhosis. Ascitic fluid Gram stain and culture-negative. Ascitic cytology without malignancy. There were some atypical cells, felt to be reactive mesothelial cells. 02/09/16: EGD to [facility]- random small bowel biopsies-negative. Minimal antral erythema, biopsies-mild chronic antral gastritis, H. pylori negative. Questionable portal gastropathy lesser curvature, biopsy gastric body-mild chronic fundal gastritis, H. pylori negative. Nonspecific thickened folds gastric fundus, without definite gastric varices. No esophageal varices were seen. Scant hiatal hernia with Z line at 36 cm. Tertiary contractions distal esophagus. Metal suture loosely embedded posterior aspect of lower gastric body, without change from 10/23/13. History of gastroparesis, although no bezoar seen, off Metozolv, with patent pylorus. The patient was placed on Prilosec 20 mg daily, along with Zofran. There was no need to change to a non-selective beta gadiel, and so the patient remained on the selective beta gadiel, Atenolol 100 mg daily. 01/02/16: *IPEP- negative, without monoclonal spike. 01/02/16: *Hep A Ab, Hep Bs Ag, Hep B core Ab, Hep Bs Ab, & Hep C Ab- all negative. 04/12/16: *SPEP- low serum albumin & beta-gamma bridging, most c/w cirrhosis. 04/16/16: *HIV- negative. The patient previously had a workup for possible nephrotic syndrome as per renal. 04/14/16: 24-hour urine- only 1.566 g protein. 04/11/16: Echocardiogram- normal LVEF 60% with questionable posterior mediastinal mass. 04/12/16: CT chest w/o IV contrast- *no posterior mediastinal mass. Anasarca. Nodular hepatic margin suspicious for cirrhosis. Low attenuation splenic lesion. Nonobstructing bilateral renal stones. Questionable RUL pneumonitis. Nonspecific subpleural nodule right apex. Left pleural effusion with atelectasis. The patient never had MRCP to check her dilated CBD, which was probably postoperative in nature, and requested an open MRI. *She has never officially had a liver biopsy. Plans were to consider referral to the [facility] unit if her MELD score rised. 06/28/16: CT abdomen and pelvis without contrast (low GFR)-2 cm low-density lesion spleen, generalized anasarca, moderate ascites, otherwise without change. 06/28/16: RUQ sono- cirrhotic liver, no focal hepatic lesion, moderate ascites, post-CCKY, stable postop 1.6 cm CBD. 06/30/16: *MRCP- post-CCKY, dilated CBD 1.9 cm, mild dilated IHD, no choledocholithiasis, cirrhotic liver, moderate ascites, probable splenic cyst. 06/28/16: *normal AFP 1.4 The patient last had a large volume abdominal tap by IR 07/30/16, at which point 4L ascites was drained- no SBP, culture- neg, high SAAG > 1.1, low BF protein < 1.0. *The patient was contacted by my office multiple times, and we also spoke with her visiting nurse to arrange for outpatient abdominal large volume abdominal tap, but the patient was not compliant with this. The patient presented to the [facility] ER 10/11/16 at 12:28 PM, with a few days of nausea, vomiting and diarrhea, as per advice of visiting nurse. The vomitus was bilious, without hematemesis. There was no melena or BRBPR. She is still mildly nauseous. Her vomiting and diarrhea resolved. There has been no recurrent diarrhea since admission. She had chronic mild early satiety ( gastroparesis), & also had vague, sharp epigastric discomfort. Upon arrival, BP 150/92, P 82, RR 20, T 97.8, O2 sat RA 97%. She received Zofran, Tylenol, and 1L of IV NS by the ER, although she was not hypotensive, and the latter probably exacerbated her ascites. She denied any recent antibiotics, travel, or NSAIDs. She had some fatigue. She denied any confusion, head trauma, jaundice, dark urine, light stool, pruritus, fevers, chills, symptoms of UTI or URI, or increasing peripheral edema, although there was some mild increased abdominal girth. The patient is a very poor historian. She claimed she was on Lasix 20 mg daily & was taking Aldactone, dosage unknown, and perhaps ACEI. Her diuetics were increased by the medical team on admission, and her GFR (23 to 25) went up slightly, but as per my discussion with renal, this is not completely accurate in patients with cirrhosis or in the elderly > 70 y/o. 10/11/16: Admission labs- WBC 3.4, H/H 10.8/32.8, normal MCV, PLT- clumped, *no INR sent, glucose 98, BUN/Cr 38/2.1, GFR 23, Na 137, K 5.3, HCO3 21, AG 7, lipase 77, Ca 8.4, alb 2.5, glob 4.2, TBil 1.6, DBil 1.0, alk phos 103, AST 56, ALT 28, troponin .09. 10/12/16: CBC 2.9, H/H9.7/29.6, MCV 98.7, PLT 63, BUN/Cr 33/2.0, GFR 25, Na 139. K 4.3, HCO3 23, AG 6, Mg 1.2. *No EKG on chart. 10/11/16: CT abdomen and pelvis without contrast- Cirrhosis. Shrunken nodular liver without focal hepatic defects (within limits of a non-IV contrast study, due to low GFR). Large volume of ascites is increased from previous. Diffuse anasarca. Wall thickening of the ascending colon could represent portal colopathy. This is a change from prior and colitis is possible (*not clinically). Bilateral nonobstructing renal calculi. Small left pleural effusion. 10/12/16: *elevated spot Gia 140 with elevated FENa 7.6 (*NOT c/w HRS) *As of 10/13/16, the patient remained hemodynamically stable (*mildly bradycardic on Atenolol AND Metoprolol ?) & afebrile, with O2 sat RA 96%. *She remained on Omeprazole despite hypomagnesemia, which was repleted. Lasix, Aldactone, Lisinopril have been held for now. The patient is awaiting a large volume abdominal tap with SPA, as outlined. The patient's ascites was more intense. She denied any chest pain, shortness of breath, abdominal pain, overt GI bleeding, melena, jaundice, confusion, fevers, or chills. She had minimal nausea, but no vomiting. She remained a poor historian. *Apparently, she was put on Tramadol 50 mg po Q4h as needed, which should be given at a doae of 50 mg BID as needed maximum, as she is cirrhotic. 10/13/16: *MELD- [place] 18/UNOS 18. *As of , the patient remained with low normal blood pressure. She was still bradycardic. Her selective beta blockers were held. Diuretics and ACEI were still on hold. Omeprazole was switched to Pepcid, in view of low Mg. *Her dosing of Tramadol was still too high. She remained afebrile. Abdominal tap was deferred for later today, as the patient had been on outpatient Eliquis. She had no new complaints. She remained a poor historian, but there was no acute confusion or jaundice. She remained with fairly tense ascites, with mild secondary discomfort. She denied any chest pain, shortness of breath, palpitations, or lower GI bleeding, or melena. *The patient is clearly cirrhotic. Most likely, she had BYERS (multiple risk factors) progressing to cirrhosis. Extensive serologies negative.The patient was very nebulous about her outpatient medications. I initially felt that the majority of her chronic renal failure was from chronic diabetic nephropathy, rather than HRS. *10/12/16: elevated Gia+ & elevated FENa both go against HRS. Her 24 hr urine for protein was previously 1.56g /24h on 04/14/16, non-nephrotic range. I advised holdung diuretics and ACEI on admission, to get a better handle on her renal function. She has a shrunken nodular liver. Her ascites has worsened. She would benefit from a large volume tap with albumin, to maintain her oncotic pressure and avoid hypotension. Low magnesium is noted. She is on PPI. Compliance has been an issue. No INR has been sent. Clinically, there is no colitis. The nonspecific CT findings are probably from low albumin. *SUGGEST: 2g Na DM renal diet. Avoid IV NS, which will exacerbate ascites. *Contiue to hold diuretics and ACEI for now. *Repeat 24 hr urine collection for protein, Cr, Cr clearance rxd, as per renal.*Large volume abdominal tap, as BP tolerates. * Give 50g IV SPA with abdominal tap (or at least 25g SPA/every 3L ascites removed ), to help maintain oncotic pressure & avoid hyptoension. *Send ascitic fluid for g stain, cell count, C&S (*no need to repeat ascitic chemistries). Strict I/ O's. Replete Mg. *Agree with switching PPI (Omeprazloe) to H2B (Pepcid), with low Mg. Zofran as needed. Reglan as tolerated (previoulsy tolerated, without EPS side effects). Close follow up of lytes, GFR, LFTs, INR, CBC. *Check AFP (next due in 12/2016) & RUQ sono Q 6mos for hepatoma surveillance. Avoid NSAIDs. Avoid hepatotoxins. Keep Tylenol use to < 2 g daily. The dose of Tramadol should not exceed 50 mg Q12h as needed, in view of cirrhosis. *The selective beta blockers, Atenolol and Metoprolol have been held, due to low normal BP & bradycardia (she does not have documented varices to warrant non-selective beta blockers). Follow-up with PMD for semi-elective Hepatitis A & B vaccinations. Annual flu shot. The patient reportedly received Pneumovax in the recent past. The patient is due for repeat EGD 2 years from her last study, namely 01/2018, for variceal surveillance. *Consideration for referral to [facility] as outpatient, to potentially put her on the transplant list, but uncertain if the patient has the psychosocial support systems or compliance for this, and she is of borderline advanced age with poor insight. [10/13/16: *MELD- Anna 18/UNOS 18 ]. The above findings and recommendations were discussed with the medical housestaff, & previously with Dr. Trevino & Dr. Lindsay. Follow up with medicine & renal. Further GI recommendations to follow, depending on clinical course. Problem List: 1. Cirrhosis 2. Ascites 3. Anasarca 4. CKD (chronic kidney disease) stage 4, GFR 15-29 ml/min 5. Gastroparesis 6. Nausea 7. Thrombocytopenia Subjective Subjective: 10/13/16: *MELD- Anna 18/UNOS 18. *As of , the patient remained with low normal blood pressure. She was still bradycardic. Her selective beta blockers were held. Diuretics and ACEI were still on hold. Omeprazole was switched to Pepcid, in view of low Mg. *Her dosing of Tramadol was still too high. She remained afebrile. Abdominal tap was deferred for later today, as the patient had been on outpatient Eliquis. She had no new complaints. She remained a poor historian, but there was no acute confusion or jaundice. She remained with fairly tense ascites, with mild secondary discomfort. She denied any chest pain, shortness of breath, palpitations, or lower GI bleeding, or melena. Review of Systems: Full 14 point review of systems otherwise noncontributory, and as above. Review of Systems Constitutional: Reports: weakness. Denies: chills, diaphoresis, fever, malaise, unexplained weight loss. EENTM: Denies: blurred vision, double vision, visual changes, eye pain, eye drainage, eye tearing, icterus, ear discharge, ear pain, ear redness, hearing changes, nasal congestion, epistaxis, nasal pain, throat pain, throat swelling, mouth pain, tooth pain. Cardiovascular: Reports: peripheral edema (trace). Denies: chest pain, edema, orthopena, palpitations, syncope. Respiratory: Denies: cough, hemoptysis, orthopnea, short of breath, sputum production, stridor, wheezing. GI: Reports: abdominal pain (near liver edge- slightly better), diarrhea (rsolved), nausea (improved), vomiting (resolved). Denies: bloating, constipation, distention, bowel incontinence, melena, bloody stool, changes in stool, steatorrhea. Genitourinary: Denies: discharge, dysuria, frequency, hematuria, hesitation, nocturia, pain, urgency. Musculoskeletal: Reports: joint pain (DJD/L hip fx). Denies: back pain, gout, joint swelling, muscle pain, muscle stiffness, neck pain. Skin: Denies: cysts, change in skin color, change in hair/nails, dryness, erythema, jaundice, lesions, lymphangitis, lumps, moles, rash. Neurological/Psychological: Reports: weakness. Denies: anxiety, ataxia, cognitive dysfunction, confusion, depressed, dementia, emotional problems, headache, numbness, paresthesia, pre-existing deficit, petit mal seizures, tingling, tremors, tonic-clonic seizures, unable to move lower ext , unable to move upper ext. Hematologic/Endocrine: Denies: bruising, bleeding, polyuria, polydipsia. Immunologic/Allergic: Denies: splenectomy, HIV/AIDS, lymphadenopathy. All Other Systems: Reviewed and Negative Objective Vital Signs and I&Os Vital Signs Date Time Temp Pulse Resp B/P B/P Pulse O2 O2 Flow FiO2 Mean Ox Delivery Rate 10/13 2334 97.8 52 20 104/62 94 10/13 1456 97.7 50 20 100/63 97 Room Air 10/13 1011 51 140/72 Intake & Output 10/14 1600 10/14 0400 10/13 1600 10/13 0400 10/12 1600 10/12 0400 Intake Total 600 20 380 125 100 Output Total 175 200 300 300 500 Balance 425 -180 80 -175 -400 Intake, IV 20 Intake, Oral 600 0 380 125 100 Output, Urine 175 200 300 300 500 Patient 154 lb Weight Weight Chair scale Measurement Method Physical Exam: Obese female, in no apparent distress. Sclera anicteric. Conjunctiva pink. Oropharynx clear. No oral thrush. No aphthous ulcers. There is no adenopathy, thyromegaly, or JVD. Questionable mild HJR. No peripheral stigmata of inflammatory bowel disease on exam. ? Scant spiders on the anterior chest wall. Breast & pelvic exams: API. No CVA tenderness. Lungs: clear to A&P, with slight decreased breath sounds at the bases B/L, L > R. No wheezing, rales, or rhonchi. Heart exam: irregularly irregular rate rhythm, S1 and S2, with soft I/ systolic murmur. Abdominal exam: normal bowel sounds, soft doughy abdominal wall with anasarca/pannus, *mildly tender nodular liver edge, without guarding or rebound. Otherwise, no definite mass. Liver approximately 10 cm by percussion. Questionable palpable spleen tip. Positive fluid shift with tense ascites. No pulsatile mass. No epigastric bruit. Digital rectal exam: deferred by patient (previously, OB-negative in ER in 10/2015). Extremities: without cyanosis or clubbing. Scant pedal edema LE B/L. No palpable cords. No palmar erythema. No Dupuytren's contractures. Deformed left ankle post fracture, uncertain if Charcot's joint. Distal pulses 1+ bilaterally. DTRs 1+ bilaterally. Alert and oriented x 3, but baseline poor historian. No tremor. No asterixis. No cogwheeling or extrapyramidal signs (now off Reglan). A detailed exam for peripheral neuropathy was deferred. Motor 5/5, except 4/5 LLE, post previous fracture. Current Medications: Current Medications Sig/Radha Start time Last Medication Dose Route Stop Time Status Admin Acetaminophen 650 MG Q6P PRN 10/11 1845 AC PO Albumin Human 50 GM ONCE ONE 10/13 1315 CAN IV 10/13 1316 Amlodipine Besylate 10 MG DAILY 10/12 1000 AC 10/13 PO 1011 Atenolol 100 MG DAILY 10/12 1000 DC 10/12 PO 0845 Atorvastatin Calcium 80 MG 1700 10/11 1901 AC 10/13 PO 1620 Clonidine 0.1 MG QPM PRN 10/11 1915 AC PO Famotidine 20 MG DAILY 10/14 1000 AC PO Fenofibrate 145 MG DAILY 10/12 1000 AC 10/13 PO 1011 Gabapentin 300 MG BID 10/12 1000 AC 10/13 PO 203 Levothyroxine Sodium 0.175 MG DAILY AC 10/12 0700 AC 10/14 PO 0609 Magnesium Oxide 400 MG BID 10/120 AC 10/13 PO 2033 Metoprolol Tartrate 25 MG BID 10/11 2199 DC 10/12 PO 0844 Omeprazole 20 MG DAILY AC 10/12 07 DC 10/13 PO 0624 Tramadol HCl 50 MG Q4P PRN 10/11 1845 AC 10/13 PO 1623 Trimethobenzamide HCl 200 MG TID PRN 10/11 2030 AC IM Results Pertinent Lab Results: Laboratory Tests 10/14 10/13 10/13 0705 1325 0821 Chemistry Sodium (137 - 145 mmol/L) Pending 138 Potassium (3.5 - 5.1 mmol/L) Pending 5.0 Chloride (98 - 107 mmol/L) Pending 108 H Carbon Dioxide (22 - 30 mmol/L) Pending 23 Anion Gap (5 - 16) Pending 7 BUN (7 - 17 mg/dL) Pending 37 H Creatinine (0.5 - 1.0 mg/dL) Pending 2.1 H Estimated GFR (>60 ml/min) 23 L BUN/Creatinine Ratio (7 - 25 %) Pending 17.6 Total Bilirubin (0.2 - 1.3 mg/dL) 1.0 Direct Bilirubin (< 0.4 mg/dL) 0.5 H AST (14 - 36 U/L) 44 H ALT (9 - 52 U/L) 34 Alkaline Phosphatase (<127 U/L) 81 Total Protein (6.3 - 8.2 g/dL) 5.6 L Albumin (3.5 - 5.0 g/dL) 2.1 L Coagulation PT (9.4 - 12.5 SEC) 15.7 H INR (0.90 - 1.19) 1.50 H Hematology CBC w Diff Pending NO MAN DIFF REQ WBC (4.8 - 10.8 /CUMM) Pending 3.7 L RBC (4.20 - 5.40 /CUMM) Pending 3.32 L Hgb (12.0 - 16.0 G/DL) Pending 10.5 L Hct (37 - 47 %) Pending 32.8 L MCV (81.0 - 99.0 FL) Pending 98.9 MCH (27.0 - 31.0 PG) Pending 31.8 H RDW (11.5 - 14.5 %) Pending 16.7 H Plt Count (/CUMM) Pending MPV (7.4 - 10.4 FL) Pending ND Gran % (42.2 - 75.2 %) 66.6 Lymphocytes % (20.5 - 51.1 %) 20.4 L Monocytes % (1.7 - 9.3 %) 9.0 Eosinophils % (0 - 5 %) 3.2 Basophils % (0.0 - 2.0 %) 0.8 Absolute Granulocytes (1.4 - 6.5 /CUMM) 2.5 Absolute Lymphocytes (1.2 - 3.4 /CUMM) 0.8 L Absolute Monocytes (0.10 - 0.60 /CUMM) 0.3 Absolute Eosinophils (0.0 - 0.7 /CUMM) 0.1 Absolute Basophils (0.0 - 0.2 /CUMM) 0 PUBS MCHC (33.0 - 37.0 G/DL) Pending 32.1 L 10/12 1915 1915 UNK Urines Ur Random Creatinine (mg/dL) 27.6 26.5 Ur Random Microalbumin (<1.7 mg/dl) 56.6 H Ur Random Sodium (30 - 90 mmol/L) 140 H Ur Random Potassium (mmol/L) 20.5 Urine Total Volume (600 - 1500 ML/24HR) 375 L Cancelled Ur Total Protein 24 Hr (42 - 255 mg/24HR) 521.7 H Cancelled Fraction Sodium Excret (<1% %) 7.6 H U Cystine/Creat Ratio (mcg/mg) 2050.72 10/12 10/11 10/11 0710 1854 1711 Chemistry Sodium (137 - 145 mmol/L) 139 Potassium (3.5 - 5.1 mmol/L) 4.3 Chloride (98 - 107 mmol/L) 109 H Carbon Dioxide (22 - 30 mmol/L) 23 Anion Gap (5 - 16) 6 BUN (7 - 17 mg/dL) 33 H Creatinine (0.5 - 1.0 mg/dL) 2.0 H Estimated GFR (>60 ml/min) 25 L BUN/Creatinine Ratio (7 - 25 %) 16.5 Lactic Acid Cancelled Magnesium (1.6 - 2.3 mg/dL) 1.2 L Hematology CBC w Diff NO MAN DIFF REQ WBC (4.8 - 10.8 /CUMM) 2.9 L RBC (4.20 - 5.40 /CUMM) 3.00 L Hgb (12.0 - 16.0 G/DL) 9.7 L Hct (37 - 47 %) 29.6 L MCV (81.0 - 99.0 FL) 98.7 MCH (27.0 - 31.0 PG) 32.4 H RDW (11.5 - 14.5 %) 16.4 H Plt Count (130 - 400 /CUMM) 63 L MPV (7.4 - 10.4 FL) 8.6 Gran % (42.2 - 75.2 %) 65.3 Lymphocytes % (20.5 - 51.1 %) 23.9 Monocytes % (1.7 - 9.3 %) 9.4 H Eosinophils % (0 - 5 %) 0.9 Basophils % (0.0 - 2.0 %) 0.5 Absolute Granulocytes (1.4 - 6.5 /CUMM) 1.9 Absolute Lymphocytes (1.2 - 3.4 /CUMM) 0.7 L Absolute Monocytes (0.10 - 0.60 /CUMM) 0.3 Absolute Eosinophils (0.0 - 0.7 /CUMM) 0 Absolute Basophils (0.0 - 0.2 /CUMM) 0 PUBS MCHC (33.0 - 37.0 G/DL) 32.8 L 10/11 1442 Chemistry Sodium (137 - 145 mmol/L) 137 Potassium (3.5 - 5.1 mmol/L) 5.3 H Chloride (98 - 107 mmol/L) 109 H Carbon Dioxide (22 - 30 mmol/L) 21 L Anion Gap (5 - 16) 7 BUN (7 - 17 mg/dL) 38 H Creatinine (0.5 - 1.0 mg/dL) 2.1 H Estimated GFR (>60 ml/min) 23 L BUN/Creatinine Ratio (7 - 25 %) 18.1 Glucose (65 - 99 mg/dL) 98 Lactic Acid (0.7 - 2.1 mmol/L) 1.3 Calcium (8.4 - 10.2 mg/dL) 8.4 Total Bilirubin (0.2 - 1.3 mg/dL) 1.6 H Direct Bilirubin (< 0.4 mg/dL) 1.0 H AST (14 - 36 U/L) 56 H ALT (9 - 52 U/L) 28 Alkaline Phosphatase (<127 U/L) 103 Troponin I (< 0.11 ng/ml) 0.09 Total Protein (6.3 - 8.2 g/dL) 6.7 Albumin (3.5 - 5.0 g/dL) 2.5 L Globulin (1.9 - 4.2 gm/dL) 4.2 Albumin/Globulin Ratio (1.1 - 2.2 %) 0.6 L Amylase (30 - 110 U/L) < 30 L Lipase (23 - 300 U/L) 77 Hematology CBC w Diff NO MAN DIFF REQ WBC (4.8 - 10.8 /CUMM) 3.4 L RBC (4.20 - 5.40 /CUMM) 3.36 L Hgb (12.0 - 16.0 G/DL) 10.8 L Hct (37 - 47 %) 32.8 L MCV (81.0 - 99.0 FL) 97.8 MCH (27.0 - 31.0 PG) 32.1 H RDW (11.5 - 14.5 %) 16.4 H Plt Count (130 - 400 /CUMM) MPV (7.4 - 10.4 FL) 9.5 Gran % (42.2 - 75.2 %) 72.8 Lymphocytes % (20.5 - 51.1 %) 18.2 L Monocytes % (1.7 - 9.3 %) 7.6 Eosinophils % (0 - 5 %) 0.8 Basophils % (0.0 - 2.0 %) 0.6 Absolute Granulocytes (1.4 - 6.5 /CUMM) 2.4 Absolute Lymphocytes (1.2 - 3.4 /CUMM) 0.6 L Absolute Monocytes (0.10 - 0.60 /CUMM) 0.3 Absolute Eosinophils (0.0 - 0.7 /CUMM) 0 Absolute Basophils (0.0 - 0.2 /CUMM) 0 PUBS MCHC (33.0 - 37.0 G/DL) 32.8 L Imaging/Other Studies: *No EKG on chart. 10/11/16: CT abdomen and pelvis without contrast- Cirrhosis. Shrunken nodular liver without focal hepatic defects (within limits of a non-IV contrast study, due to low GFR). Large volume of ascites is increased from previous. Diffuse anasarca. Wall thickening of the ascending colon could represent portal colopathy. This is a change from prior and colitis is possible (*not clinically). Bilateral nonobstructing renal calculi. Small left pleural effusion.
[2016-10-14 08:03] VITALS: BP 112/68
[2016-10-14 08:35] LABS: ABSOLUTE BASOPHIL COUNT 0 /CUMM (0.0-0.2); ABSOLUTE EOSINOPHIL COUNT 0.1 /CUMM (0.0-0.7); ABSOLUTE GRANULOCYTE CT 2.1 /CUMM (1.4-6.5); ABSOLUTE LYMPH COUNT 0.9 /CUMM (1.2-3.4); ABSOLUTE MONOCYTE COUNT 0.4 /CUMM (0.10-0.60); BASOPHIL % 0.6 % (0.0-2.0); EOSINOPHIL % 2.9 % (0-5); GRANULOCYTE % 60.2 % (42.2-75.2); HEMATOCRIT 34.1 % (37-47); MEAN CORPUSCULAR HGB 33.3 PG (27.0-31.0); MEAN CORPUSCULAR HGB CONC 33.3 G/DL (33.0-37.0); MEAN CORPUSCULAR VOLUME 100.2 FL (81.0-99.0); MEAN PLATELET VOLUME 9.5 FL (7.4-10.4); RED BLOOD CELL CT 3.41 /CUMM (4.20-5.40)
--- NOTE | 2016-10-14 08:40 | PN- Housestaff ---
NILAM HERMAN,[facility] 10/14/16 0840: Subjective Follow-up For: Ascites Hepatorenal syndrome Subjective: Patient is stable, vital WNL. Denies any fever, chills, nausea, vomiting, diarrhea, SOB, chest pain or overnight events. Review of Systems Constitutional: Reports: no symptoms. EENTM: Reports: no symptoms. Cardiovascular: Reports: no symptoms. Respiratory: Reports: no symptoms. Gastrointestinal: Reports: no symptoms. Genitourinary: Reports: no symptoms. Musculoskeletal: Reports: no symptoms. Skin: Reports: no symptoms. Neurological/Psychological: Reports: no symptoms. Hematologic/Endocrine: Reports: no symptoms. Immunologic/Allergic: Reports: no symptoms. Objective Last 24 Hrs of Vital Signs/I&O Vital Signs Date Time Temp Pulse Resp B/P B/P Pulse O2 O2 Flow FiO2 Mean Ox Delivery Rate 10/14 1418 98.2 58 18 164/58 96 Room Air Room Air 10/14 1155 52 18 160/58 92 Room Air Room Air 10/14 0941 50 123/56 10/14 0803 97.7 65 20 112/68 93 Room Air 10/13 2334 97.8 52 20 104/62 94 Intake & Output 10/14 1600 10/14 0800 10/14 0000 Intake Total 120 600 Output Total 175 Balance 120 425 Intake, Oral 120 600 Output, Urine 175 Patient 154 lb Weight Weight Chair scale Measurement Method Physical Exam General Appearance: Alert, Oriented X3, Cooperative, No Acute Distress Other Physical Findings: HEENT: Atraumatic, PERRLA, EOMI Neck: Supple, No JVD, No thryomegaly Cardiovascular: Regular Rate, Normal S1, Normal S2 Lungs: Clear to Auscultation, Normal Air Movement Abdomen: Normal Bowel Sounds, Soft, distended due to fluid, No Hepatospenomegaly Neurological: Normal Speech, Strength at 5/5 X4 Ext, Normal Tone, Sensation Intact Extremities: wrapped with dressing, Normal Pulses Assessment/Plan Assessment: Patient is a 71-year-old woman withextensive past medical history with of, prior CVA in 1978 without any residual effects, diastolic CHF,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 nephrotic range proteinuria, hypothyroidism, depression, obesity, thrombocytopenia with platelet clumping with elevated serum IgA,previous multiple fractures ,severe vitamin D deficiency, DJD, migraine headache, chronic anemia for years without transfusion (currently macrocytic), recently admitted to [facility] for metabolic encephalopathy with new onset atrial fibrillation on elliquis presented to the ED for evaluation of worsening nausea vomiting with diarrhea for the last 4 days. 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 Approx 3L of fluid was drawn and she was given 50g IV albumin. * GI Recommends holding Diuretics and ACEI for now. - Check urine lytes & FENa (*would expect low U Na & low FENa if HRS). - Will switch PPI to H2B. - Check AFP, then Q 6mos for hepatoma surveillance. * Nephrology recommends: -Strict intakes and outputs and daily weights -Would be strict sodium in her diet -Random protein ( not microalbumin) to creatinine ratio * Tigan as needed for nausea and vomiting. * Watch for any hemodynamic instability. * Follow stool cultures and C.diff. Hypomagnesemia: PAtient is on 400mg mag-ox BID daily. Her MAgnesium is still running low, will give her 1 IV dose of Magnesium sulphate. * Lower extremity ulcers * Visiting nurse comes to do the dressing at home every other day. * Wound care consulted. History of atrial fibrillation * Will Restart the eliquis today. Patient has been bradycardic, holding her Metoprolol for now per cardio. * History of hypertension and hyperlipidemia * Patient is bradycardic. Will discontinue metoprolol and control her BP with norvasc. * Will continue her home meds for HLD. Moderate severe pain controlled with tramadol. DVT prophylaxis: Patient is on Eliquis Patient is full code Problem List: 1. Liver cirrhosis secondary to BYERS 2. Acute on chronic renal insufficiency 3. Hepatorenal syndrome 4. Nausea vomiting and diarrhea 5. Atrial fibrillation 6. 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 nephrotic range proteinuria, hypothyroidism, depression, obesity, thrombocytopenia with platelet clumping with elevated serum IgA, previous multiple fractures ,severe vitamin D deficiency, DJD, migraine headache , chronic anemia presenting with 1 week of nausea, vomiting, generalized weakness, and loose stools. Denies fever or chills. Plan - Continue on general medicine - Follow GI and nephrology recommendations - Hold diuretics for now - Paracentesis today with albumin infusion - Hold antibiotics for now - DVT PPx - Will monitor renal function and BP until tomorrow, if stable can be discharged tomorrow. Please place anticipated discharge order and send CMR to pharmacy for review. Coordiante with nephrology regarding diuretics on discharge. Will stop b-blockers.
[2016-10-14] MEDS ORDERED: FAMOTIDINE20 M1 PO (10:26)
[2016-10-14] MEDS ORDERED: MAGNESIUM OXID400 M1 PO (10:26)
[2016-10-14] MEDS ORDERED: GABAPENTIN300 M2 PO (10:26)
[2016-10-14 10:41] LABS: WHITE BLOOD CELL COUNT 3.5 /CUMM (4.8-10.8)
--- NOTE | 2016-10-14 10:56 | Patient Discharge Instructions ---
Discharge Instructions General Discharge Information You were seen/treated for: Ascites Hepatorenal syndrome You had these procedures: Paracentesis(Therapeutic) Watch for these problems: Palpitations Worsening shortness of breath Increased abdominal size or fluid buildup in the lower legs Special Instructions: Please have blood work done on 10/19/16 and follow up with your PCP on 10/20/16. Please follow up with your for Atrial fibrillation and Bradycardia. Please follow up with Dr. Aviles within a week. You will need a follow-up endoscopy/colonoscopy which can be arranged at that time. You may need follow-up in the future with the liver transplant team at [facility]. Please follow-up with the senior ux developer after discharge. Please follow up with within a week. Diet Continue normal diet: Yes Recommended Diet: Diabetic, Renal Non Dialysis Activity Full Activity/No Limits: Yes (As tolerated) Acute Coronary Syndrome Inclusion Criteria At DC or during hospital stay patient has or had the following: ACS DIAGNOSIS No Discharge Core Measures Meds if any: Prescribed or Continued at Discharge Meds if any: NOT Prescribed or Continued at Discharge Congestive Heart Failure Inclusion Criteria At DC or during hospital stay patient has or had the following: CHF DIAGNOSIS No Discharge Core Measures Meds if any: Prescribed or Continued at Discharge Meds if any: NOT Prescribed or Continued at Discharge Cerebrovascular accident Inclusion Criteria At DC or during hospital stay patient has or had the following: CVA/TIA Diagnosis No Discharge Core Measures Meds if any: Prescribed or Continued at Discharge Meds if any: NOT Prescribed or Continued at Discharge Venous thromboembolism Inclusion Criteria VTE Diagnosis No VTE Type NONE VTE Confirmed by (Test) NONE Discharge Core Measures - Per Current guidelines, there needs to be overlap - treatment for the first 5 days of Warfarin therapy. - If discharged on Warfarin prior to 5 days of - overlap therapy, the patient will need to be - assessed for post discharge needs including - *Post discharge parental anticoagulation - *Warfarin and/or parental anticoagulation education - *Follow up date to check INR post discharge At least 5 days overlap therapy as Inpatient No Meds if any: Prescribed or Continued at Discharge Note: Overlap Therapy is Warfarin and Anticoagulant Meds if any: NOT Prescribed or Continued at Discharge
[2016-10-14 11:55] VITALS: BP 160/58
--- NOTE | 2016-10-14 12:01 | PN- Nephrology ---
Assessment/Plan Assessment: 1. Acute kidney injury? Her serum creatinine was 2.0 in the past. Her diuretics are currently on hold given the fact that she is undergoing paracentesis. 2. Chronic kidney disease? The 24-hour urine in a real sense did not answer the question. The volume was low, however, this may reflect inability to collected properly. The more telling issue is whether or not the total creatinine corresponds to what one would expect for this person's age. Generally, a woman of reproductive age would make 15-20 mg/kg per day of creatinine. This is used as a measure as to whether or not the urine was adequately collected. For a gentleman, the corresponding values would be 20-25 mg/kg per day. Therefore if a large muscular man obtains a 24-hour urine with only 800 mg of creatinine in one day, one can safely assume that the urine is under collected. It is far more difficult to gauge this in someone who is elderly, frail appearing, a woman and has cirrhosis. By this same reasoning, the MDRD equation A not be applicable. 3. History of cirrhosis. 4. History of diastolic heart failure 5. History of ascites due to cirrhosis currently in the midst of a paracentesis. 6. History of atrial fibrillation Suggestion: 1. Continue hold diuretics for now 2. Please send or ask that a random protein ( not microalbumin) to creatinine ratio be obtained. 3. Continue with strict intakes and outputs and daily weights 4. Given her history of diabetes and chronic kidney disease resuming the MONICA inhibitor would be advisable. However, would likely wait until tomorrow and see in which direction her renal function is going. Subjective Subjective: Patient is currently having a paracentesis. She looks well. She offers no complaints. Objective Vital Signs and I&Os Vital Signs Date Time Temp Pulse Resp B/P B/P Pulse O2 O2 Flow FiO2 Mean Ox Delivery Rate 10/14 1155 52 18 160/58 92 Room Air Room Air 10/14 0941 50 123/56 10/14 0803 97.7 65 20 112/68 93 Room Air 10/13 2334 97.8 52 20 104/62 94 10/13 1456 97.7 50 20 100/63 97 Room Air Intake & Output 10/14 1600 10/14 0400 10/13 1600 10/13 0400 10/12 1600 10/12 0400 Intake Total 600 20 380 125 100 Output Total 175 200 300 300 500 Balance 425 -180 80 -175 -400 Intake, IV 20 Intake, Oral 600 0 380 125 100 Output, Urine 175 200 300 300 500 Patient 148 lb 154 lb Weight Weight Chair scale Chair scale Measurement Method Physical Exam: General Appearance: well developed/nourished, no apparent distress, alert, awake , comfortable Head: atraumatic, normal appearance Eyes: Bilateral: PERRL, EOMI, pale conjunctivae. Neck: normal inspection, trachea mid line, no midline tenderness Respiratory: normal breath sounds, chest non-tender, lungs clear anteriorly Cardiovascular: regular rate/rhythm, positive edema Gastrointestinal: currently in the midst of a paracentesis Extremities: normal inspection, pedal edema, swelling Neurologic/Psych: no motor/sensory deficits, awake, alert, oriented x 3, normal mood/affect Cranial Nerves: normal hearing, normal speech, PERRL, moving all extremities Skin: intact, normal color, warm/dry Current Medications: Current Medications Sig/Radha Start time Last Medication Dose Route Stop Time Status Admin Acetaminophen 650 MG Q6P PRN 10/11 184 AC PO Albumin Human 50 GM ONCE ONE 10/14 1000 DC 10/14 IV 10/14 1001 1059 Albumin Human 50 GM ONCE ONE 10/13 1315 CAN IV 10/13 1316 Amlodipine Besylate 10 MG DAILY 10/12 1000 AC 10/14 PO 0941 Atorvastatin Calcium 80 MG 1700 10/11 1901 AC 10/13 PO 1620 Clonidine 0.1 MG QPM PRN 10/11 1915 AC PO Famotidine 20 MG DAILY 10/14 1000 AC 10/14 PO 0941 Fenofibrate 145 MG DAILY 10/12 1000 AC 10/14 PO 0941 Gabapentin 300 MG BID 10/12 1000 AC 10/14 PO 0940 Levothyroxine Sodium 0.175 MG DAILY AC 10/12 0700 AC 10/14 PO 0609 Magnesium Oxide 400 MG BID 10/12 2200 AC 10/14 PO 0940 Omeprazole 20 MG DAILY AC 10/12 0700 DC 10/13 PO 0624 Tramadol HCl 50 MG Q4P PRN 10/11 1845 AC 10/13 PO 1623 Trimethobenzamide HCl 200 MG TID PRN 10/11 2030 AC IM Results Pertinent Lab Results: Laboratory Tests 10/14 10/14 10/13 UNK 0705 1325 Chemistry Sodium (137 - 145 mmol/L) 138 Potassium (3.5 - 5.1 mmol/L) 5.0 Chloride (98 - 107 mmol/L) 108 H Carbon Dioxide (22 - 30 mmol/L) 24 Anion Gap (5 - 16) 6 BUN (7 - 17 mg/dL) 41 H Creatinine (0.5 - 1.0 mg/dL) 2.4 H Estimated GFR (>60 ml/min) 20 L BUN/Creatinine Ratio (7 - 25 %) 17.1 Coagulation PT (9.4 - 12.5 SEC) 15.7 H INR (0.90 - 1.19) 1.50 H Hematology CBC w Diff NO MAN DIFF REQ WBC (4.8 - 10.8 /CUMM) 3.5 L RBC (4.20 - 5.40 /CUMM) 3.41 L Hgb (12.0 - 16.0 G/DL) 11.4 L Hct (37 - 47 %) 34.1 L MCV (81.0 - 99.0 FL) 100.2 H MCH (27.0 - 31.0 PG) 33.3 H RDW (11.5 - 14.5 %) 17.0 H Plt Count (/CUMM) MPV (7.4 - 10.4 FL) 9.5 Gran % (42.2 - 75.2 %) 60.2 Lymphocytes % (20.5 - 51.1 %) 25.3 Monocytes % (1.7 - 9.3 %) 11.0 H Eosinophils % (0 - 5 %) 2.9 Basophils % (0.0 - 2.0 %) 0.6 Absolute Granulocytes (1.4 - 6.5 /CUMM) 2.1 Absolute Lymphocytes (1.2 - 3.4 /CUMM) 0.9 L Absolute Monocytes (0.10 - 0.60 /CUMM) 0.4 Absolute Eosinophils (0.0 - 0.7 /CUMM) 0.1 Absolute Basophils (0.0 - 0.2 /CUMM) 0 PUBS MCHC (33.0 - 37.0 G/DL) 33.3 Other Body Source Fluid WBC Cancelled Fld Total RBCs Counted Cancelled 10/13 191 Chemistry Sodium (137 - 145 mmol/L) 138 Potassium (3.5 - 5.1 mmol/L) 5.0 Chloride (98 - 107 mmol/L) 108 H Carbon Dioxide (22 - 30 mmol/L) 23 Anion Gap (5 - 16) 7 BUN (7 - 17 mg/dL) 37 H Creatinine (0.5 - 1.0 mg/dL) 2.1 H Estimated GFR (>60 ml/min) 23 L BUN/Creatinine Ratio (7 - 25 %) 17.6 Total Bilirubin (0.2 - 1.3 mg/dL) 1.0 Direct Bilirubin (< 0.4 mg/dL) 0.5 H AST (14 - 36 U/L) 44 H ALT (9 - 52 U/L) 34 Alkaline Phosphatase (<127 U/L) 81 Total Protein (6.3 - 8.2 g/dL) 5.6 L Albumin (3.5 - 5.0 g/dL) 2.1 L Hematology CBC w Diff NO MAN DIFF REQ WBC (4.8 - 10.8 /CUMM) 3.7 L RBC (4.20 - 5.40 /CUMM) 3.32 L Hgb (12.0 - 16.0 G/DL) 10.5 L Hct (37 - 47 %) 32.8 L MCV (81.0 - 99.0 FL) 98.9 MCH (27.0 - 31.0 PG) 31.8 H RDW (11.5 - 14.5 %) 16.7 H Plt Count (/CUMM) MPV (7.4 - 10.4 FL) ND Gran % (42.2 - 75.2 %) 66.6 Lymphocytes % (20.5 - 51.1 %) 20.4 L Monocytes % (1.7 - 9.3 %) 9.0 Eosinophils % (0 - 5 %) 3.2 Basophils % (0.0 - 2.0 %) 0.8 Absolute Granulocytes (1.4 - 6.5 /CUMM) 2.5 Absolute Lymphocytes (1.2 - 3.4 /CUMM) 0.8 L Absolute Monocytes (0.10 - 0.60 /CUMM) 0.3 Absolute Eosinophils (0.0 - 0.7 /CUMM) 0.1 Absolute Basophils (0.0 - 0.2 /CUMM) 0 PUBS MCHC (33.0 - 37.0 G/DL) 32.1 L Urines Ur Random Creatinine (mg/dL) 27.6 Ur Random Microalbumin (<1.7 mg/dl) 56.6 H Urine Total Volume (600 - 1500 ML/24HR) 375 L Ur Total Protein 24 Hr (42 - 255 mg/24HR) 521.7 H U Cystine/Creat Ratio (mcg/mg) 2050.72 10/12 10/12 10/12 1915 UNK 0710 Chemistry Sodium (137 - 145 mmol/L) 139 Potassium (3.5 - 5.1 mmol/L) 4.3 Chloride (98 - 107 mmol/L) 109 H Carbon Dioxide (22 - 30 mmol/L) 23 Anion Gap (5 - 16) 6 BUN (7 - 17 mg/dL) 33 H Creatinine (0.5 - 1.0 mg/dL) 2.0 H Estimated GFR (>60 ml/min) 25 L BUN/Creatinine Ratio (7 - 25 %) 16.5 Magnesium (1.6 - 2.3 mg/dL) 1.2 L Urines Ur Random Creatinine (mg/dL) 26.5 Ur Random Sodium (30 - 90 mmol/L) 140 H Ur Random Potassium (mmol/L) 20.5 Urine Total Volume Cancelled Ur Total Protein 24 Hr Cancelled Fraction Sodium Excret (<1% %) 7.6 H 10/11 10/11 1854 1711 Chemistry Lactic Acid Cancelled Hematology CBC w Diff NO MAN DIFF REQ WBC (4.8 - 10.8 /CUMM) 2.9 L RBC (4.20 - 5.40 /CUMM) 3.00 L Hgb (12.0 - 16.0 G/DL) 9.7 L Hct (37 - 47 %) 29.6 L MCV (81.0 - 99.0 FL) 98.7 MCH (27.0 - 31.0 PG) 32.4 H RDW (11.5 - 14.5 %) 16.4 H Plt Count (130 - 400 /CUMM) 63 L MPV (7.4 - 10.4 FL) 8.6 Gran % (42.2 - 75.2 %) 65.3 Lymphocytes % (20.5 - 51.1 %) 23.9 Monocytes % (1.7 - 9.3 %) 9.4 H Eosinophils % (0 - 5 %) 0.9 Basophils % (0.0 - 2.0 %) 0.5 Absolute Granulocytes (1.4 - 6.5 /CUMM) 1.9 Absolute Lymphocytes (1.2 - 3.4 /CUMM) 0.7 L Absolute Monocytes (0.10 - 0.60 /CUMM) 0.3 Absolute Eosinophils (0.0 - 0.7 /CUMM) 0 Absolute Basophils (0.0 - 0.2 /CUMM) 0 PUBS MCHC (33.0 - 37.0 G/DL) 32.8 L 10/11 1442 Chemistry Sodium (137 - 145 mmol/L) 137 Potassium (3.5 - 5.1 mmol/L) 5.3 H Chloride (98 - 107 mmol/L) 109 H Carbon Dioxide (22 - 30 mmol/L) 21 L Anion Gap (5 - 16) 7 BUN (7 - 17 mg/dL) 38 H Creatinine (0.5 - 1.0 mg/dL) 2.1 H Estimated GFR (>60 ml/min) 23 L BUN/Creatinine Ratio (7 - 25 %) 18.1 Glucose (65 - 99 mg/dL) 98 Lactic Acid (0.7 - 2.1 mmol/L) 1.3 Calcium (8.4 - 10.2 mg/dL) 8.4 Total Bilirubin (0.2 - 1.3 mg/dL) 1.6 H Direct Bilirubin (< 0.4 mg/dL) 1.0 H AST (14 - 36 U/L) 56 H ALT (9 - 52 U/L) 28 Alkaline Phosphatase (<127 U/L) 103 Troponin I (< 0.11 ng/ml) 0.09 Total Protein (6.3 - 8.2 g/dL) 6.7 Albumin (3.5 - 5.0 g/dL) 2.5 L Globulin (1.9 - 4.2 gm/dL) 4.2 Albumin/Globulin Ratio (1.1 - 2.2 %) 0.6 L Amylase (30 - 110 U/L) < 30 L Lipase (23 - 300 U/L) 77 Hematology CBC w Diff NO MAN DIFF REQ WBC (4.8 - 10.8 /CUMM) 3.4 L RBC (4.20 - 5.40 /CUMM) 3.36 L Hgb (12.0 - 16.0 G/DL) 10.8 L Hct (37 - 47 %) 32.8 L MCV (81.0 - 99.0 FL) 97.8 MCH (27.0 - 31.0 PG) 32.1 H RDW (11.5 - 14.5 %) 16.4 H Plt Count (130 - 400 /CUMM) MPV (7.4 - 10.4 FL) 9.5 Gran % (42.2 - 75.2 %) 72.8 Lymphocytes % (20.5 - 51.1 %) 18.2 L Monocytes % (1.7 - 9.3 %) 7.6 Eosinophils % (0 - 5 %) 0.8 Basophils % (0.0 - 2.0 %) 0.6 Absolute Granulocytes (1.4 - 6.5 /CUMM) 2.4 Absolute Lymphocytes (1.2 - 3.4 /CUMM) 0.6 L Absolute Monocytes (0.10 - 0.60 /CUMM) 0.3 Absolute Eosinophils (0.0 - 0.7 /CUMM) 0 Absolute Basophils (0.0 - 0.2 /CUMM) 0 PUBS MCHC (33.0 - 37.0 G/DL) 32.8 L
--- NOTE | 2016-10-14 12:38 | Proc Note Internal Medicine ---
SANDY NAYLOR 10/14/16 1236: Medicine Procedure Procedure Date: 10/14/16 Medical Procedure(s): paracentesis Pre-Operative Diagnosis: Ascites Post-Operative Diagnosis: Ascites Estimated Blood Loss: scant Anesthesia: Local lidocaine without epinephrine Procedure Findings: It should be noted that this paracentesis was done for diagnositc and therapeutic purposes. Risk/benefits were discussed with the patient and informed consent was obtained, and a timeout was performed in order to ascertain the patient's information, procedure and indication. Using ultrasonography, prior to beginning the procedure, a survey of the abdomen in a supine position was conducted. A pocket of fluid was nicely visualized, and marked with a sterile surgical marker. The pocket was identified in the right lower quadrant of the patient's abdomen. At this point, the area was cleaned was prepped in a sterile fashion. The patient was then anesthetized with 10 mL of lidocaine locally, forming a wheel at the superficial epidermal layer, and traveling deeply into the abdomen well maintaining negative pressure until ascitic fluid was aspirated. 2 minutes were given to allow the lidocaine to take effect. At this point, a small 2-3 mm incision was made in the skin with a scalpel to facilitate for easier passage of the catheter. The skin was pulled down slightly and with minimal difficulty the Angiocath was inserted in the at the marked site, and then the skin was released. A 60 mL syringe was attached, and as the Angiocath was advanced, negative pressure was obtained. Clear yellow fluid was aspirated, and the catheter was attached to a vacuum bottle. Overall 2.9 L of fluid were aspirated from the patient's abdomen , with his blood pressure being checked regularly, averaging out to be approximately 130's SBP. After 2.9L of fluid were aspirated, the catheter was removed and the area of the skin was again cleaned. Pressure dressing with bacitracin was applied with a Tegaderm to cover. After the procedure 12.5 mg of 25% albumin were given intravenously to avoid intravascular fluid shift. The procedure was supervised by both the resident and attending on the medical team, with no complications. Estimated blood loss less than 5 mL.
--- NOTE | 2016-10-14 13:01 | Cons- Cardiology ---
General Information and HPI Consulting Request Date of Consult: 10/14/16 Requested By: CHARISMA STOUT MD Reason for Consult: Reassess cardiac status Source of Information: patient, old records Exam Limitations: no limitations History of Present Illness: Zuleika Angulo is a 71-year-old female who I have seen in the hospital a couple of times and once in the office on 09/02/2016. She has a history of diabetes, hypertension, and chronic kidney disease. A cardiac catheterization in 2013 revealed 20% proximal LAD disease but otherwise unremarkable coronary arteries. She was hospitalized in March 2016 because of a fracture of the greater trochanter and edema. Subsequently, she was hospitalized on 07/30/2016, again with a fall. This time she came to the emergency department and was noted to be in rapid atrial fibrillation. She was started on the usual regimen for this. Eventually, she converted to sinus rhythm. Because she was in atrial fibrillation for a few days, she was put on Xarelto at discharge. She also has significant cirrhosis with recurrent ascites and is followed by Dr. Aviles for this. She also has hypertension. She developed a troponin leak at her last hospitalization of 2.03 peak. She did have a stress test based on this which showed a minimal area of reversible ischemia in the inferolateral wall. This was clinically insignificant, especially in light of her previous negative catheterization. I did not recommend any aggressive further cardiac workup. In the office she was complaining of increasing abdominal girth and hardness of her belly. She also had some peripheral edema which she states was improved over when she was in the hospital. Her current medical regimen according to the computer was aspirin, atenolol 100 mg daily, atorvastatin 80 mg daily, clonidine 0.1 mg daily, fenofibrate, Lasix 20 mg b.i.d., lisinopril/hydrochlorothiazide 20/12.5 mg once a day, and spironolactone 50 mg daily. However, she did not have her list with her. She was also supposed to be on Eliquis 2.5 mg twice a day but ran out of this medication , and it has not been refilled. At the time of her office visit I recommended that she stay off Eliquis as she was in sinus rhythm and would probably be needing multiple paracenteses. In the office she appeared to be uncomfortable with ascites and I recommended that she get in touch with Dr. Aviles for further evaluation of this. Zuleika is now admitted for nausea and vomiting and generalized weakness. She is currently undergoing paracentesis. She admits to shortness of breath on exertion but no chest pain, palpitations, dizziness, syncope. She has chronic ankle edema as well as abdominal distention. Since she has been in the hospital her antihypertensive medications, diuretics and beta blockers have been on hold. She has apparently been somewhat bradycardic although she is not on telemetry to further evaluate this. Allergies/Medications Allergies: Coded Allergies: codeine (Severe, RASH, DIFFICULTY BREATHING 04/08/16) morphine (Severe, SHORTNESS OF BREATH 04/08/16) Home Med List: Amlodipine Besylate 10 MG TABLET 1 TAB PO DAILY BLOOD PRESSURE Apixaban (Eliquis) 2.5 MG TABLET 1 TAB PO BID afib Atenolol 100 MG TABLET 1 TAB PO QPM HEART (Reported) Atorvastatin Calcium 80 MG TABLET 1 TAB PO DAILY CHOLESTROL (Reported) Clonidine HCl 0.1 MG TABLET 1 TAB PO QPM PRN UNKNOWN (Reported) Famotidine 20 MG TABLET 1 TAB PO DAILY reflex Fenofibrate,Micronized (Fenofibrate) 200 MG CAPSULE 1 CAP PO DAILY HLD ( Reported) Furosemide 20 MG TABLET 1 TAB PO DAILY WATER RETENTION (Reported) Gabapentin (Neurontin) 300 MG CAPSULE 2 CAP PO DAILY NEUROPATHY (Reported) Gabapentin (Neurontin) 300 MG CAPSULE 1 CAP PO QPM NEUROPATHY (Reported) Gabapentin 300 MG CAPSULE 1 TAB PO BID NEUROPATHY Levothyroxine Sodium (Synthroid) 175 MCG TABLET 1 TAB PO DAILY AC Hypothyroidism Lisinopril 2.5 MG TABLET 1 TAB PO DAILY HEART (Reported) Lisinopril (Prinivil) 20 MG TABLET 1 TAB PO DAILY HEART (Reported) Lisinopril (Prinivil) 10 MG TABLET 1 TAB PO DAILY Hypertensiom Magnesium Oxide (Magnesium) 400 MG CAPSULE 20.5 MG PO DAILY VITAMIN SUPPORT ( Reported) Magnesium Oxide 400 MG TABLET 1 TAB PO BID supplement Metoprolol Tartrate 25 MG TABLET 1 TAB PO BID HTN,afib Omeprazole 20 MG CAPSULE.DR 20 MG PO DAILY AC stomach Spironolactone (Aldactone) 25 MG TABLET 50 MG PO DAILY water pill Current Medications: Current Medications Sig/Radha Start time Last Medication Dose Route Stop Time Status Admin Acetaminophen 650 MG Q6P PRN 10/11 1845 AC PO Albumin Human 50 GM ONCE ONE 10/14 1000 DC 10/14 IV 10/14 1001 1059 Albumin Human 50 GM ONCE ONE 10/13 1315 CAN IV 10/13 1316 Amlodipine Besylate 10 MG DAILY 10/12 1000 AC 10/14 PO 0941 Atorvastatin Calcium 80 MG 1700 10/11 1901 AC 10/13 PO 1620 Clonidine 0.1 MG QPM PRN 10/11 1915 AC PO Famotidine 20 MG DAILY 10/14 1000 AC 10/14 PO 0941 Fenofibrate 145 MG DAILY 10/12 1000 AC 10/14 PO 0941 Gabapentin 300 MG BID 10/12 1000 AC 10/14 PO 0940 Levothyroxine Sodium 0.175 MG DAILY AC 10/12 0700 AC 10/14 PO 0609 Magnesium Oxide 400 MG BID 10/12 2200 AC 10/14 PO 0940 Omeprazole 20 MG DAILY AC 10/12 0700 DC 10/13 PO 0624 Tramadol HCl 50 MG Q4P PRN 10/11 1845 AC 10/13 PO 1623 Trimethobenzamide HCl 200 MG TID PRN 10/11 2030 AC IM Review of Systems Review of Systems: She has no other complaints and the review of systems at this time 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), migraine, peripheral neuropathy EENT: NONE Cardiovascular: AFIB, diastolic CHF, hypertension, hyperlipidemia, NSTEMI, hx SVT Respiratory: asthma, No h/o TB Gastrointestinal: hiatal hernia (mild), gastroparesis Hepatic: NONE (prob proression BYERS- never bx), cirrhosis Renal: chronic kidney disease (Stage III/IV, serum creatinine), remote h/0 JUANI in 2001 Musculoskeletal: chronic back pain, degen joint disease, falls, fracture (L hip post fall), spinal stenosis Psychiatric: depression Endocrine: diabetes (for 30 yrs), Veena's thyroiditis, hypothyroidism, obesity, vitamin D deficiency Blood Disorders: anemia (macrocytic w/o transfx), thrombocytopenia Cancer(s): NONE INSOLE REINFORCER/Reproductive: NONE Surgical History Surgical History: appendectomy, cholecystectomy (open 1978), (x 2), RIGHT SHOULDER ROTATOR LEFT ANKLE SURGERY LEFT HIP FX, CONSERVATIVE [place] C- SECTIONS resection of pancreatic cyst at [facility] Family History Relations & Conditions If Any: SISTER FH: Crohn's disease FH: diabetes mellitus BROTHER FH: Hodgkins disease FATHER FH: heart disease MOTHER FH: diabetes mellitus Relation not specified for: FH: lung cancer Psychosocial History Where Do You Live? Home (Has VNS) Who Do You Live With? spouse Services at Home: Nursing Primary Language: Chinese Smoking Status: Never Smoked ETOH Use: denies use Illicit Drug Use: denies illicit drug use Living Will? no Power of School Plant Consultant/HCP? no Other Social History: . Lives with . Has visiting nurse. No cigarettes, EtOH or drugs. 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 Lives in [place] for 10 months out of the year. 1 son & 1 dtr- [employer] (dtr with DM) Functional Ability ADLs Independent: dressing, eating, toileting, bathing. Ambulation: independent (per pt despite L hip fx) IADLs Independent: shopping, housework, finances, food prep, telephone, medication admin. Needs Assist: transportation. Employment History Employment: Retired Profession/Employer worked for [employer] ECHO Results (as available) Date of last Echo 08/01/16 EF% 65 Exam & Diagnostic Data Vital Signs and I&O Vital Signs Date Time Temp Pulse Resp B/P B/P Pulse O2 O2 Flow FiO2 Mean Ox Delivery Rate 10/14 1155 52 18 160/58 92 Room Air Room Air 10/14 0941 50 123/56 10/14 0803 97.7 65 20 112/68 93 Room Air 10/13 2334 97.8 52 20 104/62 94 10/13 1456 97.7 50 20 100/63 97 Room Air Intake & Output 10/14 1600 10/14 0800 10/14 0000 10/13 1600 10/13 0800 10/13 0000 Intake Total 600 20 380 Output Total 175 200 300 Balance 425 -180 80 Intake, IV 20 Intake, Oral 600 0 380 Output, Urine 175 200 300 Patient 148 lb 154 lb Weight Weight Chair scale Chair scale Measurement Method Physical Exam: She is elderly appearing white female in no acute distress HEENT exam is normal Chest is clear Heart reveals regular rhythm and no murmurs Abdomen is distended and ascitic Extremities mild edema with evidence of previous more significant edema Labs/Diego Results: Laboratory Tests 10/14 10/14 10/13 UNK 0705 1325 Chemistry Sodium (137 - 145 mmol/L) 138 Potassium (3.5 - 5.1 mmol/L) 5.0 Chloride (98 - 107 mmol/L) 108 H Carbon Dioxide (22 - 30 mmol/L) 24 Anion Gap (5 - 16) 6 BUN (7 - 17 mg/dL) 41 H Creatinine (0.5 - 1.0 mg/dL) 2.4 H Estimated GFR (>60 ml/min) 20 L BUN/Creatinine Ratio (7 - 25 %) 17.1 Coagulation PT (9.4 - 12.5 SEC) 15.7 H INR (0.90 - 1.19) 1.50 H Hematology CBC w Diff NO MAN DIFF REQ WBC (4.8 - 10.8 /CUMM) 3.5 L RBC (4.20 - 5.40 /CUMM) 3.41 L Hgb (12.0 - 16.0 G/DL) 11.4 L Hct (37 - 47 %) 34.1 L MCV (81.0 - 99.0 FL) 100.2 H MCH (27.0 - 31.0 PG) 33.3 H RDW (11.5 - 14.5 %) 17.0 H Plt Count (/CUMM) MPV (7.4 - 10.4 FL) 9.5 Gran % (42.2 - 75.2 %) 60.2 Lymphocytes % (20.5 - 51.1 %) 25.3 Monocytes % (1.7 - 9.3 %) 11.0 H Eosinophils % (0 - 5 %) 2.9 Basophils % (0.0 - 2.0 %) 0.6 Absolute Granulocytes (1.4 - 6.5 /CUMM) 2.1 Absolute Lymphocytes (1.2 - 3.4 /CUMM) 0.9 L Absolute Monocytes (0.10 - 0.60 /CUMM) 0.4 Absolute Eosinophils (0.0 - 0.7 /CUMM) 0.1 Absolute Basophils (0.0 - 0.2 /CUMM) 0 PUBS MCHC (33.0 - 37.0 G/DL) 33.3 Other Body Source Fluid WBC Cancelled Fld Total RBCs Counted Cancelled 10/13 10/12 10/12 0821 2025 191 Chemistry Sodium (137 - 145 mmol/L) 138 Potassium (3.5 - 5.1 mmol/L) 5.0 Chloride (98 - 107 mmol/L) 108 H Carbon Dioxide (22 - 30 mmol/L) 23 Anion Gap (5 - 16) 7 BUN (7 - 17 mg/dL) 37 H Creatinine (0.5 - 1.0 mg/dL) 2.1 H Estimated GFR (>60 ml/min) 23 L BUN/Creatinine Ratio (7 - 25 %) 17.6 Total Bilirubin (0.2 - 1.3 mg/dL) 1.0 Direct Bilirubin (< 0.4 mg/dL) 0.5 H AST (14 - 36 U/L) 44 H ALT (9 - 52 U/L) 34 Alkaline Phosphatase (<127 U/L) 81 Total Protein (6.3 - 8.2 g/dL) 5.6 L Albumin (3.5 - 5.0 g/dL) 2.1 L Hematology CBC w Diff NO MAN DIFF REQ WBC (4.8 - 10.8 /CUMM) 3.7 L RBC (4.20 - 5.40 /CUMM) 3.32 L Hgb (12.0 - 16.0 G/DL) 10.5 L Hct (37 - 47 %) 32.8 L MCV (81.0 - 99.0 FL) 98.9 MCH (27.0 - 31.0 PG) 31.8 H RDW (11.5 - 14.5 %) 16.7 H Plt Count (/CUMM) MPV (7.4 - 10.4 FL) ND Gran % (42.2 - 75.2 %) 66.6 Lymphocytes % (20.5 - 51.1 %) 20.4 L Monocytes % (1.7 - 9.3 %) 9.0 Eosinophils % (0 - 5 %) 3.2 Basophils % (0.0 - 2.0 %) 0.8 Absolute Granulocytes (1.4 - 6.5 /CUMM) 2.5 Absolute Lymphocytes (1.2 - 3.4 /CUMM) 0.8 L Absolute Monocytes (0.10 - 0.60 /CUMM) 0.3 Absolute Eosinophils (0.0 - 0.7 /CUMM) 0.1 Absolute Basophils (0.0 - 0.2 /CUMM) 0 PUBS MCHC (33.0 - 37.0 G/DL) 32.1 L Urines Ur Random Creatinine (mg/dL) 27.6 Ur Random Microalbumin (<1.7 mg/dl) 56.6 H Urine Total Volume (600 - 1500 ML/24HR) 375 L Ur Total Protein 24 Hr (42 - 255 mg/24HR) 521.7 H U Cystine/Creat Ratio (mcg/mg) 2050.72 10/12 1915 Urines Ur Random Creatinine (mg/dL) 26.5 Ur Random Sodium (30 - 90 mmol/L) 140 H Ur Random Potassium (mmol/L) 20.5 Fraction Sodium Excret (<1% %) 7.6 H Diagnostic Data EKG Results EKG shows sinus rhythm at a rate of 77 with diffuse nonspecific T-wave abnormalities. CXR Results Not done Assessment/Plan Assessment/Plan Zuleika is doing okay from a cardiac standpoint. She has not had any clinical recurrence of atrial fibrillation. She is currently on clonidine and amlodipine but off atenolol, which she was on at home. She is also off her diuretics, which were being given more for her ascites and edema then cardiac reasons. I recommend asking gastroenterology regarding the utility of beta blockers in her cirrhosis. If they don't feel it is necessary then we can watch her off of the beta blockers from a cardiac standpoint. I would also recommend inquiring of nephrology the utility of diuretics in her situation. I suspect she will need some diuretics to keep her edema under control as an outpatient. I believe she has not been taking Eliquis since I saw her in the office about 6 weeks ago. I would not restart this medication at this time. If she should have a recurrence of atrial fibrillation we will need to reassess this, but I think her atrial fibrillation was precipitated by an acute illness and is not a chronic problem. Consult Acknowledgment - Thank you for your consult request.
[2016-10-14 14:18] VITALS: BP 164/58
[2016-10-14] MEDS ORDERED: PRINIVIL10 M1 PO (17:44)
[2016-10-14 22:31] VITALS: BP 158/58
[2016-10-15 06:44] VITALS: BP 166/66
--- NOTE | 2016-10-15 06:58 | PN- Housestaff ---
NILAM HERMAN,[facility] 10/15/16 0658: Subjective Follow-up For: Ascites Hepatorenal Syndrome Subjective: Patient was complaining of leakage from her procedure site this morning. Also reports some abdominal pain which is well controlled with tramadol. Denies any fever, chills, nausea, vomiting, SOB, chest pain or overnight events. Review of Systems Constitutional: Reports: no symptoms. EENTM: Reports: no symptoms. Cardiovascular: Reports: no symptoms. Respiratory: Reports: no symptoms. Gastrointestinal: Reports: abdominal pain. Genitourinary: Reports: no symptoms. Musculoskeletal: Reports: no symptoms. Skin: Reports: no symptoms. Neurological/Psychological: Reports: no symptoms. Hematologic/Endocrine: Reports: no symptoms. Immunologic/Allergic: Reports: no symptoms. Objective Last 24 Hrs of Vital Signs/I&O Vital Signs Date Time Temp Pulse Resp B/P B/P Pulse O2 O2 Flow FiO2 Mean Ox Delivery Rate 10/15 1042 54 148/64 10/15 0644 97.9 56 20 166/66 96 Room Air 10/14 2231 97.5 53 20 158/58 96 Intake & Output 10/15 1600 10/15 0800 10/15 0000 Intake Total 240 340 Output Total 400 Balance 240 -60 Intake, IV 100 Intake, Oral 240 240 Output, Urine 400 Patient 150 lb Weight Weight Chair scale Measurement Method Physical Exam General Appearance: Alert, Oriented X3, Cooperative Skin: Ulcer on left foot Sepsis Skin Exam (color): Normal for Ethnicity HEENT: Atraumatic, PERRLA, EOMI Neck: Supple, No JVD, No thryomegaly Lymphatic: Cervical nl Cardiovascular: Regular Rate, Normal S1, Normal S2, No Murmurs Lungs: Clear to Auscultation, Normal Air Movement Abdomen: Normal Bowel Sounds, Soft, Leakage from the paracentesis site, covered with dressing Neurological: Normal Speech, Strength at 5/5 X4 Ext, Normal Tone, Sensation Intact Extremities: No Clubbing, No Cyanosis, Normal Pulses Current Medications: Current Medications Sig/Radha Start time Last Medication Dose Route Stop Time Status Admin Acetaminophen 650 MG Q8P PRN 10/15 0845 DCD PO Acetaminophen 650 MG Q6P PRN 10/11 1845 DC PO Amlodipine Besylate 10 MG DAILY 10/12 1000 DCD 10/15 PO 1042 Apixaban 2.5 MG BID 10/14 2200 DC 10/14 PO 2044 Atorvastatin Calcium 80 MG 1700 10/11 1901 DCD 10/14 PO 1628 Clonidine 0.1 MG QPM PRN 10/11 1915 DCD PO Famotidine 20 MG DAILY 10/14 1000 DCD 10/15 PO 1038 Fenofibrate 145 MG DAILY 10/12 1000 DCD 10/15 PO 1038 Gabapentin 300 MG BID 10/12 1000 DCD 10/15 PO 1038 Levothyroxine Sodium 0.175 MG DAILY AC 10/12 0700 DCD 10/15 PO 0611 Magnesium Oxide 400 MG BID 10/12 2200 DCD 10/15 PO 1038 Magnesium Sulfate 1 GM ONCE ONE 10/14 170 DC 10/14 Dextrose/Water 100 ML IV 10/14 2058 1858 Tramadol HCl 50 MG Q12 PRN 10/15 0833 DCD PO Tramadol HCl 50 MG Q4P PRN 10/11 1845 DC 10/14 PO 2046 Trimethobenzamide HCl 200 MG TID PRN 10/11 2030 DCD IM Last 24 Hrs of Lab/Diego Results Last 24 Hrs of Labs/Mics: Laboratory Tests 10/15/16 0642: Anion Gap 8, Estimated GFR 22 L, BUN/Creatinine Ratio 16.8, CBC w Diff NO MAN DIFF REQ, RBC 3.18 L, MCV 99.5 H, MCH 32.5 H, RDW 16.9 H, Gran % 69.2, Lymphocytes % 17.4 L, Monocytes % 9.5 H, Eosinophils % 2.9, Basophils % 1.0, Absolute Granulocytes 2.2, Absolute Lymphocytes 0.6 L, Absolute Monocytes 0.3, Absolute Eosinophils 0.1, Absolute Basophils 0, PUBS MCHC 32.7 L Microbiology 10/14 1600 BODY FLUID: Body Fluid Culture - CAN Cancelled: Cancelled via OE: Per Decision 10/14 1600 BODY FLUID: Gram Stain - CAN Cancelled: Cancelled via OE: Per Decision Assessment/Plan Assessment: Patient is a 71-year-old woman withextensive past medical history with of, prior CVA in 1978 without any residual effects, diastolic CHF,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 nephrotic range proteinuria, hypothyroidism, depression, obesity, thrombocytopenia with platelet clumping with elevated serum IgA,previous multiple fractures ,severe vitamin D deficiency, DJD, migraine headache, chronic anemia for years without transfusion (currently macrocytic), recently admitted to [facility] for metabolic encephalopathy with new onset atrial fibrillation on elliquis presented to the ED for evaluation of worsening nausea vomiting with diarrhea for the last 4 days. 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 Approx 3L of fluid was drawn and she was given 50g IV albumin during the procedure. Patient had some leakage from the procedure site and had some abdominal discomfort which was well controlled with tramadol. Denies any fever,chills or SOB. * GI also recommends discontinuing her B-blockers(She does not have any varices at this point).She will need a follow up AFP in 6mos for hepatoma surveillance. She is also due for a follow up EGD. Will keep her on 20mg PO pepcid. She will follow up with as an outpatient. * She is on sodium restricted diet as per nephrology recommendations. She also does not need any diuretics at this point, will hold her furosemide and aldectone. Will continue on ACEI. Patient is instructed to repeat her BEP and follow up with her PCP in a week. * Tigan as needed for nausea and vomiting. * Watch for any hemodynamic instability. * Follow stool cultures and C.diff. Lower extremity ulcers * Visiting nurse comes to do the dressing at home every other day. * Wound care consulted: recommends cleaning with normal saline f/b promogram f/b kerlix daily and PRN. History of atrial fibrillation and hypertension * Patient has been running bradycardic so we discontinued her metoprolol and atenolol, will continue norvasc 10mg PO daily. She does not need any beta- blockers or diuretics from cardiac standpoint. Her Eliquis was also held as per cardio recommendations(Atrial Fibrillation was in the setting of acute Illness) .She will follow up with Dr. Galindo as an outpatient for her HTN and Bradycardia. * Hypomagnesemia: Patient is on 400mg mag-ox BID daily. History of hyperlipidemia: * Will continue her home meds for HLD. DVT prophylaxis: Mechanical Patient is full code Problem List: 1. Liver cirrhosis secondary to BYERS 2. Hepatorenal syndrome 3. Bradycardia 4. Atrial fibrillation 5. Hypomagnesemia 6. Nausea and vomiting Pain Ratin Pain Location: Abdomen Pain Goal: Pain 4 or less Pain Plan: Tramadol Tomorrow's Labs & Rationales: None(Discharge) CHARISMA STOUT MD 10/15/16 1352: Attending MD Review Statement Attending Statement Attending MD Statement: examined this patient, discuss w/resident/PA/ANIMAL ANATOMY TEACHER, agreed w/resident/PA/ANIMAL ANATOMY TEACHER, reviewed EMR data (avail) Attending Assessment/Plan: 71F PMH extensive past medical history with of, prior CVA in 1978 without any residual effects, diastolic CHF,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 nephrotic range proteinuria, hypothyroidism, depression, obesity, thrombocytopenia with platelet clumping with elevated serum IgA, previous multiple fractures, severe vitamin D deficiency, DJD, migraine headache , chronic anemia presenting with 1 week of nausea, vomiting, generalized weakness, and loose stools. Denies fever or chills. S/p paracentesis on 10/14 with 3L ascitic fluid removed. Patient has some mild pain at right abdomen at paracentesis site but otherwise is well with no complaints. 1. Viral gastroenteritis 2. Acute on chronic kidney injury 3. CKD stage 3 4. Ascites 5. Decompensated cirrhosis secondary to BYERS Plan - Stable for discharge home - Outpatient GI, nephrology follow up - Repeat renal function on 4 days, follow up with PCP. Will make appointment for patient. - Discontinue diuretics, b-blockers on discharge, decrease Lisinopril dose
--- NOTE | 2016-10-15 07:10 | PN- Student ---
Subjective Subjective: Her pain level when she walks is a 7/10 and it is a stinging pain. She did not sleep well overnight. Her paracentisis site was leaking. She has been eating well. She denies, diarrhea, constipation, nausea, vomiting, chest pain, or palpitations. Objective Objective: PE: Lungs: CTA BL CV: normal S1,S2. No R/M/G Abd: Dimished bowel sounds. RUQ is tender to palpation Results Results: Laboratory Tests 10/15/16 0642: Anion Gap 8, Estimated GFR 22 L, BUN/Creatinine Ratio 16.8, CBC w Diff Pending, WBC Pending, RBC Pending, Hgb Pending, Hct Pending, MCV Pending, MCH Pending, RDW Pending, Plt Count Pending, MPV Pending, PUBS MCHC Pending 10/14/16 1000: Fluid WBC Cancelled, Fld Total RBCs Counted Cancelled 10/14/16 0705: Anion Gap 6, Estimated GFR 20 L, BUN/Creatinine Ratio 17.1, CBC w Diff NO MAN DIFF REQ, RBC 3.41 L, MCV 100.2 H, MCH 33.3 H, RDW 17.0 H, MPV 9.5, Gran % 60.2, Lymphocytes % 25.3, Monocytes % 11.0 H, Eosinophils % 2.9, Basophils % 0.6, Absolute Granulocytes 2.1, Absolute Lymphocytes 0.9 L, Absolute Monocytes 0.4, Absolute Eosinophils 0.1, Absolute Basophils 0, PUBS MCHC 33.3 10/13/16 1325: PT 15.7 H, INR 1.50 H 10/13/16 0821: Anion Gap 7, Estimated GFR 23 L, BUN/Creatinine Ratio 17.6, Total Bilirubin 1.0 , Direct Bilirubin 0.5 H, AST 44 H, ALT 34, Alkaline Phosphatase 81, Total Protein 5.6 L, Albumin 2.1 L, CBC w Diff NO MAN DIFF REQ, RBC 3.32 L, MCV 98.9, MCH 31.8 H, RDW 16.7 H, MPV ND, Gran % 66.6, Lymphocytes % 20.4 L, Monocytes % 9.0, Eosinophils % 3.2, Basophils % 0.8, Absolute Granulocytes 2.5, Absolute Lymphocytes 0.8 L, Absolute Monocytes 0.3, Absolute Eosinophils 0.1, Absolute Basophils 0, PUBS MCHC 32.1 L 10/12/162025: Ur Random Creatinine 26.5, U Random Total Protein 75 H, Protein/Creatinin Ratio 2.8 H 10/12/161914: Ur Random Creatinine 27.6, Ur Random Microalbumin 56.6 H, U Cystine/Creat Ratio 2050.72 10/12/161914: Ur Random Creatinine 26.5, Ur Random Sodium 140 H, Ur Random Potassium 20.5, Fraction Sodium Excret 7.6 H 10/12/16 1000: Urine Total Volume Cancelled, Ur Total Protein 24 Hr Cancelled Microbiology 10/14 1600 BODY FLUID: Body Fluid Culture - CAN Cancelled: Cancelled via OE: Per MD Decision 10/14 1600 BODY FLUID: Gram Stain - CAN Cancelled: Cancelled via OE: Per MD Decision Assessment/Plan Assessment: Ms. 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 She also has a PMH of hypertension, LVH, diabetic with questionable neuropathy, CKD stage 4, hyperlipidemia, obesity, CVA , hypothyroidism, asthma, ASHD, CHF, history of SVT, afib (on Eliquis), history of falls. She presented with ascites and was hemodynamically stable with abnormal CMP and CBC results. Abd. CT without contrast showed cirrhosis, large volume of ascites that is worse than in the past, diffuse anasarca, ascending colon wall thickening representing potential portal colopathy. This is a change from prior imaging and colitis is possible. There is also bilateral nonobstructing renal calculi, and small left pleural effusion. She is having a leakage after paracentisis and a stinging pain that is 7/10 with movement. Plan: 1) BYERS progressing to cirrhosis complicated with anasarca and reccurent ascites with JUANI(possible hepatorenal syndrome) -therputic parecentesis yesterday -discharge today with bp medications if nephrology would like us to 2) CKD stage III: Nephrology consult -Follow up with nephrology about bp meds. 3)Chronic health conditions: Lower extremity ulcers, Atrial fibrillation, hypertension, hyperlipidemia, LVD, moderate severe pain, hypothyroidism, acid reflux -visiting nurse comes to do the dressing every other day on ulcers. -wound care consulted. -Continue home dose: -atrovostain 80mg -fenofibrate 145mg -Amlodipine besylate 10mg -levothyroxine 0.175mg -Pepcid AC 20mg -Mag Ox 400mg BID -Clonidine 0.1mg PRN 4) pain control: -tramadol 50mg q4h PRN -Acetaminophen 650 mg q6h PRN -Gabapentin 300mg BID 5)Patient is full code -24-hour urine to check microalbumin and creatinine clearance. -Tigan 200mg TID PRN IM as needed for nausea and vomiting. -Watch for any hemodynamic instability. -Follow stool cultures and C.diff. -If large volume paracenticis is preformed she will need 25% albulmin IV due to compromised kidney fuction. 3)Chronic health conditions: Lower extremity ulcers, Atrial fibrillation, hypertension, hyperlipidemia, LVD, moderate severe pain, hypothyroidism, acid reflux -visiting nurse comes to do the dressing every other day on ulcers. -wound care consulted. -Continue home dose: -atrovostain 80mg -fenofibrate 145mg -Amlodipine besylate 10mg -levothyroxine 0.175mg -Pepcid AC 20mg -Mag Ox 400mg BID -Clonidine 0.1mg PRN -pain control: -tramadol 50mg q4h PRN -Acetaminophen 650 mg q6h PRN -Gabapentin 300mg BID 4) DVT prophylaxis: Patient is on Eliquis 5)Patient is full code
--- NOTE | 2016-10-15 08:16 | PN- Gastroenterology ---
Assessment/Plan Assessment/Recommendations: 71-year-old female, non-EtOH, fair historian, not compliant with medical follow- up in [place], she is in [place] for 10 months out of the year, with actually Get a past history, hypertension, LVH, diabetic since 1998 with questionable neuropathy, CKD stage 4 (felt to be from diabetic nephropathy, as per renal, with proteinuria & strong family history of DM/CKD), hyperlipidemia, obesity, CVA in 1978 without residual, hypothyroid, asthma, ASHD, CHF, history of SVT, afib (on Eliquis), history of falls, repair right rotator cuff 1998, repair of fractured left ankle 07/2013, closed left hip fracture 03/2016 post fall, DJD, migraine headache, chronic macrocytic anemia for years without transfusion, open cholecystectomy 1978 followed by resection of what sounds like a pancreatic cyst at [facility] a few weeks later, appendectomy, compliant with outpatient GI follow-up since then, nor was she compliant with multiple requests to have large volume abdominal tap with albumin as outpatient. Additionally, she apparently stopped her diuretics & insulin on her own! Previous imaging studies were without hepatoma. 09/17/13: Hep A Ab, Hep Bs Ag, Hep B core Ab & Hep C Ab- all negative. 10/23/13: EGD by myself- gastroparesis with retained food cleared from the fundus and posterior wall of the stomach, patent pylorus without mechanical gastric outlet obstruction. A metal suture with a blue guidewire was seen loosely embedded in the wall of the lower gastric body. Scant internal hernia. Z line at 38 cm. J-shaped stomach. Erosive esophagitis on biopsies. Mild gastritis, H. pylori negative. Random biopsies second and third portion of the duodenum-normal villi. The patient previously tolerated a short course of Reglan without any extrapyramidal side effects, but had stopped this, as well. *Metozolv 5 mg TID was prescirbed on 06/18/16 (? compliance). A baseline and only colonoscopy in [place] in 2014 was "normal", however she was not sure who performed this, or where was done. Aside from the family history of DM/CKD, from a GI perspective, a sister had a cholecystectomy and another sister had Crohn's disease. There was no family history of any GI malignancy, additional GI disease, inherited liver disease, or inherited pancreatitis. The patient's cirrhosis has been manifested by thrombocytopenia, reversal of the albumin:globulin ratio, ascites & anasarca. 01/02/16: *MELD score- Anna 15/UNOS 17, with normal AFP 1.8, normal IgA 472, borderline positive DGP Ab IgA 21/IgG- negative, tTG Ab (IgA/IgG)- both negative, Fe 51, TIBC 310, Fe sat 16.5%, ferririn 171, B12 415, folate 3.8, normal TFTs with TSH 0.941, markers for AIH and PBC- negative (AMA < 20, OSVALDO- neg 1:40, anti-LKM Ab < 20, anti-smooth muscle Ab < 20), normal A1AT 182, SPEP- acute phase reactant, normal IPEP. 01/04/16: stool Ag H. pylori- neg. 01/07/16: Complete abdominal sono- mild to moderate ascites, cirrhotic appearing liver without focal lesion, postmastectomy, postop dilated CBD 1.5 cm, normal IHD, spleen 13 cm with nonspecific hyperechoic lesion, bilateral nonobstructing renal stones, without hydronephrosis. 01/07/16: Liver spleen scan- positive colloid shift, consistent with cirrhosis. 01/26/16: Large-volume abdominal tap by IR at [facility]- 900 mL size removed, without SBP (absolute # PMNs 37.9), BF protein < 2.0, SAAG > 1.3, BF albumin < 1.0. High SAAG & low BF protein were consistent with portal hypertension etiology of the ascites. Most likely, the patient had BYERS that went on to cirrhosis. Ascitic fluid Gram stain and culture-negative. Ascitic cytology without malignancy. There were some atypical cells, felt to be reactive mesothelial cells. 02/09/16: EGD to [facility]- random small bowel biopsies-negative. Minimal antral erythema, biopsies-mild chronic antral gastritis, H. pylori negative. Questionable portal gastropathy lesser curvature, biopsy gastric body-mild chronic fundal gastritis, H. pylori negative. Nonspecific thickened folds gastric fundus, without definite gastric varices. No esophageal varices were seen. Scant hiatal hernia with Z line at 36 cm. Tertiary contractions distal esophagus. Metal suture loosely embedded posterior aspect of lower gastric body, without change from 10/23/13. History of gastroparesis, although no bezoar seen, off Metozolv, with patent pylorus. The patient was placed on Prilosec 20 mg daily, along with Zofran. There was no need to change to a non-selective beta gadiel, and so the patient remained on the selective beta gadiel, Atenolol 100 mg daily. 01/02/16: *IPEP- negative, without monoclonal spike. 01/02/16: *Hep A Ab, Hep Bs Ag, Hep B core Ab, Hep Bs Ab, & Hep C Ab- all negative. 04/12/16: *SPEP- low serum albumin & beta-gamma bridging, most c/w cirrhosis. 04/16/16: *HIV- negative. The patient previously had a workup for possible nephrotic syndrome as per renal. 04/14/16: 24-hour urine- only 1.566 g protein. 04/11/16: Echocardiogram- normal LVEF 60% with questionable posterior mediastinal mass. 04/12/16: CT chest w/o IV contrast- *no posterior mediastinal mass. Anasarca. Nodular hepatic margin suspicious for cirrhosis. Low attenuation splenic lesion. Nonobstructing bilateral renal stones. Questionable RUL pneumonitis. Nonspecific subpleural nodule right apex. Left pleural effusion with atelectasis. The patient never had MRCP to check her dilated CBD, which was probably postoperative in nature, and requested an open MRI. *She has never officially had a liver biopsy. Plans were to consider referral to the [facility] liver unit if her MELD score rised. 06/28/16: CT abdomen and pelvis without contrast (low GFR)-2 cm low-density lesion spleen, generalized anasarca, moderate ascites, otherwise without change. 06/28/16: RUQ sono- cirrhotic liver, no focal hepatic lesion, moderate ascites, post-CCKY, stable postop 1.6 cm CBD. 06/30/16: *MRCP- post-CCKY, dilated CBD 1.9 cm, mild dilated IHD, no choledocholithiasis, cirrhotic liver, moderate ascites, probable splenic cyst. 06/28/16: *normal AFP 1.4 The patient last had a large volume abdominal tap by IR 07/30/16, at which point 4L ascites was drained- no SBP, culture- neg, high SAAG > 1.1, low BF protein < 1.0. *The patient was contacted by my office multiple times, and we also spoke with her visiting nurse to arrange for outpatient abdominal large volume abdominal tap, but the patient was not compliant with this. The patient presented to the [facility] ER 10/11/16 at 12:28 PM, with a few days of nausea, vomiting and diarrhea, as per advice of visiting nurse. The vomitus was bilious, without hematemesis. There was no melena or BRBPR. She is still mildly nauseous. Her vomiting and diarrhea resolved. There has been no recurrent diarrhea since admission. She had chronic mild early satiety ( gastroparesis), & also had vague, sharp epigastric discomfort. Upon arrival, BP 150/92, P 82, RR 20, T 97.8, O2 sat RA 97%. She received Zofran, Tylenol, and 1L of IV NS by the ER, although she was not hypotensive, and the latter probably exacerbated her ascites. She denied any recent antibiotics, travel, or NSAIDs. She had some fatigue. She denied any confusion, head trauma, jaundice, dark urine, light stool, pruritus, fevers, chills, symptoms of UTI or URI, or increasing peripheral edema, although there was some mild increased abdominal girth. The patient is a very poor historian. She claimed she was on Lasix 20 mg daily & was taking Aldactone, dosage unknown, and perhaps ACEI. Her diuetics were increased by the medical team on admission, and her GFR (23 to 25) went up slightly, but as per my discussion with renal, this is not completely accurate in patients with cirrhosis or in the elderly > 70 y/o. 10/11/16: Admission labs- WBC 3.4, H/H 10.8/32.8, normal MCV, PLT- clumped, *no INR sent, glucose 98, BUN/Cr 38/2.1, GFR 23, Na 137, K 5.3, HCO3 21, AG 7, lipase 77, Ca 8.4, alb 2.5, glob 4.2, TBil 1.6, DBil 1.0, alk phos 103, AST 56, ALT 28, troponin .09. 10/12/16: CBC 2.9, H/H9.7/29.6, MCV 98.7, PLT 63, BUN/Cr 33/2.0, GFR 25, Na 139. K 4.3, HCO3 23, AG 6, Mg 1.2. *No EKG on chart. 10/11/16: CT abdomen and pelvis without contrast- Cirrhosis. Shrunken nodular liver without focal hepatic defects (within limits of a non-IV contrast study, due to low GFR). Large volume of ascites is increased from previous. Diffuse anasarca. Wall thickening of the ascending colon could represent portal colopathy. This is a change from prior and colitis is possible (*not clinically). Bilateral nonobstructing renal calculi. Small left pleural effusion. 10/12/16: *elevated spot Gia 140 with elevated FENa 7.6 (*NOT c/w HRS) *As of 10/13/16, the patient remained hemodynamically stable (*mildly bradycardic on Atenolol AND Metoprolol ?) & afebrile, with O2 sat RA 96%. *She remained on Omeprazole despite hypomagnesemia, which was repleted. Lasix, Aldactone, Lisinopril have been held for now. The patient is awaiting a large volume abdominal tap with SPA, as outlined. The patient's ascites was more intense. She denied any chest pain, shortness of breath, abdominal pain, overt GI bleeding, melena, jaundice, confusion, fevers, or chills. She had minimal nausea, but no vomiting. She remained a poor historian. *Apparently, she was put on Tramadol 50 mg po Q4h as needed, which should be given at a doae of 50 mg BID as needed maximum, as she is cirrhotic. 10/13/16: MELD- Anna 18/UNOS 18. *As of , the patient remained with low normal blood pressure. She was still bradycardic. Her selective beta blockers were held. Diuretics and ACEI were still on hold. Omeprazole was switched to Pepcid, in view of low Mg. *Her dosing of Tramadol was still too high. She remained afebrile. Abdominal tap was deferred for later today, as the patient had been on outpatient Eliquis. She had no new complaints. She remained a poor historian, but there was no acute confusion or jaundice. She remained with fairly tense ascites, with mild secondary discomfort. She denied any chest pain, shortness of breath, palpitations, or lower GI bleeding, or melena. 10/14/16: *The patient had abdominal paracentesis, post 50g IV SPA. 2900 mL of ascitic fluid removed. Cell count was not sent. The patient was seen in cardiology consultation by Dr. Freddie Galindo, on 2016. Apparently, she was also noncompliant with her outpatient Eliquis, which had been prescribed for her A. fib. She appeared to be in NSR clinically this admission. Cardiology had no plans to resume her Eliquis at present. Her selective beta blockers have been stopped. *As she does not have documented varices, there is no GI indication for selective beta blockers at this time. *I am deferring to renal regarding resumption of diuretics (preferably Aldactone), and/or ACEI, keeping in mind her probable diabetic nephropathy. *24 hr urine collection was invalid per renal, due to inadequate volume. *As of 10/15/16, the patient was mildly hypertensive and mildly bradycardic, off of selective beta blockers. She remained afebrile. O2 sat RA 96%. Her abdomen was less distended, post abdominal tap. She had a mild ascitic leak post tap, and there is a stomal bag in the RLQ. The surrounding skin does not appear to be inflamed. She denied any chest pain, shortness of breath, jaundice, fevers, chills, overtGI bleeding, melena, or abdominal pain, aside from some minimal discomfort at the tap site. Her nausea was improved. There was no recurrent vomiting or diarrhea. *The patient is clearly cirrhotic. Most likely, she had BYERS (multiple risk factors) progressing to cirrhosis. Extensive serologies negative.The patient was very nebulous about her outpatient medications. I initially felt that the majority of her chronic renal failure was from chronic diabetic nephropathy, rather than HRS. *10/12/16: elevated Gia+ & elevated FENa both go against HRS. Her 24 hr urine for protein was previously 1.56g /24h on 04/14/16, non-nephrotic range. I advised holdung diuretics and ACEI on admission, to get a better handle on her renal function. She has a shrunken nodular liver. Her ascites had worsened, improved somewhat after 10/14/16: abdominal tap- 2900 cc removed, post IV SPA 50g, to maintain her oncotic pressure and avoid hypotension. Low magnesium was noted. She ws on PPI (D/C). Compliance has been an issue. Initially, no INR had been sent. Clinically, there was no colitis. The nonspecific CT findings were probably from low albumin. *SUGGEST: 2g Na DM renal diet. Avoid IV NS, which will exacerbate ascites. *Will defer to renal to consider resuming Aldactone 50 mg daily. *Will defer to renal regarding resumption of ACEI (Lisinopril), with underlying probable diabetic nephropathy. *As per renal, following her GFR is not completely accurate. *24 hr urine collection for protein, Cr, Cr clearance was invalid, per renal. Strict I/ O's. Replete Mg. *Agree with switching PPI (Omeprazloe) to H2B (Pepcid), with low Mg. Zofran as needed. Reglan as tolerated (previoulsy tolerated, without EPS side effects). Close follow up of lytes, GFR, LFTs, INR, CBC. *Check AFP (next due in 12/2016) & RUQ sono Q 6mos for hepatoma surveillance. Avoid NSAIDs. Avoid hepatotoxins. Keep Tylenol use to < 2 g daily. The dose of Tramadol should not exceed 50 mg Q12h as needed, in view of cirrhosis. *The selective beta blockers, Atenolol and Metoprolol have been held, due to low normal BP & bradycardia (*she does not have documented varices to warrant the use of non- selective beta blockers). Follow-up with PMD for semi-elective Hepatitis A & B vaccinations. Annual flu shot. The patient reportedly received Pneumovax in the recent past. The patient is due for repeat EGD 2 years from her last study, namely 01/2018, for variceal surveillance. *Consideration for referral to [facility] as outpatient, to potentially put her on the transplant list, but uncertain if the patient has the psychosocial support systems or compliance for this, and she is of borderline advanced age, with extremely poor insight. [: *MELD- Anna 18/UNOS 18]. The above findings and recommendations were again discussed with the medical housestaff, & previously with Dr. Trevino & Dr. Lindsay. Follow up with medicine & renal. Will defer to renal for clearance for discharge, as most of her disease is chronic in nature. *My office will try to set up a [facility] after discharge. *If needed, Dr. Westfall is on for GI this weekend, but as per my discussion with the medical team, she might be discharged later today. Problem List: 1. Cirrhosis 2. Ascites 3. Anasarca 4. CKD (chronic kidney disease) stage 4, GFR 15-29 ml/min 5. Gastroparesis 6. Nausea 7. Thrombocytopenia Subjective Subjective: 10/14/16: *The patient had abdominal paracentesis, post 50g IV SPA. 2900 mL of ascitic fluid removed. Cell count was not sent. The patient was seen in cardiology consultation by Dr. Freddie Galindo, on 2016. Apparently, she was also noncompliant with her outpatient Eliquis, which had been prescribed for her A. fib. She appeared to be in NSR clinically this admission. Cardiology had no plans to resume her Eliquis at present. Her selective beta blockers have been stopped. *As she does not have documented varices, there is no GI indication for selective beta blockers at this time. *I am deferring to renal regarding resumption of diuretics (preferably Aldactone), and/or ACEI, keeping in mind her probable diabetic nephropathy. *24 hr urine collection was invalid per renal, due to inadequate volume. *As of 10/15/16, the patient was mildly hypertensive and mildly bradycardic, off of selective beta blockers. She remained afebrile. O2 sat RA 96%. Her abdomen was less distended, post abdominal tap. She had a mild ascitic leak post tap, and there is a stomal bag in the RLQ. The surrounding skin does not appear to be inflamed. She denied any chest pain, shortness of breath, jaundice, fevers, chills, overtGI bleeding, melena, or abdominal pain, aside from some minimal discomfort at the tap site. Her nausea was improved. There was no recurrent vomiting or diarrhea. Review of Systems: Full 14 point review of systems otherwise noncontributory, and as above. Review of Systems Constitutional: Reports: weakness- improving. Denies: chills, diaphoresis, fever, malaise, unexplained weight loss. EENTM: Denies: blurred vision, double vision, visual changes, eye pain, eye drainage, eye tearing, icterus, ear discharge, ear pain, ear redness, hearing changes, nasal congestion, epistaxis, nasal pain, throat pain, throat swelling, mouth pain, tooth pain. Cardiovascular: Reports: peripheral edema (trace). Denies: chest pain, edema, orthopena, palpitations, syncope. Respiratory: Denies: cough, hemoptysis, orthopnea, short of breath, sputum production, stridor, wheezing. GI: Reports: abdominal pain (near liver edge- slightly better, mild discomfort at tap site in RLQ), diarrhea (resolved), nausea (improved), vomiting (resolved). * Abdomen less distended post 10/14/16: abdominal tap. Denies: bloating, constipation, distention, bowel incontinence, melena, bloody stool, changes in stool, steatorrhea. Genitourinary: Denies: discharge, dysuria, frequency, hematuria, hesitation, nocturia, pain, urgency. Musculoskeletal: Reports: joint pain (DJD/L hip fx). Denies: back pain, gout, joint swelling, muscle pain, muscle stiffness, neck pain. Skin: Denies: cysts, change in skin color, change in hair/nails, dryness, erythema, jaundice, lesions, lymphangitis, lumps, moles, rash. Neurological/Psychological: Reports: weakness- improving. Denies: anxiety, ataxia, cognitive dysfunction, confusion, depressed, dementia, emotional problems, headache, numbness, paresthesia, pre-existing deficit, petit mal seizures, tingling, tremors, tonic-clonic seizures, unable to move lower ext , unable to move upper ext. Hematologic/Endocrine: Denies: bruising, bleeding, polyuria, polydipsia. Immunologic/Allergic: Denies: splenectomy, HIV/AIDS, lymphadenopathy. All Other Systems: Reviewed and Negative Objective Vital Signs and I&Os Vital Signs Date Time Temp Pulse Resp B/P B/P Pulse O2 O2 Flow FiO2 Mean Ox Delivery Rate 10/15 0644 97.9 56 20 166/66 96 Room Air 10/14 2231 97.5 53 20 158/58 96 10/14 1418 98.2 58 18 164/58 96 Room Air Room Air 10/14 1155 52 18 160/58 92 Room Air Room Air 10/14 0941 50 123/56 Intake & Output 10/15 1600 10/15 0400 10/14 0400 10/13 0400 Intake Total 240 340 120 600 20 380 Output Total 400 175 200 300 Balance 240 -60 120 425 -180 80 Intake, IV 100 20 Intake, Oral 240 240 120 600 0 380 Output, Urine 400 175 200 300 Patient 150 lb 154 lb 154 lb Weight Weight Chair scale Chair scale Chair scale Measurement Method Physical Exam: Obese female, in no apparent distress. Sclera anicteric. Conjunctiva pink. Oropharynx clear. No oral thrush. No aphthous ulcers. There is no adenopathy, thyromegaly, or JVD. Questionable mild HJR. No peripheral stigmata of inflammatory bowel disease on exam. ? Scant spiders on the anterior chest wall. Breast & pelvic exams: API. No CVA tenderness. Lungs: clear to A&P, with slight decreased breath sounds at the bases B/L, L > R. No wheezing, rales, or rhonchi. Heart exam: *curently, regular rate rhythm, S1 and S2, with soft I/ systolic murmur. Abdominal exam: normal bowel sounds, soft doughy abdominal wall with anasarca/pannus, *mildly tender nodular liver edge, without guarding or rebound. Otherwise, no definite mass. Liver approximately 10 cm by percussion. Questionable palpable spleen tip. Positive fluid shift with ascites less tense, (post 10/14/16: abominal tap). Mild ascitic leak with stomal bag in RLQ. No fasciitis. Minimally tender at tap site. No pulsatile mass. No epigastric bruit. Digital rectal exam: deferred by patient (previously, OB-negative in ER in 10/2015). Extremities: without cyanosis or clubbing. Scant pedal edema LE B/L. No palpable cords. No palmar erythema. No Dupuytren's contractures. Deformed left ankle post fracture, uncertain if Charcot's joint. Distal pulses 1+ bilaterally. DTRs 1+ bilaterally. Alert and oriented x 3, but *baseline poor historian. No tremor. No asterixis. No cogwheeling or extrapyramidal signs ( now off Reglan). A detailed exam for peripheral neuropathy was deferred. Motor 5/5, except 4/5 LLE, post previous fracture. Current Medications: Current Medications Sig/Radha Start time Last Medication Dose Route Stop Time Status Admin Acetaminophen 650 MG Q8P PRN 10/15 0845 UNVr PO Acetaminophen 650 MG Q6P PRN 10/11 1845 DC PO Albumin Human 50 GM ONCE ONE 10/14 1000 DC 10/14 IV 10/14 1001 1059 Amlodipine Besylate 10 MG DAILY 10/12 1000 AC 10/14 PO 0941 Apixaban 2.5 MG BID 10/14 2200 DC 10/14 PO 2044 Atorvastatin Calcium 80 MG 1700 10/11 1901 AC 10/14 PO 1628 Clonidine 0.1 MG QPM PRN 10/11 1915 AC PO Famotidine 20 MG DAILY 10/14 1000 AC 10/14 PO 0941 Fenofibrate 145 MG DAILY 10/12 1000 AC 10/14 PO 0941 Gabapentin 300 MG BID 10/12 1000 AC 10/14 PO 2043 Levothyroxine Sodium 0.175 MG DAILY AC 10/12 0700 AC 10/15 PO 0611 Lidocaine 20 ML .STK-MED ONE 10/14 1041 DC IA 10/14 1042 Magnesium Oxide 400 MG BID 10/12 2200 AC 10/14 PO 2044 Magnesium Sulfate 1 GM ONCE ONE 10/14 1700 DC 10/14 Dextrose/Water 100 ML IV 10/14 2059 1858 Tramadol HCl 50 MG Q12 PRN 10/15 0833 UNVr PO Tramadol HCl 50 MG Q4P PRN 10/11 1845 DC 10/14 PO 2046 Trimethobenzamide HCl 200 MG TID PRN 10/11 2030 AC IM Results Pertinent Lab Results: Laboratory Tests 10/15 10/14 10/14 0642 UNK 0705 Chemistry Sodium (137 - 145 mmol/L) Pending 138 Potassium (3.5 - 5.1 mmol/L) Pending 5.0 Chloride (98 - 107 mmol/L) Pending 108 H Carbon Dioxide (22 - 30 mmol/L) Pending 24 Anion Gap (5 - 16) Pending 6 BUN (7 - 17 mg/dL) Pending 41 H Creatinine (0.5 - 1.0 mg/dL) Pending 2.4 H Estimated GFR (>60 ml/min) 20 L BUN/Creatinine Ratio (7 - 25 %) Pending 17.1 Hematology CBC w Diff Pending NO MAN DIFF REQ WBC (4.8 - 10.8 /CUMM) Pending 3.5 L RBC (4.20 - 5.40 /CUMM) Pending 3.41 L Hgb (12.0 - 16.0 G/DL) Pending 11.4 L Hct (37 - 47 %) Pending 34.1 L MCV (81.0 - 99.0 FL) Pending 100.2 H MCH (27.0 - 31.0 PG) Pending 33.3 H RDW (11.5 - 14.5 %) Pending 17.0 H Plt Count (/CUMM) Pending MPV (7.4 - 10.4 FL) Pending 9.5 Gran % (42.2 - 75.2 %) 60.2 Lymphocytes % (20.5 - 51.1 %) 25.3 Monocytes % (1.7 - 9.3 %) 11.0 H Eosinophils % (0 - 5 %) 2.9 Basophils % (0.0 - 2.0 %) 0.6 Absolute Granulocytes (1.4 - 6.5 /CUMM) 2.1 Absolute Lymphocytes (1.2 - 3.4 /CUMM) 0.9 L Absolute Monocytes (0.10 - 0.60 /CUMM) 0.4 Absolute Eosinophils (0.0 - 0.7 /CUMM) 0.1 Absolute Basophils (0.0 - 0.2 /CUMM) 0 PUBS MCHC (33.0 - 37.0 G/DL) Pending 33.3 Other Body Source Fluid WBC Cancelled Fld Total RBCs Counted Cancelled 10/13 10/13 10/12 1325 0821 6 Chemistry Sodium (137 - 145 mmol/L) 138 Potassium (3.5 - 5.1 mmol/L) 5.0 Chloride (98 - 107 mmol/L) 108 H Carbon Dioxide (22 - 30 mmol/L) 23 Anion Gap (5 - 16) 7 BUN (7 - 17 mg/dL) 37 H Creatinine (0.5 - 1.0 mg/dL) 2.1 H Estimated GFR (>60 ml/min) 23 L BUN/Creatinine Ratio (7 - 25 %) 17.6 Total Bilirubin (0.2 - 1.3 mg/dL) 1.0 Direct Bilirubin (< 0.4 mg/dL) 0.5 H AST (14 - 36 U/L) 44 H ALT (9 - 52 U/L) 34 Alkaline Phosphatase (<127 U/L) 81 Total Protein (6.3 - 8.2 g/dL) 5.6 L Albumin (3.5 - 5.0 g/dL) 2.1 L Coagulation PT (9.4 - 12.5 SEC) 15.7 H INR (0.90 - 1.19) 1.50 H Hematology CBC w Diff NO MAN DIFF REQ WBC (4.8 - 10.8 /CUMM) 3.7 L RBC (4.20 - 5.40 /CUMM) 3.32 L Hgb (12.0 - 16.0 G/DL) 10.5 L Hct (37 - 47 %) 32.8 L MCV (81.0 - 99.0 FL) 98.9 MCH (27.0 - 31.0 PG) 31.8 H RDW (11.5 - 14.5 %) 16.7 H Plt Count (/CUMM) MPV (7.4 - 10.4 FL) ND Gran % (42.2 - 75.2 %) 66.6 Lymphocytes % (20.5 - 51.1 %) 20.4 L Monocytes % (1.7 - 9.3 %) 9.0 Eosinophils % (0 - 5 %) 3.2 Basophils % (0.0 - 2.0 %) 0.8 Absolute Granulocytes (1.4 - 6.5 /CUMM) 2.5 Absolute Lymphocytes (1.2 - 3.4 /CUMM) 0.8 L Absolute Monocytes (0.10 - 0.60 /CUMM) 0.3 Absolute Eosinophils (0.0 - 0.7 /CUMM) 0.1 Absolute Basophils (0.0 - 0.2 /CUMM) 0 PUBS MCHC (33.0 - 37.0 G/DL) 32.1 L Urines Ur Random Creatinine (mg/dL) 26.5 U Random Total Protein (0 - 12 mg/dL) 75 H Protein/Creatinin Ratio (< 0.2) 2.8 H 18 18 10/12 UNK Urines Ur Random Creatinine (mg/dL) 27.6 26.5 Ur Random Microalbumin (<1.7 mg/dl) 56.6 H Ur Random Sodium (30 - 90 mmol/L) 140 H Ur Random Potassium (mmol/L) 20.5 Urine Total Volume Cancelled Ur Total Protein 24 Hr Cancelled Fraction Sodium Excret (<1% %) 7.6 H U Cystine/Creat Ratio (mcg/mg) 2050.72 Imaging/Other Studies: *Initially, no copy of EKG on chart. 10/11/16: *EKG- NSR @ 77, emma; axis, PRWP, diffuse nonspecific T-wave abnormalities antlat. 10/11/16: CT abdomen and pelvis without contrast- Cirrhosis. Shrunken nodular liver without focal hepatic defects (within limits of a non-IV contrast study, due to low GFR). Large volume of ascites is increased from previous. Diffuse anasarca. Wall thickening of the ascending colon could represent portal colopathy. This is a change from prior and colitis is possible (*not clinically). Bilateral nonobstructing renal calculi. Small left pleural effusion.
[2016-10-15 08:35] LABS: ABSOLUTE BASOPHIL COUNT 0 /CUMM (0.0-0.2); ABSOLUTE EOSINOPHIL COUNT 0.1 /CUMM (0.0-0.7); ABSOLUTE GRANULOCYTE CT 2.2 /CUMM (1.4-6.5); ABSOLUTE LYMPH COUNT 0.6 /CUMM (1.2-3.4); ABSOLUTE MONOCYTE COUNT 0.3 /CUMM (0.10-0.60); EOSINOPHIL % 2.9 % (0-5); HEMATOCRIT 31.6 % (37-47); MEAN CORPUSCULAR HGB 32.5 PG (27.0-31.0); MEAN CORPUSCULAR HGB CONC 32.7 G/DL (33.0-37.0); MEAN CORPUSCULAR VOLUME 99.5 FL (81.0-99.0); RBC DISTRIBUTION WIDTH 16.9 % (11.5-14.5); RED BLOOD CELL CT 3.18 /CUMM (4.20-5.40); WHITE BLOOD CELL COUNT 3.2 /CUMM (4.8-10.8)
[2016-10-15 09:22] LABS: GRANULOCYTE % 69.2 % (42.2-75.2)
[2016-10-15 10:42] VITALS: BP 148/64
--- NOTE | 2016-10-15 11:15 | PN- Cardiology ---
Subjective Subjective: The patient is feeling better after her paracentesis. From a cardiac standpoint she is only on clonidine and amlodipine. Her blood pressure is borderline elevated. She is still mildly bradycardic but asymptomatic from this. She is off beta blockers and anticoagulants. She is not being given diuretics at this point either. Objective Vital Signs and I&Os Vital Signs Date Time Temp Pulse Resp B/P B/P Pulse O2 O2 Flow FiO2 Mean Ox Delivery Rate 10/15 1042 54 148/64 10/15 0644 97.9 56 20 166/66 96 Room Air 10/14 2231 97.5 53 20 158/58 96 10/14 1418 98.2 58 18 164/58 96 Room Air Room Air 10/14 1155 52 18 160/58 92 Room Air Room Air Intake & Output 10/15 1600 10/15 0800 10/15 0000 10/14 1600 10/14 0800 10/14 0000 Intake Total 240 340 120 600 Output Total 400 175 Balance 240 -60 120 425 Intake, IV 100 Intake, Oral 240 240 120 600 Output, Urine 400 175 Patient 150 lb 154 lb Weight Weight Chair scale Chair scale Measurement Method Physical Exam: She is in no distress HEENT exam is normal Chest is clear Heart regular rhythm mildly bradycardic soft systolic ejection murmur at base Extremities resolving edema Current Medications: Current Medications Sig/Radha Start time Last Medication Dose Route Stop Time Status Admin Acetaminophen 650 MG Q8P PRN 10/15 0845 AC PO Acetaminophen 650 MG Q6P PRN 10/11 1845 DC PO Amlodipine Besylate 10 MG DAILY 10/12 1000 AC 10/15 PO 1042 Apixaban 2.5 MG BID 10/14 2199 DC 10/14 PO 2044 Atorvastatin Calcium 80 MG 1700 10/11 1901 AC 10/14 PO 1628 Clonidine 0.1 MG QPM PRN 10/11 1915 AC PO Famotidine 20 MG DAILY 10/14 1000 AC 10/15 PO 1038 Fenofibrate 145 MG DAILY 10/12 1000 AC 10/15 PO 1038 Gabapentin 300 MG BID 10/12 1000 AC 10/15 PO 1038 Levothyroxine Sodium 0.175 MG DAILY AC 10/12 0700 AC 10/15 PO 0611 Magnesium Oxide 400 MG BID 10/12 2200 AC 10/15 PO 1038 Magnesium Sulfate 1 GM ONCE ONE 10/14 170 DC 10/14 Dextrose/Water 100 ML IV 10/14 2058 185 Tramadol HCl 50 MG Q12 PRN 10/15 0833 AC PO Tramadol HCl 50 MG Q4P PRN 10/11 1845 DC 10/14 PO 2046 Trimethobenzamide HCl 200 MG TID PRN 10/11 2030 AC IM Results Last 48 Hrs of Labs/Mics: Laboratory Tests 10/15/16 0642: Anion Gap 8, Estimated GFR 22 L, BUN/Creatinine Ratio 16.8, CBC w Diff NO MAN DIFF REQ, RBC 3.18 L, MCV 99.5 H, MCH 32.5 H, RDW 16.9 H, Gran % 69.2, Lymphocytes % 17.4 L, Monocytes % 9.5 H, Eosinophils % 2.9, Basophils % 1.0, Absolute Granulocytes 2.2, Absolute Lymphocytes 0.6 L, Absolute Monocytes 0.3, Absolute Eosinophils 0.1, Absolute Basophils 0, PUBS MCHC 32.7 L 10/14/16 1000: Fluid WBC Cancelled, Fld Total RBCs Counted Cancelled 10/14/16 0705: Anion Gap 6, Estimated GFR 20 L, BUN/Creatinine Ratio 17.1, CBC w Diff NO MAN DIFF REQ, RBC 3.41 L, MCV 100.2 H, MCH 33.3 H, RDW 17.0 H, MPV 9.5, Gran % 60.2, Lymphocytes % 25.3, Monocytes % 11.0 H, Eosinophils % 2.9, Basophils % 0.6, Absolute Granulocytes 2.1, Absolute Lymphocytes 0.9 L, Absolute Monocytes 0.4, Absolute Eosinophils 0.1, Absolute Basophils 0, PUBS MCHC 33.3 10/13/16 1325: PT 15.7 H, INR 1.50 H Assessment/Plan Assessment/Plan The patient is stable from a cardiac standpoint. Her blood pressure is mildly elevated but acceptable. She is mildly bradycardic but asymptomatic. I recommend sending her home on her current regimen. Nephrology should be consulted as to whether she should be on chronic diuretics and/or [place]/ARB inhibitors. She should not be restarted on beta blockers or anticoagulants at this time. I will follow her up in the office for her blood pressure and pulse Continue telemetry? Not applicable
[2016-10-15] MEDS ORDERED: GABAPENTIN300 M2 PO ×2 (11:54→15:30)
[2016-10-15] MEDS ORDERED: TRAMADOL HCL50 M1 PO ×2 (11:54→13:54)
[2016-10-15] MEDS ORDERED: MAGNESIUM OXID400 M1 PO ×2 (11:54→15:30)
[2016-10-15] MEDS ORDERED: PRINIVIL10 M1 PO ×2 (11:54→15:30)
[2016-10-15] MEDS ORDERED: FAMOTIDINE20 M1 PO ×2 (11:54→15:30)
== END 2016-10-15 14:45 | disposition home health service (06) | DRG 442 ==
LOC: ERH 12:28 → 2NB 17:14 → ERHI 17:14 → ENRESERV 18:54 → ENTRNSPT 20:13 → EDTRNSPTSTS 20:22 → 2NB 20:29 → CMPTRNSPT 20:49 → 2NB 10-15 14:45
PROVIDERS: Hospitalist; Internal Medicine; Physician Assistant Medical; ADMIT Internal Medicine
PROC: 0W9G3ZX Drainage of Peritoneal Cavity, Percutaneous Approach, Diagnostic (ICD-10-PCS; principal; 2016-10-14)
DX: K76.7 Hepatorenal syndrome (principal); N18.4 Chronic kidney disease, stage 4 (severe); R18.8 Other ascites; D69.6 Thrombocytopenia, unspecified; I13.0 Hypertensive heart and chronic kidney disease with heart failure and stage 1 through stage 4 chronic kidney disease, or unspecified chronic kidney disease; I50.32 Chronic diastolic (congestive) heart failure; E11.21 Type 2 diabetes mellitus with diabetic nephropathy; L97.219 Non-pressure chronic ulcer of right calf with unspecified severity; L97.229 Non-pressure chronic ulcer of left calf with unspecified severity; K74.60 Unspecified cirrhosis of liver; I48.91 Unspecified atrial fibrillation; K75.81 Nonalcoholic steatohepatitis (NASH); Z86.73 Personal history of transient ischemic attack (TIA), and cerebral infarction without residual deficits; R80.9 Proteinuria, unspecified; F32.9 Major depressive disorder, single episode, unspecified; E66.9 Obesity, unspecified; E55.9 Vitamin D deficiency, unspecified; M19.90 Unspecified osteoarthritis, unspecified site; D53.9 Nutritional anemia, unspecified; Z79.01 Long term (current) use of anticoagulants; N20.0 Calculus of kidney; E83.42 Hypomagnesemia; Z88.5 Allergy status to narcotic agent; K44.9 Diaphragmatic hernia without obstruction or gangrene; I25.2 Old myocardial infarction; G89.29 Other chronic pain; M54.9 Dorsalgia, unspecified; E11.22 Type 2 diabetes mellitus with diabetic chronic kidney disease; E11.43 Type 2 diabetes mellitus with diabetic autonomic (poly)neuropathy; K31.84 Gastroparesis; E06.3 Autoimmune thyroiditis
CPT/HCPCS: 2NBSP; 84133; 84300; 87075; 36415; 74176; 82436; 82570; 87045; 93005; 93010; 96374; J0131; J2405; J3250; P9047